=== PATIENT | male | born 1960 | race Caucasian/White ===

== ENCOUNTER 2018-06-03 16:20 | Emergency (ER) | payer BC ==
[2018-06-03 16:34] VITALS: BP 167/93
[2018-06-03] MEDS ORDERED: Sodium Chloride 0.9% 10 ML Syringe FLUSH PRN (16:36)
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
== END 2018-06-03 17:52 | disposition home or self-care (01) ==
LOC: JD.ED 16:20
DX: E11.649 Type 2 diabetes mellitus with hypoglycemia without coma (principal); I10 Essential (primary) hypertension; F17.210 Nicotine dependence, cigarettes, uncomplicated; Z88.6 Allergy status to analgesic agent; Z79.4 Long term (current) use of insulin; Z79.899 Other long term (current) drug therapy
CPT/HCPCS: 36415; 80053; 82962; 85025; 99284

== ENCOUNTER 2018-11-30 18:45 | Inpatient (IN) | payer BC ==
[2018-11-30] MEDS ORDERED: Bisacodyl 5 MG Tab PO PRN (19:25)
[2018-11-30] MEDS ORDERED: Docusate Sodium 100 MG Cap PO PRN (19:25)
[2018-11-30] MEDS ORDERED: Ondansetron 4 MG/2 ML SDV IV PRN (19:25)
[2018-11-30] MEDS ORDERED: Promethazine 25 MG Tab PO PRN (19:25)
[2018-11-30] MEDS ORDERED: Acetaminophen 325 MG Tab PO PRN (19:25)
[2018-11-30] MEDS ORDERED: Promethazine 6.25 MG in Sodium Chloride 0.9% 50 ML IV PRN (19:25)
[2018-11-30] MEDS ORDERED: Temazepam 15 MG Cap PO PRN (19:25)
[2018-11-30] MEDS ORDERED: Albuterol/Ipratropium 3.0-0.5 MG/3 ML Neb Soln NEB PRN (19:25)
[2018-11-30] MEDS ORDERED: Polyethylene Glycol 3350 Powder 17 GM Packet PO PRN (19:25)
[2018-11-30] MEDS ORDERED: 50% Dextrose in Water 50 ML Syringe IVPUSH PRN (19:37)
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
[2018-11-30] MEDS ORDERED: Piperacillin/Tazobactam 4.5 GM in Sodium Chloride 0.9% 100 ML IV SCH ×2 (19:45→20:45)
[2018-11-30 20:00] LABS: HEMOGLOBIN A1C 9.3 % (4.50-6.20)
[2018-11-30] MEDS: HYDROmorphone 0.5 MG/0.5 ML Syringe IVPUSH PRN (20:15)
[2018-11-30 20:24] LABS: VITAMIN D,25-HYDROXY 19.2 ng/ml (30.0-100.0)
[2018-11-30] MEDS ORDERED: Piperacillin/Tazobactam 4.5 GM in Sodium Chloride 0.9% 100 ML IV ONE ×2 (21:15→22:00)
[2018-11-30] MEDS: Lactated Ringers 1,000 ML IV SCH (21:34)
[2018-11-30] MEDS: Insulin Lispro 100 Units/ML 3 ML Vial SUBCUT PRN (21:34)
[2018-11-30] MEDS: Pantoprazole 40 MG Vial IV SCH (21:34)
--- NOTE | 2018-11-30 21:51 | PCM.CONSN ---
- General Info Date of Service: 11/30/18 - Patient Data Vitals - Most Recent: Last Vital Signs Temp 97.8 F 11/30/18 19:20 Pulse 116 H 11/30/18 19:20 Resp 24 H 11/30/18 19:20 BP 163/92 H 11/30/18 19:20 Pulse Ox 99 11/30/18 19:20 Weight - Most Recent: 83.915 kg Lab Results Last 24 Hours: Laboratory Results - last 24 hr 11/30/18 11/30/18 11/30/18 Range/Units 19:06 19:15 20:25 POC Glucose (70-105) mg/dL Hemoglobin A1c 9.30 H (4.50-6.20) % Lactic Acid 1.0 (0.4-2.0) mmol/L C-Reactive Protein 9.0 H* (<1.0) mg/dL Vitamin D 25-Hydroxy 19.2 L (30.0-100.0) ng/ml 11/30/18 Range/Units 21:07 POC Glucose 261 H (70-105) mg/dL Hemoglobin A1c (4.50-6.20) % Lactic Acid (0.4-2.0) mmol/L C-Reactive Protein (<1.0) mg/dL Vitamin D 25-Hydroxy (30.0-100.0) ng/ml Med Orders - Current: Current Medications Acetaminophen (Tylenol) 650 mg PO Q4H PRN PRN Reason: Pain (Mild 1-3)/fever Hydrocodone Bitart/Acetaminophen ([place] 325-5 Mg) 1 tab PO Q4H PRN PRN Reason: Pain (moderate 4-6) Albuterol/Ipratropium (Duoneb 3.0-0.5 Mg/3 Ml) 3 ml NEB Q4H PRN PRN Reason: Shortness Of Breath/wheezing Aspirin (Halfprin) 81 mg PO DAILY IVA Bisacodyl (Dulcolax) 5 mg PO DAILY PRN PRN Reason: Constipation Cholecalciferol (Vitamin D3) 5,000 unit PO DAILY IVA Clonazepam (Klonopin) 1 mg PO BEDTIME PRN PRN Reason: Insomnia Dextrose/Water (Dextrose 50% In Water) 50 ml IVPUSH ASDIRECTED PRN PRN Reason: Hypoglycemia Docusate Sodium (Colace) 100 mg PO BID PRN PRN Reason: Constipation Enoxaparin Sodium (Lovenox) 30 mg SUBCUT DAILY [facility] Hydromorphone HCl (Dilaudid) 0.25 mg IVPUSH Q2H PRN PRN Reason: Pain (severe 7-10) Last Admin: 11/30/18 20:15 Dose: 0.25 mg Promethazine HCl 6.25 mg/ (Sodium Chloride) 50.25 mls @ 100 mls/hr IV Q6H PRN PRN Reason: Nausea/Vomiting Lactated Ringer's (Ringers, Lactated) 1,000 mls @ 125 mls/hr IV ASDIRECTED [facility] Last Admin: 11/30/18 21:34 Dose: 125 mls/hr Piperacillin Sod/Tazobactam (Sod 4.5 gm/ Sodium Chloride) 100 mls @ 25 mls/hr IV Q8H IVA Piperacillin Sod/Tazobactam (Sod 4.5 gm/ Sodium Chloride) 100 mls @ 200 mls/hr IV ONETIME ONE Stop: 11/30/18 22:29 Vancomycin HCl 1 gm/Vancomycin HCl 250 mg/ Sodium Chloride 500 mls @ 333.333 mls/hr IV Q12H [facility] Insulin Human Lispro (Humalog) 0 unit SUBCUT QIDACANDBED PRN; Protocol PRN Reason: Hyperglycemia Last Admin: 11/30/18 21:34 Dose: 6 units Miscellaneous Information (Remove Patch) 1 ea TRDERM DAILY [facility] Nicotine (Habitrol) 21 mg TRDERM DAILY [facility] Ondansetron HCl (Zofran) 4 mg IV Q6H PRN PRN Reason: Nausea/Vomiting Pantoprazole Sodium (Protonix Iv) 40 mg IV Q12HR [facility] Last Admin: 11/30/18 21:34 Dose: 40 mg Polyethylene Glycol (Miralax) 17 gm PO DAILY PRN PRN Reason: Constipation Promethazine HCl (Phenergan) 50 mg PO Q6H PRN PRN Reason: Nausea/Vomiting Senna/Docusate Sodium (Senna Plus) 1 tab PO BID PRN PRN Reason: Constipation Simvastatin (Zocor) 10 mg PO DAILY [facility] Temazepam (Restoril) 15 mg PO BEDTIME PRN PRN Reason: Sleep Vancomycin HCl (Pharmacy To Dose - Vancomycin) 1 dose .XX ASDIRECTED [facility] Discontinued Medications Enoxaparin Sodium (Lovenox) 30 mg SUBCUT DAILY IVA Piperacillin Sod/Tazobactam (Sod 4.5 gm/ Sodium Chloride) 100 mls @ 200 mls/hr IV Q8H IVA Last Admin: 11/30/18 21:03 Dose: 200 mls/hr Piperacillin Sod/Tazobactam (Sod 4.5 gm/ Sodium Chloride) 100 mls @ 200 mls/hr IV ONETIME ONE Stop: 11/30/18 21:44 Consult PN Assessment/Plan Procedures: Procedures COMPLETE CBC W/AUTO DIFF WBC (06/03/18) COMPREHEN METABOLIC PANEL (06/03/18) CT HEAD/BRAIN W/O DYE (04/24/16) CT NECK SPINE W/O DYE (04/24/16) EMERGENCY DEPT VISIT (06/03/18) GLUCOSE BLOOD TEST (06/03/18) ROUTINE VENIPUNCTURE (06/03/18) THROMBOPLASTIN TIME PARTIAL (04/26/14) URINE BACTERIA CULTURE (04/26/14) Problem List Initiated/Reviewed/Updated: Yes My Orders Last 24 Hours: My Active Orders 11/30/18 21:49 Verify Patient Consent Obtain [RC] ASDIRECTED 12/01/18 Breakfast Nothing per Oral After Midnight Diet [DIET] Plan: consult dictated SKIP
[2018-11-30] MEDS ORDERED: Vancomycin 1 GM, Vancomycin 250 MG in Sodium Chloride 0.9% 500 ML IV SCH (23:00)
[2018-12-01] MEDS: ClonazePAM 1 MG Tab PO PRN ×2 (00:54→20:50)
[2018-12-01] MEDS: Piperacillin/Tazobactam 4.5 GM in Sodium Chloride 0.9% 100 ML IV SCH ×3 (05:09→20:44)
[2018-12-01] MEDS: Acetaminophen/HYDROcodone 325-5 MG Tab PO PRN ×3 (05:16→18:06)
[2018-12-01] MEDS ORDERED: Piperacillin/Tazobactam 4.5 GM in Sodium Chloride 0.9% 100 ML IV SCH (07:00)
[2018-12-01] MEDS: Lactated Ringers 1,000 ML IV SCH ×2 (07:51→20:44)
--- NOTE | 2018-12-01 08:27 | CONS ---
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 The swelling is mostly in the finger. He came in and was admitted to the hospital with cellulitis of the index finger with abscess. The patient has had progressive ulcerations of his index finger, which was treated with ointment and protection, and the nail slowly gave way, and was able to just have the tip of the finger, and this progressed into the present problem of an abscess. He has type 2 diabetes which has been treated with insulin. His hemoglobin A1c's have been ranging in the 9. He is also on oral hypoglycemic agents. ALLERGIES: To ibuprofen. SOCIAL HISTORY: He does smoke. No use of street drugs or marijuana. Uses caffeine regularly. REVIEW OF SYSTEMS: No chest pain, shortness of breath, cough, hoarseness, wheezing, fainting, weakness, numbness, or convulsions. CURRENT MEDICATIONS: Reviewed. PHYSICAL EXAMINATION: GENERAL: A cooperative male. EYES: Unremarkable. NECK: Supple. I do not hear any carotid bruits. LUNGS: Distant breath sounds, consistent with COPD. HEART: Heart tones are distant. Regular rate. ABDOMEN: Soft. EXTREMITIES: Show the left index finger with loss of nail and eschar over the tip of the nail with pus coming through. The finger is tender and motion is limited. No pain with motion. There is also some thickening of the tips of the middle finger. Arch is intact by Doppler. The ulnar and radial pulses are present by Doppler and biphasic. Left hand shows dry scale over the finger tips on the left. The feet are unremarkable. ASSESSMENT: Diabetes type 2, with infected finger. PLAN: Debridement of the finger tip in the operating room under IV sedation. Further studies are being planned to look for osteomyelitis. MMODAL /[id number]
[2018-12-01] MEDS ORDERED: Lidocaine 1% 30 ML SDV ONE (08:46)
[2018-12-01] MEDS ORDERED: Enoxaparin 30 MG/0.3 ML Syringe SUBCUT SCH (09:00)
[2018-12-01] MEDS ORDERED: Nicotine 21 MG/24 Hr Patch TRDERM SCH (09:00)
[2018-12-01] MEDS ORDERED: Enoxaparin 40 MG/0.4 ML Syringe SUBCUT SCH (09:00)
--- NOTE | 2018-12-01 09:27 | PCM.PREANE ---
Preanesthetic Assessment - Anesthesia/Transfusion/Family Hx Anesthesia History: Prior Anesthesia Without Reaction Family History of Anesthesia Reaction: No Transfusion History: No Prior Transfusion(s) - Review of Systems General: Fatigue, Malaise Pulmonary: Cough (smokers) Cardiovascular: No Symptoms Gastrointestinal: No Symptoms Neurological: Numbness ("fingers and legs") Other: Reports: Easy Bleeding, Diabetes (check this am 70) - Physical Assessment NPO Status Date: 12/01/18 NPO Status Time: 00:00 Vital Signs: Last Vital Signs Temp 36.8 C 12/01/18 08:17 Pulse 92 12/01/18 08:17 Resp 16 12/01/18 08:17 BP 108/69 12/01/18 08:17 Pulse Ox 94 L 12/01/18 08:17 Height: 1.75 m Weight: 70.08 kg ASA Class: 2 Mental Status: Alert & Oriented x3 Airway Class: Mallampati = 1 Dentition: Reports: Dentures Thyro-Mental Finger Breadths: 3 Mouth Opening Finger Breadths: 3 ROM/Head Extension: Full Lungs: Clear to Auscultation, Normal Respiratory Effort Cardiovascular: Regular Rate, Regular Rhythm - Lab Values: Laboratory Last Values WBC 19.24 K/mm3 (4.23-9.07) H 12/01/18 03:37 RBC 3.81 M/mm3 (4.63-6.08) L 12/01/18 03:37 Hgb 12.4 gm/dl (13.7-17.5) L D 12/01/18 03:37 Hct 36.5 % (40.1-51.0) L 12/01/18 03:37 MCV 95.8 fl (79.0-92.2) H 12/01/18 03:37 MCH 32.5 pg (25.7-32.2) H 12/01/18 03:37 MCHC 34.0 g/dl (32.2-35.5) 12/01/18 03:37 RDW Std Deviation 41.9 fL (35.1-43.9) 12/01/18 03:37 Plt Count 304 K/mm3 (163-337) 12/01/18 03:37 MPV 9.5 fl (9.4-12.3) 12/01/18 03:37 Neut % (Auto) 84.9 % (34.0-67.9) H 12/01/18 03:37 Lymph % (Auto) 6.2 % (21.8-53.1) L 12/01/18 03:37 [place] % (Auto) 7.8 % (5.3-12.2) 12/01/18 03:37 Eos % (Auto) 0.7 (0.8-7.0) L 12/01/18 03:37 Baso % (Auto) 0.2 % (0.1-1.2) 12/01/18 03:37 Neut # (Auto) 16.33 K/mm3 (1.78-5.38) H 12/01/18 03:37 Lymph # (Auto) 1.19 K/mm3 (1.32-3.57) L 12/01/18 03:37 [place] # (Auto) 1.51 K/mm3 (0.30-0.82) H 12/01/18 03:37 Eos # (Auto) 0.14 K/mm3 (0.04-0.54) 12/01/18 03:37 Baso # (Auto) 0.03 K/mm3 (0.01-0.08) 12/01/18 03:37 Manual Slide Review Abnormal smear 12/01/18 03:37 Sodium 132 mEq/L (136-145) L 12/01/18 03:37 Potassium 3.7 mEq/L (3.5-5.1) 12/01/18 03:37 Chloride 99 mEq/L (98-107) 12/01/18 03:37 Carbon Dioxide 25 mEq/L (21-32) 12/01/18 03:37 Anion Gap 11.7 (5-15) 12/01/18 03:37 BUN 22 mg/dL (7-18) H 12/01/18 03:37 Creatinine 1.5 mg/dL (0.7-1.3) H 12/01/18 03:37 Est Cr Clr Drug Dosing 52.37 mL/min 12/01/18 03:37 Estimated GFR (MDRD) 48 mL/min (>60) 12/01/18 03:37 BUN/Creatinine Ratio 14.7 (14-18) 12/01/18 03:37 Glucose 69 mg/dL (74-106) L 12/01/18 03:37 POC Glucose 130 mg/dL (70-105) H 12/01/18 07:24 Hemoglobin A1c 9.30 % (4.50-6.20) H 11/30/18 19:15 Lactic Acid 0.8 mmol/L (0.4-2.0) 12/01/18 03:37 Calcium 9.0 mg/dL (8.5-10.1) 12/01/18 03:37 Magnesium 2.3 mg/dl (1.8-2.4) 12/01/18 03:37 Total Bilirubin 0.7 mg/dL (0.2-1.0) 11/30/18 22:12 AST 54 U/L (15-37) H 11/30/18 22:12 ALT 42 U/L (16-63) 11/30/18 22:12 Alkaline Phosphatase 160 U/L (46-116) H 11/30/18 22:12 C-Reactive Protein 11.8 mg/dL (<1.0) H* 12/01/18 03:37 Total Protein 7.3 g/dl (6.4-8.2) 11/30/18 22:12 Albumin 2.9 g/dl (3.4-5.0) L 11/30/18 22:12 Globulin 4.4 gm/dL 11/30/18 22:12 Albumin/Globulin Ratio 0.7 (1-2) L 11/30/18 22:12 Triglycerides 99 mg/dL (<150) 12/01/18 03:37 Cholesterol 129 mg/dL (<200) 12/01/18 03:37 LDL Cholesterol Direct 57 mg/dL (<100) 12/01/18 03:37 HDL Cholesterol 54.0 mg/dL (40-59) 12/01/18 03:37 Vitamin D 25-Hydroxy 19.2 ng/ml (30.0-100.0) L 11/30/18 19:06 Ur Random Creatinine 46.1 mg/dL (30.0-125.0) 11/30/18 23:25 U Random Total Protein 44.7 mg/dL (0.0-11.8) H 11/30/18 23:25 Protein/Creatinin Ratio 969.6 mg/g (0-149) H 11/30/18 23:25 - Allergies Allergies/Adverse Reactions: Allergies Allergy/AdvReac Type Severity Reaction Status Date / Time ibuprofen Allergy Nausea Verified 06/03/18 16:34 - Anesthesia Plan Pre-Op Medication Ordered: None - Acknowledgements Anesthesia Type Planned: MAC Pt an Appropriate Candidate for the Planned Anesthesia: Yes Alternatives and Risks of Anesthesia Discussed w Pt/Guardian: Yes Pt/Guardian Understands and Agrees with Anesthesia Plan: Yes PreAnesthesia Questionnaire Cardiovascular History: Reports: Hypertension Musculoskeletal History: Reports: Fracture, Other (See Below) Other Musculoskeletal History: rib fracture Endocrine/Metabolic History: Reports: Diabetes, Type II - Infectious Disease History Infectious Disease History: Reports: None - Past Surgical History Neurological Surgical History: Reports: Lumbar Spine - SUBSTANCE USE Smoking Status *Q: Current Every Day Smoker Tobacco Use Within Last Twelve Months: Cigarettes Second Hand Smoke Exposure: No Days Per Week of Alcohol Use: 5 Number of Drinks Per Day: 1 Total Drinks Per Week: 5 Recreational Drug Use History: No - HOME MEDS Home Medications: Home Meds atorvaSTATin [Lipitor] 1 tab PO DAILY 04/24/16 [History] Aspirin [Halfprin] 81 mg PO DAILY 11/30/18 [History] Gabapentin [Neurontin] 600 mg PO ACLUNCH 11/30/18 [History] Gabapentin [Neurontin] 900 mg PO BID 11/30/18 [History] Insulin Glargine,Hum.Rec.Anlog [Lantus Solostar] 40 unit SQ ASDIRECTED 11/30/18 [History] Naproxen Sodium [Aleve] 440 mg PO QAM 11/30/18 [History] clonazePAM [Klonopin] 1 mg PO BEDTIME PRN 11/30/18 [History] metFORMIN [Glucophage XR] 500 mg PO DAILY 11/30/18 [History] - CURRENT (IN HOUSE) MEDS Current Meds: Current Medications Acetaminophen (Tylenol) 650 mg PO Q4H PRN PRN Reason: Pain (Mild 1-3)/fever Hydrocodone Bitart/Acetaminophen ([place] 325-5 Mg) 1 tab PO Q4H PRN PRN Reason: Pain (moderate 4-6) Last Admin: 12/01/18 05:16 Dose: 1 tab Albuterol/Ipratropium (Duoneb 3.0-0.5 Mg/3 Ml) 3 ml NEB Q4H PRN PRN Reason: Shortness Of Breath/wheezing Aspirin (Halfprin) 81 mg PO DAILY [facility] Bisacodyl (Dulcolax) 5 mg PO DAILY PRN PRN Reason: Constipation Cholecalciferol (Vitamin D3) 5,000 unit PO DAILY [facility] Clonazepam (Klonopin) 1 mg PO BEDTIME PRN PRN Reason: Insomnia Last Admin: 12/01/18 00:54 Dose: 1 mg Dextrose/Water (Dextrose 50% In Water) 50 ml IVPUSH ASDIRECTED PRN PRN Reason: Hypoglycemia Last Admin: 12/01/18 06:55 Dose: 25 ml Docusate Sodium (Colace) 100 mg PO BID PRN PRN Reason: Constipation Enoxaparin Sodium (Lovenox) 40 mg SUBCUT DAILY [facility] Hydromorphone HCl (Dilaudid) 0.25 mg IVPUSH Q2H PRN PRN Reason: Pain (severe 7-10) Last Admin: 11/30/18 20:15 Dose: 0.25 mg Promethazine HCl 6.25 mg/ (Sodium Chloride) 50.25 mls @ 100 mls/hr IV Q6H PRN PRN Reason: Nausea/Vomiting Lactated Ringer's (Ringers, Lactated) 1,000 mls @ 125 mls/hr IV ASDIRECTED [facility] Last Admin: 12/01/18 07:51 Dose: 125 mls/hr Piperacillin Sod/Tazobactam (Sod 4.5 gm/ Sodium Chloride) 100 mls @ 25 mls/hr IV Q8H [facility] Last Admin: 12/01/18 05:09 Dose: 25 mls/hr Vancomycin HCl 1 gm/Vancomycin HCl 250 mg/ Sodium Chloride 250 mls @ 166.667 mls/hr IV Q18H [facility] Insulin Human Lispro (Humalog) 0 unit SUBCUT QIDACANDBED PRN; Protocol PRN Reason: Hyperglycemia Last Admin: 11/30/18 21:34 Dose: 6 units Ondansetron HCl (Zofran) 4 mg IV Q6H PRN PRN Reason: Nausea/Vomiting Pantoprazole Sodium (Protonix) 40 mg PO BID [facility] Polyethylene Glycol (Miralax) 17 gm PO DAILY PRN PRN Reason: Constipation Promethazine HCl (Phenergan) 50 mg PO Q6H PRN PRN Reason: Nausea/Vomiting Senna/Docusate Sodium (Senna Plus) 1 tab PO BID PRN PRN Reason: Constipation Simvastatin (Zocor) 10 mg PO DAILY IVA Temazepam (Restoril) 15 mg PO BEDTIME PRN PRN Reason: Sleep Vancomycin HCl (Pharmacy To Dose - Vancomycin) 1 dose .XX ASDIRECTED PRN PRN Reason: RX TO DOSE VANCO Discontinued Medications Enoxaparin Sodium (Lovenox) 30 mg SUBCUT DAILY [facility] Piperacillin Sod/Tazobactam (Sod 4.5 gm/ Sodium Chloride) 100 mls @ 200 mls/hr IV Q8H [facility] Last Admin: 11/30/18 21:03 Dose: 200 mls/hr Piperacillin Sod/Tazobactam (Sod 4.5 gm/ Sodium Chloride) 100 mls @ 200 mls/hr IV ONETIME ONE Stop: 11/30/18 21:44 Vancomycin HCl 1 gm/Vancomycin HCl 250 mg/ Sodium Chloride 500 mls @ 333.333 mls/hr IV Q12H [facility] Last Admin: 11/30/18 23:11 Dose: 333.333 mls/hr Lidocaine HCl (Xylocaine-Mpf 1%) Confirm Administered Dose 30 ml .ROUTE .STK- MED ONE Stop: 12/01/18 08:47 Miscellaneous Information (Remove Patch) 1 ea TRDERM DAILY [facility] Nicotine (Habitrol) 21 mg TRDERM DAILY [facility] Pantoprazole Sodium (Protonix Iv) 40 mg IV Q12HR [facility] Last Admin: 11/30/18 21:34 Dose: 40 mg
[2018-12-01] MEDS ORDERED: Lidocaine 1% 4 ML ONE (09:34)
[2018-12-01] MEDS ORDERED: Midazolam 1 MG/ML 2 ML SDV ONE (09:34)
[2018-12-01] MEDS ORDERED: Propofol 200 MG/20 ML SDV ONE (09:34)
[2018-12-01] MEDS ORDERED: fentaNYL 100 MCG/2 ML SDV ONE (09:34)
--- NOTE | 2018-12-01 09:38 | CT ---
CT left hand Technique: Multiple axial sections through the left hand were obtained. Reconstructed coronal and sagittal images were obtained. Intravenous contrast was utilized. There is significant motion artifact present which limits evaluation for subtle bone lesions. Findings: Diffuse soft tissue swelling is noted presumably due to diffuse cellulitis. Asymmetric soft tissue swelling is seen within the 2nd digit. No focal fluid collections are seen to indicate an abscess. Chondrocalcinosis is seen within the wrist. Joint space narrowing is noted within the 2nd and 3rd MCP joints. Second digit shows soft tissue air. There is deformity within the distal phalanx of the 2nd finger. Findings are suspicious for destructive change from osteomyelitis. Impression: 1. Diffuse cellulitis which is asymmetrically worse within the 2nd finger. 2. Mild amount of soft tissue air within the base of the 2nd digit compatible with infection. 3. Mild destruction of the distal phalanx of the 2nd finger which is suspicious for osteomyelitis. 4. Degenerative change as noted above as well as chondrocalcinosis. Note: Motion artifact limiting details for subtle bone lesions. Diagnostic code #3 I agree with preliminary report from [facility], finalized on 12/01/18, 12:49 AM Central Time
--- NOTE | 2018-12-01 10:06 | PCM.OPNOTE ---
- General Post-Op/Procedure Note Date of Surgery/Procedure: 12/01/18 Operative Procedure(s): abscess of the left index finger tip Pre Op Diagnosis: abscess of left index finger tip Post-Op Diagnosis: Same Anesthesia Technique: MAC Primary Surgeon: Jesse Martinez EBL in mLs: 5 Complications: None Condition: Good Free Text/Narrative:: Intake & Output 11/30/18 12/01/18 12/01/18 23:59 07:59 15:59 Intake Total 1625 Output Total 600 Balance 1025
--- NOTE | 2018-12-01 10:27 | PCM48HPAN ---
Post Anesthesia Note - EVALUATION WITHIN 48HRS OF ANESTHETIC Vital Signs in Normal Range: Yes Patient Participated in Evaluation: Yes Respiratory Function Stable: Yes Airway Patent: Yes Cardiovascular Function Stable: Yes Hydration Status Stable: Yes Pain Control Satisfactory: Yes Nausea and Vomiting Control Satisfactory: Yes Mental Status Recovered: Yes Vital Signs: Last Vital Signs Temp 36.8 C 12/01/18 08:17 Pulse 92 12/01/18 08:17 Resp 16 12/01/18 08:17 BP 108/69 12/01/18 08:17 Pulse Ox 94 L 12/01/18 08:17 - COMMENTS/OBSERVATIONS Free Text/Narrative:: no anesthesia complications noted
[2018-12-01] MEDS: Aspirin 81 MG Tab.EC PO SCH (13:49)
[2018-12-01] MEDS: Simvastatin 10 MG Tab PO SCH (13:50)
[2018-12-01] MEDS: Pantoprazole 40 MG Tab.CR PO SCH ×2 (13:56→20:50)
[2018-12-01] MEDS: Cholecalciferol (Vitamin D3) 5,000 UNIT Tab PO SCH (13:56)
--- NOTE | 2018-12-01 14:15 | PCM.PN ---
<Richi Salgado - Last Filed: 12/01/18 14:08> - General Info Date of Service: 12/01/18 Admission Dx/Problem (Free Text): Admission Diagnosis/Problem Admission Diagnosis/Problem Cellulitis and abscess of finger Subjective Update: Patient is doing well today. He was afebrile over night and is scheduled for debridement with Dr. Martinez today. 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 Functional Status: Reports: Pain Controlled, Tolerating Diet, Ambulating, Urinating. Denies: New Symptoms - Review of Systems General: Reports: No Symptoms HEENT: Reports: No Symptoms Pulmonary: Reports: No Symptoms Cardiovascular: Reports: No Symptoms Gastrointestinal: Reports: No Symptoms Genitourinary: Reports: No Symptoms Musculoskeletal: Reports: No Symptoms Skin: Reports: No Symptoms Neurological: Reports: No Symptoms Psychiatric: Reports: No Symptoms - Patient Data Vitals - Most Recent: Last Vital Signs Temp 98.2 F 12/01/18 08:17 Pulse 92 12/01/18 08:17 Resp 16 12/01/18 08:17 BP 108/69 12/01/18 08:17 Pulse Ox 94 L 12/01/18 08:17 Weight - Most Recent: 70.08 kg I&O - Last 24 Hours: Intake & Output 11/30/18 12/01/18 12/01/18 22:59 06:59 14:59 Intake Total 1625 Output Total 600 Balance 1025 Lab Results Last 24 Hours: Laboratory Results - last 24 hr 11/30/18 11/30/18 11/30/18 Range/Units 19:06 19:15 20:25 WBC (4.23-9.07) K/mm3 RBC (4.63-6.08) M/mm3 Hgb (13.7-17.5) gm/dl Hct (40.1-51.0) % MCV (79.0-92.2) fl MCH (25.7-32.2) pg MCHC (32.2-35.5) g/dl RDW Std Deviation (35.1-43.9) fL Plt Count (163-337) K/mm3 MPV (9.4-12.3) fl Neut % (Auto) (34.0-67.9) % Lymph % (Auto) (21.8-53.1) % [place] % (Auto) (5.3-12.2) % Eos % (Auto) (0.8-7.0) Baso % (Auto) (0.1-1.2) % Neut # (Auto) (1.78-5.38) K/mm3 Lymph # (Auto) (1.32-3.57) K/mm3 [place] # (Auto) (0.30-0.82) K/mm3 Eos # (Auto) (0.04-0.54) K/mm3 Baso # (Auto) (0.01-0.08) K/mm3 Manual Slide Review Sodium (136-145) mEq/L Potassium (3.5-5.1) mEq/L Chloride (98-107) mEq/L Carbon Dioxide (21-32) mEq/L Anion Gap (5-15) BUN (7-18) mg/dL Creatinine (0.7-1.3) mg/dL Est Cr Clr Drug Dosing mL/min Estimated GFR (MDRD) (>60) mL/min BUN/Creatinine Ratio (14-18) Glucose (74-106) mg/dL POC Glucose (70-105) mg/dL Hemoglobin A1c 9.30 H (4.50-6.20) % Lactic Acid 1.0 (0.4-2.0) mmol/L Calcium (8.5-10.1) mg/dL Magnesium (1.8-2.4) mg/dl Total Bilirubin (0.2-1.0) mg/dL AST (15-37) U/L ALT (16-63) U/L Alkaline Phosphatase (46-116) U/L C-Reactive Protein 9.0 H* (<1.0) mg/dL Total Protein (6.4-8.2) g/dl Albumin (3.4-5.0) g/dl Globulin gm/dL Albumin/Globulin Ratio (1-2) Triglycerides (<150) mg/dL Cholesterol (<200) mg/dL LDL Cholesterol Direct (<100) mg/dL HDL Cholesterol (40-59) mg/dL Vitamin D 25-Hydroxy 19.2 L (30.0-100.0) ng/ml Ur Random Creatinine (30.0-125.0) mg/dL U Random Total Protein (0.0-11.8) mg/dL Protein/Creatinin Ratio (0-149) mg/g 11/30/18 11/30/18 11/30/18 Range/Units 21:07 22:12 23:25 WBC (4.23-9.07) K/mm3 RBC (4.63-6.08) M/mm3 Hgb (13.7-17.5) gm/dl Hct (40.1-51.0) % MCV (79.0-92.2) fl MCH (25.7-32.2) pg MCHC (32.2-35.5) g/dl RDW Std Deviation (35.1-43.9) fL Plt Count (163-337) K/mm3 MPV (9.4-12.3) fl Neut % (Auto) (34.0-67.9) % Lymph % (Auto) (21.8-53.1) % [place] % (Auto) (5.3-12.2) % Eos % (Auto) (0.8-7.0) Baso % (Auto) (0.1-1.2) % Neut # (Auto) (1.78-5.38) K/mm3 Lymph # (Auto) (1.32-3.57) K/mm3 [place] # (Auto) (0.30-0.82) K/mm3 Eos # (Auto) (0.04-0.54) K/mm3 Baso # (Auto) (0.01-0.08) K/mm3 Manual Slide Review Sodium 128 L D (136-145) mEq/L Potassium 4.1 (3.5-5.1) mEq/L Chloride 95 L (98-107) mEq/L Carbon Dioxide 24 (21-32) mEq/L Anion Gap 13.1 (5-15) BUN 24 H (7-18) mg/dL Creatinine 1.6 H (0.7-1.3) mg/dL Est Cr Clr Drug Dosing 49.10 mL/min Estimated GFR (MDRD) 44 (>60) mL/min BUN/Creatinine Ratio 15.0 (14-18) Glucose 243 H (74-106) mg/dL POC Glucose 261 H (70-105) mg/dL Hemoglobin A1c (4.50-6.20) % Lactic Acid (0.4-2.0) mmol/L Calcium 8.7 (8.5-10.1) mg/dL Magnesium (1.8-2.4) mg/dl Total Bilirubin 0.7 (0.2-1.0) mg/dL AST 54 H (15-37) U/L ALT 42 (16-63) U/L Alkaline Phosphatase 160 H (46-116) U/L C-Reactive Protein (<1.0) mg/dL Total Protein 7.3 (6.4-8.2) g/dl Albumin 2.9 L (3.4-5.0) g/dl Globulin 4.4 gm/dL Albumin/Globulin Ratio 0.7 L (1-2) Triglycerides (<150) mg/dL Cholesterol (<200) mg/dL LDL Cholesterol Direct (<100) mg/dL HDL Cholesterol (40-59) mg/dL Vitamin D 25-Hydroxy (30.0-100.0) ng/ml Ur Random Creatinine 46.1 (30.0-125.0) mg/dL U Random Total Protein 44.7 H (0.0-11.8) mg/dL Protein/Creatinin Ratio 969.6 H (0-149) mg/g 11/30/18 12/01/18 12/01/18 Range/Units 23:34 03:37 03:37 WBC 19.24 H (4.23-9.07) K/mm3 RBC 3.81 L (4.63-6.08) M/mm3 Hgb 12.4 L D (13.7-17.5) gm/dl Hct 36.5 L (40.1-51.0) % MCV 95.8 H (79.0-92.2) fl MCH 32.5 H (25.7-32.2) pg MCHC 34.0 (32.2-35.5) g/dl RDW Std Deviation 41.9 (35.1-43.9) fL Plt Count 304 (163-337) K/mm3 MPV 9.5 (9.4-12.3) fl Neut % (Auto) 84.9 H (34.0-67.9) % Lymph % (Auto) 6.2 L (21.8-53.1) % [place] % (Auto) 7.8 (5.3-12.2) % Eos % (Auto) 0.7 L (0.8-7.0) Baso % (Auto) 0.2 (0.1-1.2) % Neut # (Auto) 16.33 H (1.78-5.38) K/mm3 Lymph # (Auto) 1.19 L (1.32-3.57) K/mm3 [place] # (Auto) 1.51 H (0.30-0.82) K/mm3 Eos # (Auto) 0.14 (0.04-0.54) K/mm3 Baso # (Auto) 0.03 (0.01-0.08) K/mm3 Manual Slide Review Abnormal smear Sodium 132 L (136-145) mEq/L Potassium 3.7 (3.5-5.1) mEq/L Chloride 99 (98-107) mEq/L Carbon Dioxide 25 (21-32) mEq/L Anion Gap 11.7 (5-15) BUN 22 H (7-18) mg/dL Creatinine 1.5 H (0.7-1.3) mg/dL Est Cr Clr Drug Dosing 52.37 mL/min Estimated GFR (MDRD) 48 (>60) mL/min BUN/Creatinine Ratio 14.7 (14-18) Glucose 69 L (74-106) mg/dL POC Glucose (70-105) mg/dL Hemoglobin A1c (4.50-6.20) % Lactic Acid 1.3 (0.4-2.0) mmol/L Calcium 9.0 (8.5-10.1) mg/dL Magnesium 2.3 (1.8-2.4) mg/dl Total Bilirubin (0.2-1.0) mg/dL AST (15-37) U/L ALT (16-63) U/L Alkaline Phosphatase (46-116) U/L C-Reactive Protein 11.8 H* (<1.0) mg/dL Total Protein (6.4-8.2) g/dl Albumin (3.4-5.0) g/dl Globulin gm/dL Albumin/Globulin Ratio (1-2) Triglycerides 99 (<150) mg/dL Cholesterol 129 (<200) mg/dL LDL Cholesterol Direct 57 (<100) mg/dL HDL Cholesterol 54.0 (40-59) mg/dL Vitamin D 25-Hydroxy (30.0-100.0) ng/ml Ur Random Creatinine (30.0-125.0) mg/dL U Random Total Protein (0.0-11.8) mg/dL Protein/Creatinin Ratio (0-149) mg/g 12/01/18 12/01/18 12/01/18 Range/Units 03:37 06:42 07:24 WBC (4.23-9.07) K/mm3 RBC (4.63-6.08) M/mm3 Hgb (13.7-17.5) gm/dl Hct (40.1-51.0) % MCV (79.0-92.2) fl MCH (25.7-32.2) pg MCHC (32.2-35.5) g/dl RDW Std Deviation (35.1-43.9) fL Plt Count (163-337) K/mm3 MPV (9.4-12.3) fl Neut % (Auto) (34.0-67.9) % Lymph % (Auto) (21.8-53.1) % [place] % (Auto) (5.3-12.2) % Eos % (Auto) (0.8-7.0) Baso % (Auto) (0.1-1.2) % Neut # (Auto) (1.78-5.38) K/mm3 Lymph # (Auto) (1.32-3.57) K/mm3 [place] # (Auto) (0.30-0.82) K/mm3 Eos # (Auto) (0.04-0.54) K/mm3 Baso # (Auto) (0.01-0.08) K/mm3 Manual Slide Review Sodium (136-145) mEq/L Potassium (3.5-5.1) mEq/L Chloride (98-107) mEq/L Carbon Dioxide (21-32) mEq/L Anion Gap (5-15) BUN (7-18) mg/dL Creatinine (0.7-1.3) mg/dL Est Cr Clr Drug Dosing mL/min Estimated GFR (MDRD) (>60) mL/min BUN/Creatinine Ratio (14-18) Glucose (74-106) mg/dL POC Glucose 79 130 H (70-105) mg/dL Hemoglobin A1c (4.50-6.20) % Lactic Acid 0.8 (0.4-2.0) mmol/L Calcium (8.5-10.1) mg/dL Magnesium (1.8-2.4) mg/dl Total Bilirubin (0.2-1.0) mg/dL AST (15-37) U/L ALT (16-63) U/L Alkaline Phosphatase (46-116) U/L C-Reactive Protein (<1.0) mg/dL Total Protein (6.4-8.2) g/dl Albumin (3.4-5.0) g/dl Globulin gm/dL Albumin/Globulin Ratio (1-2) Triglycerides (<150) mg/dL Cholesterol (<200) mg/dL LDL Cholesterol Direct (<100) mg/dL HDL Cholesterol (40-59) mg/dL Vitamin D 25-Hydroxy (30.0-100.0) ng/ml Ur Random Creatinine (30.0-125.0) mg/dL U Random Total Protein (0.0-11.8) mg/dL Protein/Creatinin Ratio (0-149) mg/g 12/01/18 Range/Units 11:30 WBC (4.23-9.07) K/mm3 RBC (4.63-6.08) M/mm3 Hgb (13.7-17.5) gm/dl Hct (40.1-51.0) % MCV (79.0-92.2) fl MCH (25.7-32.2) pg MCHC (32.2-35.5) g/dl RDW Std Deviation (35.1-43.9) fL Plt Count (163-337) K/mm3 MPV (9.4-12.3) fl Neut % (Auto) (34.0-67.9) % Lymph % (Auto) (21.8-53.1) % [place] % (Auto) (5.3-12.2) % Eos % (Auto) (0.8-7.0) Baso % (Auto) (0.1-1.2) % Neut # (Auto) (1.78-5.38) K/mm3 Lymph # (Auto) (1.32-3.57) K/mm3 [place] # (Auto) (0.30-0.82) K/mm3 Eos # (Auto) (0.04-0.54) K/mm3 Baso # (Auto) (0.01-0.08) K/mm3 Manual Slide Review Sodium (136-145) mEq/L Potassium (3.5-5.1) mEq/L Chloride (98-107) mEq/L Carbon Dioxide (21-32) mEq/L Anion Gap (5-15) BUN (7-18) mg/dL Creatinine (0.7-1.3) mg/dL Est Cr Clr Drug Dosing mL/min Estimated GFR (MDRD) (>60) mL/min BUN/Creatinine Ratio (14-18) Glucose (74-106) mg/dL POC Glucose 71 (70-105) mg/dL Hemoglobin A1c (4.50-6.20) % Lactic Acid (0.4-2.0) mmol/L Calcium (8.5-10.1) mg/dL Magnesium (1.8-2.4) mg/dl Total Bilirubin (0.2-1.0) mg/dL AST (15-37) U/L ALT (16-63) U/L Alkaline Phosphatase (46-116) U/L C-Reactive Protein (<1.0) mg/dL Total Protein (6.4-8.2) g/dl Albumin (3.4-5.0) g/dl Globulin gm/dL Albumin/Globulin Ratio (1-2) Triglycerides (<150) mg/dL Cholesterol (<200) mg/dL LDL Cholesterol Direct (<100) mg/dL HDL Cholesterol (40-59) mg/dL Vitamin D 25-Hydroxy (30.0-100.0) ng/ml Ur Random Creatinine (30.0-125.0) mg/dL U Random Total Protein (0.0-11.8) mg/dL Protein/Creatinin Ratio (0-149) mg/g Med Orders - Current: Current Medications Acetaminophen (Tylenol) 650 mg PO Q4H PRN PRN Reason: Pain (Mild 1-3)/fever Hydrocodone Bitart/Acetaminophen ([place] 325-5 Mg) 1 tab PO Q4H PRN PRN Reason: Pain (moderate 4-6) Last Admin: 12/01/18 13:50 Dose: 1 tab Albuterol/Ipratropium (Duoneb 3.0-0.5 Mg/3 Ml) 3 ml NEB Q4H PRN PRN Reason: Shortness Of Breath/wheezing Aspirin (Halfprin) 81 mg PO DAILY COUNTS INCLUDE 234 BEDS AT THE [facility] Last Admin: 12/01/18 13:49 Dose: 81 mg Bisacodyl (Dulcolax) 5 mg PO DAILY PRN PRN Reason: Constipation Cholecalciferol (Vitamin D3) 5,000 unit PO DAILY COUNTS INCLUDE 234 BEDS AT THE [facility] Last Admin: 12/01/18 13:56 Dose: Not Given Clonazepam (Klonopin) 1 mg PO BEDTIME PRN PRN Reason: Insomnia Last Admin: 12/01/18 00:54 Dose: 1 mg Dextrose/Water (Dextrose 50% In Water) 50 ml IVPUSH ASDIRECTED PRN PRN Reason: Hypoglycemia Last Admin: 12/01/18 06:55 Dose: 25 ml Docusate Sodium (Colace) 100 mg PO BID PRN PRN Reason: Constipation Last Admin: 12/01/18 13:50 Dose: 100 mg Enoxaparin Sodium (Lovenox) 40 mg SUBCUT Q24H COUNTS INCLUDE 234 BEDS AT THE [facility] Hydromorphone HCl (Dilaudid) 0.25 mg IVPUSH Q2H PRN PRN Reason: Pain (severe 7-10) Last Admin: 11/30/18 20:15 Dose: 0.25 mg Promethazine HCl 6.25 mg/ (Sodium Chloride) 50.25 mls @ 100 mls/hr IV Q6H PRN PRN Reason: Nausea/Vomiting Lactated Ringer's (Ringers, Lactated) 1,000 mls @ 125 mls/hr IV ASDIRECTED COUNTS INCLUDE 234 BEDS AT THE [facility] Last Admin: 12/01/18 07:51 Dose: 125 mls/hr Piperacillin Sod/Tazobactam (Sod 4.5 gm/ Sodium Chloride) 100 mls @ 25 mls/hr IV Q8H COUNTS INCLUDE 234 BEDS AT THE [facility] Last Admin: 12/01/18 13:34 Dose: 25 mls/hr Vancomycin HCl 1 gm/Vancomycin HCl 250 mg/ Sodium Chloride 250 mls @ 166.667 mls/hr IV Q18H COUNTS INCLUDE 234 BEDS AT THE [facility] Insulin Human Lispro (Humalog) 0 unit SUBCUT QIDACANDBED PRN; Protocol PRN Reason: Hyperglycemia Last Admin: 11/30/18 21:34 Dose: 6 units Ondansetron HCl (Zofran) 4 mg IV Q6H PRN PRN Reason: Nausea/Vomiting Pantoprazole Sodium (Protonix) 40 mg PO BID COUNTS INCLUDE 234 BEDS AT THE [facility] Last Admin: 12/01/18 13:56 Dose: Not Given Polyethylene Glycol (Miralax) 17 gm PO DAILY PRN PRN Reason: Constipation Promethazine HCl (Phenergan) 50 mg PO Q6H PRN PRN Reason: Nausea/Vomiting Senna/Docusate Sodium (Senna Plus) 1 tab PO BID PRN PRN Reason: Constipation Simvastatin (Zocor) 10 mg PO DAILY COUNTS INCLUDE 234 BEDS AT THE [facility] Last Admin: 12/01/18 13:50 Dose: 10 mg Temazepam (Restoril) 15 mg PO BEDTIME PRN PRN Reason: Sleep Vancomycin HCl (Pharmacy To Dose - Vancomycin) 1 dose .XX ASDIRECTED PRN PRN Reason: RX TO DOSE VANCO Discontinued Medications Enoxaparin Sodium (Lovenox) 30 mg SUBCUT DAILY COUNTS INCLUDE 234 BEDS AT THE [facility] Enoxaparin Sodium (Lovenox) 40 mg SUBCUT DAILY COUNTS INCLUDE 234 BEDS AT THE [facility] Fentanyl (Sublimaze) Confirm Administered Dose 100 mcg .ROUTE .STK-MED ONE Stop: 12/01/18 09:35 Piperacillin Sod/Tazobactam (Sod 4.5 gm/ Sodium Chloride) 100 mls @ 200 mls/hr IV Q8H COUNTS INCLUDE 234 BEDS AT THE [facility] Last Admin: 11/30/18 21:03 Dose: 200 mls/hr Piperacillin Sod/Tazobactam (Sod 4.5 gm/ Sodium Chloride) 100 mls @ 200 mls/hr IV ONETIME ONE Stop: 11/30/18 21:44 Vancomycin HCl 1 gm/Vancomycin HCl 250 mg/ Sodium Chloride 500 mls @ 333.333 mls/hr IV Q12H COUNTS INCLUDE 234 BEDS AT THE [facility] Last Admin: 11/30/18 23:11 Dose: 333.333 mls/hr Lidocaine HCl (Xylocaine-Mpf 1%) Confirm Administered Dose 4 mls @ as directed .ROUTE .STK-MED ONE Stop: 12/01/18 09:35 Lidocaine HCl (Xylocaine-Mpf 1%) Confirm Administered Dose 30 ml .ROUTE .STK- MED ONE Stop: 12/01/18 08:47 Midazolam HCl (Versed 1 Mg/Ml) Confirm Administered Dose 2 mg .ROUTE .STK-MED ONE Stop: 12/01/18 09:35 Miscellaneous Information (Remove Patch) 1 ea TRDERM DAILY COUNTS INCLUDE 234 BEDS AT THE [facility] Nicotine (Habitrol) 21 mg TRDERM DAILY COUNTS INCLUDE 234 BEDS AT THE [facility] Pantoprazole Sodium (Protonix Iv) 40 mg IV Q12HR IVA Last Admin: 11/30/18 21:34 Dose: 40 mg Propofol (Diprivan 20 Ml) Confirm Administered Dose 200 mg .ROUTE .STK-MED ONE Stop: 12/01/18 09:35 - Exam General: Alert, Oriented HEENT: Pupils Equal, EOMI, Mucous Membr. Moist/[place] Lungs: Clear to Auscultation, Normal Respiratory Effort Cardiovascular: Regular Rate, Regular Rhythm GI/Abdominal Exam: Normal Bowel Sounds, Soft, Non-Tender (Male) Exam: Deferred Extremities: Normal Inspection, Non-Tender, No Pedal Edema, Normal Capillary Refill Peripheral Pulses: 2+: Posterior Tibial (L), Posterior Tibial (R), Dorsalis Pedis (L), Dorsalis Pedis (R) Skin: Warm, Dry, Intact Wound/Incisions: Healing Well Neurological: No New Focal Deficit Psy/Mental Status: Alert, Normal Affect, Normal Mood - Problem List Review Problem List Initiated/Reviewed/Updated: Yes - Plan Plan:: Assessment: Acute: S/P Sepsis - 2/2 SSTI r/o Osteomyelitis - CRP of 9.0 -> 11.8 - Lactic Acid 1.3 -> 0.8 SSTI/Abscess - Left hand 1st Digit - Acute on Chronic - Started to swell up yesterday - 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 Martinez consulted and planning debridement today - IV Vancomycin and Zosyn for pharmacy to dose Hyperglycemia with DM2 - Improved - BS in the 200s -> 130 -> 71 - A1C is 9.30 - Takes Metformin and Levemir 40 units SC daily - Lantus 25 units subQ BID - Accu0-check QID with ISS - Diabetic Education Pseudohyponatremia - NA of 128 -> 132 - Likely 2/2 Hyperglycemia - Not on Thiazide Diuretics or SSRI/SNRIs - IV Hydration Nicotine Use Disorder - Counseled on smoking cessation - Nicotine Patch Daily Vitamin D Deficiency - Vit D level of 19.2 - Oral Supplement 1 tab po daily Chronic: HTN, DM2, and Hx/o Rib Fracture Plan: Routine AM Labs ADA diet Diabetes Education Dr. Martinez consult GI/DVT Prophylaxis PT/OT to assess and treat SW/CM for d/c planning Code status: full Additional orders as above <Ranada,Engelbert T - Last Filed: 12/01/18 20:03> - Patient Data Vitals - Most Recent: Last Vital Signs Temp 36.9 C 12/01/18 13:33 Pulse 86 12/01/18 16:33 Resp 16 12/01/18 08:17 BP 126/72 12/01/18 16:33 Pulse Ox 94 L 12/01/18 16:33 I&O - Last 24 Hours: Intake & Output 12/01/18 12/01/18 12/01/18 06:59 14:59 22:59 Intake Total 1625 2440 Output Total 600 Balance 1025 2440 Lab Results Last 24 Hours: Laboratory Results - last 24 hr 11/30/18 11/30/18 11/30/18 Range/Units 19:06 19:15 20:25 WBC (4.23-9.07) K/mm3 RBC (4.63-6.08) M/mm3 Hgb (13.7-17.5) gm/dl Hct (40.1-51.0) % MCV (79.0-92.2) fl MCH (25.7-32.2) pg MCHC (32.2-35.5) g/dl RDW Std Deviation (35.1-43.9) fL Plt Count (163-337) K/mm3 MPV (9.4-12.3) fl Neut % (Auto) (34.0-67.9) % Lymph % (Auto) (21.8-53.1) % [place] % (Auto) (5.3-12.2) % Eos % (Auto) (0.8-7.0) Baso % (Auto) (0.1-1.2) % Neut # (Auto) (1.78-5.38) K/mm3 Lymph # (Auto) (1.32-3.57) K/mm3 [place] # (Auto) (0.30-0.82) K/mm3 Eos # (Auto) (0.04-0.54) K/mm3 Baso # (Auto) (0.01-0.08) K/mm3 Manual Slide Review Sodium (136-145) mEq/L Potassium (3.5-5.1) mEq/L Chloride (98-107) mEq/L Carbon Dioxide (21-32) mEq/L Anion Gap (5-15) BUN (7-18) mg/dL Creatinine (0.7-1.3) mg/dL Est Cr Clr Drug Dosing mL/min Estimated GFR (MDRD) (>60) mL/min BUN/Creatinine Ratio (14-18) Glucose (74-106) mg/dL POC Glucose (70-105) mg/dL Hemoglobin A1c 9.30 H (4.50-6.20) % Lactic Acid 1.0 (0.4-2.0) mmol/L Calcium (8.5-10.1) mg/dL Magnesium (1.8-2.4) mg/dl Total Bilirubin (0.2-1.0) mg/dL AST (15-37) U/L ALT (16-63) U/L Alkaline Phosphatase (46-116) U/L C-Reactive Protein 9.0 H* (<1.0) mg/dL Total Protein (6.4-8.2) g/dl Albumin (3.4-5.0) g/dl Globulin gm/dL Albumin/Globulin Ratio (1-2) Triglycerides (<150) mg/dL Cholesterol (<200) mg/dL LDL Cholesterol Direct (<100) mg/dL HDL Cholesterol (40-59) mg/dL Vitamin D 25-Hydroxy 19.2 L (30.0-100.0) ng/ml Ur Random Creatinine (30.0-125.0) mg/dL U Random Total Protein (0.0-11.8) mg/dL Protein/Creatinin Ratio (0-149) mg/g 11/30/18 11/30/18 11/30/18 Range/Units 21:07 22:12 23:25 WBC (4.23-9.07) K/mm3 RBC (4.63-6.08) M/mm3 Hgb (13.7-17.5) gm/dl Hct (40.1-51.0) % MCV (79.0-92.2) fl MCH (25.7-32.2) pg MCHC (32.2-35.5) g/dl RDW Std Deviation (35.1-43.9) fL Plt Count (163-337) K/mm3 MPV (9.4-12.3) fl Neut % (Auto) (34.0-67.9) % Lymph % (Auto) (21.8-53.1) % [place] % (Auto) (5.3-12.2) % Eos % (Auto) (0.8-7.0) Baso % (Auto) (0.1-1.2) % Neut # (Auto) (1.78-5.38) K/mm3 Lymph # (Auto) (1.32-3.57) K/mm3 [place] # (Auto) (0.30-0.82) K/mm3 Eos # (Auto) (0.04-0.54) K/mm3 Baso # (Auto) (0.01-0.08) K/mm3 Manual Slide Review Sodium 128 L D (136-145) mEq/L Potassium 4.1 (3.5-5.1) mEq/L Chloride 95 L (98-107) mEq/L Carbon Dioxide 24 (21-32) mEq/L Anion Gap 13.1 (5-15) BUN 24 H (7-18) mg/dL Creatinine 1.6 H (0.7-1.3) mg/dL Est Cr Clr Drug Dosing 49.10 mL/min Estimated GFR (MDRD) 44 (>60) mL/min BUN/Creatinine Ratio 15.0 (14-18) Glucose 243 H (74-106) mg/dL POC Glucose 261 H (70-105) mg/dL Hemoglobin A1c (4.50-6.20) % Lactic Acid (0.4-2.0) mmol/L Calcium 8.7 (8.5-10.1) mg/dL Magnesium (1.8-2.4) mg/dl Total Bilirubin 0.7 (0.2-1.0) mg/dL AST 54 H (15-37) U/L ALT 42 (16-63) U/L Alkaline Phosphatase 160 H (46-116) U/L C-Reactive Protein (<1.0) mg/dL Total Protein 7.3 (6.4-8.2) g/dl Albumin 2.9 L (3.4-5.0) g/dl Globulin 4.4 gm/dL Albumin/Globulin Ratio 0.7 L (1-2) Triglycerides (<150) mg/dL Cholesterol (<200) mg/dL LDL Cholesterol Direct (<100) mg/dL HDL Cholesterol (40-59) mg/dL Vitamin D 25-Hydroxy (30.0-100.0) ng/ml Ur Random Creatinine 46.1 (30.0-125.0) mg/dL U Random Total Protein 44.7 H (0.0-11.8) mg/dL Protein/Creatinin Ratio 969.6 H (0-149) mg/g 11/30/18 12/01/18 12/01/18 Range/Units 23:34 03:37 03:37 WBC 19.24 H (4.23-9.07) K/mm3 RBC 3.81 L (4.63-6.08) M/mm3 Hgb 12.4 L D (13.7-17.5) gm/dl Hct 36.5 L (40.1-51.0) % MCV 95.8 H (79.0-92.2) fl MCH 32.5 H (25.7-32.2) pg MCHC 34.0 (32.2-35.5) g/dl RDW Std Deviation 41.9 (35.1-43.9) fL Plt Count 304 (163-337) K/mm3 MPV 9.5 (9.4-12.3) fl Neut % (Auto) 84.9 H (34.0-67.9) % Lymph % (Auto) 6.2 L (21.8-53.1) % [place] % (Auto) 7.8 (5.3-12.2) % Eos % (Auto) 0.7 L (0.8-7.0) Baso % (Auto) 0.2 (0.1-1.2) % Neut # (Auto) 16.33 H (1.78-5.38) K/mm3 Lymph # (Auto) 1.19 L (1.32-3.57) K/mm3 [place] # (Auto) 1.51 H (0.30-0.82) K/mm3 Eos # (Auto) 0.14 (0.04-0.54) K/mm3 Baso # (Auto) 0.03 (0.01-0.08) K/mm3 Manual Slide Review Abnormal smear Sodium 132 L (136-145) mEq/L Potassium 3.7 (3.5-5.1) mEq/L Chloride 99 (98-107) mEq/L Carbon Dioxide 25 (21-32) mEq/L Anion Gap 11.7 (5-15) BUN 22 H (7-18) mg/dL Creatinine 1.5 H (0.7-1.3) mg/dL Est Cr Clr Drug Dosing 52.37 mL/min Estimated GFR (MDRD) 48 (>60) mL/min BUN/Creatinine Ratio 14.7 (14-18) Glucose 69 L (74-106) mg/dL POC Glucose (70-105) mg/dL Hemoglobin A1c (4.50-6.20) % Lactic Acid 1.3 (0.4-2.0) mmol/L Calcium 9.0 (8.5-10.1) mg/dL Magnesium 2.3 (1.8-2.4) mg/dl Total Bilirubin (0.2-1.0) mg/dL AST (15-37) U/L ALT (16-63) U/L Alkaline Phosphatase (46-116) U/L C-Reactive Protein 11.8 H* (<1.0) mg/dL Total Protein (6.4-8.2) g/dl Albumin (3.4-5.0) g/dl Globulin gm/dL Albumin/Globulin Ratio (1-2) Triglycerides 99 (<150) mg/dL Cholesterol 129 (<200) mg/dL LDL Cholesterol Direct 57 (<100) mg/dL HDL Cholesterol 54.0 (40-59) mg/dL Vitamin D 25-Hydroxy (30.0-100.0) ng/ml Ur Random Creatinine (30.0-125.0) mg/dL U Random Total Protein (0.0-11.8) mg/dL Protein/Creatinin Ratio (0-149) mg/g 12/01/18 12/01/18 12/01/18 Range/Units 03:37 06:42 07:24 WBC (4.23-9.07) K/mm3 RBC (4.63-6.08) M/mm3 Hgb (13.7-17.5) gm/dl Hct (40.1-51.0) % MCV (79.0-92.2) fl MCH (25.7-32.2) pg MCHC (32.2-35.5) g/dl RDW Std Deviation (35.1-43.9) fL Plt Count (163-337) K/mm3 MPV (9.4-12.3) fl Neut % (Auto) (34.0-67.9) % Lymph % (Auto) (21.8-53.1) % [place] % (Auto) (5.3-12.2) % Eos % (Auto) (0.8-7.0) Baso % (Auto) (0.1-1.2) % Neut # (Auto) (1.78-5.38) K/mm3 Lymph # (Auto) (1.32-3.57) K/mm3 [place] # (Auto) (0.30-0.82) K/mm3 Eos # (Auto) (0.04-0.54) K/mm3 Baso # (Auto) (0.01-0.08) K/mm3 Manual Slide Review Sodium (136-145) mEq/L Potassium (3.5-5.1) mEq/L Chloride (98-107) mEq/L Carbon Dioxide (21-32) mEq/L Anion Gap (5-15) BUN (7-18) mg/dL Creatinine (0.7-1.3) mg/dL Est Cr Clr Drug Dosing mL/min Estimated GFR (MDRD) (>60) mL/min BUN/Creatinine Ratio (14-18) Glucose (74-106) mg/dL POC Glucose 79 130 H (70-105) mg/dL Hemoglobin A1c (4.50-6.20) % Lactic Acid 0.8 (0.4-2.0) mmol/L Calcium (8.5-10.1) mg/dL Magnesium (1.8-2.4) mg/dl Total Bilirubin (0.2-1.0) mg/dL AST (15-37) U/L ALT (16-63) U/L Alkaline Phosphatase (46-116) U/L C-Reactive Protein (<1.0) mg/dL Total Protein (6.4-8.2) g/dl Albumin (3.4-5.0) g/dl Globulin gm/dL Albumin/Globulin Ratio (1-2) Triglycerides (<150) mg/dL Cholesterol (<200) mg/dL LDL Cholesterol Direct (<100) mg/dL HDL Cholesterol (40-59) mg/dL Vitamin D 25-Hydroxy (30.0-100.0) ng/ml Ur Random Creatinine (30.0-125.0) mg/dL U Random Total Protein (0.0-11.8) mg/dL Protein/Creatinin Ratio (0-149) mg/g 12/01/18 12/01/18 Range/Units 11:30 16:57 WBC (4.23-9.07) K/mm3 RBC (4.63-6.08) M/mm3 Hgb (13.7-17.5) gm/dl Hct (40.1-51.0) % MCV (79.0-92.2) fl MCH (25.7-32.2) pg MCHC (32.2-35.5) g/dl RDW Std Deviation (35.1-43.9) fL Plt Count (163-337) K/mm3 MPV (9.4-12.3) fl Neut % (Auto) (34.0-67.9) % Lymph % (Auto) (21.8-53.1) % [place] % (Auto) (5.3-12.2) % Eos % (Auto) (0.8-7.0) Baso % (Auto) (0.1-1.2) % Neut # (Auto) (1.78-5.38) K/mm3 Lymph # (Auto) (1.32-3.57) K/mm3 [place] # (Auto) (0.30-0.82) K/mm3 Eos # (Auto) (0.04-0.54) K/mm3 Baso # (Auto) (0.01-0.08) K/mm3 Manual Slide Review Sodium (136-145) mEq/L Potassium (3.5-5.1) mEq/L Chloride (98-107) mEq/L Carbon Dioxide (21-32) mEq/L Anion Gap (5-15) BUN (7-18) mg/dL Creatinine (0.7-1.3) mg/dL Est Cr Clr Drug Dosing mL/min Estimated GFR (MDRD) (>60) mL/min BUN/Creatinine Ratio (14-18) Glucose (74-106) mg/dL POC Glucose 71 119 H (70-105) mg/dL Hemoglobin A1c (4.50-6.20) % Lactic Acid (0.4-2.0) mmol/L Calcium (8.5-10.1) mg/dL Magnesium (1.8-2.4) mg/dl Total Bilirubin (0.2-1.0) mg/dL AST (15-37) U/L ALT (16-63) U/L Alkaline Phosphatase (46-116) U/L C-Reactive Protein (<1.0) mg/dL Total Protein (6.4-8.2) g/dl Albumin (3.4-5.0) g/dl Globulin gm/dL Albumin/Globulin Ratio (1-2) Triglycerides (<150) mg/dL Cholesterol (<200) mg/dL LDL Cholesterol Direct (<100) mg/dL HDL Cholesterol (40-59) mg/dL Vitamin D 25-Hydroxy (30.0-100.0) ng/ml Ur Random Creatinine (30.0-125.0) mg/dL U Random Total Protein (0.0-11.8) mg/dL Protein/Creatinin Ratio (0-149) mg/g Med Orders - Current: Current Medications Acetaminophen (Tylenol) 650 mg PO Q4H PRN PRN Reason: Pain (Mild 1-3)/fever Hydrocodone Bitart/Acetaminophen ([place] 325-5 Mg) 1 tab PO Q4H PRN PRN Reason: Pain (moderate 4-6) Last Admin: 12/01/18 18:06 Dose: 1 tab Albuterol/Ipratropium (Duoneb 3.0-0.5 Mg/3 Ml) 3 ml NEB Q4H PRN PRN Reason: Shortness Of Breath/wheezing Aspirin (Halfprin) 81 mg PO DAILY COUNTS INCLUDE 234 BEDS AT THE [facility] Last Admin: 12/01/18 13:49 Dose: 81 mg Bisacodyl (Dulcolax) 5 mg PO DAILY PRN PRN Reason: Constipation Cholecalciferol (Vitamin D3) 5,000 unit PO DAILY COUNTS INCLUDE 234 BEDS AT THE [facility] Last Admin: 12/01/18 13:56 Dose: Not Given Clonazepam (Klonopin) 1 mg PO BEDTIME PRN PRN Reason: Insomnia Last Admin: 12/01/18 00:54 Dose: 1 mg Dextrose/Water (Dextrose 50% In Water) 50 ml IVPUSH ASDIRECTED PRN PRN Reason: Hypoglycemia Last Admin: 12/01/18 06:55 Dose: 25 ml Docusate Sodium (Colace) 100 mg PO BID PRN PRN Reason: Constipation Last Admin: 12/01/18 13:50 Dose: 100 mg Enoxaparin Sodium (Lovenox) 40 mg SUBCUT Q24H COUNTS INCLUDE 234 BEDS AT THE [facility] Hydromorphone HCl (Dilaudid) 0.25 mg IVPUSH Q2H PRN PRN Reason: Pain (severe 7-10) Last Admin: 11/30/18 20:15 Dose: 0.25 mg Promethazine HCl 6.25 mg/ (Sodium Chloride) 50.25 mls @ 100 mls/hr IV Q6H PRN PRN Reason: Nausea/Vomiting Lactated Ringer's (Ringers, Lactated) 1,000 mls @ 125 mls/hr IV ASDIRECTED COUNTS INCLUDE 234 BEDS AT THE [facility] Last Admin: 12/01/18 07:51 Dose: 125 mls/hr Piperacillin Sod/Tazobactam (Sod 4.5 gm/ Sodium Chloride) 100 mls @ 25 mls/hr IV Q8H COUNTS INCLUDE 234 BEDS AT THE [facility] Last Admin: 12/01/18 13:34 Dose: 25 mls/hr Vancomycin HCl 1 gm/Vancomycin HCl 250 mg/ Sodium Chloride 250 mls @ 166.667 mls/hr IV Q18H COUNTS INCLUDE 234 BEDS AT THE [facility] Last Admin: 12/01/18 18:01 Dose: 166.667 mls/hr Insulin Human Lispro (Humalog) 0 unit SUBCUT QIDACANDBED PRN; Protocol PRN Reason: Hyperglycemia Last Admin: 11/30/18 21:34 Dose: 6 units Ondansetron HCl (Zofran) 4 mg IV Q6H PRN PRN Reason: Nausea/Vomiting Pantoprazole Sodium (Protonix) 40 mg PO BID COUNTS INCLUDE 234 BEDS AT THE [facility] Last Admin: 12/01/18 13:56 Dose: Not Given Polyethylene Glycol (Miralax) 17 gm PO DAILY PRN PRN Reason: Constipation Promethazine HCl (Phenergan) 50 mg PO Q6H PRN PRN Reason: Nausea/Vomiting Senna/Docusate Sodium (Senna Plus) 1 tab PO BID PRN PRN Reason: Constipation Simvastatin (Zocor) 10 mg PO DAILY COUNTS INCLUDE 234 BEDS AT THE [facility] Last Admin: 12/01/18 13:50 Dose: 10 mg Temazepam (Restoril) 15 mg PO BEDTIME PRN PRN Reason: Sleep Vancomycin HCl (Pharmacy To Dose - Vancomycin) 1 dose .XX ASDIRECTED PRN PRN Reason: RX TO DOSE VANCO Discontinued Medications Enoxaparin Sodium (Lovenox) 30 mg SUBCUT DAILY COUNTS INCLUDE 234 BEDS AT THE [facility] Enoxaparin Sodium (Lovenox) 40 mg SUBCUT DAILY COUNTS INCLUDE 234 BEDS AT THE [facility] Fentanyl (Sublimaze) Confirm Administered Dose 100 mcg .ROUTE .STK-MED ONE Stop: 12/01/18 09:35 Piperacillin Sod/Tazobactam (Sod 4.5 gm/ Sodium Chloride) 100 mls @ 200 mls/hr IV Q8H COUNTS INCLUDE 234 BEDS AT THE [facility] Last Admin: 11/30/18 21:03 Dose: 200 mls/hr Piperacillin Sod/Tazobactam (Sod 4.5 gm/ Sodium Chloride) 100 mls @ 200 mls/hr IV ONETIME ONE Stop: 11/30/18 21:44 Vancomycin HCl 1 gm/Vancomycin HCl 250 mg/ Sodium Chloride 500 mls @ 333.333 mls/hr IV Q12H COUNTS INCLUDE 234 BEDS AT THE [facility] Last Admin: 11/30/18 23:11 Dose: 333.333 mls/hr Lidocaine HCl (Xylocaine-Mpf 1%) Confirm Administered Dose 4 mls @ as directed .ROUTE .STK-MED ONE Stop: 12/01/18 09:35 Lidocaine HCl (Xylocaine-Mpf 1%) Confirm Administered Dose 30 ml .ROUTE .STK- MED ONE Stop: 12/01/18 08:47 Midazolam HCl (Versed 1 Mg/Ml) Confirm Administered Dose 2 mg .ROUTE .STK-MED ONE Stop: 12/01/18 09:35 Miscellaneous Information (Remove Patch) 1 ea TRDERM DAILY COUNTS INCLUDE 234 BEDS AT THE [facility] Nicotine (Habitrol) 21 mg TRDERM DAILY COUNTS INCLUDE 234 BEDS AT THE [facility] Pantoprazole Sodium (Protonix Iv) 40 mg IV Q12HR COUNTS INCLUDE 234 BEDS AT THE [facility] Last Admin: 11/30/18 21:34 Dose: 40 mg Propofol (Diprivan 20 Ml) Confirm Administered Dose 200 mg .ROUTE .STK-MED ONE Stop: 12/01/18 09:35 - My Orders Last 24 Hours: My Active Orders 11/30/18 19:23 Patient Status [ADT] Routine Height and Weight [RC] 04 Oxygen Therapy [RC] PRN Up ad Alla [RC] ASDIRECTED VTE/DVT Education [RC] DAILY Vital Signs [RC] Q4HR Resuscitation Status Routine 11/30/18 19:24 Intake and Output [RC] 04,16 11/30/18 19:25 Patient Status [ADT] Routine Consult to Case Management/Director Of Spa And Guest Experience [CONS] Routine Consult to Diabetic Nurse Specialist [CONS] Routine Consult to Physician [CONS] Routine Consult to Spiritual Care [CONS] Routine Acetaminophen [Tylenol] 650 mg PO Q4H PRN Acetaminophen/HYDROcodone [[place] 325-5 MG] 1 tab PO Q4H PRN Albuterol/Ipratropium [DuoNeb 3.0-0.5 MG/3 ML] 3 ml NEB Q4H PRN Bisacodyl [Dulcolax] 5 mg PO DAILY PRN Docusate Sodium [Colace] 100 mg PO BID PRN Docusate Sodium/Sennosides [Senna Plus] 1 tab PO BID PRN HYDROmorphone [Dilaudid] 0.25 mg IVPUSH Q2H PRN Ondansetron [Zofran] 4 mg IV Q6H PRN Polyethylene Glycol 3350 [MiraLAX] 17 gm PO DAILY PRN Promethazine [Phenergan] 50 mg PO Q6H PRN Promethazine [Phenergan] 6.25 mg Sodium Chloride 0.9% [Normal Saline] 50 ml IV Q6H Temazepam [Restoril] 15 mg PO BEDTIME PRN Blood Culture x2 Reflex Set [OM.PC] Stat 11/30/18 19:28 RT Aerosol Therapy [RC] ASDIRECTED 11/30/18 19:30 Notify Provider Consults [RC] ASDIRECTED Lactated Ringers [Ringers, Lactated] 1,000 ml IV ASDIRECTED Pharmacy to Dose - Vancomycin 1 dose .XX ASDIRECTED PRN 11/30/18 19:35 ClonazePAM [KlonoPIN] 1 mg PO BEDTIME PRN 11/30/18 19:37 Blood Glucose Check, Bedside [RC] QIDACANDBED Dextrose 50% in Water 50 ml IVPUSH ASDIRECTED PRN Insulin Lispro [HumaLOG] See Protocol SUBCUT QIDACANDBED PRN 11/30/18 20:15 CULTURE BLOOD [BC] Stat 11/30/18 20:25 CULTURE BLOOD [BC] Stat 12/01/18 05:00 Piperacillin/Tazobactam [Piperacil-Tazobact] 4.5 gm Sodium Chloride 0.9% [ Normal Saline] 100 ml IV Q8H 12/01/18 09:00 Aspirin [Halfprin] 81 mg PO DAILY Cholecalciferol (Vitamin D3) [Vitamin D3] 5,000 unit PO DAILY Pantoprazole [ProTONIX] 40 mg PO BID Simvastatin [Zocor] 10 mg PO DAILY 12/01/18 17:00 Vancomycin 1 gm Vancomycin 250 mg Sodium Chloride 0.9% [Normal Saline] 250 ml IV Q18H 12/01/18 21:00 Enoxaparin [Lovenox] 40 mg SUBCUT Q24H 12/01/18 Breakfast NPO After Midnight [Nothing per Oral After Midnight Diet] [DIET] 12/02/18 05:11 BASIC METABOLIC PANEL,BMP [CHEM] AM C-REACTIVE PROTEIN [CHEM] AM CBC WITH AUTO DIFF [HEME] AM MAGNESIUM [CHEM] AM 12/02/18 09:00 Lisinopril [Prinivil] 10 mg PO DAILY 12/02/18 10:00 VANCOMYCIN TROUGH [CHEM] Timed 12/03/18 05:11 BASIC METABOLIC PANEL,BMP [CHEM] AM C-REACTIVE PROTEIN [CHEM] AM CBC WITH AUTO DIFF [HEME] AM MAGNESIUM [CHEM] AM 12/04/18 05:11 BASIC METABOLIC PANEL,BMP [CHEM] AM C-REACTIVE PROTEIN [CHEM] AM CBC WITH AUTO DIFF [HEME] AM MAGNESIUM [CHEM] AM 12/05/18 05:11 BASIC METABOLIC PANEL,BMP [CHEM] AM C-REACTIVE PROTEIN [CHEM] AM CBC WITH AUTO DIFF [HEME] AM MAGNESIUM [CHEM] AM - Plan Plan:: Patient was seen and examined in concert with the medical student. The assessment and plans were discussed and agreed upon with me. Patient labs shows proteinuria due to longstanding diabetes. He is on ASA/Statin. We will add low dose ACEI to start in AM for renal protection.
--- NOTE | 2018-12-01 15:25 | OR ---
DATE OF OPERATION: 12/01/2018 SURGEON: Jesse Martinez MD PREOPERATIVE DIAGNOSIS: Infection of the tip of the left index finger. POSTOPERATIVE DIAGNOSIS: Infection of the tip of the left index finger. OPERATION PERFORMED: Debridement done under IV sedation. ANESTHESIA: IV sedation. DESCRIPTION OF PROCEDURE: The patient was taken to the room, placed in a supine position, given IV sedation after monitoring the patient. Left index finger was prepped with Betadine, draped off in a sterile fashion and using a knife, the callus tip of the finger was then removed along with portions of the distorted finger nail and matrix down to the bone, and rongeur was used to debride some of the bone and soft tissue. This was sent to pathology. The area had some minimal bleeding, about 5 mL blood loss. The wound was then packed open with Xeroform gauze and then a gauze dressing and elevated. The patient tolerated the procedure and sent to the recovery room in a stable condition. ESTIMATED BLOOD LOSS: MMODAL /[id number]
[2018-12-01] MEDS: Vancomycin 1 GM, Vancomycin 250 MG in Sodium Chloride 0.9% 250 ML IV SCH (18:01)
[2018-12-01] MEDS: Insulin Glarg,Human.Rec.Analog 100 UNIT/ML ML SUBCUT SCH (20:47)
[2018-12-01] MEDS: Enoxaparin 40 MG/0.4 ML Syringe SUBCUT SCH (20:49)
[2018-12-01] MEDS: Pantoprazole 40 MG Vial IV SCH (20:51)
[2018-12-01] MEDS: Insulin Lispro 100 Units/ML 3 ML Vial SUBCUT PRN (20:54)
[2018-12-02] MEDS: Acetaminophen/HYDROcodone 325-5 MG Tab PO PRN ×4 (02:26→19:14)
[2018-12-02] MEDS: Piperacillin/Tazobactam 4.5 GM in Sodium Chloride 0.9% 100 ML IV SCH ×3 (05:02→20:18)
[2018-12-02] MEDS: Lactated Ringers 1,000 ML IV SCH ×4 (05:04→21:28)
[2018-12-02] MEDS: Insulin Lispro 100 Units/ML 3 ML Vial SUBCUT SCH ×4 (07:00→21:00)
--- NOTE | 2018-12-02 07:21 | OR ---
DATE OF OPERATION: 12/01/2018 SURGEON: Jesse Martinez MD ADDENDUM: PREOPERATIVE DIAGNOSIS: Abscess of the left index finger tip, and cultures and sensitivities were taken of the abscess during the surgery. POSTOPERATIVE DIAGNOSIS: Abscess of the left index finger tip, and Cultures and sensitivities were taken of the abscess during the surgery. MMODAL /[id number]
[2018-12-02] MEDS ORDERED: REMOVE NICOTINE 21 MG TRDERM SCH (09:00)
--- NOTE | 2018-12-02 09:03 | PCM.PN ---
<Richi Salgado - Last Filed: 12/02/18 11:35> - General Info Date of Service: 12/02/18 Admission Dx/Problem (Free Text): Admission Diagnosis/Problem Admission Diagnosis/Problem Cellulitis and abscess of finger Subjective Update: Patient is overall doing okay today. He is frustrated by his course of illness and how it is affecting his job. The patient is anxious to leave, and would like to talk with Dr. Martinez regarding the outcome of his surgery. Otherwise, the patient has been urinating well. He has had decrease in appetite as well as some constipation. He also complains of feeling groggy today, but slept better last night. Functional Status: Reports: Pain Controlled, Ambulating, Urinating - Review of Systems General: Reports: No Symptoms HEENT: Reports: No Symptoms Pulmonary: Reports: No Symptoms Cardiovascular: Reports: No Symptoms Gastrointestinal: Reports: Constipation, Decreased Appetite Genitourinary: Reports: No Symptoms Musculoskeletal: Reports: No Symptoms Skin: Reports: No Symptoms Neurological: Reports: No Symptoms Psychiatric: Reports: No Symptoms - Patient Data Vitals - Most Recent: Last Vital Signs Temp 99.1 F 12/02/18 07:09 Pulse 91 12/02/18 07:09 Resp 16 12/02/18 07:09 BP 145/78 H 12/02/18 07:09 Pulse Ox 92 L 12/02/18 07:09 Weight - Most Recent: 70.488 kg I&O - Last 24 Hours: Intake & Output 12/01/18 12/02/18 12/02/18 22:59 06:59 14:59 Intake Total 2440 1766 Balance 2440 1766 Lab Results Last 24 Hours: Laboratory Results - last 24 hr 12/01/18 12/01/18 12/01/18 Range/Units 11:30 16:57 20:28 WBC (4.23-9.07) K/mm3 RBC (4.63-6.08) M/mm3 Hgb (13.7-17.5) gm/dl Hct (40.1-51.0) % MCV (79.0-92.2) fl MCH (25.7-32.2) pg MCHC (32.2-35.5) g/dl RDW Std Deviation (35.1-43.9) fL Plt Count (163-337) K/mm3 MPV (9.4-12.3) fl Neut % (Auto) (34.0-67.9) % Lymph % (Auto) (21.8-53.1) % [place] % (Auto) (5.3-12.2) % Eos % (Auto) (0.8-7.0) Baso % (Auto) (0.1-1.2) % Neut # (Auto) (1.78-5.38) K/mm3 Lymph # (Auto) (1.32-3.57) K/mm3 [place] # (Auto) (0.30-0.82) K/mm3 Eos # (Auto) (0.04-0.54) K/mm3 Baso # (Auto) (0.01-0.08) K/mm3 Manual Slide Review Sodium (136-145) mEq/L Potassium (3.5-5.1) mEq/L Chloride (98-107) mEq/L Carbon Dioxide (21-32) mEq/L Anion Gap (5-15) BUN (7-18) mg/dL Creatinine (0.7-1.3) mg/dL Est Cr Clr Drug Dosing mL/min Estimated GFR (MDRD) (>60) mL/min BUN/Creatinine Ratio (14-18) Glucose (74-106) mg/dL POC Glucose 71 119 H 167 H (70-105) mg/dL Calcium (8.5-10.1) mg/dL Magnesium (1.8-2.4) mg/dl C-Reactive Protein (<1.0) mg/dL 12/02/18 12/02/18 12/02/18 Range/Units 04:21 04:27 06:26 WBC 14.82 H (4.23-9.07) K/mm3 RBC 3.44 L (4.63-6.08) M/mm3 Hgb 11.2 L (13.7-17.5) gm/dl Hct 33.2 L (40.1-51.0) % MCV 96.5 H (79.0-92.2) fl MCH 32.6 H (25.7-32.2) pg MCHC 33.7 (32.2-35.5) g/dl RDW Std Deviation 41.6 (35.1-43.9) fL Plt Count 278 (163-337) K/mm3 MPV 10.0 (9.4-12.3) fl Neut % (Auto) 83.0 H (34.0-67.9) % Lymph % (Auto) 5.9 L (21.8-53.1) % [place] % (Auto) 9.4 (5.3-12.2) % Eos % (Auto) 1.6 (0.8-7.0) Baso % (Auto) 0.1 (0.1-1.2) % Neut # (Auto) 12.30 H (1.78-5.38) K/mm3 Lymph # (Auto) 0.88 L (1.32-3.57) K/mm3 [place] # (Auto) 1.39 H (0.30-0.82) K/mm3 Eos # (Auto) 0.23 (0.04-0.54) K/mm3 Baso # (Auto) 0.02 (0.01-0.08) K/mm3 Manual Slide Review Abnormal smear Sodium 134 L (136-145) mEq/L Potassium 4.2 (3.5-5.1) mEq/L Chloride 101 (98-107) mEq/L Carbon Dioxide 23 (21-32) mEq/L Anion Gap 14.2 (5-15) BUN 21 H (7-18) mg/dL Creatinine 1.5 H (0.7-1.3) mg/dL Est Cr Clr Drug Dosing 51.91 mL/min Estimated GFR (MDRD) 48 (>60) mL/min BUN/Creatinine Ratio 14.0 (14-18) Glucose 122 H (74-106) mg/dL POC Glucose 107 H (70-105) mg/dL Calcium 8.3 L (8.5-10.1) mg/dL Magnesium 2.0 (1.8-2.4) mg/dl C-Reactive Protein 8.5 H* (<1.0) mg/dL Erasmo Results Last 24 Hours: Microbiology 12/01/18 09:55 Wound Culture - Preliminary Finger, Left - Left Index Gram Positive Cocci 11/30/18 20:25 Aerobic Blood Culture - Preliminary Blood - Venous - Lab Draw NO GROWTH AFTER 1 DAY Anaerobic Blood Culture - Preliminary NO GROWTH AFTER 1 DAY 11/30/18 20:15 Aerobic Blood Culture - Preliminary Blood - Venous NO GROWTH AFTER 1 DAY Anaerobic Blood Culture - Preliminary NO GROWTH AFTER 1 DAY Med Orders - Current: Current Medications Acetaminophen (Tylenol) 650 mg PO Q4H PRN PRN Reason: Pain (Mild 1-3)/fever Hydrocodone Bitart/Acetaminophen ([place] 325-5 Mg) 1 tab PO Q4H PRN PRN Reason: Pain (moderate 4-6) Last Admin: 12/02/18 02:26 Dose: 1 tab Albuterol/Ipratropium (Duoneb 3.0-0.5 Mg/3 Ml) 3 ml NEB Q4H PRN PRN Reason: Shortness Of Breath/wheezing Aspirin (Halfprin) 81 mg PO DAILY [facility] Last Admin: 12/01/18 13:49 Dose: 81 mg Bisacodyl (Dulcolax) 5 mg PO DAILY PRN PRN Reason: Constipation Cholecalciferol (Vitamin D3) 5,000 unit PO DAILY [facility] Last Admin: 12/01/18 13:56 Dose: Not Given Clonazepam (Klonopin) 1 mg PO BEDTIME PRN PRN Reason: Insomnia Last Admin: 12/01/18 20:50 Dose: 1 mg Dextrose/Water (Dextrose 50% In Water) 50 ml IVPUSH ASDIRECTED PRN PRN Reason: Hypoglycemia Last Admin: 12/01/18 06:55 Dose: 25 ml Docusate Sodium (Colace) 100 mg PO BID PRN PRN Reason: Constipation Last Admin: 12/01/18 13:50 Dose: 100 mg Enoxaparin Sodium (Lovenox) 40 mg SUBCUT Q24H [facility] Last Admin: 12/01/18 20:49 Dose: 40 mg Hydromorphone HCl (Dilaudid) 0.25 mg IVPUSH Q2H PRN PRN Reason: Pain (severe 7-10) Last Admin: 11/30/18 20:15 Dose: 0.25 mg Promethazine HCl 6.25 mg/ (Sodium Chloride) 50.25 mls @ 100 mls/hr IV Q6H PRN PRN Reason: Nausea/Vomiting Lactated Ringer's (Ringers, Lactated) 1,000 mls @ 125 mls/hr IV ASDIRECTED [facility] Last Admin: 12/02/18 05:08 Dose: 125 mls/hr Piperacillin Sod/Tazobactam (Sod 4.5 gm/ Sodium Chloride) 100 mls @ 25 mls/hr IV Q8H [facility] Last Admin: 12/02/18 05:02 Dose: 25 mls/hr Vancomycin HCl 1 gm/Vancomycin HCl 250 mg/ Sodium Chloride 250 mls @ 166.667 mls/hr IV Q18H [facility] Last Admin: 12/01/18 18:01 Dose: 166.667 mls/hr Insulin Glargine (Lantus) 15 unit SUBCUT BID [facility] Last Admin: 12/01/18 20:47 Dose: 15 units Insulin Human Lispro (Humalog) 0 unit SUBCUT QIDACANDBED [facility]; Protocol Last Admin: 12/02/18 07:00 Dose: Not Given Lisinopril (Prinivil) 10 mg PO DAILY [facility] Ondansetron HCl (Zofran) 4 mg IV Q6H PRN PRN Reason: Nausea/Vomiting Pantoprazole Sodium (Protonix) 40 mg PO BID [facility] Last Admin: 12/01/18 20:50 Dose: 40 mg Polyethylene Glycol (Miralax) 17 gm PO DAILY PRN PRN Reason: Constipation Promethazine HCl (Phenergan) 50 mg PO Q6H PRN PRN Reason: Nausea/Vomiting Senna/Docusate Sodium (Senna Plus) 1 tab PO BID PRN PRN Reason: Constipation Simvastatin (Zocor) 10 mg PO DAILY [facility] Last Admin: 12/01/18 13:50 Dose: 10 mg Temazepam (Restoril) 15 mg PO BEDTIME PRN PRN Reason: Sleep Vancomycin HCl (Pharmacy To Dose - Vancomycin) 1 dose .XX ASDIRECTED PRN PRN Reason: RX TO DOSE VANCO Discontinued Medications Enoxaparin Sodium (Lovenox) 30 mg SUBCUT DAILY [facility] Enoxaparin Sodium (Lovenox) 40 mg SUBCUT DAILY [facility] Last Admin: 12/01/18 20:51 Dose: Not Given Fentanyl (Sublimaze) Confirm Administered Dose 100 mcg .ROUTE .STK-MED ONE Stop: 12/01/18 09:35 Piperacillin Sod/Tazobactam (Sod 4.5 gm/ Sodium Chloride) 100 mls @ 200 mls/hr IV Q8H [facility] Last Admin: 11/30/18 21:03 Dose: 200 mls/hr Piperacillin Sod/Tazobactam (Sod 4.5 gm/ Sodium Chloride) 100 mls @ 200 mls/hr IV ONETIME ONE Stop: 11/30/18 21:44 Vancomycin HCl 1 gm/Vancomycin HCl 250 mg/ Sodium Chloride 500 mls @ 333.333 mls/hr IV Q12H [facility] Last Admin: 11/30/18 23:11 Dose: 333.333 mls/hr Lidocaine HCl (Xylocaine-Mpf 1%) Confirm Administered Dose 4 mls @ as directed .ROUTE .STK-MED ONE Stop: 12/01/18 09:35 Insulin Human Lispro (Humalog) 0 unit SUBCUT QIDACANDBED PRN; Protocol PRN Reason: Hyperglycemia Last Admin: 12/01/18 20:54 Dose: 1 units Lidocaine HCl (Xylocaine-Mpf 1%) Confirm Administered Dose 30 ml .ROUTE .STK- MED ONE Stop: 12/01/18 08:47 Midazolam HCl (Versed 1 Mg/Ml) Confirm Administered Dose 2 mg .ROUTE .STK-MED ONE Stop: 12/01/18 09:35 Miscellaneous Information (Remove Patch) 1 ea TRDERM DAILY [facility] Nicotine (Habitrol) 21 mg TRDERM DAILY [facility] Pantoprazole Sodium (Protonix Iv) 40 mg IV Q12HR [facility] Last Admin: 12/01/18 20:51 Dose: Not Given Propofol (Diprivan 20 Ml) Confirm Administered Dose 200 mg .ROUTE .STK-MED ONE Stop: 12/01/18 09:35 - Exam General: Alert, Oriented HEENT: Pupils Equal, EOMI, Mucous Membr. Moist/[place] Lungs: Clear to Auscultation, Normal Respiratory Effort Cardiovascular: Regular Rate, Regular Rhythm GI/Abdominal Exam: Normal Bowel Sounds, Soft, Non-Tender Extremities: Normal Inspection, Non-Tender, No Pedal Edema Skin: Warm, Dry, Intact Wound/Incisions: Other (Blood soaked dressing, intact) Neurological: No New Focal Deficit Psy/Mental Status: Alert, Normal Affect, Normal Mood - Problem List Review Problem List Initiated/Reviewed/Updated: Yes - Plan Plan:: Assessment: Acute: S/P Sepsis - 2/2 SSTI r/o Osteomyelitis - CRP of 9.0 -> 11.8 -> 8.5 - Lactic Acid 1.3 -> 0.8 SSTI/Abscess - Left hand 1st Digit - Acute on Chronic - Started to swell up the day prior to admission - 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 Martinez consulted and preformed debridement yesterday - IV Vancomycin and Zosyn for pharmacy to dose Hyperglycemia with DM2 - Improved - BS in the 200s -> 130 -> 71 - A1C is 9.30 - Takes Metformin and Levemir 40 units SC daily - Lantus 25 units subQ BID - ASA/Statin - Accu0-check QID with ISS - Diabetic Education - Proteinuria due to longstanding diabetes. - Started ACEI Pseudohyponatremia - NA of 128 -> 132 -> 134 - Likely 2/2 Hyperglycemia - Not on Thiazide Diuretics or SSRI/SNRIs - IV Hydration Nicotine Use Disorder - Counseled on smoking cessation - Nicotine Patch Daily Vitamin D Deficiency - Vit D level of 19.2 - Oral Supplement 1 tab po daily Chronic: HTN, DM2, and Hx/o Rib Fracture Plan: Routine AM Labs ADA diet Diabetes Education Dr. Martinez consult GI/DVT Prophylaxis PT/OT to assess and treat SW/CM for d/c planning Code status: full Additional orders as above <Dorys Mondragon T - Last Filed: 12/02/18 20:45> - Patient Data Vitals - Most Recent: Last Vital Signs Temp 37.1 C 12/02/18 19:54 Pulse 92 12/02/18 19:54 Resp 16 12/02/18 19:54 BP 112/59 L 12/02/18 19:54 Pulse Ox 92 L 12/02/18 19:54 I&O - Last 24 Hours: Intake & Output 12/02/18 12/02/18 12/02/18 06:59 14:59 22:59 Intake Total 6607 246 1002 Output Total 1100 Balance 1766 180 -90 Lab Results Last 24 Hours: Laboratory Results - last 24 hr 12/01/18 12/02/18 12/02/18 Range/Units 20:28 04:21 04:27 WBC 14.82 H (4.23-9.07) K/mm3 RBC 3.44 L (4.63-6.08) M/mm3 Hgb 11.2 L (13.7-17.5) gm/dl Hct 33.2 L (40.1-51.0) % MCV 96.5 H (79.0-92.2) fl MCH 32.6 H (25.7-32.2) pg MCHC 33.7 (32.2-35.5) g/dl RDW Std Deviation 41.6 (35.1-43.9) fL Plt Count 278 (163-337) K/mm3 MPV 10.0 (9.4-12.3) fl Neut % (Auto) 83.0 H (34.0-67.9) % Lymph % (Auto) 5.9 L (21.8-53.1) % [place] % (Auto) 9.4 (5.3-12.2) % Eos % (Auto) 1.6 (0.8-7.0) Baso % (Auto) 0.1 (0.1-1.2) % Neut # (Auto) 12.30 H (1.78-5.38) K/mm3 Lymph # (Auto) 0.88 L (1.32-3.57) K/mm3 [place] # (Auto) 1.39 H (0.30-0.82) K/mm3 Eos # (Auto) 0.23 (0.04-0.54) K/mm3 Baso # (Auto) 0.02 (0.01-0.08) K/mm3 Manual Slide Review Abnormal smear Sodium 134 L (136-145) mEq/L Potassium 4.2 (3.5-5.1) mEq/L Chloride 101 (98-107) mEq/L Carbon Dioxide 23 (21-32) mEq/L Anion Gap 14.2 (5-15) BUN 21 H (7-18) mg/dL Creatinine 1.5 H (0.7-1.3) mg/dL Est Cr Clr Drug Dosing 51.91 mL/min Estimated GFR (MDRD) 48 (>60) mL/min BUN/Creatinine Ratio 14.0 (14-18) Glucose 122 H (74-106) mg/dL POC Glucose 167 H (70-105) mg/dL Calcium 8.3 L (8.5-10.1) mg/dL Magnesium 2.0 (1.8-2.4) mg/dl C-Reactive Protein 8.5 H* (<1.0) mg/dL Vancomycin Trough (10.0-20.0) 12/02/18 12/02/18 12/02/18 Range/Units 06:26 09:58 11:16 WBC (4.23-9.07) K/mm3 RBC (4.63-6.08) M/mm3 Hgb (13.7-17.5) gm/dl Hct (40.1-51.0) % MCV (79.0-92.2) fl MCH (25.7-32.2) pg MCHC (32.2-35.5) g/dl RDW Std Deviation (35.1-43.9) fL Plt Count (163-337) K/mm3 MPV (9.4-12.3) fl Neut % (Auto) (34.0-67.9) % Lymph % (Auto) (21.8-53.1) % [place] % (Auto) (5.3-12.2) % Eos % (Auto) (0.8-7.0) Baso % (Auto) (0.1-1.2) % Neut # (Auto) (1.78-5.38) K/mm3 Lymph # (Auto) (1.32-3.57) K/mm3 [place] # (Auto) (0.30-0.82) K/mm3 Eos # (Auto) (0.04-0.54) K/mm3 Baso # (Auto) (0.01-0.08) K/mm3 Manual Slide Review Sodium (136-145) mEq/L Potassium (3.5-5.1) mEq/L Chloride (98-107) mEq/L Carbon Dioxide (21-32) mEq/L Anion Gap (5-15) BUN (7-18) mg/dL Creatinine (0.7-1.3) mg/dL Est Cr Clr Drug Dosing mL/min Estimated GFR (MDRD) (>60) mL/min BUN/Creatinine Ratio (14-18) Glucose (74-106) mg/dL POC Glucose 107 H 126 H (70-105) mg/dL Calcium (8.5-10.1) mg/dL Magnesium (1.8-2.4) mg/dl C-Reactive Protein (<1.0) mg/dL Vancomycin Trough 11.7 (10.0-20.0) 12/02/18 12/02/18 Range/Units 16:58 20:17 WBC (4.23-9.07) K/mm3 RBC (4.63-6.08) M/mm3 Hgb (13.7-17.5) gm/dl Hct (40.1-51.0) % MCV (79.0-92.2) fl MCH (25.7-32.2) pg MCHC (32.2-35.5) g/dl RDW Std Deviation (35.1-43.9) fL Plt Count (163-337) K/mm3 MPV (9.4-12.3) fl Neut % (Auto) (34.0-67.9) % Lymph % (Auto) (21.8-53.1) % [place] % (Auto) (5.3-12.2) % Eos % (Auto) (0.8-7.0) Baso % (Auto) (0.1-1.2) % Neut # (Auto) (1.78-5.38) K/mm3 Lymph # (Auto) (1.32-3.57) K/mm3 [place] # (Auto) (0.30-0.82) K/mm3 Eos # (Auto) (0.04-0.54) K/mm3 Baso # (Auto) (0.01-0.08) K/mm3 Manual Slide Review Sodium (136-145) mEq/L Potassium (3.5-5.1) mEq/L Chloride (98-107) mEq/L Carbon Dioxide (21-32) mEq/L Anion Gap (5-15) BUN (7-18) mg/dL Creatinine (0.7-1.3) mg/dL Est Cr Clr Drug Dosing mL/min Estimated GFR (MDRD) (>60) mL/min BUN/Creatinine Ratio (14-18) Glucose (74-106) mg/dL POC Glucose 143 H 98 (70-105) mg/dL Calcium (8.5-10.1) mg/dL Magnesium (1.8-2.4) mg/dl C-Reactive Protein (<1.0) mg/dL Vancomycin Trough (10.0-20.0) Erasmo Results Last 24 Hours: Microbiology 11/30/18 20:25 Aerobic Blood Culture - Preliminary Blood - Venous - Lab Draw NO GROWTH AFTER 2 DAYS Anaerobic Blood Culture - Preliminary NO GROWTH AFTER 2 DAYS 11/30/18 20:15 Aerobic Blood Culture - Preliminary Blood - Venous NO GROWTH AFTER 2 DAYS Anaerobic Blood Culture - Preliminary NO GROWTH AFTER 2 DAYS 12/01/18 09:55 Wound Culture - Preliminary Finger, Left - Left Index Gram Positive Cocci Med Orders - Current: Current Medications Acetaminophen (Tylenol) 650 mg PO Q4H PRN PRN Reason: Pain (Mild 1-3)/fever Hydrocodone Bitart/Acetaminophen ([place] 325-5 Mg) 1 tab PO Q4H PRN PRN Reason: Pain (moderate 4-6) Last Admin: 12/02/18 19:14 Dose: 1 tab Albuterol/Ipratropium (Duoneb 3.0-0.5 Mg/3 Ml) 3 ml NEB Q4H PRN PRN Reason: Shortness Of Breath/wheezing Aspirin (Halfprin) 81 mg PO DAILY [facility] Last Admin: 12/02/18 09:49 Dose: 81 mg Bisacodyl (Dulcolax) 5 mg PO DAILY PRN PRN Reason: Constipation Last Admin: 12/02/18 20:09 Dose: 5 mg Cholecalciferol (Vitamin D3) 5,000 unit PO DAILY [facility] Last Admin: 12/02/18 09:50 Dose: 5,000 unit Clonazepam (Klonopin) 1 mg PO BEDTIME PRN PRN Reason: Insomnia Last Admin: 12/02/18 20:14 Dose: 1 mg Dextrose/Water (Dextrose 50% In Water) 50 ml IVPUSH ASDIRECTED PRN PRN Reason: Hypoglycemia Last Admin: 12/01/18 06:55 Dose: 25 ml Docusate Sodium (Colace) 100 mg PO BID PRN PRN Reason: Constipation Last Admin: 12/01/18 13:50 Dose: 100 mg Enoxaparin Sodium (Lovenox) 40 mg SUBCUT Q24H [facility] Last Admin: 12/02/18 20:09 Dose: 40 mg Hydromorphone HCl (Dilaudid) 0.25 mg IVPUSH Q2H PRN PRN Reason: Pain (severe 7-10) Last Admin: 12/02/18 14:59 Dose: 0.25 mg Promethazine HCl 6.25 mg/ (Sodium Chloride) 50.25 mls @ 100 mls/hr IV Q6H PRN PRN Reason: Nausea/Vomiting Lactated Ringer's (Ringers, Lactated) 1,000 mls @ 125 mls/hr IV ASDIRECTED [facility] Last Admin: 12/02/18 13:02 Dose: 125 mls/hr Piperacillin Sod/Tazobactam (Sod 4.5 gm/ Sodium Chloride) 100 mls @ 25 mls/hr IV Q8H [facility] Last Admin: 12/02/18 20:18 Dose: 25 mls/hr Vancomycin HCl 1 gm/Vancomycin HCl 250 mg/ Sodium Chloride 250 mls @ 166.667 mls/hr IV Q18H [facility] Last Admin: 12/02/18 11:56 Dose: 166.667 mls/hr Insulin Glargine (Lantus) 15 unit SUBCUT BID [facility] Last Admin: 12/02/18 09:51 Dose: 15 units Insulin Human Lispro (Humalog) 0 unit SUBCUT QIDACANDBED [facility]; Protocol Last Admin: 12/02/18 18:04 Dose: Not Given Lisinopril (Prinivil) 10 mg PO DAILY [facility] Last Admin: 12/02/18 09:49 Dose: 10 mg Ondansetron HCl (Zofran) 4 mg IV Q6H PRN PRN Reason: Nausea/Vomiting Pantoprazole Sodium (Protonix) 40 mg PO BID [facility] Last Admin: 12/02/18 20:08 Dose: 40 mg Polyethylene Glycol (Miralax) 17 gm PO DAILY PRN PRN Reason: Constipation Promethazine HCl (Phenergan) 50 mg PO Q6H PRN PRN Reason: Nausea/Vomiting Senna/Docusate Sodium (Senna Plus) 1 tab PO BID PRN PRN Reason: Constipation Simvastatin (Zocor) 10 mg PO DAILY [facility] Last Admin: 12/02/18 09:49 Dose: 10 mg Temazepam (Restoril) 15 mg PO BEDTIME PRN PRN Reason: Sleep Vancomycin HCl (Pharmacy To Dose - Vancomycin) 1 dose .XX ASDIRECTED PRN PRN Reason: RX TO DOSE VANCO Discontinued Medications Enoxaparin Sodium (Lovenox) 30 mg SUBCUT DAILY [facility] Enoxaparin Sodium (Lovenox) 40 mg SUBCUT DAILY [facility] Last Admin: 12/01/18 20:51 Dose: Not Given Fentanyl (Sublimaze) Confirm Administered Dose 100 mcg .ROUTE .STK-MED ONE Stop: 12/01/18 09:35 Piperacillin Sod/Tazobactam (Sod 4.5 gm/ Sodium Chloride) 100 mls @ 200 mls/hr IV Q8H [facility] Last Admin: 11/30/18 21:03 Dose: 200 mls/hr Piperacillin Sod/Tazobactam (Sod 4.5 gm/ Sodium Chloride) 100 mls @ 200 mls/hr IV ONETIME ONE Stop: 11/30/18 21:44 Vancomycin HCl 1 gm/Vancomycin HCl 250 mg/ Sodium Chloride 500 mls @ 333.333 mls/hr IV Q12H [facility] Last Admin: 11/30/18 23:11 Dose: 333.333 mls/hr Lidocaine HCl (Xylocaine-Mpf 1%) Confirm Administered Dose 4 mls @ as directed .ROUTE .STK-MED ONE Stop: 12/01/18 09:35 Insulin Human Lispro (Humalog) 0 unit SUBCUT QIDACANDBED PRN; Protocol PRN Reason: Hyperglycemia Last Admin: 12/01/18 20:54 Dose: 1 units Lidocaine HCl (Xylocaine-Mpf 1%) Confirm Administered Dose 30 ml .ROUTE .STK- MED ONE Stop: 12/01/18 08:47 Midazolam HCl (Versed 1 Mg/Ml) Confirm Administered Dose 2 mg .ROUTE .STK-MED ONE Stop: 12/01/18 09:35 Miscellaneous Information (Remove Patch) 1 ea TRDERM DAILY [facility] Nicotine (Habitrol) 21 mg TRDERM DAILY [facility] Pantoprazole Sodium (Protonix Iv) 40 mg IV Q12HR [facility] Last Admin: 12/01/18 20:51 Dose: Not Given Propofol (Diprivan 20 Ml) Confirm Administered Dose 200 mg .ROUTE .STK-MED ONE Stop: 12/01/18 09:35 Vancomycin HCl (Vancomycin) Confirm Administered Dose 500 mg .ROUTE .STK-MED ONE Stop: 12/02/18 11:47 Last Admin: 12/02/18 14:05 Dose: Not Given - My Orders Last 24 Hours: My Active Orders 12/01/18 21:00 Enoxaparin [Lovenox] 40 mg SUBCUT Q24H Insulin Glarg,Human.Rec.Analog [LantUS] 15 unit SUBCUT BID 12/02/18 07:00 Insulin Lispro [HumaLOG] See Protocol SUBCUT QIDACANDBED 12/02/18 09:00 Lisinopril [Prinivil] 10 mg PO DAILY 12/02/18 Breakfast Consistent Carbohydrate Diet [DIET] 12/03/18 05:11 BASIC METABOLIC PANEL,BMP [CHEM] AM C-REACTIVE PROTEIN [CHEM] AM CBC WITH AUTO DIFF [HEME] AM MAGNESIUM [CHEM] AM 12/03/18 22:00 VANCOMYCIN TROUGH [CHEM] Timed 12/04/18 05:11 BASIC METABOLIC PANEL,BMP [CHEM] AM C-REACTIVE PROTEIN [CHEM] AM CBC WITH AUTO DIFF [HEME] AM MAGNESIUM [CHEM] AM 12/05/18 05:11 BASIC METABOLIC PANEL,BMP [CHEM] AM C-REACTIVE PROTEIN [CHEM] AM CBC WITH AUTO DIFF [HEME] AM MAGNESIUM [CHEM] AM - Plan Plan:: The patient was seen and examined at bedside in concert with the medical student. The assessment and plans were discussed and agreed upon with me. He is I&D post operative day 1. He seems to be doing just fine. We will continue with wound care and intravenous antibiotics.
[2018-12-02] MEDS: Simvastatin 10 MG Tab PO SCH (09:49)
[2018-12-02] MEDS: Aspirin 81 MG Tab.EC PO SCH (09:49)
[2018-12-02] MEDS: Lisinopril 10 MG Tab PO SCH (09:49)
[2018-12-02] MEDS: Cholecalciferol (Vitamin D3) 5,000 UNIT Tab PO SCH (09:50)
[2018-12-02] MEDS: Pantoprazole 40 MG Tab.CR PO SCH ×2 (09:50→20:08)
[2018-12-02] MEDS: Insulin Glarg,Human.Rec.Analog 100 UNIT/ML ML SUBCUT SCH ×2 (09:51→22:32)
[2018-12-02] MEDS ORDERED: Vancomycin 500 MG SDV ONE (11:46)
[2018-12-02] MEDS: Vancomycin 1 GM, Vancomycin 250 MG in Sodium Chloride 0.9% 250 ML IV SCH (11:56)
[2018-12-02] MEDS: HYDROmorphone 0.5 MG/0.5 ML Syringe IVPUSH PRN ×2 (14:59→22:23)
[2018-12-02] MEDS: Enoxaparin 40 MG/0.4 ML Syringe SUBCUT SCH (20:09)
[2018-12-02] MEDS: ClonazePAM 1 MG Tab PO PRN (20:14)
[2018-12-02] MEDS ORDERED: Magnesium Hydroxide 400 MG/5 ML Susp 30 ML Cup PO PRN (22:28)
[2018-12-03] MEDS: Acetaminophen/HYDROcodone 325-5 MG Tab PO PRN ×3 (03:49→17:27)
[2018-12-03] MEDS: Piperacillin/Tazobactam 4.5 GM in Sodium Chloride 0.9% 100 ML IV SCH ×3 (04:59→20:24)
[2018-12-03] MEDS: Vancomycin 1 GM, Vancomycin 250 MG in Sodium Chloride 0.9% 250 ML IV SCH ×2 (05:00→23:55)
[2018-12-03] MEDS ORDERED: Bisacodyl 10 MG Supp RECTAL ONE (06:00)
[2018-12-03] MEDS ORDERED: Magnesium Sulfate/Water 2 GM in Premix Bag 1 BAG IV ONE (07:04)
--- NOTE | 2018-12-03 07:05 | PCM.PN ---
- General Info Date of Service: 12/03/18 Admission Dx/Problem (Free Text): Admission Diagnosis/Problem Admission Diagnosis/Problem Cellulitis and abscess of finger Subjective Update: He had trouble overnight and slept on and off. He took off his gown and uncovered his wrapped per night nurse. However he tells me he just could not get comfortable due to multiple beeping noises and staff constantly in and out of his room. He is afebrile w/o leukocytosis. His Mg is mildly low this AM. Functional Status: Reports: Pain Controlled, Tolerating Diet, Ambulating, Urinating. Denies: New Symptoms - Review of Systems General: Denies: Fever, Weakness, Fatigue, Malaise, Chills HEENT: Reports: No Symptoms Pulmonary: Denies: Shortness of Breath Cardiovascular: Denies: Chest Pain, Dyspnea on Exertion, Lightheadedness Gastrointestinal: Denies: Abdominal Pain, Nausea, Vomiting Genitourinary: Reports: No Symptoms Musculoskeletal: Reports: Back Pain Skin: Reports: No Symptoms Neurological: Denies: Confusion, Difficulty Walking, Weakness, Gait Disturbance Psychiatric: Denies: Confusion, Depression, Mood Lability, Anxiety, Agitation, Cravings, Hallucinations, Suicidal Ideation, Homicidal Ideation - Patient Data Vitals - Most Recent: Last Vital Signs Temp 37.7 C 12/03/18 05:00 Pulse 104 H 12/03/18 05:00 Resp 16 12/03/18 05:00 BP 146/85 H 12/03/18 05:00 Pulse Ox 93 L 12/03/18 05:00 Weight - Most Recent: 70.398 kg I&O - Last 24 Hours: Intake & Output 12/02/18 12/03/18 12/03/18 22:59 06:59 14:59 Intake Total 1070 1869 Output Total 1100 1450 Balance -30 419 Lab Results Last 24 Hours: Laboratory Results - last 24 hr 12/02/18 12/02/18 12/02/18 Range/Units 04:27 09:58 11:16 WBC (4.23-9.07) K/mm3 RBC (4.63-6.08) M/mm3 Hgb (13.7-17.5) gm/dl Hct (40.1-51.0) % MCV (79.0-92.2) fl MCH (25.7-32.2) pg MCHC (32.2-35.5) g/dl RDW Std Deviation (35.1-43.9) fL Plt Count (163-337) K/mm3 MPV (9.4-12.3) fl Neut % (Auto) (34.0-67.9) % Lymph % (Auto) (21.8-53.1) % [place] % (Auto) (5.3-12.2) % Eos % (Auto) (0.8-7.0) Baso % (Auto) (0.1-1.2) % Neut # (Auto) (1.78-5.38) K/mm3 Lymph # (Auto) (1.32-3.57) K/mm3 [place] # (Auto) (0.30-0.82) K/mm3 Eos # (Auto) (0.04-0.54) K/mm3 Baso # (Auto) (0.01-0.08) K/mm3 Manual Slide Review Abnormal smear Sodium (136-145) mEq/L Potassium (3.5-5.1) mEq/L Chloride (98-107) mEq/L Carbon Dioxide (21-32) mEq/L Anion Gap (5-15) BUN (7-18) mg/dL Creatinine (0.7-1.3) mg/dL Est Cr Clr Drug Dosing mL/min Estimated GFR (MDRD) (>60) mL/min BUN/Creatinine Ratio (14-18) Glucose (74-106) mg/dL POC Glucose 126 H (70-105) mg/dL Calcium (8.5-10.1) mg/dL Magnesium (1.8-2.4) mg/dl C-Reactive Protein (<1.0) mg/dL Vancomycin Trough 11.7 (10.0-20.0) 12/02/18 12/02/18 12/03/18 Range/Units 16:58 20:17 00:13 WBC (4.23-9.07) K/mm3 RBC (4.63-6.08) M/mm3 Hgb (13.7-17.5) gm/dl Hct (40.1-51.0) % MCV (79.0-92.2) fl MCH (25.7-32.2) pg MCHC (32.2-35.5) g/dl RDW Std Deviation (35.1-43.9) fL Plt Count (163-337) K/mm3 MPV (9.4-12.3) fl Neut % (Auto) (34.0-67.9) % Lymph % (Auto) (21.8-53.1) % [place] % (Auto) (5.3-12.2) % Eos % (Auto) (0.8-7.0) Baso % (Auto) (0.1-1.2) % Neut # (Auto) (1.78-5.38) K/mm3 Lymph # (Auto) (1.32-3.57) K/mm3 [place] # (Auto) (0.30-0.82) K/mm3 Eos # (Auto) (0.04-0.54) K/mm3 Baso # (Auto) (0.01-0.08) K/mm3 Manual Slide Review Sodium (136-145) mEq/L Potassium (3.5-5.1) mEq/L Chloride (98-107) mEq/L Carbon Dioxide (21-32) mEq/L Anion Gap (5-15) BUN (7-18) mg/dL Creatinine (0.7-1.3) mg/dL Est Cr Clr Drug Dosing mL/min Estimated GFR (MDRD) (>60) mL/min BUN/Creatinine Ratio (14-18) Glucose (74-106) mg/dL POC Glucose 143 H 98 89 (70-105) mg/dL Calcium (8.5-10.1) mg/dL Magnesium (1.8-2.4) mg/dl C-Reactive Protein (<1.0) mg/dL Vancomycin Trough (10.0-20.0) 12/03/18 12/03/18 12/03/18 Range/Units 05:06 05:06 06:34 WBC 14.93 H (4.23-9.07) K/mm3 RBC 3.26 L (4.63-6.08) M/mm3 Hgb 10.6 L (13.7-17.5) gm/dl Hct 30.9 L (40.1-51.0) % MCV 94.8 H (79.0-92.2) fl MCH 32.5 H (25.7-32.2) pg MCHC 34.3 (32.2-35.5) g/dl RDW Std Deviation 39.3 (35.1-43.9) fL Plt Count 319 (163-337) K/mm3 MPV 9.9 (9.4-12.3) fl Neut % (Auto) 81.9 H (34.0-67.9) % Lymph % (Auto) 5.2 L (21.8-53.1) % [place] % (Auto) 11.7 (5.3-12.2) % Eos % (Auto) 0.9 (0.8-7.0) Baso % (Auto) 0.3 (0.1-1.2) % Neut # (Auto) 12.23 H (1.78-5.38) K/mm3 Lymph # (Auto) 0.77 L (1.32-3.57) K/mm3 [place] # (Auto) 1.75 H (0.30-0.82) K/mm3 Eos # (Auto) 0.14 (0.04-0.54) K/mm3 Baso # (Auto) 0.04 (0.01-0.08) K/mm3 Manual Slide Review Abnormal smear Sodium 134 L (136-145) mEq/L Potassium 3.8 (3.5-5.1) mEq/L Chloride 100 (98-107) mEq/L Carbon Dioxide 24 (21-32) mEq/L Anion Gap 13.8 (5-15) BUN 14 (7-18) mg/dL Creatinine 1.3 (0.7-1.3) mg/dL Est Cr Clr Drug Dosing 60.17 mL/min Estimated GFR (MDRD) 56 (>60) mL/min BUN/Creatinine Ratio 10.8 L (14-18) Glucose 94 (74-106) mg/dL POC Glucose 75 (70-105) mg/dL Calcium 8.2 L (8.5-10.1) mg/dL Magnesium 1.6 L (1.8-2.4) mg/dl C-Reactive Protein 5.0 H* (<1.0) mg/dL Vancomycin Trough (10.0-20.0) Erasmo Results Last 24 Hours: Microbiology 11/30/18 20:25 Aerobic Blood Culture - Preliminary Blood - Venous - Lab Draw NO GROWTH AFTER 2 DAYS Anaerobic Blood Culture - Preliminary NO GROWTH AFTER 2 DAYS 11/30/18 20:15 Aerobic Blood Culture - Preliminary Blood - Venous NO GROWTH AFTER 2 DAYS Anaerobic Blood Culture - Preliminary NO GROWTH AFTER 2 DAYS 12/01/18 09:55 Wound Culture - Preliminary Finger, Left - Left Index Gram Positive Cocci Med Orders - Current: Current Medications Acetaminophen (Tylenol) 650 mg PO Q4H PRN PRN Reason: Pain (Mild 1-3)/fever Hydrocodone Bitart/Acetaminophen ([place] 325-5 Mg) 1 tab PO Q4H PRN PRN Reason: Pain (moderate 4-6) Last Admin: 12/03/18 03:49 Dose: 1 tab Albuterol/Ipratropium (Duoneb 3.0-0.5 Mg/3 Ml) 3 ml NEB Q4H PRN PRN Reason: Shortness Of Breath/wheezing Aspirin (Halfprin) 81 mg PO DAILY IVA Last Admin: 12/02/18 09:49 Dose: 81 mg Bisacodyl (Dulcolax) 5 mg PO DAILY PRN PRN Reason: Constipation Last Admin: 12/02/18 20:09 Dose: 5 mg Cholecalciferol (Vitamin D3) 5,000 unit PO DAILY IVA Last Admin: 12/02/18 09:50 Dose: 5,000 unit Clonazepam (Klonopin) 1 mg PO BEDTIME PRN PRN Reason: Insomnia Last Admin: 12/02/18 20:14 Dose: 1 mg Dextrose/Water (Dextrose 50% In Water) 50 ml IVPUSH ASDIRECTED PRN PRN Reason: Hypoglycemia Last Admin: 12/01/18 06:55 Dose: 25 ml Docusate Sodium (Colace) 100 mg PO BID PRN PRN Reason: Constipation Last Admin: 12/01/18 13:50 Dose: 100 mg Enoxaparin Sodium (Lovenox) 40 mg SUBCUT Q24H IVA Last Admin: 12/02/18 20:09 Dose: 40 mg Hydromorphone HCl (Dilaudid) 0.25 mg IVPUSH Q2H PRN PRN Reason: Pain (severe 7-10) Last Admin: 12/02/18 22:23 Dose: 0.25 mg Promethazine HCl 6.25 mg/ (Sodium Chloride) 50.25 mls @ 100 mls/hr IV Q6H PRN PRN Reason: Nausea/Vomiting Lactated Ringer's (Ringers, Lactated) 1,000 mls @ 125 mls/hr IV ASDIRECTED [facility] Last Admin: 12/02/18 21:28 Dose: 125 mls/hr Piperacillin Sod/Tazobactam (Sod 4.5 gm/ Sodium Chloride) 100 mls @ 25 mls/hr IV Q8H [facility] Last Admin: 12/03/18 04:59 Dose: 25 mls/hr Vancomycin HCl 1 gm/Vancomycin HCl 250 mg/ Sodium Chloride 250 mls @ 166.667 mls/hr IV Q18H [facility] Last Admin: 12/03/18 05:00 Dose: 166.667 mls/hr Magnesium Sulfate 2 gm/ Premix 50 mls @ 25 mls/hr IV ONETIME ONE Stop: 12/03/18 09:03 Insulin Glargine (Lantus) 15 unit SUBCUT BID [facility] Last Admin: 12/02/18 22:32 Dose: Not Given Insulin Human Lispro (Humalog) 0 unit SUBCUT QIDACANDBED [facility]; Protocol Last Admin: 12/02/18 21:00 Dose: Not Given Lisinopril (Prinivil) 10 mg PO DAILY [facility] Last Admin: 12/02/18 09:49 Dose: 10 mg Magnesium Hydroxide (Milk Of Magnesia) 30 ml PO BEDTIME PRN PRN Reason: Constipation Ondansetron HCl (Zofran) 4 mg IV Q6H PRN PRN Reason: Nausea/Vomiting Pantoprazole Sodium (Protonix) 40 mg PO BID [facility] Last Admin: 12/02/18 20:08 Dose: 40 mg Polyethylene Glycol (Miralax) 17 gm PO DAILY PRN PRN Reason: Constipation Promethazine HCl (Phenergan) 50 mg PO Q6H PRN PRN Reason: Nausea/Vomiting Senna/Docusate Sodium (Senna Plus) 1 tab PO BID PRN PRN Reason: Constipation Simvastatin (Zocor) 10 mg PO DAILY [facility] Last Admin: 12/02/18 09:49 Dose: 10 mg Temazepam (Restoril) 15 mg PO BEDTIME PRN PRN Reason: Sleep Vancomycin HCl (Pharmacy To Dose - Vancomycin) 1 dose .XX ASDIRECTED PRN PRN Reason: RX TO DOSE VANCO Discontinued Medications Bisacodyl (Dulcolax) 10 mg RECTAL ONETIME ONE Stop: 12/03/18 06:01 Enoxaparin Sodium (Lovenox) 30 mg SUBCUT DAILY [facility] Enoxaparin Sodium (Lovenox) 40 mg SUBCUT DAILY [facility] Last Admin: 12/01/18 20:51 Dose: Not Given Fentanyl (Sublimaze) Confirm Administered Dose 100 mcg .ROUTE .STK-MED ONE Stop: 12/01/18 09:35 Piperacillin Sod/Tazobactam (Sod 4.5 gm/ Sodium Chloride) 100 mls @ 200 mls/hr IV Q8H [facility] Last Admin: 11/30/18 21:03 Dose: 200 mls/hr Piperacillin Sod/Tazobactam (Sod 4.5 gm/ Sodium Chloride) 100 mls @ 200 mls/hr IV ONETIME ONE Stop: 11/30/18 21:44 Vancomycin HCl 1 gm/Vancomycin HCl 250 mg/ Sodium Chloride 500 mls @ 333.333 mls/hr IV Q12H [facility] Last Admin: 11/30/18 23:11 Dose: 333.333 mls/hr Lidocaine HCl (Xylocaine-Mpf 1%) Confirm Administered Dose 4 mls @ as directed .ROUTE .STK-MED ONE Stop: 12/01/18 09:35 Insulin Human Lispro (Humalog) 0 unit SUBCUT QIDACANDBED PRN; Protocol PRN Reason: Hyperglycemia Last Admin: 12/01/18 20:54 Dose: 1 units Lidocaine HCl (Xylocaine-Mpf 1%) Confirm Administered Dose 30 ml .ROUTE .STK- MED ONE Stop: 12/01/18 08:47 Midazolam HCl (Versed 1 Mg/Ml) Confirm Administered Dose 2 mg .ROUTE .STK-MED ONE Stop: 12/01/18 09:35 Miscellaneous Information (Remove Patch) 1 ea TRDERM DAILY [facility] Nicotine (Habitrol) 21 mg TRDERM DAILY [facility] Pantoprazole Sodium (Protonix Iv) 40 mg IV Q12HR [facility] Last Admin: 12/01/18 20:51 Dose: Not Given Propofol (Diprivan 20 Ml) Confirm Administered Dose 200 mg .ROUTE .STK-MED ONE Stop: 12/01/18 09:35 Vancomycin HCl (Vancomycin) Confirm Administered Dose 500 mg .ROUTE .STK-MED ONE Stop: 12/02/18 11:47 Last Admin: 12/02/18 14:05 Dose: Not Given - Exam General: Alert, Oriented, Cooperative, No Acute Distress HEENT: Pupils Equal, Pupils Reactive, EOMI, Mucous Membr. Moist/[place] Neck: Supple Lungs: Clear to Auscultation, Normal Respiratory Effort Cardiovascular: Regular Rate, Regular Rhythm GI/Abdominal Exam: Normal Bowel Sounds, Soft, Non-Tender, No Organomegaly, No Distention, No Abnormal Bruit, No Mass (Male) Exam: Deferred Back Exam: Normal Inspection, Decreased Range of Motion Extremities: Normal Inspection, Normal Range of Motion, Non-Tender, No Pedal Edema, Normal Capillary Refill, Other (left first digit: dressed and wrapped) Peripheral Pulses: 2+: Dorsalis Pedis (L), Dorsalis Pedis (R) Skin: Warm, Dry, Intact Wound/Incisions: Dressing Dry and Intact, No Drainage Neurological: No New Focal Deficit Psy/Mental Status: Alert, Normal Affect, Normal Mood - Problem List Review Problem List Initiated/Reviewed/Updated: Yes - My Orders Last 24 Hours: My Active Orders 12/02/18 07:00 Insulin Lispro [HumaLOG] See Protocol SUBCUT QIDACANDBED 12/02/18 09:00 Lisinopril [Prinivil] 10 mg PO DAILY 12/02/18 22:28 Magnesium Hydroxide [Milk of Magnesia] 30 ml PO BEDTIME PRN 12/02/18 Breakfast Consistent Carbohydrate Diet [DIET] 12/03/18 07:04 Magnesium Sulfate/Water [Magnesium Sulfate in Water Premix] 2 gm Premix Bag 1 bag IV ONETIME 12/03/18 22:00 VANCOMYCIN TROUGH [CHEM] Timed 12/04/18 05:11 BASIC METABOLIC PANEL,BMP [CHEM] AM C-REACTIVE PROTEIN [CHEM] AM CBC WITH AUTO DIFF [HEME] AM MAGNESIUM [CHEM] AM 12/05/18 05:11 BASIC METABOLIC PANEL,BMP [CHEM] AM C-REACTIVE PROTEIN [CHEM] AM CBC WITH AUTO DIFF [HEME] AM MAGNESIUM [CHEM] AM - Plan Plan:: Assessment: Acute: SSTI/Abscess - Left hand 1st Digit - Acute on Chronic - Started to swell up the day prior to admission - 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 Martinez consulted and preformed debridement POD#1 - IV Vancomycin and Zosyn for pharmacy to dose Hyperglycemia with DM2, Improved - BS in the 200s; controlled - A1C is 9.30 - Takes Metformin and Levemir 40 units SC daily - Lantus 25 units subQ BID - ASA/Statin/ACEI - Accu-check QID with ISS - Diabetic Education - Proteinuria due to longstanding diabetes - Encourage to eat Pseudohyponatremia, Improving - NA of 128 -> 132 -> 134 - Likely 2/2 Hyperglycemia - Not on Thiazide Diuretics or SSRI/SNRIs - IV Hydration Nicotine Use Disorder - Counseled on smoking cessation - Nicotine Patch Daily Vitamin D Deficiency - Vit D level of 19.2 - Continue Oral Supplement 1 tab po daily Hypomagnesemia - Mg of 1.6 - 2/2 inadequate intake - Replete and monitor Resolved: S/P Sepsis - 2/2 SSTI r/o Osteomyelitis - CRP of 9.0 -> 11.8 -> 8.5 - Lactic Acid 1.3 -> 0.8 Chronic: HTN, DM2, and Hx/o Rib Fracture Plan: He is clinically stable ADA diet Routine AM Labs Diabetes Education Dr. Martinez following GI/DVT Prophylaxis PT/OT to assess and treat SW/CM for d/c planning Code status: full Additional orders as above
[2018-12-03] MEDS: Insulin Lispro 100 Units/ML 3 ML Vial SUBCUT SCH ×4 (07:47→23:28)
[2018-12-03] MEDS: Lactated Ringers 1,000 ML IV SCH (08:07)
[2018-12-03] MEDS ORDERED: Temazepam 15 MG Cap PO ONE (08:09)
[2018-12-03] MEDS ORDERED: Temazepam 30 MG Cap PO ONE (08:09)
[2018-12-03] MEDS ORDERED: diphenhydrAMINE 50 MG/ML SDV IVPUSH ONE (08:10)
[2018-12-03] MEDS: Insulin Glarg,Human.Rec.Analog 100 UNIT/ML ML SUBCUT SCH ×2 (09:15→20:24)
[2018-12-03] MEDS: Simvastatin 10 MG Tab PO SCH (09:28)
[2018-12-03] MEDS: Pantoprazole 40 MG Tab.CR PO SCH ×2 (09:28→20:25)
[2018-12-03] MEDS: Lisinopril 10 MG Tab PO SCH (09:28)
[2018-12-03] MEDS: Cholecalciferol (Vitamin D3) 5,000 UNIT Tab PO SCH (09:28)
[2018-12-03] MEDS: Aspirin 81 MG Tab.EC PO SCH (09:33)
[2018-12-03] MEDS ORDERED: diphenhydrAMINE 50 MG/ML SDV IVPUSH PRN (19:15)
[2018-12-03] MEDS ORDERED: Temazepam 15 MG Cap PO PRN (19:16)
[2018-12-03] MEDS: Enoxaparin 40 MG/0.4 ML Syringe SUBCUT SCH (20:24)
[2018-12-04] MEDS: Acetaminophen/HYDROcodone 325-5 MG Tab PO PRN ×3 (01:19→13:18)
[2018-12-04] MEDS: Piperacillin/Tazobactam 4.5 GM in Sodium Chloride 0.9% 100 ML IV SCH ×2 (05:39→13:17)
[2018-12-04] MEDS: Insulin Lispro 100 Units/ML 3 ML Vial SUBCUT SCH ×2 (06:45→11:39)
--- NOTE | 2018-12-04 07:09 | PCM.PN ---
- General Info Date of Service: 12/04/18 Admission Dx/Problem (Free Text): Admission Diagnosis/Problem Admission Diagnosis/Problem Cellulitis and abscess of finger Subjective Update: No trouble overnight. He rested well and feels good this morning. Functional Status: Reports: Pain Controlled, Tolerating Diet, Ambulating, Urinating. Denies: New Symptoms - Review of Systems General: Denies: Fever, Weakness, Fatigue, Malaise, Chills HEENT: Reports: No Symptoms Pulmonary: Denies: Shortness of Breath Cardiovascular: Denies: Chest Pain, Dyspnea on Exertion, Lightheadedness Gastrointestinal: Reports: Decreased Appetite. Denies: Abdominal Pain, Nausea, Vomiting Genitourinary: Reports: No Symptoms Musculoskeletal: Reports: No Symptoms Skin: Denies: Pallor, Diaphoresis, Rash Neurological: Denies: Confusion, Difficulty Walking, Weakness, Gait Disturbance Psychiatric: Denies: Depression, Anxiety, Agitation, Hallucinations - Patient Data Vitals - Most Recent: Last Vital Signs Temp 37.4 C 12/03/18 20:22 Pulse 84 12/03/18 20:22 Resp 14 12/03/18 20:22 BP 110/53 L 12/03/18 20:22 Pulse Ox 93 L 12/03/18 20:22 Weight - Most Recent: 70.398 kg I&O - Last 24 Hours: Intake & Output 12/03/18 12/04/18 12/04/18 22:59 06:59 14:59 Intake Total 3260 Output Total 500 Balance 2760 Lab Results Last 24 Hours: Laboratory Results - last 24 hr 12/03/18 12/03/18 12/03/18 Range/Units 10:55 16:53 20:19 Sodium (136-145) mEq/L Potassium (3.5-5.1) mEq/L Chloride (98-107) mEq/L Carbon Dioxide (21-32) mEq/L Anion Gap (5-15) BUN (7-18) mg/dL Creatinine (0.7-1.3) mg/dL Est Cr Clr Drug Dosing mL/min Estimated GFR (MDRD) (>60) mL/min BUN/Creatinine Ratio (14-18) Glucose (74-106) mg/dL POC Glucose 92 163 H 158 H (70-105) mg/dL Calcium (8.5-10.1) mg/dL Magnesium (1.8-2.4) mg/dl C-Reactive Protein (<1.0) mg/dL Vancomycin Trough (10.0-20.0) 12/03/18 12/04/18 12/04/18 Range/Units 22:05 05:33 06:35 Sodium 136 (136-145) mEq/L Potassium 4.0 (3.5-5.1) mEq/L Chloride 101 (98-107) mEq/L Carbon Dioxide 22 (21-32) mEq/L Anion Gap 17.0 H (5-15) BUN 12 (7-18) mg/dL Creatinine 1.3 (0.7-1.3) mg/dL Est Cr Clr Drug Dosing 60.17 mL/min Estimated GFR (MDRD) 56 (>60) mL/min BUN/Creatinine Ratio 9.2 L (14-18) Glucose 152 H (74-106) mg/dL POC Glucose 146 H (70-105) mg/dL Calcium 8.6 (8.5-10.1) mg/dL Magnesium 2.0 (1.8-2.4) mg/dl C-Reactive Protein 5.2 H* (<1.0) mg/dL Vancomycin Trough 11.6 (10.0-20.0) Erasmo Results Last 24 Hours: Microbiology 11/30/18 20:25 Aerobic Blood Culture - Preliminary Blood - Venous - Lab Draw NO GROWTH AFTER 3 DAYS Anaerobic Blood Culture - Preliminary NO GROWTH AFTER 3 DAYS 11/30/18 20:15 Aerobic Blood Culture - Preliminary Blood - Venous NO GROWTH AFTER 3 DAYS Anaerobic Blood Culture - Preliminary NO GROWTH AFTER 3 DAYS 12/01/18 09:55 Wound Culture - Preliminary Finger, Left - Left Index Beta Streptococcus Group C Staphylococcus Aureus Med Orders - Current: Current Medications Acetaminophen (Tylenol) 650 mg PO Q4H PRN PRN Reason: Pain (Mild 1-3)/fever Hydrocodone Bitart/Acetaminophen ([place] 325-5 Mg) 1 tab PO Q4H PRN PRN Reason: Pain (moderate 4-6) Last Admin: 12/04/18 01:19 Dose: 1 tab Albuterol/Ipratropium (Duoneb 3.0-0.5 Mg/3 Ml) 3 ml NEB Q4H PRN PRN Reason: Shortness Of Breath/wheezing Aspirin (Halfprin) 81 mg PO DAILY IVA Last Admin: 12/03/18 09:33 Dose: 81 mg Bisacodyl (Dulcolax) 5 mg PO DAILY PRN PRN Reason: Constipation Last Admin: 12/02/18 20:09 Dose: 5 mg Cholecalciferol (Vitamin D3) 5,000 unit PO DAILY [facility] Last Admin: 12/03/18 09:28 Dose: 5,000 unit Clonazepam (Klonopin) 1 mg PO BEDTIME PRN PRN Reason: Insomnia Last Admin: 12/02/18 20:14 Dose: 1 mg Dextrose/Water (Dextrose 50% In Water) 50 ml IVPUSH ASDIRECTED PRN PRN Reason: Hypoglycemia Last Admin: 12/01/18 06:55 Dose: 25 ml Diphenhydramine HCl (Benadryl) 25 mg IVPUSH BEDTIME PRN PRN Reason: Insomnia Last Admin: 12/03/18 20:25 Dose: 25 mg Docusate Sodium (Colace) 100 mg PO BID PRN PRN Reason: Constipation Last Admin: 12/01/18 13:50 Dose: 100 mg Enoxaparin Sodium (Lovenox) 40 mg SUBCUT Q24H [facility] Last Admin: 12/03/18 20:24 Dose: 40 mg Hydromorphone HCl (Dilaudid) 0.25 mg IVPUSH Q2H PRN PRN Reason: Pain (severe 7-10) Last Admin: 12/02/18 22:23 Dose: 0.25 mg Promethazine HCl 6.25 mg/ (Sodium Chloride) 50.25 mls @ 100 mls/hr IV Q6H PRN PRN Reason: Nausea/Vomiting Piperacillin Sod/Tazobactam (Sod 4.5 gm/ Sodium Chloride) 100 mls @ 25 mls/hr IV Q8H [facility] Last Admin: 12/04/18 05:39 Dose: 25 mls/hr Vancomycin HCl 1 gm/Vancomycin HCl 250 mg/ Sodium Chloride 250 mls @ 166.667 mls/hr IV Q18H [facility] Last Admin: 12/03/18 23:55 Dose: 166.667 mls/hr Insulin Glargine (Lantus) 15 unit SUBCUT BID [facility] Last Admin: 12/03/18 20:24 Dose: Not Given Insulin Human Lispro (Humalog) 0 unit SUBCUT QIDACANDBED [facility]; Protocol Last Admin: 12/04/18 06:45 Dose: Not Given Lisinopril (Prinivil) 10 mg PO DAILY [facility] Last Admin: 12/03/18 09:28 Dose: 10 mg Magnesium Hydroxide (Milk Of Magnesia) 30 ml PO BEDTIME PRN PRN Reason: Constipation Ondansetron HCl (Zofran) 4 mg IV Q6H PRN PRN Reason: Nausea/Vomiting Pantoprazole Sodium (Protonix) 40 mg PO BID [facility] Last Admin: 12/03/18 20:25 Dose: 40 mg Polyethylene Glycol (Miralax) 17 gm PO DAILY PRN PRN Reason: Constipation Promethazine HCl (Phenergan) 50 mg PO Q6H PRN PRN Reason: Nausea/Vomiting Senna/Docusate Sodium (Senna Plus) 1 tab PO BID PRN PRN Reason: Constipation Simvastatin (Zocor) 10 mg PO DAILY [facility] Last Admin: 12/03/18 09:28 Dose: 10 mg Temazepam (Restoril) 30 mg PO BEDTIME PRN PRN Reason: Sleep Last Admin: 12/03/18 20:26 Dose: 30 mg Vancomycin HCl (Pharmacy To Dose - Vancomycin) 1 dose .XX ASDIRECTED PRN PRN Reason: RX TO DOSE VANCO Discontinued Medications Bisacodyl (Dulcolax) 10 mg RECTAL ONETIME ONE Stop: 12/03/18 06:01 Last Admin: 12/03/18 07:54 Dose: Not Given Diphenhydramine HCl (Benadryl) 25 mg IVPUSH ONETIME ONE Stop: 12/03/18 08:11 Last Admin: 12/03/18 09:34 Dose: 25 mg Enoxaparin Sodium (Lovenox) 30 mg SUBCUT DAILY [facility] Enoxaparin Sodium (Lovenox) 40 mg SUBCUT DAILY [facility] Last Admin: 12/01/18 20:51 Dose: Not Given Fentanyl (Sublimaze) Confirm Administered Dose 100 mcg .ROUTE .STK-MED ONE Stop: 12/01/18 09:35 Lactated Ringer's (Ringers, Lactated) 1,000 mls @ 125 mls/hr IV ASDIRECTED [facility] Last Admin: 12/03/18 08:07 Dose: 125 mls/hr Piperacillin Sod/Tazobactam (Sod 4.5 gm/ Sodium Chloride) 100 mls @ 200 mls/hr IV Q8H [facility] Last Admin: 11/30/18 21:03 Dose: 200 mls/hr Piperacillin Sod/Tazobactam (Sod 4.5 gm/ Sodium Chloride) 100 mls @ 200 mls/hr IV ONETIME ONE Stop: 11/30/18 21:44 Vancomycin HCl 1 gm/Vancomycin HCl 250 mg/ Sodium Chloride 500 mls @ 333.333 mls/hr IV Q12H [facility] Last Admin: 11/30/18 23:11 Dose: 333.333 mls/hr Lidocaine HCl (Xylocaine-Mpf 1%) Confirm Administered Dose 4 mls @ as directed .ROUTE .STK-MED ONE Stop: 12/01/18 09:35 Magnesium Sulfate 2 gm/ Premix 50 mls @ 25 mls/hr IV ONETIME ONE Stop: 12/03/18 09:03 Last Admin: 12/03/18 09:38 Dose: 25 mls/hr Insulin Human Lispro (Humalog) 0 unit SUBCUT QIDACANDBED PRN; Protocol PRN Reason: Hyperglycemia Last Admin: 12/01/18 20:54 Dose: 1 units Lidocaine HCl (Xylocaine-Mpf 1%) Confirm Administered Dose 30 ml .ROUTE .STK- MED ONE Stop: 12/01/18 08:47 Midazolam HCl (Versed 1 Mg/Ml) Confirm Administered Dose 2 mg .ROUTE .STK-MED ONE Stop: 12/01/18 09:35 Miscellaneous Information (Remove Patch) 1 ea TRDERM DAILY [facility] Nicotine (Habitrol) 21 mg TRDERM DAILY [facility] Pantoprazole Sodium (Protonix Iv) 40 mg IV Q12HR [facility] Last Admin: 12/01/18 20:51 Dose: Not Given Propofol (Diprivan 20 Ml) Confirm Administered Dose 200 mg .ROUTE .STK-MED ONE Stop: 12/01/18 09:35 Temazepam (Restoril) 15 mg PO BEDTIME PRN PRN Reason: Sleep Temazepam (Restoril) 15 mg PO ONETIME ONE Stop: 12/03/18 08:10 Last Admin: 12/03/18 09:15 Dose: Not Given Temazepam (Restoril) 30 mg PO ONETIME ONE Stop: 12/03/18 08:10 Last Admin: 12/03/18 09:28 Dose: 30 mg Vancomycin HCl (Vancomycin) Confirm Administered Dose 500 mg .ROUTE .STK-MED ONE Stop: 12/02/18 11:47 Last Admin: 12/02/18 14:05 Dose: Not Given - Exam General: Alert, Oriented, Cooperative, No Acute Distress HEENT: Pupils Equal, Pupils Reactive, EOMI, Mucous Membr. Moist/[place] Neck: Supple Lungs: Clear to Auscultation, Normal Respiratory Effort Cardiovascular: Regular Rate, Regular Rhythm, No Murmurs GI/Abdominal Exam: Normal Bowel Sounds, Soft, Non-Tender, No Organomegaly, No Distention, No Abnormal Bruit (Male) Exam: Deferred Back Exam: Normal Inspection, Decreased Range of Motion Extremities: Normal Inspection, Normal Range of Motion, Non-Tender, No Pedal Edema, Normal Capillary Refill Skin: Warm, Dry, Intact Neurological: No New Focal Deficit Psy/Mental Status: Alert, Normal Affect, Normal Mood - Problem List Review Problem List Initiated/Reviewed/Updated: Yes - My Orders Last 24 Hours: My Active Orders 12/03/18 19:15 diphenhydrAMINE [Benadryl] 25 mg IVPUSH BEDTIME PRN 12/03/18 19:16 Temazepam [Restoril] 30 mg PO BEDTIME PRN 12/04/18 05:33 CBC WITH AUTO DIFF [HEME] AM 12/05/18 05:11 BASIC METABOLIC PANEL,BMP [CHEM] AM C-REACTIVE PROTEIN [CHEM] AM CBC WITH AUTO DIFF [HEME] AM MAGNESIUM [CHEM] AM - Plan Plan:: Assessment: Acute: SSTI/Abscess - Left hand 1st Digit - Acute on Chronic - Started to swell up the day prior to admission - 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 Martinez consulted and preformed debridement POD#2 - Continue IV Vancomycin and Zosyn for pharmacy to dose Hyperglycemia with DM2, Stable - BS in the 200s; controlled - A1C is 9.30 - Takes Metformin and Levemir 40 units SC daily - Lantus 25 units subQ BID - ASA/Statin/ACEI - Accu-check QID with ISS - Diabetic Education - Proteinuria due to longstanding diabetes - Encourage to eat Nicotine Use Disorder - Counseled on smoking cessation - Nicotine Patch Daily Vitamin D Deficiency - Vit D level of 19.2 - Continue Oral Supplement 1 tab po daily Resolved: S/P Sepsis - 2/2 SSTI r/o Osteomyelitis - CRP of 9.0 -> 11.8 -> 8.5 - Lactic Acid 1.3 -> 0.8 S/p Pseudohyponatremia - NA of 128 -> 132 -> 134-->136 - Likely 2/2 Hyperglycemia - Not on Thiazide Diuretics or SSRI/SNRIs - IV Hydration S/p Hypomagnesemia - Mg of 1.6-->2.0 - 2/2 inadequate intake - Replete and monitor Chronic: HTN, DM2, and Hx/o Rib Fracture Plan: He remains clinically stable ADA diet Routine AM Labs Diabetes Education Awaiting further input from Dr. Martinez GI/DVT Prophylaxis PT/OT to assess and treat SW/CM for d/c planning Code status: full Additional orders as above
[2018-12-04 09:02] VITALS: BP 134/65
[2018-12-04] MEDS: Simvastatin 10 MG Tab PO SCH (09:26)
[2018-12-04] MEDS: Aspirin 81 MG Tab.EC PO SCH (09:26)
[2018-12-04] MEDS: Lisinopril 10 MG Tab PO SCH (09:27)
[2018-12-04] MEDS: Pantoprazole 40 MG Tab.CR PO SCH (09:27)
[2018-12-04] MEDS: Cholecalciferol (Vitamin D3) 5,000 UNIT Tab PO SCH (09:27)
[2018-12-04] MEDS: Insulin Glarg,Human.Rec.Analog 100 UNIT/ML ML SUBCUT SCH (09:28)
--- NOTE | 2018-12-04 14:28 | PCM.SURGPN ---
- General Info Date of Service: 12/04/18 - Review of Systems General: Reports: No Symptoms Skin: Reports: Other (indext finger infection is less and swelling down however noted today a blister over the thenar crease which was opend and had push the thenar emenams is red and edematous and tender ) - Patient Data Vitals - Most Recent: Last Vital Signs Temp 98.8 F 12/04/18 08:00 Pulse 91 12/04/18 08:00 Resp 18 12/04/18 08:00 BP 134/65 12/04/18 09:27 Pulse Ox 94 L 12/04/18 08:00 Weight - Most Recent: 70.398 kg I&O - Last 24 Hours: Intake & Output 12/03/18 12/04/18 12/04/18 23:59 07:59 15:59 Intake Total 1120 810 600 Output Total 500 Balance 620 810 600 Lab Results Last 24 Hrs: Laboratory Results - last 24 hr 12/03/18 12/03/18 12/03/18 Range/Units 16:53 20:19 22:05 WBC (4.23-9.07) K/mm3 RBC (4.63-6.08) M/mm3 Hgb (13.7-17.5) gm/dl Hct (40.1-51.0) % MCV (79.0-92.2) fl MCH (25.7-32.2) pg MCHC (32.2-35.5) g/dl RDW Std Deviation (35.1-43.9) fL Plt Count (163-337) K/mm3 MPV (9.4-12.3) fl Neut % (Auto) (34.0-67.9) % Lymph % (Auto) (21.8-53.1) % Imperial % (Auto) (5.3-12.2) % Eos % (Auto) (0.8-7.0) Baso % (Auto) (0.1-1.2) % Neut # (Auto) (1.78-5.38) K/mm3 Lymph # (Auto) (1.32-3.57) K/mm3 Imperial # (Auto) (0.30-0.82) K/mm3 Eos # (Auto) (0.04-0.54) K/mm3 Baso # (Auto) (0.01-0.08) K/mm3 Manual Slide Review Sodium (136-145) mEq/L Potassium (3.5-5.1) mEq/L Chloride (98-107) mEq/L Carbon Dioxide (21-32) mEq/L Anion Gap (5-15) BUN (7-18) mg/dL Creatinine (0.7-1.3) mg/dL Est Cr Clr Drug Dosing mL/min Estimated GFR (MDRD) (>60) mL/min BUN/Creatinine Ratio (14-18) Glucose (74-106) mg/dL POC Glucose 163 H 158 H (70-105) mg/dL Calcium (8.5-10.1) mg/dL Magnesium (1.8-2.4) mg/dl C-Reactive Protein (<1.0) mg/dL Vancomycin Trough 11.6 (10.0-20.0) 12/04/18 12/04/18 12/04/18 Range/Units 05:33 05:33 06:35 WBC 15.23 H (4.23-9.07) K/mm3 RBC 3.58 L (4.63-6.08) M/mm3 Hgb 11.2 L (13.7-17.5) gm/dl Hct 34.3 L (40.1-51.0) % MCV 95.8 H (79.0-92.2) fl MCH 31.3 (25.7-32.2) pg MCHC 32.7 (32.2-35.5) g/dl RDW Std Deviation 41.3 (35.1-43.9) fL Plt Count 402 H D (163-337) K/mm3 MPV 9.9 (9.4-12.3) fl Neut % (Auto) 76.1 H (34.0-67.9) % Lymph % (Auto) 7.6 L (21.8-53.1) % Imperial % (Auto) 13.6 H (5.3-12.2) % Eos % (Auto) 2.2 (0.8-7.0) Baso % (Auto) 0.2 (0.1-1.2) % Neut # (Auto) 11.59 H (1.78-5.38) K/mm3 Lymph # (Auto) 1.15 L (1.32-3.57) K/mm3 [place] # (Auto) 2.07 H (0.30-0.82) K/mm3 Eos # (Auto) 0.34 (0.04-0.54) K/mm3 Baso # (Auto) 0.03 (0.01-0.08) K/mm3 Manual Slide Review Abnormal smear Sodium 136 (136-145) mEq/L Potassium 4.0 (3.5-5.1) mEq/L Chloride 101 (98-107) mEq/L Carbon Dioxide 22 (21-32) mEq/L Anion Gap 17.0 H (5-15) BUN 12 (7-18) mg/dL Creatinine 1.3 (0.7-1.3) mg/dL Est Cr Clr Drug Dosing 60.17 mL/min Estimated GFR (MDRD) 56 (>60) mL/min BUN/Creatinine Ratio 9.2 L (14-18) Glucose 152 H (74-106) mg/dL POC Glucose 146 H (70-105) mg/dL Calcium 8.6 (8.5-10.1) mg/dL Magnesium 2.0 (1.8-2.4) mg/dl C-Reactive Protein 5.2 H* (<1.0) mg/dL Vancomycin Trough (10.0-20.0) 12/04/18 Range/Units 11:17 WBC (4.23-9.07) K/mm3 RBC (4.63-6.08) M/mm3 Hgb (13.7-17.5) gm/dl Hct (40.1-51.0) % MCV (79.0-92.2) fl MCH (25.7-32.2) pg MCHC (32.2-35.5) g/dl RDW Std Deviation (35.1-43.9) fL Plt Count (163-337) K/mm3 MPV (9.4-12.3) fl Neut % (Auto) (34.0-67.9) % Lymph % (Auto) (21.8-53.1) % [place] % (Auto) (5.3-12.2) % Eos % (Auto) (0.8-7.0) Baso % (Auto) (0.1-1.2) % Neut # (Auto) (1.78-5.38) K/mm3 Lymph # (Auto) (1.32-3.57) K/mm3 [place] # (Auto) (0.30-0.82) K/mm3 Eos # (Auto) (0.04-0.54) K/mm3 Baso # (Auto) (0.01-0.08) K/mm3 Manual Slide Review Sodium (136-145) mEq/L Potassium (3.5-5.1) mEq/L Chloride (98-107) mEq/L Carbon Dioxide (21-32) mEq/L Anion Gap (5-15) BUN (7-18) mg/dL Creatinine (0.7-1.3) mg/dL Est Cr Clr Drug Dosing mL/min Estimated GFR (MDRD) (>60) mL/min BUN/Creatinine Ratio (14-18) Glucose (74-106) mg/dL POC Glucose 215 H (70-105) mg/dL Calcium (8.5-10.1) mg/dL Magnesium (1.8-2.4) mg/dl C-Reactive Protein (<1.0) mg/dL Vancomycin Trough (10.0-20.0) Erasmo Results Last 24 Hrs: Microbiology 12/01/18 09:55 Wound Culture - Final Finger, Left - Left Index Beta Streptococcus Group C Staphylococcus Aureus 11/30/18 20:25 Aerobic Blood Culture - Preliminary Blood - Venous - Lab Draw NO GROWTH AFTER 3 DAYS Anaerobic Blood Culture - Preliminary NO GROWTH AFTER 3 DAYS 11/30/18 20:15 Aerobic Blood Culture - Preliminary Blood - Venous NO GROWTH AFTER 3 DAYS Anaerobic Blood Culture - Preliminary NO GROWTH AFTER 3 DAYS Med Orders - Current: Current Medications Acetaminophen (Tylenol) 650 mg PO Q4H PRN PRN Reason: Pain (Mild 1-3)/fever Hydrocodone Bitart/Acetaminophen ([place] 325-5 Mg) 1 tab PO Q4H PRN PRN Reason: Pain (moderate 4-6) Last Admin: 12/04/18 13:18 Dose: 1 tab Albuterol/Ipratropium (Duoneb 3.0-0.5 Mg/3 Ml) 3 ml NEB Q4H PRN PRN Reason: Shortness Of Breath/wheezing Aspirin (Halfprin) 81 mg PO DAILY IVA Last Admin: 09/22/19 09:26 Dose: 81 mg Bisacodyl (Dulcolax) 5 mg PO DAILY PRN PRN Reason: Constipation Last Admin: 12/02/18 20:09 Dose: 5 mg Cholecalciferol (Vitamin D3) 5,000 unit PO DAILY [facility] Last Admin: 12/04/18 09:27 Dose: 5,000 unit Clonazepam (Klonopin) 1 mg PO BEDTIME PRN PRN Reason: Insomnia Last Admin: 12/02/18 20:14 Dose: 1 mg Dextrose/Water (Dextrose 50% In Water) 50 ml IVPUSH ASDIRECTED PRN PRN Reason: Hypoglycemia Last Admin: 12/01/18 06:55 Dose: 25 ml Diphenhydramine HCl (Benadryl) 25 mg IVPUSH BEDTIME PRN PRN Reason: Insomnia Last Admin: 12/03/18 20:25 Dose: 25 mg Docusate Sodium (Colace) 100 mg PO BID PRN PRN Reason: Constipation Last Admin: 12/01/18 13:50 Dose: 100 mg Enoxaparin Sodium (Lovenox) 40 mg SUBCUT Q24H [facility] Last Admin: 12/03/18 20:24 Dose: 40 mg Hydromorphone HCl (Dilaudid) 0.25 mg IVPUSH Q2H PRN PRN Reason: Pain (severe 7-10) Last Admin: 12/02/18 22:23 Dose: 0.25 mg Promethazine HCl 6.25 mg/ (Sodium Chloride) 50.25 mls @ 100 mls/hr IV Q6H PRN PRN Reason: Nausea/Vomiting Piperacillin Sod/Tazobactam (Sod 4.5 gm/ Sodium Chloride) 100 mls @ 25 mls/hr IV Q8H [facility] Last Admin: 12/04/18 13:17 Dose: 25 mls/hr Vancomycin HCl 1 gm/Vancomycin HCl 250 mg/ Sodium Chloride 250 mls @ 166.667 mls/hr IV Q18H [facility] Last Admin: 12/03/18 23:55 Dose: 166.667 mls/hr Insulin Glargine (Lantus) 15 unit SUBCUT BID [facility] Last Admin: 12/04/18 09:28 Dose: 15 units Insulin Human Lispro (Humalog) 0 unit SUBCUT QIDACANDBED [facility]; Protocol Last Admin: 12/04/18 11:39 Dose: 2 unit Lisinopril (Prinivil) 10 mg PO DAILY [facility] Last Admin: 12/04/18 09:27 Dose: 10 mg Magnesium Hydroxide (Milk Of Magnesia) 30 ml PO BEDTIME PRN PRN Reason: Constipation Ondansetron HCl (Zofran) 4 mg IV Q6H PRN PRN Reason: Nausea/Vomiting Pantoprazole Sodium (Protonix) 40 mg PO BID [facility] Last Admin: 12/04/18 09:27 Dose: 40 mg Polyethylene Glycol (Miralax) 17 gm PO DAILY PRN PRN Reason: Constipation Promethazine HCl (Phenergan) 50 mg PO Q6H PRN PRN Reason: Nausea/Vomiting Senna/Docusate Sodium (Senna Plus) 1 tab PO BID PRN PRN Reason: Constipation Simvastatin (Zocor) 10 mg PO DAILY [facility] Last Admin: 12/04/18 09:26 Dose: 10 mg Temazepam (Restoril) 30 mg PO BEDTIME PRN PRN Reason: Sleep Last Admin: 12/03/18 20:26 Dose: 30 mg Vancomycin HCl (Pharmacy To Dose - Vancomycin) 1 dose .XX ASDIRECTED PRN PRN Reason: RX TO DOSE VANCO Discontinued Medications Bisacodyl (Dulcolax) 10 mg RECTAL ONETIME ONE Stop: 12/03/18 06:01 Last Admin: 12/03/18 07:54 Dose: Not Given Diphenhydramine HCl (Benadryl) 25 mg IVPUSH ONETIME ONE Stop: 12/03/18 08:11 Last Admin: 12/03/18 09:34 Dose: 25 mg Enoxaparin Sodium (Lovenox) 30 mg SUBCUT DAILY [facility] Enoxaparin Sodium (Lovenox) 40 mg SUBCUT DAILY [facility] Last Admin: 12/01/18 20:51 Dose: Not Given Fentanyl (Sublimaze) Confirm Administered Dose 100 mcg .ROUTE .STK-MED ONE Stop: 12/01/18 09:35 Lactated Ringer's (Ringers, Lactated) 1,000 mls @ 125 mls/hr IV ASDIRECTED [facility] Last Admin: 12/03/18 08:07 Dose: 125 mls/hr Piperacillin Sod/Tazobactam (Sod 4.5 gm/ Sodium Chloride) 100 mls @ 200 mls/hr IV Q8H [facility] Last Admin: 11/30/18 21:03 Dose: 200 mls/hr Piperacillin Sod/Tazobactam (Sod 4.5 gm/ Sodium Chloride) 100 mls @ 200 mls/hr IV ONETIME ONE Stop: 11/30/18 21:44 Vancomycin HCl 1 gm/Vancomycin HCl 250 mg/ Sodium Chloride 500 mls @ 333.333 mls/hr IV Q12H [facility] Last Admin: 11/30/18 23:11 Dose: 333.333 mls/hr Lidocaine HCl (Xylocaine-Mpf 1%) Confirm Administered Dose 4 mls @ as directed .ROUTE .STK-MED ONE Stop: 12/01/18 09:35 Magnesium Sulfate 2 gm/ Premix 50 mls @ 25 mls/hr IV ONETIME ONE Stop: 12/03/18 09:03 Last Admin: 12/03/18 09:38 Dose: 25 mls/hr Insulin Human Lispro (Humalog) 0 unit SUBCUT QIDACANDBED PRN; Protocol PRN Reason: Hyperglycemia Last Admin: 12/01/18 20:54 Dose: 1 units Lidocaine HCl (Xylocaine-Mpf 1%) Confirm Administered Dose 30 ml .ROUTE .STK- MED ONE Stop: 12/01/18 08:47 Midazolam HCl (Versed 1 Mg/Ml) Confirm Administered Dose 2 mg .ROUTE .STK-MED ONE Stop: 12/01/18 09:35 Miscellaneous Information (Remove Patch) 1 ea TRDERM DAILY [facility] Nicotine (Habitrol) 21 mg TRDERM DAILY [facility] Pantoprazole Sodium (Protonix Iv) 40 mg IV Q12HR [facility] Last Admin: 12/01/18 20:51 Dose: Not Given Propofol (Diprivan 20 Ml) Confirm Administered Dose 200 mg .ROUTE .STK-MED ONE Stop: 12/01/18 09:35 Temazepam (Restoril) 15 mg PO BEDTIME PRN PRN Reason: Sleep Temazepam (Restoril) 15 mg PO ONETIME ONE Stop: 12/03/18 08:10 Last Admin: 12/03/18 09:15 Dose: Not Given Temazepam (Restoril) 30 mg PO ONETIME ONE Stop: 12/03/18 08:10 Last Admin: 12/03/18 09:28 Dose: 30 mg Vancomycin HCl (Vancomycin) Confirm Administered Dose 500 mg .ROUTE .STK-MED ONE Stop: 12/02/18 11:47 Last Admin: 12/02/18 14:05 Dose: Not Given - Exam Skin: Other (swelling around the thenar eminance on the left with erythema ) - Problem List Review Problem List Initiated/Reviewed/Updated: Yes - My Orders Last 24 Hours: Active Orders 24 hr Category Date Time Status BASIC METABOLIC PANEL,BMP [CHEM] AM Lab 12/05/18 05:11 Ordered C-REACTIVE PROTEIN [CHEM] AM Lab 12/05/18 05:11 Ordered CBC WITH AUTO DIFF [HEME] AM Lab 12/05/18 05:11 Ordered MAGNESIUM [CHEM] AM Lab 12/05/18 05:11 Ordered Temazepam [Restoril] Med 12/03/18 19:16 Active 30 mg PO BEDTIME PRN diphenhydrAMINE [Benadryl] Med 12/03/18 19:15 Active 25 mg IVPUSH BEDTIME PRN Medication Orders Acetaminophen (Tylenol) 650 mg PO Q4H PRN PRN Reason: Pain (Mild 1-3)/fever Hydrocodone Bitart/Acetaminophen ([place] 325-5 Mg) 1 tab PO Q4H PRN PRN Reason: Pain (moderate 4-6) Last Admin: 12/04/18 13:18 Dose: 1 tab Admin: 12/04/18 09:27 Dose: 1 tab Admin: 12/04/18 01:19 Dose: 1 tab Admin: 12/03/18 17:27 Dose: 1 tab Admin: 12/03/18 13:42 Dose: 1 tab Admin: 12/03/18 03:49 Dose: 1 tab Admin: 12/02/18 19:14 Dose: 1 tab Admin: 12/02/18 14:02 Dose: 1 tab Admin: 12/02/18 09:50 Dose: 1 tab Admin: 12/02/18 02:26 Dose: 1 tab Admin: 12/01/18 18:06 Dose: 1 tab Admin: 12/01/18 13:50 Dose: 1 tab Admin: 12/01/18 05:16 Dose: 1 tab Albuterol/Ipratropium (Duoneb 3.0-0.5 Mg/3 Ml) 3 ml NEB Q4H PRN PRN Reason: Shortness Of Breath/wheezing Aspirin (Halfprin) 81 mg PO DAILY IVA Last Admin: 12/04/18 09:26 Dose: 81 mg Admin: 12/03/18 09:33 Dose: 81 mg Admin: 12/02/18 09:49 Dose: 81 mg Admin: 12/01/18 13:49 Dose: 81 mg Bisacodyl (Dulcolax) 5 mg PO DAILY PRN PRN Reason: Constipation Last Admin: 12/02/18 20:09 Dose: 5 mg Cholecalciferol (Vitamin D3) 5,000 unit PO DAILY IVA Last Admin: 12/04/18 09:27 Dose: 5,000 unit Admin: 12/03/18 09:28 Dose: 5,000 unit Admin: 12/02/18 09:50 Dose: 5,000 unit Admin: 12/01/18 13:56 Dose: Clonazepam (Klonopin) 1 mg PO BEDTIME PRN PRN Reason: Insomnia Last Admin: 12/02/18 20:14 Dose: 1 mg Admin: 12/01/18 20:50 Dose: 1 mg Admin: 12/01/18 00:54 Dose: 1 mg Dextrose/Water (Dextrose 50% In Water) 50 ml IVPUSH ASDIRECTED PRN PRN Reason: Hypoglycemia Last Admin: 12/01/18 06:55 Dose: 25 ml Diphenhydramine HCl (Benadryl) 25 mg IVPUSH BEDTIME PRN PRN Reason: Insomnia Last Admin: 12/03/18 20:25 Dose: 25 mg Docusate Sodium (Colace) 100 mg PO BID PRN PRN Reason: Constipation Last Admin: 12/01/18 13:50 Dose: 100 mg Enoxaparin Sodium (Lovenox) 40 mg SUBCUT Q24H IVA Last Admin: 12/03/18 20:24 Dose: 40 mg Admin: 12/02/18 20:09 Dose: 40 mg Admin: 12/01/18 20:49 Dose: 40 mg Hydromorphone HCl (Dilaudid) 0.25 mg IVPUSH Q2H PRN PRN Reason: Pain (severe 7-10) Last Admin: 12/02/18 22:23 Dose: 0.25 mg Admin: 12/02/18 14:59 Dose: 0.25 mg Admin: 11/30/18 20:15 Dose: 0.25 mg Promethazine HCl 6.25 mg/ (Sodium Chloride) 50.25 mls @ 100 mls/hr IV Q6H PRN PRN Reason: Nausea/Vomiting Piperacillin Sod/Tazobactam (Sod 4.5 gm/ Sodium Chloride) 100 mls @ 25 mls/hr IV Q8H [facility] Last Admin: 12/04/18 13:17 Dose: 25 mls/hr Infusion: 12/04/18 09:39 Dose: 25 mls/hr Admin: 12/04/18 05:39 Dose: 25 mls/hr Infusion: 12/04/18 00:24 Dose: 25 mls/hr Admin: 12/03/18 20:24 Dose: 25 mls/hr Infusion: 12/03/18 17:42 Dose: 25 mls/hr Admin: 12/03/18 13:42 Dose: 25 mls/hr Infusion: 12/03/18 08:59 Dose: 25 mls/hr Admin: 12/03/18 04:59 Dose: 25 mls/hr Infusion: 12/03/18 00:18 Dose: 25 mls/hr Admin: 12/02/18 20:18 Dose: 25 mls/hr Infusion: 12/02/18 18:32 Dose: 25 mls/hr Admin: 12/02/18 14:32 Dose: 25 mls/hr Infusion: 12/02/18 09:02 Dose: 25 mls/hr Admin: 12/02/18 05:02 Dose: 25 mls/hr Infusion: 12/02/18 00:44 Dose: 25 mls/hr Admin: 12/01/18 20:44 Dose: 25 mls/hr Infusion: 12/01/18 17:34 Dose: 25 mls/hr Admin: 12/01/18 13:34 Dose: 25 mls/hr Infusion: 12/01/18 09:09 Dose: 25 mls/hr Admin: 12/01/18 05:09 Dose: 25 mls/hr Vancomycin HCl 1 gm/Vancomycin HCl 250 mg/ Sodium Chloride 250 mls @ 166.667 mls/hr IV Q18H [facility] Last Admin: 12/03/18 23:55 Dose: 166.667 mls/hr Infusion: 12/03/18 06:30 Dose: 166.667 mls/hr Admin: 12/03/18 05:00 Dose: 166.667 mls/hr Infusion: 12/02/18 13:26 Dose: 166.667 mls/hr Admin: 12/02/18 11:56 Dose: 166.667 mls/hr Infusion: 12/01/18 19:31 Dose: 166.667 mls/hr Admin: 12/01/18 18:01 Dose: 166.667 mls/hr Insulin Glargine (Lantus) 15 unit SUBCUT BID [facility] Last Admin: 12/04/18 09:28 Dose: 15 units Admin: 12/03/18 20:24 Dose: Not Given Admin: 12/03/18 09:15 Dose: Admin: 12/02/18 22:32 Dose: Admin: 12/02/18 09:51 Dose: 15 units Admin: 12/01/18 20:47 Dose: 15 units Insulin Human Lispro (Humalog) 0 unit SUBCUT QIDACANDBED [facility]; Protocol Last Admin: 12/04/18 11:39 Dose: 2 unit Admin: 12/04/18 06:45 Dose: Not Given Admin: 12/03/18 23:28 Dose: Not Given Admin: 12/03/18 17:27 Dose: 1 unit Admin: 12/03/18 11:34 Dose: Admin: 12/03/18 07:47 Dose: Admin: 12/02/18 21:00 Dose: Admin: 12/02/18 18:04 Dose: Admin: 12/02/18 12:02 Dose: Not Given Admin: 12/02/18 07:00 Dose: Not Given Lisinopril (Prinivil) 10 mg PO DAILY [facility] Last Admin: 12/04/18 09:27 Dose: 10 mg Admin: 12/03/18 09:28 Dose: 10 mg Admin: 12/02/18 09:49 Dose: 10 mg Magnesium Hydroxide (Milk Of Magnesia) 30 ml PO BEDTIME PRN PRN Reason: Constipation Ondansetron HCl (Zofran) 4 mg IV Q6H PRN PRN Reason: Nausea/Vomiting Pantoprazole Sodium (Protonix) 40 mg PO BID [facility] Last Admin: 12/04/18 09:27 Dose: 40 mg Admin: 12/03/18 20:25 Dose: 40 mg Admin: 12/03/18 09:28 Dose: 40 mg Admin: 12/02/18 20:08 Dose: 40 mg Admin: 12/02/18 09:50 Dose: 40 mg Admin: 12/01/18 20:50 Dose: 40 mg Admin: 12/01/18 13:56 Dose: Polyethylene Glycol (Miralax) 17 gm PO DAILY PRN PRN Reason: Constipation Promethazine HCl (Phenergan) 50 mg PO Q6H PRN PRN Reason: Nausea/Vomiting Senna/Docusate Sodium (Senna Plus) 1 tab PO BID PRN PRN Reason: Constipation Simvastatin (Zocor) 10 mg PO DAILY IVA Last Admin: 12/04/18 09:26 Dose: 10 mg Admin: 12/03/18 09:28 Dose: 10 mg Admin: 12/02/18 09:49 Dose: 10 mg Admin: 12/01/18 13:50 Dose: 10 mg Temazepam (Restoril) 30 mg PO BEDTIME PRN PRN Reason: Sleep Last Admin: 12/03/18 20:26 Dose: 30 mg Vancomycin HCl (Pharmacy To Dose - Vancomycin) 1 dose .XX ASDIRECTED PRN PRN Reason: RX TO DOSE VANCO - Plan Plan (Free Text/Narrative):: infection of th left index finger has improved but new site of infection over left thenar eminence cultures reviewd and antibiotic are effected against the bacteria cultured. plan discuss with hadn surgeon.
[2018-12-04] MEDS ORDERED: Nicotine 21 MG/24 Hr Patch TRDERM SCH (14:45)
[2018-12-04] MEDS: HYDROmorphone 0.5 MG/0.5 ML Syringe IVPUSH PRN (14:45)
--- NOTE | 2018-12-04 14:51 | PCM.SURGPN ---
- General Info Date of Service: 12/04/18 - Patient Data Vitals - Most Recent: Last Vital Signs Temp 98.8 F 12/04/18 08:00 Pulse 91 12/04/18 08:00 Resp 18 12/04/18 08:00 BP 134/65 12/04/18 09:27 Pulse Ox 94 L 12/04/18 08:00 Weight - Most Recent: 70.398 kg I&O - Last 24 Hours: Intake & Output 12/03/18 12/04/18 12/04/18 23:59 07:59 15:59 Intake Total 1120 810 600 Output Total 500 Balance 620 810 600 Lab Results Last 24 Hrs: Laboratory Results - last 24 hr 12/03/18 12/03/18 12/03/18 Range/Units 16:53 20:19 22:05 WBC (4.23-9.07) K/mm3 RBC (4.63-6.08) M/mm3 Hgb (13.7-17.5) gm/dl Hct (40.1-51.0) % MCV (79.0-92.2) fl MCH (25.7-32.2) pg MCHC (32.2-35.5) g/dl RDW Std Deviation (35.1-43.9) fL Plt Count (163-337) K/mm3 MPV (9.4-12.3) fl Neut % (Auto) (34.0-67.9) % Lymph % (Auto) (21.8-53.1) % [place] % (Auto) (5.3-12.2) % Eos % (Auto) (0.8-7.0) Baso % (Auto) (0.1-1.2) % Neut # (Auto) (1.78-5.38) K/mm3 Lymph # (Auto) (1.32-3.57) K/mm3 [place] # (Auto) (0.30-0.82) K/mm3 Eos # (Auto) (0.04-0.54) K/mm3 Baso # (Auto) (0.01-0.08) K/mm3 Manual Slide Review Sodium (136-145) mEq/L Potassium (3.5-5.1) mEq/L Chloride (98-107) mEq/L Carbon Dioxide (21-32) mEq/L Anion Gap (5-15) BUN (7-18) mg/dL Creatinine (0.7-1.3) mg/dL Est Cr Clr Drug Dosing mL/min Estimated GFR (MDRD) (>60) mL/min BUN/Creatinine Ratio (14-18) Glucose (74-106) mg/dL POC Glucose 163 H 158 H (70-105) mg/dL Calcium (8.5-10.1) mg/dL Magnesium (1.8-2.4) mg/dl C-Reactive Protein (<1.0) mg/dL Vancomycin Trough 11.6 (10.0-20.0) 12/04/18 12/04/18 12/04/18 Range/Units 05:33 05:33 06:35 WBC 15.23 H (4.23-9.07) K/mm3 RBC 3.58 L (4.63-6.08) M/mm3 Hgb 11.2 L (13.7-17.5) gm/dl Hct 34.3 L (40.1-51.0) % MCV 95.8 H (79.0-92.2) fl MCH 31.3 (25.7-32.2) pg MCHC 32.7 (32.2-35.5) g/dl RDW Std Deviation 41.3 (35.1-43.9) fL Plt Count 402 H D (163-337) K/mm3 MPV 9.9 (9.4-12.3) fl Neut % (Auto) 76.1 H (34.0-67.9) % Lymph % (Auto) 7.6 L (21.8-53.1) % [place] % (Auto) 13.6 H (5.3-12.2) % Eos % (Auto) 2.2 (0.8-7.0) Baso % (Auto) 0.2 (0.1-1.2) % Neut # (Auto) 11.59 H (1.78-5.38) K/mm3 Lymph # (Auto) 1.15 L (1.32-3.57) K/mm3 [place] # (Auto) 2.07 H (0.30-0.82) K/mm3 Eos # (Auto) 0.34 (0.04-0.54) K/mm3 Baso # (Auto) 0.03 (0.01-0.08) K/mm3 Manual Slide Review Abnormal smear Sodium 136 (136-145) mEq/L Potassium 4.0 (3.5-5.1) mEq/L Chloride 101 (98-107) mEq/L Carbon Dioxide 22 (21-32) mEq/L Anion Gap 17.0 H (5-15) BUN 12 (7-18) mg/dL Creatinine 1.3 (0.7-1.3) mg/dL Est Cr Clr Drug Dosing 60.17 mL/min Estimated GFR (MDRD) 56 (>60) mL/min BUN/Creatinine Ratio 9.2 L (14-18) Glucose 152 H (74-106) mg/dL POC Glucose 146 H (70-105) mg/dL Calcium 8.6 (8.5-10.1) mg/dL Magnesium 2.0 (1.8-2.4) mg/dl C-Reactive Protein 5.2 H* (<1.0) mg/dL Vancomycin Trough (10.0-20.0) 12/04/18 Range/Units 11:17 WBC (4.23-9.07) K/mm3 RBC (4.63-6.08) M/mm3 Hgb (13.7-17.5) gm/dl Hct (40.1-51.0) % MCV (79.0-92.2) fl MCH (25.7-32.2) pg MCHC (32.2-35.5) g/dl RDW Std Deviation (35.1-43.9) fL Plt Count (163-337) K/mm3 MPV (9.4-12.3) fl Neut % (Auto) (34.0-67.9) % Lymph % (Auto) (21.8-53.1) % [place] % (Auto) (5.3-12.2) % Eos % (Auto) (0.8-7.0) Baso % (Auto) (0.1-1.2) % Neut # (Auto) (1.78-5.38) K/mm3 Lymph # (Auto) (1.32-3.57) K/mm3 [place] # (Auto) (0.30-0.82) K/mm3 Eos # (Auto) (0.04-0.54) K/mm3 Baso # (Auto) (0.01-0.08) K/mm3 Manual Slide Review Sodium (136-145) mEq/L Potassium (3.5-5.1) mEq/L Chloride (98-107) mEq/L Carbon Dioxide (21-32) mEq/L Anion Gap (5-15) BUN (7-18) mg/dL Creatinine (0.7-1.3) mg/dL Est Cr Clr Drug Dosing mL/min Estimated GFR (MDRD) (>60) mL/min BUN/Creatinine Ratio (14-18) Glucose (74-106) mg/dL POC Glucose 215 H (70-105) mg/dL Calcium (8.5-10.1) mg/dL Magnesium (1.8-2.4) mg/dl C-Reactive Protein (<1.0) mg/dL Vancomycin Trough (10.0-20.0) Erasmo Results Last 24 Hrs: Microbiology 12/01/18 09:55 Wound Culture - Final Finger, Left - Left Index Beta Streptococcus Group C Staphylococcus Aureus 11/30/18 20:25 Aerobic Blood Culture - Preliminary Blood - Venous - Lab Draw NO GROWTH AFTER 3 DAYS Anaerobic Blood Culture - Preliminary NO GROWTH AFTER 3 DAYS 11/30/18 20:15 Aerobic Blood Culture - Preliminary Blood - Venous NO GROWTH AFTER 3 DAYS Anaerobic Blood Culture - Preliminary NO GROWTH AFTER 3 DAYS Med Orders - Current: Current Medications Acetaminophen (Tylenol) 650 mg PO Q4H PRN PRN Reason: Pain (Mild 1-3)/fever Hydrocodone Bitart/Acetaminophen ([place] 325-5 Mg) 1 tab PO Q4H PRN PRN Reason: Pain (moderate 4-6) Last Admin: 12/04/18 13:18 Dose: 1 tab Albuterol/Ipratropium (Duoneb 3.0-0.5 Mg/3 Ml) 3 ml NEB Q4H PRN PRN Reason: Shortness Of Breath/wheezing Aspirin (Halfprin) 81 mg PO DAILY [facility] Last Admin: 12/04/18 09:26 Dose: 81 mg Bisacodyl (Dulcolax) 5 mg PO DAILY PRN PRN Reason: Constipation Last Admin: 12/02/18 20:09 Dose: 5 mg Cholecalciferol (Vitamin D3) 5,000 unit PO DAILY [facility] Last Admin: 12/04/18 09:27 Dose: 5,000 unit Clonazepam (Klonopin) 1 mg PO BEDTIME PRN PRN Reason: Insomnia Last Admin: 12/02/18 20:14 Dose: 1 mg Dextrose/Water (Dextrose 50% In Water) 50 ml IVPUSH ASDIRECTED PRN PRN Reason: Hypoglycemia Last Admin: 12/01/18 06:55 Dose: 25 ml Diphenhydramine HCl (Benadryl) 25 mg IVPUSH BEDTIME PRN PRN Reason: Insomnia Last Admin: 12/03/18 20:25 Dose: 25 mg Docusate Sodium (Colace) 100 mg PO BID PRN PRN Reason: Constipation Last Admin: 12/01/18 13:50 Dose: 100 mg Enoxaparin Sodium (Lovenox) 40 mg SUBCUT Q24H [facility] Last Admin: 12/03/18 20:24 Dose: 40 mg Hydromorphone HCl (Dilaudid) 0.25 mg IVPUSH Q2H PRN PRN Reason: Pain (severe 7-10) Last Admin: 12/04/18 14:45 Dose: 0.25 mg Promethazine HCl 6.25 mg/ (Sodium Chloride) 50.25 mls @ 100 mls/hr IV Q6H PRN PRN Reason: Nausea/Vomiting Piperacillin Sod/Tazobactam (Sod 4.5 gm/ Sodium Chloride) 100 mls @ 25 mls/hr IV Q8H [facility] Last Admin: 12/04/18 13:17 Dose: 25 mls/hr Vancomycin HCl 1 gm/Vancomycin HCl 250 mg/ Sodium Chloride 250 mls @ 166.667 mls/hr IV Q18H [facility] Last Admin: 12/03/18 23:55 Dose: 166.667 mls/hr Insulin Glargine (Lantus) 15 unit SUBCUT BID [facility] Last Admin: 12/04/18 09:28 Dose: 15 units Insulin Human Lispro (Humalog) 0 unit SUBCUT QIDACANDBED [facility]; Protocol Last Admin: 12/04/18 11:39 Dose: 2 unit Lisinopril (Prinivil) 10 mg PO DAILY [facility] Last Admin: 12/04/18 09:27 Dose: 10 mg Magnesium Hydroxide (Milk Of Magnesia) 30 ml PO BEDTIME PRN PRN Reason: Constipation Miscellaneous Information (Remove Patch) 1 ea TRDERM DAILY [facility] Nicotine (Habitrol) 21 mg TRDERM DAILY [facility] Last Admin: 12/04/18 14:47 Dose: Not Given Ondansetron HCl (Zofran) 4 mg IV Q6H PRN PRN Reason: Nausea/Vomiting Pantoprazole Sodium (Protonix) 40 mg PO BID [facility] Last Admin: 12/04/18 09:27 Dose: 40 mg Polyethylene Glycol (Miralax) 17 gm PO DAILY PRN PRN Reason: Constipation Promethazine HCl (Phenergan) 50 mg PO Q6H PRN PRN Reason: Nausea/Vomiting Senna/Docusate Sodium (Senna Plus) 1 tab PO BID PRN PRN Reason: Constipation Simvastatin (Zocor) 10 mg PO DAILY [facility] Last Admin: 12/04/18 09:26 Dose: 10 mg Temazepam (Restoril) 30 mg PO BEDTIME PRN PRN Reason: Sleep Last Admin: 12/03/18 20:26 Dose: 30 mg Vancomycin HCl (Pharmacy To Dose - Vancomycin) 1 dose .XX ASDIRECTED PRN PRN Reason: RX TO DOSE VANCO Discontinued Medications Bisacodyl (Dulcolax) 10 mg RECTAL ONETIME ONE Stop: 12/03/18 06:01 Last Admin: 12/03/18 07:54 Dose: Not Given Diphenhydramine HCl (Benadryl) 25 mg IVPUSH ONETIME ONE Stop: 12/03/18 08:11 Last Admin: 12/03/18 09:34 Dose: 25 mg Enoxaparin Sodium (Lovenox) 30 mg SUBCUT DAILY [facility] Enoxaparin Sodium (Lovenox) 40 mg SUBCUT DAILY [facility] Last Admin: 12/01/18 20:51 Dose: Not Given Fentanyl (Sublimaze) Confirm Administered Dose 100 mcg .ROUTE .STK-MED ONE Stop: 12/01/18 09:35 Lactated Ringer's (Ringers, Lactated) 1,000 mls @ 125 mls/hr IV ASDIRECTED [facility] Last Admin: 12/03/18 08:07 Dose: 125 mls/hr Piperacillin Sod/Tazobactam (Sod 4.5 gm/ Sodium Chloride) 100 mls @ 200 mls/hr IV Q8H [facility] Last Admin: 11/30/18 21:03 Dose: 200 mls/hr Piperacillin Sod/Tazobactam (Sod 4.5 gm/ Sodium Chloride) 100 mls @ 200 mls/hr IV ONETIME ONE Stop: 11/30/18 21:44 Vancomycin HCl 1 gm/Vancomycin HCl 250 mg/ Sodium Chloride 500 mls @ 333.333 mls/hr IV Q12H [facility] Last Admin: 11/30/18 23:11 Dose: 333.333 mls/hr Lidocaine HCl (Xylocaine-Mpf 1%) Confirm Administered Dose 4 mls @ as directed .ROUTE .STK-MED ONE Stop: 12/01/18 09:35 Magnesium Sulfate 2 gm/ Premix 50 mls @ 25 mls/hr IV ONETIME ONE Stop: 12/03/18 09:03 Last Admin: 12/03/18 09:38 Dose: 25 mls/hr Insulin Human Lispro (Humalog) 0 unit SUBCUT QIDACANDBED PRN; Protocol PRN Reason: Hyperglycemia Last Admin: 12/01/18 20:54 Dose: 1 units Lidocaine HCl (Xylocaine-Mpf 1%) Confirm Administered Dose 30 ml .ROUTE .STK- MED ONE Stop: 12/01/18 08:47 Midazolam HCl (Versed 1 Mg/Ml) Confirm Administered Dose 2 mg .ROUTE .STK-MED ONE Stop: 12/01/18 09:35 Miscellaneous Information (Remove Patch) 1 ea TRDERM DAILY [facility] Nicotine (Habitrol) 21 mg TRDERM DAILY IVA Pantoprazole Sodium (Protonix Iv) 40 mg IV Q12HR [facility] Last Admin: 12/01/18 20:51 Dose: Not Given Propofol (Diprivan 20 Ml) Confirm Administered Dose 200 mg .ROUTE .STK-MED ONE Stop: 12/01/18 09:35 Temazepam (Restoril) 15 mg PO BEDTIME PRN PRN Reason: Sleep Temazepam (Restoril) 15 mg PO ONETIME ONE Stop: 12/03/18 08:10 Last Admin: 12/03/18 09:15 Dose: Not Given Temazepam (Restoril) 30 mg PO ONETIME ONE Stop: 12/03/18 08:10 Last Admin: 12/03/18 09:28 Dose: 30 mg Vancomycin HCl (Vancomycin) Confirm Administered Dose 500 mg .ROUTE .STK-MED ONE Stop: 12/02/18 11:47 Last Admin: 12/02/18 14:05 Dose: Not Given - Problem List Review Problem List Initiated/Reviewed/Updated: Yes - My Orders Last 24 Hours: Active Orders 24 hr Category Date Time Status BASIC METABOLIC PANEL,BMP [CHEM] AM Lab 12/05/18 05:11 Ordered C-REACTIVE PROTEIN [CHEM] AM Lab 12/05/18 05:11 Ordered CBC WITH AUTO DIFF [HEME] AM Lab 12/05/18 05:11 Ordered MAGNESIUM [CHEM] AM Lab 12/05/18 05:11 Ordered Nicotine [Habitrol] Med 12/04/18 14:45 Active 21 mg TRDERM DAILY Remove Patch Med 12/05/18 09:00 Active 1 ea TRDERM DAILY Temazepam [Restoril] Med 12/03/18 19:16 Active 30 mg PO BEDTIME PRN diphenhydrAMINE [Benadryl] Med 12/03/18 19:15 Active 25 mg IVPUSH BEDTIME PRN Medication Orders Acetaminophen (Tylenol) 650 mg PO Q4H PRN PRN Reason: Pain (Mild 1-3)/fever Hydrocodone Bitart/Acetaminophen ([place] 325-5 Mg) 1 tab PO Q4H PRN PRN Reason: Pain (moderate 4-6) Last Admin: 12/04/18 13:18 Dose: 1 tab Admin: 12/04/18 09:27 Dose: 1 tab Admin: 12/04/18 01:19 Dose: 1 tab Admin: 12/03/18 17:27 Dose: 1 tab Admin: 12/03/18 13:42 Dose: 1 tab Admin: 12/03/18 03:49 Dose: 1 tab Admin: 12/02/18 19:14 Dose: 1 tab Admin: 12/02/18 14:02 Dose: 1 tab Admin: 12/02/18 09:50 Dose: 1 tab Admin: 12/02/18 02:26 Dose: 1 tab Admin: 12/01/18 18:06 Dose: 1 tab Admin: 12/01/18 13:50 Dose: 1 tab Admin: 12/01/18 05:16 Dose: 1 tab Albuterol/Ipratropium (Duoneb 3.0-0.5 Mg/3 Ml) 3 ml NEB Q4H PRN PRN Reason: Shortness Of Breath/wheezing Aspirin (Halfprin) 81 mg PO DAILY IVA Last Admin: 12/04/18 09:26 Dose: 81 mg Admin: 12/03/18 09:33 Dose: 81 mg Admin: 12/02/18 09:49 Dose: 81 mg Admin: 12/01/18 13:49 Dose: 81 mg Bisacodyl (Dulcolax) 5 mg PO DAILY PRN PRN Reason: Constipation Last Admin: 12/02/18 20:09 Dose: 5 mg Cholecalciferol (Vitamin D3) 5,000 unit PO DAILY IVA Last Admin: 12/04/18 09:27 Dose: 5,000 unit Admin: 12/03/18 09:28 Dose: 5,000 unit Admin: 12/02/18 09:50 Dose: 5,000 unit Admin: 12/01/18 13:56 Dose: Clonazepam (Klonopin) 1 mg PO BEDTIME PRN PRN Reason: Insomnia Last Admin: 12/02/18 20:14 Dose: 1 mg Admin: 12/01/18 20:50 Dose: 1 mg Admin: 12/01/18 00:54 Dose: 1 mg Dextrose/Water (Dextrose 50% In Water) 50 ml IVPUSH ASDIRECTED PRN PRN Reason: Hypoglycemia Last Admin: 12/01/18 06:55 Dose: 25 ml Diphenhydramine HCl (Benadryl) 25 mg IVPUSH BEDTIME PRN PRN Reason: Insomnia Last Admin: 12/03/18 20:25 Dose: 25 mg Docusate Sodium (Colace) 100 mg PO BID PRN PRN Reason: Constipation Last Admin: 12/01/18 13:50 Dose: 100 mg Enoxaparin Sodium (Lovenox) 40 mg SUBCUT Q24H IVA Last Admin: 12/03/18 20:24 Dose: 40 mg Admin: 12/02/18 20:09 Dose: 40 mg Admin: 12/01/18 20:49 Dose: 40 mg Hydromorphone HCl (Dilaudid) 0.25 mg IVPUSH Q2H PRN PRN Reason: Pain (severe 7-10) Last Admin: 12/04/18 14:45 Dose: 0.25 mg Admin: 12/02/18 22:23 Dose: 0.25 mg Admin: 12/02/18 14:59 Dose: 0.25 mg Admin: 11/30/18 20:15 Dose: 0.25 mg Promethazine HCl 6.25 mg/ (Sodium Chloride) 50.25 mls @ 100 mls/hr IV Q6H PRN PRN Reason: Nausea/Vomiting Piperacillin Sod/Tazobactam (Sod 4.5 gm/ Sodium Chloride) 100 mls @ 25 mls/hr IV Q8H [facility] Last Admin: 12/04/18 13:17 Dose: 25 mls/hr Infusion: 12/04/18 09:39 Dose: 25 mls/hr Admin: 12/04/18 05:39 Dose: 25 mls/hr Infusion: 12/04/18 00:24 Dose: 25 mls/hr Admin: 12/03/18 20:24 Dose: 25 mls/hr Infusion: 12/03/18 17:42 Dose: 25 mls/hr Admin: 12/03/18 13:42 Dose: 25 mls/hr Infusion: 12/03/18 08:59 Dose: 25 mls/hr Admin: 12/03/18 04:59 Dose: 25 mls/hr Infusion: 12/03/18 00:18 Dose: 25 mls/hr Admin: 12/02/18 20:18 Dose: 25 mls/hr Infusion: 12/02/18 18:32 Dose: 25 mls/hr Admin: 12/02/18 14:32 Dose: 25 mls/hr Infusion: 12/02/18 09:02 Dose: 25 mls/hr Admin: 12/02/18 05:02 Dose: 25 mls/hr Infusion: 12/02/18 00:44 Dose: 25 mls/hr Admin: 12/01/18 20:44 Dose: 25 mls/hr Infusion: 12/01/18 17:34 Dose: 25 mls/hr Admin: 12/01/18 13:34 Dose: 25 mls/hr Infusion: 12/01/18 09:09 Dose: 25 mls/hr Admin: 12/01/18 05:09 Dose: 25 mls/hr Vancomycin HCl 1 gm/Vancomycin HCl 250 mg/ Sodium Chloride 250 mls @ 166.667 mls/hr IV Q18H [facility] Last Admin: 12/03/18 23:55 Dose: 166.667 mls/hr Infusion: 12/03/18 06:30 Dose: 166.667 mls/hr Admin: 12/03/18 05:00 Dose: 166.667 mls/hr Infusion: 12/02/18 13:26 Dose: 166.667 mls/hr Admin: 12/02/18 11:56 Dose: 166.667 mls/hr Infusion: 12/01/18 19:31 Dose: 166.667 mls/hr Admin: 12/01/18 18:01 Dose: 166.667 mls/hr Insulin Glargine (Lantus) 15 unit SUBCUT BID [facility] Last Admin: 12/04/18 09:28 Dose: 15 units Admin: 12/03/18 20:24 Dose: Not Given Admin: 12/03/18 09:15 Dose: Admin: 12/02/18 22:32 Dose: Admin: 12/02/18 09:51 Dose: 15 units Admin: 12/01/18 20:47 Dose: 15 units Insulin Human Lispro (Humalog) 0 unit SUBCUT QIDACANDBED [facility]; Protocol Last Admin: 12/04/18 11:39 Dose: 2 unit Admin: 12/04/18 06:45 Dose: Not Given Admin: 12/03/18 23:28 Dose: Not Given Admin: 12/03/18 17:27 Dose: 1 unit Admin: 12/03/18 11:34 Dose: Admin: 12/03/18 07:47 Dose: Admin: 12/02/18 21:00 Dose: Admin: 12/02/18 18:04 Dose: Admin: 12/02/18 12:02 Dose: Not Given Admin: 12/02/18 07:00 Dose: Not Given Lisinopril (Prinivil) 10 mg PO DAILY [facility] Last Admin: 12/04/18 09:27 Dose: 10 mg Admin: 12/03/18 09:28 Dose: 10 mg Admin: 12/02/18 09:49 Dose: 10 mg Magnesium Hydroxide (Milk Of Magnesia) 30 ml PO BEDTIME PRN PRN Reason: Constipation Miscellaneous Information (Remove Patch) 1 ea TRDERM DAILY [facility] Nicotine (Habitrol) 21 mg TRDERM DAILY [facility] Last Admin: 12/04/18 14:47 Dose: Ondansetron HCl (Zofran) 4 mg IV Q6H PRN PRN Reason: Nausea/Vomiting Pantoprazole Sodium (Protonix) 40 mg PO BID [facility] Last Admin: 12/04/18 09:27 Dose: 40 mg Admin: 12/03/18 20:25 Dose: 40 mg Admin: 12/03/18 09:28 Dose: 40 mg Admin: 12/02/18 20:08 Dose: 40 mg Admin: 12/02/18 09:50 Dose: 40 mg Admin: 12/01/18 20:50 Dose: 40 mg Admin: 12/01/18 13:56 Dose: Polyethylene Glycol (Miralax) 17 gm PO DAILY PRN PRN Reason: Constipation Promethazine HCl (Phenergan) 50 mg PO Q6H PRN PRN Reason: Nausea/Vomiting Senna/Docusate Sodium (Senna Plus) 1 tab PO BID PRN PRN Reason: Constipation Simvastatin (Zocor) 10 mg PO DAILY [facility] Last Admin: 12/04/18 09:26 Dose: 10 mg Admin: 12/03/18 09:28 Dose: 10 mg Admin: 12/02/18 09:49 Dose: 10 mg Admin: 12/01/18 13:50 Dose: 10 mg Temazepam (Restoril) 30 mg PO BEDTIME PRN PRN Reason: Sleep Last Admin: 12/03/18 20:26 Dose: 30 mg Vancomycin HCl (Pharmacy To Dose - Vancomycin) 1 dose .XX ASDIRECTED PRN PRN Reason: RX TO DOSE VANCO - Plan Plan (Free Text/Narrative):: discussed the infection of the hand with Dr. Barker and Dr. Sosa and have accepted the pt in transfere with dx of hand infection. SKIP
--- NOTE | 2018-12-04 14:57 | PCM.DCSUM1 ---
Discharge Summary - Hospital Course Free Text/Narrative:: This is a 58 yo white male with past medical hx/o HTN, DM2, and Hx/o Rib Fracture who comes in for evaluation of edema and erythema on left first digit associated with flu like symptoms. 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 He felt feverish and chilled. His appetite was reduced and was nauseated. He states his finger infection started back in May-June of this year. He saw his PCP but then he was referred to Dr. Ortiz for biopsy. Per patient, the result was benign. He was then referred to Dr. Martinez for further evaluation a couple of months ago. At that time, his finger was scanned for ischemia via doppler and prescribed with conservative management. He seems to have done well up until today. He went back to see Dr. Eduardo, PCP, but was told to come to ED for inpatient antibiotic treatment. Patient a carries a long standing hx/o Diabetes Type 2. He is on Metformin and Levemir 40 units subQ daily. He checks his glucose at least twice a day. He normally runs in the 200s however last A1C was unknown. Diagnosis: Stroke: No Modified [place] Scale: No Symptoms at All Modified [place] Scale Score: 0 - Discharge Data Discharge Date: 12/04/18 Discharge Disposition: Home, Self-Care 01 Condition: Good - Referral to Home Health Primary Care Physician: Marv Eduardo MD - Patient Summary/Data Operative Procedure(s) Performed: abscess of the left index finger tip Consults: Consultations 11/30/18 19:25 Consult to Case Management/Collections Director [CONS] Routine Consult to Diabetic Nurse Specialist [CONS] Routine Consult to Physician [CONS] Routine Consult to Spiritual Care [CONS] Routine Hospital Course: Patient was primarily admitted for left index finger abscess with osteomyelitis which we felt was related to his poorly controlled diabetes. He underwent debridement under the services of Dr. Martinez and he tolerated the procedure well. Unfortunately, after he was evaluated by the surgeon today, Dr. Martinez decided to ship him for upper level of care. [facility] was sent [facility] and was admitted under the services of Drs. Barker and Sheila for further management. - Patient Instructions Diet: Usual Diet as Tolerated Activity: As Tolerated Driving: Do Not Drive Showering/Bathing: May Shower Wound/Incision Care: Keep Operative Site/Wound Site Clean and Dry Notify Provider of: Fever, Increased Pain, Swelling and Redness, Drainage Other/Special Instructions: Transfer to [facility] for upper level of care. He will be under the services of Drs. Barker and Sheila - Discharge Plan *PRESCRIPTION DRUG MONITORING PROGRAM REVIEWED*: Not Applicable *COPY OF PRESCRIPTION DRUG MONITORING REPORT IN PATIENT ALEJANDRO: Not Applicable Home Medications: Home Meds atorvaSTATin [Lipitor] 1 tab PO DAILY 04/24/16 [History] Aspirin [Halfprin] 81 mg PO DAILY 11/30/18 [History] Gabapentin [Neurontin] 600 mg PO ACLUNCH 11/30/18 [History] Gabapentin [Neurontin] 900 mg PO BID 11/30/18 [History] Insulin Glargine,Hum.Rec.Anlog [Lantus Solostar] 40 unit SQ ASDIRECTED 11/30/18 [History] Naproxen Sodium [Aleve] 440 mg PO QAM 11/30/18 [History] clonazePAM [Klonopin] 1 mg PO BEDTIME PRN 11/30/18 [History] metFORMIN [Glucophage XR] 500 mg PO DAILY 11/30/18 [History] Oxygen Therapy Mode: Room Air Patient Handouts: Cellulitis, Adult, Wound Infection, Steps to Quit Smoking Referrals: Jesse Martinez MD [Physician] - Marv Eduardo MD [Primary Care Provider] - - Discharge Summary/Plan Comment DC Time >30 min.: No Discharge Summary/Plan Comment: Transferred to [facility] for upper level of care. The transfer was coordinated by Dr. Martinez. - General Info Date of Service: 12/04/18 Admission Dx/Problem (Free Text: Admission Diagnosis/Problem Admission Diagnosis/Problem Cellulitis and abscess of finger Subjective Update: No trouble overnight. He rested well and feels good this morning. Functional Status: Reports: Pain Controlled, Tolerating Diet, Ambulating, Urinating. Denies: New Symptoms - Patient Data Vitals - Most Recent: Last Vital Signs Temp 37.1 C 12/04/18 08:00 Pulse 91 12/04/18 08:00 Resp 18 12/04/18 08:00 BP 134/65 12/04/18 09:27 Pulse Ox 94 L 12/04/18 08:00 Weight - Most Recent: 70.398 kg I&O - Last 24 hours: Intake & Output 12/03/18 12/04/18 12/04/18 22:59 06:59 14:59 Intake Total 3260 810 600 Output Total 500 Balance 2760 810 600 Lab Results - Last 24 hrs: Laboratory Results - last 24 hr 12/03/18 12/03/18 12/03/18 Range/Units 16:53 20:19 22:05 WBC (4.23-9.07) K/mm3 RBC (4.63-6.08) M/mm3 Hgb (13.7-17.5) gm/dl Hct (40.1-51.0) % MCV (79.0-92.2) fl MCH (25.7-32.2) pg MCHC (32.2-35.5) g/dl RDW Std Deviation (35.1-43.9) fL Plt Count (163-337) K/mm3 MPV (9.4-12.3) fl Neut % (Auto) (34.0-67.9) % Lymph % (Auto) (21.8-53.1) % [place] % (Auto) (5.3-12.2) % Eos % (Auto) (0.8-7.0) Baso % (Auto) (0.1-1.2) % Neut # (Auto) (1.78-5.38) K/mm3 Lymph # (Auto) (1.32-3.57) K/mm3 [place] # (Auto) (0.30-0.82) K/mm3 Eos # (Auto) (0.04-0.54) K/mm3 Baso # (Auto) (0.01-0.08) K/mm3 Manual Slide Review Sodium (136-145) mEq/L Potassium (3.5-5.1) mEq/L Chloride (98-107) mEq/L Carbon Dioxide (21-32) mEq/L Anion Gap (5-15) BUN (7-18) mg/dL Creatinine (0.7-1.3) mg/dL Est Cr Clr Drug Dosing mL/min Estimated GFR (MDRD) (>60) mL/min BUN/Creatinine Ratio (14-18) Glucose (74-106) mg/dL POC Glucose 163 H 158 H (70-105) mg/dL Calcium (8.5-10.1) mg/dL Magnesium (1.8-2.4) mg/dl C-Reactive Protein (<1.0) mg/dL Vancomycin Trough 11.6 (10.0-20.0) 12/04/18 12/04/18 12/04/18 Range/Units 05:33 05:33 06:35 WBC 15.23 H (4.23-9.07) K/mm3 RBC 3.58 L (4.63-6.08) M/mm3 Hgb 11.2 L (13.7-17.5) gm/dl Hct 34.3 L (40.1-51.0) % MCV 95.8 H (79.0-92.2) fl MCH 31.3 (25.7-32.2) pg MCHC 32.7 (32.2-35.5) g/dl RDW Std Deviation 41.3 (35.1-43.9) fL Plt Count 402 H D (163-337) K/mm3 MPV 9.9 (9.4-12.3) fl Neut % (Auto) 76.1 H (34.0-67.9) % Lymph % (Auto) 7.6 L (21.8-53.1) % [place] % (Auto) 13.6 H (5.3-12.2) % Eos % (Auto) 2.2 (0.8-7.0) Baso % (Auto) 0.2 (0.1-1.2) % Neut # (Auto) 11.59 H (1.78-5.38) K/mm3 Lymph # (Auto) 1.15 L (1.32-3.57) K/mm3 [place] # (Auto) 2.07 H (0.30-0.82) K/mm3 Eos # (Auto) 0.34 (0.04-0.54) K/mm3 Baso # (Auto) 0.03 (0.01-0.08) K/mm3 Manual Slide Review Abnormal smear Sodium 136 (136-145) mEq/L Potassium 4.0 (3.5-5.1) mEq/L Chloride 101 (98-107) mEq/L Carbon Dioxide 22 (21-32) mEq/L Anion Gap 17.0 H (5-15) BUN 12 (7-18) mg/dL Creatinine 1.3 (0.7-1.3) mg/dL Est Cr Clr Drug Dosing 60.17 mL/min Estimated GFR (MDRD) 56 (>60) mL/min BUN/Creatinine Ratio 9.2 L (14-18) Glucose 152 H (74-106) mg/dL POC Glucose 146 H (70-105) mg/dL Calcium 8.6 (8.5-10.1) mg/dL Magnesium 2.0 (1.8-2.4) mg/dl C-Reactive Protein 5.2 H* (<1.0) mg/dL Vancomycin Trough (10.0-20.0) 12/04/18 Range/Units 11:17 WBC (4.23-9.07) K/mm3 RBC (4.63-6.08) M/mm3 Hgb (13.7-17.5) gm/dl Hct (40.1-51.0) % MCV (79.0-92.2) fl MCH (25.7-32.2) pg MCHC (32.2-35.5) g/dl RDW Std Deviation (35.1-43.9) fL Plt Count (163-337) K/mm3 MPV (9.4-12.3) fl Neut % (Auto) (34.0-67.9) % Lymph % (Auto) (21.8-53.1) % [place] % (Auto) (5.3-12.2) % Eos % (Auto) (0.8-7.0) Baso % (Auto) (0.1-1.2) % Neut # (Auto) (1.78-5.38) K/mm3 Lymph # (Auto) (1.32-3.57) K/mm3 [place] # (Auto) (0.30-0.82) K/mm3 Eos # (Auto) (0.04-0.54) K/mm3 Baso # (Auto) (0.01-0.08) K/mm3 Manual Slide Review Sodium (136-145) mEq/L Potassium (3.5-5.1) mEq/L Chloride (98-107) mEq/L Carbon Dioxide (21-32) mEq/L Anion Gap (5-15) BUN (7-18) mg/dL Creatinine (0.7-1.3) mg/dL Est Cr Clr Drug Dosing mL/min Estimated GFR (MDRD) (>60) mL/min BUN/Creatinine Ratio (14-18) Glucose (74-106) mg/dL POC Glucose 215 H (70-105) mg/dL Calcium (8.5-10.1) mg/dL Magnesium (1.8-2.4) mg/dl C-Reactive Protein (<1.0) mg/dL Vancomycin Trough (10.0-20.0) KARTHIK Results - Last 24 hrs: Microbiology 12/01/18 09:55 Wound Culture - Final Finger, Left - Left Index Beta Streptococcus Group C Staphylococcus Aureus 11/30/18 20:25 Aerobic Blood Culture - Preliminary Blood - Venous - Lab Draw NO GROWTH AFTER 3 DAYS Anaerobic Blood Culture - Preliminary NO GROWTH AFTER 3 DAYS 11/30/18 20:15 Aerobic Blood Culture - Preliminary Blood - Venous NO GROWTH AFTER 3 DAYS Anaerobic Blood Culture - Preliminary NO GROWTH AFTER 3 DAYS Med Orders - Current: Current Medications Acetaminophen (Tylenol) 650 mg PO Q4H PRN PRN Reason: Pain (Mild 1-3)/fever Hydrocodone Bitart/Acetaminophen ([place] 325-5 Mg) 1 tab PO Q4H PRN PRN Reason: Pain (moderate 4-6) Last Admin: 12/04/18 13:18 Dose: 1 tab Albuterol/Ipratropium (Duoneb 3.0-0.5 Mg/3 Ml) 3 ml NEB Q4H PRN PRN Reason: Shortness Of Breath/wheezing Aspirin (Halfprin) 81 mg PO DAILY IVA Last Admin: 12/04/18 09:26 Dose: 81 mg Bisacodyl (Dulcolax) 5 mg PO DAILY PRN PRN Reason: Constipation Last Admin: 12/02/18 20:09 Dose: 5 mg Cholecalciferol (Vitamin D3) 5,000 unit PO DAILY IVA Last Admin: 12/04/18 09:27 Dose: 5,000 unit Clonazepam (Klonopin) 1 mg PO BEDTIME PRN PRN Reason: Insomnia Last Admin: 12/02/18 20:14 Dose: 1 mg Dextrose/Water (Dextrose 50% In Water) 50 ml IVPUSH ASDIRECTED PRN PRN Reason: Hypoglycemia Last Admin: 12/01/18 06:55 Dose: 25 ml Diphenhydramine HCl (Benadryl) 25 mg IVPUSH BEDTIME PRN PRN Reason: Insomnia Last Admin: 12/03/18 20:25 Dose: 25 mg Docusate Sodium (Colace) 100 mg PO BID PRN PRN Reason: Constipation Last Admin: 12/01/18 13:50 Dose: 100 mg Enoxaparin Sodium (Lovenox) 40 mg SUBCUT Q24H [facility] Last Admin: 12/03/18 20:24 Dose: 40 mg Hydromorphone HCl (Dilaudid) 0.25 mg IVPUSH Q2H PRN PRN Reason: Pain (severe 7-10) Last Admin: 12/04/18 14:45 Dose: 0.25 mg Promethazine HCl 6.25 mg/ (Sodium Chloride) 50.25 mls @ 100 mls/hr IV Q6H PRN PRN Reason: Nausea/Vomiting Piperacillin Sod/Tazobactam (Sod 4.5 gm/ Sodium Chloride) 100 mls @ 25 mls/hr IV Q8H [facility] Last Admin: 12/04/18 13:17 Dose: 25 mls/hr Vancomycin HCl 1 gm/Vancomycin HCl 250 mg/ Sodium Chloride 250 mls @ 166.667 mls/hr IV Q18H [facility] Last Admin: 12/03/18 23:55 Dose: 166.667 mls/hr Insulin Glargine (Lantus) 15 unit SUBCUT BID [facility] Last Admin: 12/04/18 09:28 Dose: 15 units Insulin Human Lispro (Humalog) 0 unit SUBCUT QIDACANDBED [facility]; Protocol Last Admin: 12/04/18 11:39 Dose: 2 unit Lisinopril (Prinivil) 10 mg PO DAILY [facility] Last Admin: 12/04/18 09:27 Dose: 10 mg Magnesium Hydroxide (Milk Of Magnesia) 30 ml PO BEDTIME PRN PRN Reason: Constipation Miscellaneous Information (Remove Patch) 1 ea TRDERM DAILY [facility] Nicotine (Habitrol) 21 mg TRDERM DAILY [facility] Last Admin: 12/04/18 14:47 Dose: Not Given Ondansetron HCl (Zofran) 4 mg IV Q6H PRN PRN Reason: Nausea/Vomiting Pantoprazole Sodium (Protonix) 40 mg PO BID [facility] Last Admin: 12/04/18 09:27 Dose: 40 mg Polyethylene Glycol (Miralax) 17 gm PO DAILY PRN PRN Reason: Constipation Promethazine HCl (Phenergan) 50 mg PO Q6H PRN PRN Reason: Nausea/Vomiting Senna/Docusate Sodium (Senna Plus) 1 tab PO BID PRN PRN Reason: Constipation Simvastatin (Zocor) 10 mg PO DAILY [facility] Last Admin: 12/04/18 09:26 Dose: 10 mg Temazepam (Restoril) 30 mg PO BEDTIME PRN PRN Reason: Sleep Last Admin: 12/03/18 20:26 Dose: 30 mg Vancomycin HCl (Pharmacy To Dose - Vancomycin) 1 dose .XX ASDIRECTED PRN PRN Reason: RX TO DOSE VANCO Discontinued Medications Bisacodyl (Dulcolax) 10 mg RECTAL ONETIME ONE Stop: 12/03/18 06:01 Last Admin: 12/03/18 07:54 Dose: Not Given Diphenhydramine HCl (Benadryl) 25 mg IVPUSH ONETIME ONE Stop: 12/03/18 08:11 Last Admin: 12/03/18 09:34 Dose: 25 mg Enoxaparin Sodium (Lovenox) 30 mg SUBCUT DAILY [facility] Enoxaparin Sodium (Lovenox) 40 mg SUBCUT DAILY [facility] Last Admin: 12/01/18 20:51 Dose: Not Given Fentanyl (Sublimaze) Confirm Administered Dose 100 mcg .ROUTE .STK-MED ONE Stop: 12/01/18 09:35 Lactated Ringer's (Ringers, Lactated) 1,000 mls @ 125 mls/hr IV ASDIRECTED [facility] Last Admin: 12/03/18 08:07 Dose: 125 mls/hr Piperacillin Sod/Tazobactam (Sod 4.5 gm/ Sodium Chloride) 100 mls @ 200 mls/hr IV Q8H [facility] Last Admin: 11/30/18 21:03 Dose: 200 mls/hr Piperacillin Sod/Tazobactam (Sod 4.5 gm/ Sodium Chloride) 100 mls @ 200 mls/hr IV ONETIME ONE Stop: 11/30/18 21:44 Vancomycin HCl 1 gm/Vancomycin HCl 250 mg/ Sodium Chloride 500 mls @ 333.333 mls/hr IV Q12H [facility] Last Admin: 11/30/18 23:11 Dose: 333.333 mls/hr Lidocaine HCl (Xylocaine-Mpf 1%) Confirm Administered Dose 4 mls @ as directed .ROUTE .STK-MED ONE Stop: 12/01/18 09:35 Magnesium Sulfate 2 gm/ Premix 50 mls @ 25 mls/hr IV ONETIME ONE Stop: 12/03/18 09:03 Last Admin: 12/03/18 09:38 Dose: 25 mls/hr Insulin Human Lispro (Humalog) 0 unit SUBCUT QIDACANDBED PRN; Protocol PRN Reason: Hyperglycemia Last Admin: 12/01/18 20:54 Dose: 1 units Lidocaine HCl (Xylocaine-Mpf 1%) Confirm Administered Dose 30 ml .ROUTE .STK- MED ONE Stop: 12/01/18 08:47 Midazolam HCl (Versed 1 Mg/Ml) Confirm Administered Dose 2 mg .ROUTE .STK-MED ONE Stop: 12/01/18 09:35 Miscellaneous Information (Remove Patch) 1 ea TRDERM DAILY IVA Nicotine (Habitrol) 21 mg TRDERM DAILY IVA Pantoprazole Sodium (Protonix Iv) 40 mg IV Q12HR IVA Last Admin: 12/01/18 20:51 Dose: Not Given Propofol (Diprivan 20 Ml) Confirm Administered Dose 200 mg .ROUTE .STK-MED ONE Stop: 12/01/18 09:35 Temazepam (Restoril) 15 mg PO BEDTIME PRN PRN Reason: Sleep Temazepam (Restoril) 15 mg PO ONETIME ONE Stop: 12/03/18 08:10 Last Admin: 12/03/18 09:15 Dose: Not Given Temazepam (Restoril) 30 mg PO ONETIME ONE Stop: 12/03/18 08:10 Last Admin: 12/03/18 09:28 Dose: 30 mg Vancomycin HCl (Vancomycin) Confirm Administered Dose 500 mg .ROUTE .STK-MED ONE Stop: 12/02/18 11:47 Last Admin: 12/02/18 14:05 Dose: Not Given
[2018-12-04 15:02] VITALS: PULSE 92
== END 2018-12-04 16:09 | disposition home or self-care (01) | DRG 710 ==
LOC: JD.ED 18:45 → JD.MS 19:21
PROVIDERS: ADMIT Internal Medicine; ATTEND Internal Medicine
PROC: 0PBV0ZZ Excision of Left Finger Phalanx, Open Approach (ICD-10-PCS; principal; 2018-12-01)
DX: A41.9 Sepsis, unspecified organism (principal); I10 Essential (primary) hypertension; E11.65 Type 2 diabetes mellitus with hyperglycemia; L02.512 Cutaneous abscess of left hand; E87.1 Hypo-osmolality and hyponatremia; E55.9 Vitamin D deficiency, unspecified; E83.42 Hypomagnesemia; F17.210 Nicotine dependence, cigarettes, uncomplicated; E11.69 Type 2 diabetes mellitus with other specified complication; M86.9 Osteomyelitis, unspecified; Z79.82 Long term (current) use of aspirin; Z79.899 Other long term (current) drug therapy; Z79.4 Long term (current) use of insulin
CPT/HCPCS: 00400; 36415; 73201-26-LT; 73201-LT; 80048; 80053; 80061; 80202; 82306; 82570; 82962; 83036; 83605; 83735; 84156; 85025; 86140; 87040; 87070; 87077; 87181; 87184; 87186; 93005; A9270-GY; C9113; J1170; J1200; J1650; J1815-GY; J2001; J2250; J2543; J2704; J3010; J3370; J3475; J7030; J7040; J7050; J7060; J7120

== ENCOUNTER 2019-06-29 09:33 | Inpatient (IN) | payer BC, MEDICAID ==
[2019-06-29] MEDS ORDERED: Sodium Chloride 0.9% 10 ML Syringe FLUSH PRN (09:44)
[2019-06-29] MEDS ORDERED: Sodium Chloride 0.9% 1,000 ML IV SCH (09:45)
[2019-06-29] MEDS ORDERED: Sodium Chloride 0.9% 1,000 ML IV ONE (10:59)
--- NOTE | 2019-06-29 11:00 | CR ---
Chest: Portable view of the chest was obtained. Comparison: No prior chest imaging is available. Heart size and mediastinum are normal. Acute fracture seen within the right 7th and 8th ribs. No other definite acute bony abnormality is seen. No pneumothorax is seen. Impression: 1. Acute fractures within the right 7th and 8th ribs. No pneumothorax is seen at this time. 2. Nothing acute is otherwise seen on portable chest x-ray. Diagnostic code #3 This report was dictated in MDT
--- NOTE | 2019-06-29 11:30 | EDM.PDOC ---
ED HPI GENERAL MEDICAL PROBLEM - General Chief Complaint: Diabetic Complaint Stated Complaint: [facility] Time Seen by Provider: 06/29/19 09:39 Source of Information: Reports: Patient, EMS History Limitations: Reports: No Limitations - History of Present Illness INITIAL COMMENTS - FREE TEXT/NARRATIVE: The patient presents by [facility] for hyperglycemia and alcohol intoxication. He has type II diabetes and he is on lantus. He lost his job in the past week and he stopped taking his lantus. He has thought about dying. He also has been drinking fireball lately. He has generalized weakness and he has fallen a few times. He has right sided chest pain. He has abrasions to both arms. He has no fever, chills, cough, congestion, shortness of breath, or abdominal pain. He does have nausea and vomiting. Onset: Gradual Duration: Week(s): (1) Location: Reports: Chest Quality: Reports: Sharp Severity: Moderate Improves with: Reports: Immobilization Worsens with: Reports: Movement Context: Reports: Trauma (fall) Associated Symptoms: Reports: Chest Pain, Nausea/Vomiting. Denies: Cough, Fever /Chills, Headaches, Shortness of Breath Right Chest Pain Score (Numeric/FACES): 10 - Related Data Allergies Allergy/AdvReac Type Severity Reaction Status Date / Time ibuprofen AdvReac Nausea Verified 06/29/19 09:41 Home Meds: Home Meds Aspirin [Halfprin] 81 mg PO DAILY 11/30/18 [History] Gabapentin [Neurontin] 600 mg PO ACLUNCH 11/30/18 [History] Gabapentin [Neurontin] 900 mg PO BID 11/30/18 [History] Insulin Glargine,Hum.Rec.Anlog [Lantus Solostar] 40 unit SQ ASDIRECTED 11/30/18 [History] Naproxen Sodium [Aleve] 440 mg PO QAM 11/30/18 [History] Past Medical History HEENT History: Reports: Impaired Vision Cardiovascular History: Reports: Hypertension Respiratory History: Reports: None Gastrointestinal History: Reports: None Genitourinary History: Reports: None Musculoskeletal History: Reports: Fracture, Other (See Below) Other Musculoskeletal History: rib fracture Psychiatric History: Reports: Addiction, Depression, Suicidal Ideation Endocrine/Metabolic History: Reports: Diabetes, Type II Hematologic History: Reports: None Immunologic History: Reports: None Oncologic (Cancer) History: Reports: None Dermatologic History: Reports: None - Infectious Disease History Infectious Disease History: Reports: None - Past Surgical History Neurological Surgical History: Reports: Lumbar Spine Musculoskeletal Surgical History: Reports: Arthroscopic Knee, Carpal Tunnel Social & Family History - Family History Family Medical History: Noncontributory - Tobacco Use Smoking Status *Q: Current Every Day Smoker Years of Tobacco use: 40 Packs/Tins Daily: 1.5 - Caffeine Use Caffeine Use: Reports: Coffee - Recreational Drug Use Recreational Drug Use: No - Living Situation & Occupation Occupation: Employed ED ROS GENERAL - Review of Systems Review Of Systems: See Below Constitutional: Reports: Weakness, Fatigue. Denies: Fever, Chills HEENT: Reports: No Symptoms Respiratory: Reports: No Symptoms Cardiovascular: Reports: Chest Pain Endocrine: Reports: Fatigue GI/Abdominal: Reports: Nausea, Vomiting. Denies: Abdominal Pain ED EXAM GENERAL NO PERIP PULSE - Physical Exam Exam: See Below Exam Limited By: No Limitations General Appearance: Alert, No Apparent Distress Ears: Normal External Exam Nose: Normal Inspection Head: Atraumatic, Normocephalic Neck: Normal Inspection Respiratory/Chest: No Respiratory Distress, Lungs Clear, Normal Breath Sounds, Other (Pain upon palpation to the right lateral chest) Cardiovascular: Regular Rate, Rhythm, No Edema, No Murmur GI/Abdominal: Soft, Non-Tender, No Organomegaly, No Mass Extremities: Normal Inspection EKG INTERPRETATION EKG Date: 06/29/19 Time: 09:55 Rhythm: Other (sinus tachycardia) Rate (Beats/Min): 126 [place]: Normal P-Wave: Present QRS: Normal ST-T: Normal QT: Normal Course - Vital Signs Last Recorded V/S: Last Vital Signs Temp 98.4 F 06/29/19 09:36 Pulse 131 H 06/29/19 09:36 Resp 18 06/29/19 09:36 BP 173/87 H 06/29/19 09:36 Pulse Ox 100 06/29/19 09:36 - Orders/Labs/Meds Orders: Active Orders 24 hr Category Date Time Status Cardiac Monitoring [RC] . DIRECTED Care 06/29/19 09:44 Active EKG Documentation Completion [RC] STAT Care 06/29/19 09:44 Active Peripheral IV Care [RC] . DIRECTED Care 06/29/19 09:45 Active Lactated Ringers [Ringers, Lactated] 1,000 ml Med 06/29/19 11:53 Ordered IV .BOLUS Regular Insulin,Human 100 Units in Normal Saline @ 0.1 Med 06/29/19 12:00 Ordered Units/KG/HR Insulin Regular, Human [HumuLIN R] 100 unit Sodium Chloride 0.9% [Normal Saline] 99 ml IV TITRATE Sodium Chloride 0.9% [Normal Saline] 1,000 ml Med 06/29/19 09:45 Active IV .BOLUS Sodium Chloride 0.9% [Normal Saline] 1,000 ml Med 06/29/19 10:59 Active IV ONETIME Sodium Chloride 0.9% [Saline Flush] Med 06/29/19 09:44 Active 10 ml FLUSH ASDIRECTED PRN Peripheral IV Insertion Adult [OM.PC] Stat Oth 06/29/19 09:44 Ordered Medication Orders Sodium Chloride (Normal Saline) 1,000 mls @ 1,000 mls/hr IV .BOLUS IVA Last Admin: 06/29/19 09:55 Dose: 1,000 mls/hr Sodium Chloride (Normal Saline) 1,000 mls @ 1,000 mls/hr IV ONETIME ONE Stop: 06/29/19 11:58 Last Admin: 06/29/19 11:09 Dose: 1,000 mls/hr Sodium Chloride (Saline Flush) 10 ml FLUSH ASDIRECTED PRN PRN Reason: Keep Vein Open Last Admin: 06/29/19 09:40 Dose: 10 ml Labs: Laboratory Tests 06/29/19 06/29/19 06/29/19 Range/Units 09:35 09:35 10:05 WBC 13.31 H (4.23-9.07) K/mm3 RBC 3.76 L (4.63-6.08) M/mm3 Hgb 12.0 L (13.7-17.5) gm/dl Hct 34.0 L (40.1-51.0) % MCV 90.4 D (79.0-92.2) fl MCH 31.9 (25.7-32.2) pg MCHC 35.3 (32.2-35.5) g/dl RDW Std Deviation 38.3 (35.1-43.9) fL Plt Count 329 (163-337) K/mm3 MPV 10.4 (9.4-12.3) fl Neut % (Auto) 86.7 H (34.0-67.9) % Lymph % (Auto) 2.9 L (21.8-53.1) % [place] % (Auto) 9.2 (5.3-12.2) % Eos % (Auto) 0 L (0.8-7.0) Baso % (Auto) 0.2 (0.1-1.2) % Neut # (Auto) 11.53 H (1.78-5.38) K/mm3 Lymph # (Auto) 0.39 L (1.32-3.57) K/mm3 [place] # (Auto) 1.23 H (0.30-0.82) K/mm3 Eos # (Auto) 0.00 L (0.04-0.54) K/mm3 Baso # (Auto) 0.03 (0.01-0.08) K/mm3 Manual Slide Review Normal smear Puncture Site ABG pH (7.35-7.45) ABG pCO2 (35.0-45.0) mmHg ABG pO2 (80.0-100.0) mmHg ABG HCO3 (22.0-26.0) meq/L ABG O2 Saturation (96.0-97.0) % ABG Base Excess (-2-2.0) Nathen Test A-a Gradient mmHg O2 Delivery Device FiO2 (21.00-100.00) % Sodium 120 L D (136-145) mEq/L Potassium 4.6 (3.5-5.1) mEq/L Chloride 81 L D (98-107) mEq/L Carbon Dioxide 23 (21-32) mEq/L Anion Gap 20.6 H (5-15) BUN 22 H (7-18) mg/dL Creatinine 2.1 H (0.7-1.3) mg/dL Est Cr Clr Drug Dosing 32.40 mL/min Estimated GFR (MDRD) 32 (>60) mL/min BUN/Creatinine Ratio 10.5 L (14-18) Glucose 775 H* (74-106) mg/dL Serum Osmolality 305 H (280-300) mosm/kg Lactic Acid 4.7 H* (0.4-2.0) mmol/L Calcium 8.7 (8.5-10.1) mg/dL Magnesium 2.4 (1.8-2.4) mg/dl Total Bilirubin 1.1 H (0.2-1.0) mg/dL AST 136 H (15-37) U/L ALT 197 H (16-63) U/L Alkaline Phosphatase 190 H (46-116) U/L Total Protein 7.0 (6.4-8.2) g/dl Albumin 2.8 L (3.4-5.0) g/dl Globulin 4.2 gm/dL Albumin/Globulin Ratio 0.7 L (1-2) Ethyl Alcohol (0.00) gm% Ketones (0.0-0.3) mM 06/29/19 06/29/19 06/29/19 Range/Units 10:05 10:05 10:05 WBC (4.23-9.07) K/mm3 RBC (4.63-6.08) M/mm3 Hgb (13.7-17.5) gm/dl Hct (40.1-51.0) % MCV (79.0-92.2) fl MCH (25.7-32.2) pg MCHC (32.2-35.5) g/dl RDW Std Deviation (35.1-43.9) fL Plt Count (163-337) K/mm3 MPV (9.4-12.3) fl Neut % (Auto) (34.0-67.9) % Lymph % (Auto) (21.8-53.1) % [place] % (Auto) (5.3-12.2) % Eos % (Auto) (0.8-7.0) Baso % (Auto) (0.1-1.2) % Neut # (Auto) (1.78-5.38) K/mm3 Lymph # (Auto) (1.32-3.57) K/mm3 [place] # (Auto) (0.30-0.82) K/mm3 Eos # (Auto) (0.04-0.54) K/mm3 Baso # (Auto) (0.01-0.08) K/mm3 Manual Slide Review Puncture Site Rt radial ABG pH 7.47 H (7.35-7.45) ABG pCO2 33.5 L (35.0-45.0) mmHg ABG pO2 73.0 L (80.0-100.0) mmHg ABG HCO3 24.0 (22.0-26.0) meq/L ABG O2 Saturation 94.7 L (96.0-97.0) % ABG Base Excess 1.1 (-2-2.0) Nathen Test Positive A-a Gradient 35 mmHg O2 Delivery Device Room air FiO2 21.00 (21.00-100.00) % Sodium (136-145) mEq/L Potassium (3.5-5.1) mEq/L Chloride (98-107) mEq/L Carbon Dioxide (21-32) mEq/L Anion Gap (5-15) BUN (7-18) mg/dL Creatinine (0.7-1.3) mg/dL Est Cr Clr Drug Dosing mL/min Estimated GFR (MDRD) (>60) mL/min BUN/Creatinine Ratio (14-18) Glucose (74-106) mg/dL Serum Osmolality (280-300) mosm/kg Lactic Acid (0.4-2.0) mmol/L Calcium (8.5-10.1) mg/dL Magnesium (1.8-2.4) mg/dl Total Bilirubin (0.2-1.0) mg/dL AST (15-37) U/L ALT (16-63) U/L Alkaline Phosphatase (46-116) U/L Total Protein (6.4-8.2) g/dl Albumin (3.4-5.0) g/dl Globulin gm/dL Albumin/Globulin Ratio (1-2) Ethyl Alcohol 0.00 (0.00) gm% Ketones 4.12 (0.0-0.3) mM Meds: Medications Generic Name Dose Route Start Last Admin Trade Name Freq PRN Reason Stop Dose Admin Sodium Chloride 1,000 mls @ 1,000 mls/hr 06/29/19 09:45 06/29/19 09:55 Normal Saline IV 1,000 mls/hr .BOLUS IVA Administration Sodium Chloride 1,000 mls @ 1,000 mls/hr 06/29/19 10:59 06/29/19 11:09 Normal Saline IV 06/29/19 11:58 1,000 mls/hr ONETIME ONE Administration Sodium Chloride 10 ml 06/29/19 09:44 06/29/19 09:40 Saline Flush FLUSH 10 ml ASDIRECTED PRN Administration Keep Vein Open - Re-Assessments/Exams Free Text/Narrative Re-Assessment/Exam: 06/29/19 11:32 I ordered an IV NS 1L bolus, EKG, CXR, and labs. His EKG shows a sinus tachycardia. His CXR shows acute fractures within the right 7th and 8th ribs. No pneumothorax is seen at this time. Nothing acute is otherwise seen on portable chest x-ray. His WBC is elevated at 13.31. His Hgb is 12. His pH was elevated at 7.47. His Na is low at 120. His K is normal at 4.6. His anion gap is elevated at 20.6. His creatinine is elevated at 2.1. His GFR is low at 32. His glucose is 775. His lactic acid is elevated at 4.7. His total bili is elevated at 1.1. His AST is elevated at 136. His ALT is elevated at 197 His Alk Phos is elevated at 190. 06/29/19 11:52 His ketones are elevated at 4.12. His serum osmolality is elevated at 305. His ETOH is 0. I will start and insulin drip and give him another liter of fluid. I feel he needs to be admitted. I will call Dr Watson. 06/29/19 12:00 Dr Watson came to see the patient. She recommended NS with potassium at 500mls/hr. I changed the order. Departure - Departure Time of Disposition: 12:05 Disposition: Admitted As Inpatient 64 Condition: Serious Clinical Impression: Type 2 diabetes mellitus with hyperosmolar nonketotic hyperglycemia, Hyponatremia Fall Qualifiers: Encounter type: initial encounter Qualified Code(s): W19.XXXA - Unspecified fall, initial encounter Ribs, multiple fractures Qualifiers: Encounter type: initial encounter Fracture type: closed Laterality: right Qualified Code(s): S22.41XA - Multiple fractures of ribs, right side, initial encounter for closed fracture - Discharge Information Referrals: PCP,None [Primary Care Provider] - Forms: ED Department Discharge Sepsis Event Note - Evaluation Sepsis Screening Result: No Definite Risk - Focused Exam Vital Signs: Vital Signs Temp Pulse Resp BP Pulse Ox 06/29/19 09:36 98.4 F 131 H 18 173/87 H 100 Date Exam was Performed: 06/29/19 Time Exam was Performed: 11:54 - My Orders Last 24 Hours: My Active Orders 06/29/19 09:44 Cardiac Monitoring [RC] . DIRECTED EKG Documentation Completion [RC] STAT Sodium Chloride 0.9% [Saline Flush] 10 ml FLUSH ASDIRECTED PRN Peripheral IV Insertion Adult [OM.PC] Stat 06/29/19 09:45 Peripheral IV Care [RC] . DIRECTED Sodium Chloride 0.9% [Normal Saline] 1,000 ml IV .BOLUS 06/29/19 10:59 Sodium Chloride 0.9% [Normal Saline] 1,000 ml IV ONETIME 06/29/19 11:53 Lactated Ringers [Ringers, Lactated] 1,000 ml IV .BOLUS 06/29/19 12:00 Regular Insulin,Human 100 Units in Normal Saline @ 0.1 Units/KG/HR Insulin Regular, Human [HumuLIN R] 100 unit Sodium Chloride 0.9% [Normal Saline] 99 ml IV TITRATE - Assessment/Plan Last 24 Hours: My Active Orders 06/29/19 09:44 Cardiac Monitoring [RC] . DIRECTED EKG Documentation Completion [RC] STAT Sodium Chloride 0.9% [Saline Flush] 10 ml FLUSH ASDIRECTED PRN Peripheral IV Insertion Adult [OM.PC] Stat 06/29/19 09:45 Peripheral IV Care [RC] . DIRECTED Sodium Chloride 0.9% [Normal Saline] 1,000 ml IV .BOLUS 06/29/19 10:59 Sodium Chloride 0.9% [Normal Saline] 1,000 ml IV ONETIME 06/29/19 11:53 Lactated Ringers [Ringers, Lactated] 1,000 ml IV .BOLUS 06/29/19 12:00 Regular Insulin,Human 100 Units in Normal Saline @ 0.1 Units/KG/HR Insulin Regular, Human [HumuLIN R] 100 unit Sodium Chloride 0.9% [Normal Saline] 99 ml IV TITRATE
[2019-06-29] MEDS ORDERED: Lactated Ringers 1,000 ML IV ONE (11:53)
[2019-06-29] MEDS ORDERED: NS + KCl 20mEq/L 1,000 ML IV SCH (12:00)
--- NOTE | 2019-06-29 13:00 | PCM.HP.2 ---
H&P History of Present Illness - General Date of Service: 06/29/19 Admit Problem/Dx: Admission Diagnosis/Problem Admission Diagnosis/Problem Hyperosmolar non-ketotic state in type 2 diabetes mellitus - History of Present Illness Initial Comments - Free Text/Narative: The patient presents by [facility] for hyperglycemia and alcohol intoxication. As per patient he lost his job in late April, after that he started feeling more and more depressed and stopped using his insulin about 1-2 weeks ago. He also states that he has been having worsening weakness that caused him to fall from his own height, without any head trauma. Of note patient is also a heavy every day drinker of about 1L of Fireball every day. COVID risk Denies having left his house since he lost his job Denies any sick contacts Denies any respiratory symptoms or fever Right Chest Pain Score (Numeric/FACES): 10 - Related Data Allergies/Adverse Reactions: Allergies Allergy/AdvReac Type Severity Reaction Status Date / Time No Known Allergies Allergy Verified 06/29/19 12:16 Home Medications: Home Meds Aspirin [Halfprin] 81 mg PO DAILY 11/30/18 [History] Gabapentin [Neurontin] 600 mg PO ACLUNCH 11/30/18 [History] Gabapentin [Neurontin] 900 mg PO BID 11/30/18 [History] Insulin Glargine,Hum.Rec.Anlog [Lantus Solostar] 40 unit SQ ASDIRECTED 11/30/18 [History] Naproxen Sodium [Aleve] 440 mg PO QAM 11/30/18 [History] Past Medical History HEENT History: Reports: Impaired Vision Cardiovascular History: Reports: Hypertension Respiratory History: Reports: None Gastrointestinal History: Reports: None Genitourinary History: Reports: None Musculoskeletal History: Reports: Fracture, Other (See Below) Other Musculoskeletal History: rib fracture Psychiatric History: Reports: Addiction, Depression, Suicidal Ideation Endocrine/Metabolic History: Reports: Diabetes, Type II Hematologic History: Reports: None Immunologic History: Reports: None Oncologic (Cancer) History: Reports: None Dermatologic History: Reports: None - Infectious Disease History Infectious Disease History: Reports: None - Past Surgical History Neurological Surgical History: Reports: Lumbar Spine Musculoskeletal Surgical History: Reports: Arthroscopic Knee, Carpal Tunnel Social & Family History - Family History Family Medical History: Noncontributory - Tobacco Use Smoking Status *Q: Current Every Day Smoker Years of Tobacco use: 40 Packs/Tins Daily: 1.5 - Caffeine Use Caffeine Use: Reports: Coffee - Recreational Drug Use Recreational Drug Use: No - Living Situation & Occupation Occupation: Employed H&P Review of Systems - Review of Systems: Review Of Systems: See Below () General: Reports: Malaise, Weakness, Fatigue, Decreased Appetite. Denies: Fever , Chills, Night Sweats, Diaphoresis, Weight Loss, Weight Gain HEENT: Denies: Rhinitis, Post Nasal Drip, Sinus Congestion, Sore Throat, Vertigo , Visual Changes Pulmonary: Reports: Pleuritic Chest Pain. Denies: Shortness of Breath, Wheezing , Cough, Sputum, Hemoptysis Cardiovascular: Denies: Chest Pain, Palpitations, Dyspnea on Exertion, Orthopnea , PND, Edema, Lightheadedness, Syncope, Claudication Gastrointestinal: Reports: Decreased Appetite, Nausea. Denies: Abdominal Pain, Anorexia, Black Stool, Bloody Stool, Constipation, Diarrhea, Difficulty Swallowing, Distension, Flatus, Hematemesis, Hematochezia, Melena, Mucous in Stool, Stool Incontinence, Vomiting Genitourinary: Denies: Dysuria, Frequency, Burning, Pain, Urgency, Incontinence Musculoskeletal: Reports: Joint Pain. Denies: Joint Swelling, Muscle Pain, Muscle Stiffness Skin: Reports: Pallor. Denies: Cyanosis, Jaundice, Mottled Psychiatric: Reports: Depression. Denies: Confusion, Mood Lability, Anxiety, Agitation Neurological: Denies: Dizziness, Headache, Numbness, Paresthesia Exam - Exam Exam: See Below - Vital Signs Vital Signs: Last Vital Signs Temp 98.4 F 06/29/19 09:36 Pulse 131 H 06/29/19 09:36 Resp 18 06/29/19 09:36 BP 173/87 H 06/29/19 09:36 Pulse Ox 100 06/29/19 09:36 Weight: 61.235 kg - Exam General: Alert, Oriented, Cooperative. No: Mild Distress, Moderate Distress, Severe Distress HEENT: Conjunctiva Clear, EACs Clear. No: Mucosa Moist & [place] (oral mucosa is dry) Neck: Supple, Trachea Midline, +2 Carotid Pulse wo Bruit, Full Range of Motion. No: Lymphadenopathy Lungs: Clear to Auscultation, Decreased Breath Sounds. No: Normal Respiratory Effort, Crackles, Rales, Rhonchi, Rub, Stridor, Wheezing Cardiovascular: Regular Rate, Regular Rhythm. No: Systolic Murmur, Diastolic Murmur, Rubs, Gallop/S3, Gallop/S4 GI/Abdominal Exam: Normal Bowel Sounds. No: Distended, Guarding, Rigid, Rebound , Tender Extremities: Normal Inspection, Normal Range of Motion, Non-Tender, No Pedal Edema, Slow Capillary Refill Skin: Dry - Patient Data Result Diagrams: 06/29/19 09:35 06/29/19 10:05 Sepsis Event Note - Evaluation Sepsis Screening Result: No Definite Risk Current Stage of Sepsis: Ruled Out Reason for Ruling Out Sepsis: No ongoing infectious process is identified - Focused Exam Vital Signs: Vital Signs Temp Pulse Resp BP Pulse Ox 06/29/19 09:36 98.4 F 131 H 18 173/87 H 100 Date Exam was Performed: 06/29/19 Time Exam was Performed: 13:45 - Problem List (1) Type 2 diabetes mellitus with hyperosmolar nonketotic hyperglycemia SNOMED Code(s): 30214125, 60700030 ICD Code: E11.00 - TYPE 2 DIAB W HYPROSM W/O NONKET HYPRGLY-HYPROS COMA ( [facility]) Status: Acute Current Visit: Yes (2) Hyponatremia with increased serum osmolality SNOMED Code(s): 11510338 ICD Code: E87.0 - HYPEROSMOLALITY AND HYPERNATREMIA; E87.1 - HYPO-OSMOLALITY AND HYPONATREMIA Status: Acute Current Visit: Yes (3) Acute renal injury SNOMED Code(s): 18371509, 33171549 ICD Code: N17.9 - ACUTE KIDNEY FAILURE, UNSPECIFIED Status: Acute Current Visit: Yes (4) [id number] kidney injury SNOMED Code(s): 854684635 ICD Code: N17.9 - ACUTE KIDNEY FAILURE, UNSPECIFIED; N18.9 - CHRONIC KIDNEY DISEASE, UNSPECIFIED Status: Acute Current Visit: Yes (5) Lactic acidemia SNOMED Code(s): 726829367 ICD Code: E87.2 - ACIDOSIS Status: Acute Current Visit: Yes (6) Elevated blood ketone body level SNOMED Code(s): 554830971 ICD Code: R79.89 - OTHER SPECIFIED ABNORMAL FINDINGS OF BLOOD CHEMISTRY Status: Acute Current Visit: Yes (7) Right rib fracture SNOMED Code(s): 78555116 ICD Code: S22.31XA - FRACTURE OF ONE RIB, RIGHT SIDE, INIT FOR CLOS FX Status: Acute Current Visit: Yes (8) Abnormal LFTs (liver function tests) SNOMED Code(s): 648039516 ICD Code: R94.5 - ABNORMAL RESULTS OF LIVER FUNCTION STUDIES Status: Acute Current Visit: Yes (9) Alcohol abuse SNOMED Code(s): 02201891 ICD Code: F10.10 - ALCOHOL ABUSE, UNCOMPLICATED Status: Acute Current Visit: Yes (10) Current every day smoker SNOMED Code(s): 328263335, 425538950 ICD Code: F17.200 - NICOTINE DEPENDENCE, UNSPECIFIED, UNCOMPLICATED Status : Acute Current Visit: Yes (11) Hypertension SNOMED Code(s): 34522962 ICD Code: I10 - ESSENTIAL (PRIMARY) HYPERTENSION Status: Acute Current Visit: Yes (12) Tachycardia SNOMED Code(s): 8218976 ICD Code: R00.0 - TACHYCARDIA, UNSPECIFIED Status: Acute Current Visit: Yes (13) Depression SNOMED Code(s): 11360582 ICD Code: F32.9 - MAJOR DEPRESSIVE DISORDER, SINGLE EPISODE, UNSPECIFIED Status: Acute Current Visit: Yes (14) Suicidal ideation SNOMED Code(s): 9449575 ICD Code: R45.851 - SUICIDAL IDEATIONS Status: Acute Current Visit: Yes (15) Fall SNOMED Code(s): 1319235, 997348265 ICD Code: W19.XXXA - UNSPECIFIED FALL, INITIAL ENCOUNTER Status: Acute Current Visit: Yes Qualifiers: Encounter type: initial encounter Qualified Code(s): W19.XXXA - Unspecified fall, initial encounter (16) Ribs, multiple fractures SNOMED Code(s): 2904787 ICD Code: S22.49XA - MULTIPLE FRACTURES OF RIBS, UNSP SIDE, INIT FOR CLOS FX Status: Acute Current Visit: Yes Qualifiers: Encounter type: initial encounter Fracture type: closed Laterality: right Qualified Code(s): S22.41XA - Multiple fractures of ribs, right side, initial encounter for closed fracture Problem List Initiated/Reviewed/Updated: Yes Assessment/Plan Comment:: Type 2 diabetes mellitus with hyperosmolar nonketotic hyperglycemia Hyponatremia with increased serum osmolality Elevated blood ketone body level Lactic acidemia Rxign-su-ltnnzsx kidney injury No insulin use in the past week No acidosis Kidney damage likely secondary to hemoconcentration Lactic acid elevated secondary to hyperviscosity PLAN - Labs every 4 hours - Goal K between 4-5 - Normal saline at 500ml/hr until glucose <300 - Once glucose less than 300 will start D5 1/2 NS at 250ml/hr - Insulin drip at 0.1u/kg/hr, set rate - Once glucose < 300 decrease insulin infusion to 0.05u/kg/hr - Replace electrolytes as needed - Accu-checks every 1 hour - HbA1c - simulation educator once appropriate - NPO for now Hypertension, uncontrolled BP on admission 173/87 Unknown home medications PLAN - Reconcile home medications once available - Hydralazine PRN Alcohol abuse Abnormal LFTs (liver function tests) Drinks about 1L of fireball a day Last drink was yesterday at 7PM yesterday Ethanol level on admission 0 PLAN - CIWA protocol - Start thiamine and folic acid supplementation Current every day smoker Has been smoking a pack a day since age 8 PLAN - Nicotine patch Depression Suicidal ideation Has been more depressed since he lost his job Has been having thoughts of self harm by shooting himself or overdosing on medications--> states "I don't have the guts" PLAN - Psychiatry consult once stable Fall Right rib fractures No head trauma PLAN - Incentive spirometry PROPHYLAXIS DVT- Lovenox GI- not indicated CODE STATUS: FULL CODE Discussed code status with patient and he asked to be made a DNR/DNI however due to current mental health status explained I would leave him as a full code and would discuss with him once stable. DISPOSITION: Patient will be admitted to ICU for insulin drip and CIWA protocol - Mortality Measure Prognosis:: Poor
[2019-06-29 14:46] LABS: HEMOGLOBIN A1C 13.2 % (4.50-6.20)
[2019-06-29] MEDS ORDERED: D5 1/2 NS w/ 20 mEq/L KCl 1,000 ML IV SCH (15:15)
[2019-06-29] MEDS: Nicotine 21 MG/24 Hr Patch TRDERM SCH (16:23)
[2019-06-29] MEDS: Insulin Glarg,Human.Rec.Analog 100 Unit/ML SUBCUT SCH (18:48)
[2019-06-29] MEDS: NS + KCl 20mEq/L 1,000 ML IV SCH (20:35)
[2019-06-29] MEDS: Pantoprazole 40 MG Tab.CR PO SCH (20:38)
[2019-06-30] MEDS: NS + KCl 20mEq/L 1,000 ML IV SCH (04:39)
[2019-06-30] MEDS: Insulin Glarg,Human.Rec.Analog 100 Unit/ML SUBCUT SCH (10:42)
[2019-06-30] MEDS: Enoxaparin 40 MG/0.4 ML Syringe SUBCUT SCH (10:43)
[2019-06-30] MEDS: Acetaminophen 325 MG Tab PO PRN (10:59)
[2019-06-30] MEDS: Sodium Chloride 0.9% with KCl 1,000 ML IV SCH ×2 (11:29→17:14)
[2019-06-30] MEDS: Morphine 2 MG/ML Syringe IVPUSH PRN ×3 (13:08→21:53)
[2019-06-30] MEDS: Nicotine 21 MG/24 Hr Patch TRDERM SCH (15:46)
--- NOTE | 2019-06-30 15:48 | PCM.PN ---
- General Info Date of Service: 06/30/19 Subjective Update: Of insulin drip As per nursing doesn't want to do anything for himself and was even requesting to be fed Bowel movement 06/27 Slept okay - Patient Data Vitals - Most Recent: Last Vital Signs Temp 99.3 F 06/30/19 08:00 Pulse 92 06/30/19 10:00 Resp 18 06/30/19 08:00 BP 130/78 06/30/19 08:01 Pulse Ox 99 06/30/19 10:00 Weight - Most Recent: 61.689 kg - Exam General: Alert, Oriented, Cooperative, No Acute Distress HEENT: Pupils Equal, Pupils Reactive, Mucous Membr. Moist/[place] Neck: Supple, Trachea Midline, No JVD Lungs: Clear to Auscultation, Normal Respiratory Effort. No: Crackles, Rales, Rhonchi, Rub, Stridor, Wheezing Cardiovascular: Regular Rate, Regular Rhythm. No: Murmurs, Gallops, Rubs GI/Abdominal Exam: Normal Bowel Sounds, Soft, Non-Tender. No: Distended, Guarding Extremities: Normal Inspection, Normal Range of Motion, No Pedal Edema Psy/Mental Status: Alert, Depressed, Suicidal Ideation Sepsis Event Note - Evaluation Sepsis Screening Result: No Definite Risk - Focused Exam Vital Signs: Vital Signs Temp Pulse Resp BP BP Pulse Ox 06/30/19 10:00 92 99 06/30/19 09:00 106 H 99 06/30/19 08:01 83 130/78 100 06/30/19 08:00 99.3 F 81 18 130/78 100 06/30/19 07:00 74 100 06/30/19 06:00 73 100 06/30/19 05:00 85 100 06/30/19 04:01 91 99 06/30/19 04:00 97.6 F 92 12 161/86 H 161/86 H 100 06/30/19 03:59 96 100 Date Exam was Performed: 06/30/19 Time Exam was Performed: 15:42 - Problem List & Annotations (1) Type 2 diabetes mellitus with hyperosmolar nonketotic hyperglycemia SNOMED Code(s): 04423386, 45116746 Code(s): E11.00 - TYPE 2 DIAB W HYPROSM W/O NONKET HYPRGLY-HYPROS COMA ([facility] ) Status: Acute Current Visit: Yes (2) Hyponatremia with increased serum osmolality SNOMED Code(s): 80592799 Code(s): E87.0 - HYPEROSMOLALITY AND HYPERNATREMIA; E87.1 - HYPO-OSMOLALITY AND HYPONATREMIA Status: Acute Current Visit: Yes (3) Acute renal injury SNOMED Code(s): 22373250, 70327757 Code(s): N17.9 - ACUTE KIDNEY FAILURE, UNSPECIFIED Status: Acute Current Visit: Yes (4) Tnvyc-vt-mynrqnh kidney injury SNOMED Code(s): 937503536 Code(s): N17.9 - ACUTE KIDNEY FAILURE, UNSPECIFIED; N18.9 - CHRONIC KIDNEY DISEASE, UNSPECIFIED Status: Acute Current Visit: Yes (5) Lactic acidemia SNOMED Code(s): 473737803 Code(s): E87.2 - ACIDOSIS Status: Acute Current Visit: Yes (6) Elevated blood ketone body level SNOMED Code(s): 561729364 Code(s): R79.89 - OTHER SPECIFIED ABNORMAL FINDINGS OF BLOOD CHEMISTRY Status: Acute Current Visit: Yes (7) Right rib fracture SNOMED Code(s): 96887651 Code(s): S22.31XA - FRACTURE OF ONE RIB, RIGHT SIDE, INIT FOR CLOS FX Status: Acute Current Visit: Yes (8) Abnormal LFTs (liver function tests) SNOMED Code(s): 390446829 Code(s): R94.5 - ABNORMAL RESULTS OF LIVER FUNCTION STUDIES Status: Acute Current Visit: Yes (9) Alcohol abuse SNOMED Code(s): 28826017 Code(s): F10.10 - ALCOHOL ABUSE, UNCOMPLICATED Status: Acute Current Visit: Yes (10) Current every day smoker SNOMED Code(s): 356413490, 796593267 Code(s): F17.200 - NICOTINE DEPENDENCE, UNSPECIFIED, UNCOMPLICATED Status: Acute Current Visit: Yes (11) Hypertension SNOMED Code(s): 27664008 Code(s): I10 - ESSENTIAL (PRIMARY) HYPERTENSION Status: Acute Current Visit: Yes (12) Tachycardia SNOMED Code(s): 0441016 Code(s): R00.0 - TACHYCARDIA, UNSPECIFIED Status: Acute Current Visit: Yes (13) Depression SNOMED Code(s): 11408355 Code(s): F32.9 - MAJOR DEPRESSIVE DISORDER, SINGLE EPISODE, UNSPECIFIED Status: Acute Current Visit: Yes (14) Suicidal ideation SNOMED Code(s): 0612186 Code(s): R45.851 - SUICIDAL IDEATIONS Status: Acute Current Visit: Yes (15) Fall SNOMED Code(s): 8681198, 065109296 Code(s): W19.XXXA - UNSPECIFIED FALL, INITIAL ENCOUNTER Status: Acute Current Visit: Yes Qualifiers: Encounter type: initial encounter Qualified Code(s): W19.XXXA - Unspecified fall, initial encounter (16) Ribs, multiple fractures SNOMED Code(s): 4292742 Code(s): S22.49XA - MULTIPLE FRACTURES OF RIBS, UNSP SIDE, INIT FOR CLOS FX Status: Acute Current Visit: Yes Qualifiers: Encounter type: initial encounter Fracture type: closed Laterality: right Qualified Code(s): S22.41XA - Multiple fractures of ribs, right side, initial encounter for closed fracture - Problem List Review Problem List Initiated/Reviewed/Updated: Yes - Plan Plan:: Type 2 diabetes mellitus with hyperosmolar nonketotic hyperglycemia Uncontrolled diabetes, HbA1c 13.2 Hyponatremia with increased serum osmolality Elevated blood ketone body level, improving Lactic acidemia, resolved Vrzkm-fs-pxirsof kidney injury, improving No insulin use in the past week--> glucose 775 on admission --> started on HHS protocol BS below 200 in the PM --> transitioned to long acting home insulin dose of 40 u PLAN - Change IV fluids to NS with 40mEq x 2 bags - Accuchecks before meals and 2 hours after - Insulin lispro 3u before meals - Diabetic diet - associate accountant once appropriate Hypertension, uncontrolled BP on admission 173/87 BP trend 113-167/64-94 Unknown home medications PLAN - Reconcile home medications once available - Hydralazine PRN Alcohol abuse Abnormal LFTs (liver function tests), improving Drinks about 1L of fireball a day Last drink was yesterday at 7PM yesterday Ethanol level on admission 0 Highest CIWA 1 PLAN - Start thiamine and folic acid supplementation Current every day smoker Has been smoking a pack a day since age 8 PLAN - Nicotine patch Depression Suicidal ideation Has been more depressed since he lost his job Has been having thoughts of self harm by shooting himself or overdosing on medications--> states "I don't have the guts" PLAN - Psychiatry consult once stable Fall Right rib fractures No head trauma PLAN - Incentive spirometry - Pain control PROPHYLAXIS DVT- Lovenox GI- not indicated CODE STATUS: FULL CODE Discussed code status with patient and he asked to be made a DNR/DNI however due to current mental health status explained I would leave him as a full code and would discuss with him once stable. DISPOSITION: Patient Admitted to ICU for insulin drip, discontinued yesterday in the evening okay to transition over to MedSurg. Pending evaluation by psychiatry
[2019-06-30] MEDS: Insulin Lispro 100 Units/ML 3 ML Vial SUBCUT SCH (17:35)
[2019-06-30] MEDS ORDERED: Sodium Phosphate 60 MMOLE in Sodium Chloride 0.9% 250 ML IV ONE ×2 (18:11→20:00)
[2019-06-30] MEDS: Pantoprazole 40 MG Tab.CR PO SCH (20:23)
[2019-07-01] MEDS: Acetaminophen 325 MG Tab PO PRN ×3 (01:37→21:56)
[2019-07-01] MEDS: Insulin Lispro 100 Units/ML 3 ML Vial SUBCUT SCH ×3 (07:34→18:11)
[2019-07-01] MEDS: Insulin Glarg,Human.Rec.Analog 100 Unit/ML SUBCUT SCH (08:55)
[2019-07-01] MEDS: Enoxaparin 40 MG/0.4 ML Syringe SUBCUT SCH (08:56)
[2019-07-01] MEDS: FLUoxetine 20 MG Cap PO SCH (11:15)
[2019-07-01] MEDS: Topiramate 25 MG Tab PO SCH ×2 (11:15→20:45)
[2019-07-01] MEDS: Folic Acid 1 MG Tab PO SCH (11:15)
[2019-07-01] MEDS: Sodium Chloride 0.9% with KCl 1,000 ML IV SCH ×2 (12:32→20:44)
--- NOTE | 2019-07-01 13:36 | PCM.PN ---
- General Info Date of Service: 07/01/19 Subjective Update: Patient states he had a hard time sleeping Attitude is completely different, patient took a shower and is feeling a lot better - Patient Data Vitals - Most Recent: Last Vital Signs Temp 97.9 F 07/01/19 08:53 Pulse 106 H 07/01/19 08:53 Resp 18 07/01/19 08:53 BP 131/78 07/01/19 08:53 Pulse Ox 96 07/01/19 08:53 Weight - Most Recent: 64.093 kg - Exam General: Alert, Oriented, Cooperative, No Acute Distress HEENT: Pupils Equal, Pupils Reactive, Mucous Membr. Moist/[place] Neck: Supple, Trachea Midline, No JVD, No Thyromegaly, +2 Carotid Pulse wo Bruit. No: Lymphadenopathy Lungs: Clear to Auscultation, Normal Respiratory Effort. No: Crackles, Rales, Rhonchi, Rub, Stridor, Wheezing Cardiovascular: Regular Rate, Regular Rhythm. No: Murmurs, Gallops, Rubs GI/Abdominal Exam: Normal Bowel Sounds, Soft, Non-Tender. 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) Skin: Warm, Dry Neurological: No New Focal Deficit Psy/Mental Status: Alert, Normal Affect, Normal Mood Sepsis Event Note - Evaluation Sepsis Screening Result: No Definite Risk - Focused Exam Vital Signs: Vital Signs Temp Pulse Resp BP Pulse Ox 07/01/19 08:53 97.9 F 106 H 18 131/78 96 07/01/19 04:25 98.1 F 102 H 16 108/67 96 Date Exam was Performed: 07/01/19 Time Exam was Performed: 13:29 - Problem List & Annotations (1) Type 2 diabetes mellitus with hyperosmolar nonketotic hyperglycemia SNOMED Code(s): 08012216, 44520297 Code(s): E11.00 - TYPE 2 DIAB W HYPROSM W/O NONKET HYPRGLY-HYPROS COMA ([facility] ) Status: Acute Current Visit: Yes (2) Hyponatremia with increased serum osmolality SNOMED Code(s): 21147441 Code(s): E87.0 - HYPEROSMOLALITY AND HYPERNATREMIA; E87.1 - HYPO-OSMOLALITY AND HYPONATREMIA Status: Acute Current Visit: Yes (3) Acute renal injury SNOMED Code(s): 14087236, 00540359 Code(s): N17.9 - ACUTE KIDNEY FAILURE, UNSPECIFIED Status: Acute Current Visit: Yes (4) Pvriz-pr-dwmhmnd kidney injury SNOMED Code(s): 147093304 Code(s): N17.9 - ACUTE KIDNEY FAILURE, UNSPECIFIED; N18.9 - CHRONIC KIDNEY DISEASE, UNSPECIFIED Status: Acute Current Visit: Yes (5) Lactic acidemia SNOMED Code(s): 888555917 Code(s): E87.2 - ACIDOSIS Status: Acute Current Visit: Yes (6) Elevated blood ketone body level SNOMED Code(s): 612750148 Code(s): R79.89 - OTHER SPECIFIED ABNORMAL FINDINGS OF BLOOD CHEMISTRY Status: Acute Current Visit: Yes (7) Right rib fracture SNOMED Code(s): 51591868 Code(s): S22.31XA - FRACTURE OF ONE RIB, RIGHT SIDE, INIT FOR CLOS FX Status: Acute Current Visit: Yes (8) Abnormal LFTs (liver function tests) SNOMED Code(s): 341745866 Code(s): R94.5 - ABNORMAL RESULTS OF LIVER FUNCTION STUDIES Status: Acute Current Visit: Yes (9) Alcohol abuse SNOMED Code(s): 56121433 Code(s): F10.10 - ALCOHOL ABUSE, UNCOMPLICATED Status: Acute Current Visit: Yes (10) Current every day smoker SNOMED Code(s): 351404978, 519320334 Code(s): F17.200 - NICOTINE DEPENDENCE, UNSPECIFIED, UNCOMPLICATED Status: Acute Current Visit: Yes (11) Hypertension SNOMED Code(s): 44662896 Code(s): I10 - ESSENTIAL (PRIMARY) HYPERTENSION Status: Acute Current Visit: Yes (12) Tachycardia SNOMED Code(s): 6153228 Code(s): R00.0 - TACHYCARDIA, UNSPECIFIED Status: Acute Current Visit: Yes (13) Depression SNOMED Code(s): 92217790 Code(s): F32.9 - MAJOR DEPRESSIVE DISORDER, SINGLE EPISODE, UNSPECIFIED Status: Acute Current Visit: Yes (14) Suicidal ideation SNOMED Code(s): 8397479 Code(s): R45.851 - SUICIDAL IDEATIONS Status: Acute Current Visit: Yes (15) Fall SNOMED Code(s): 2774728, 330412066 Code(s): W19.XXXA - UNSPECIFIED FALL, INITIAL ENCOUNTER Status: Acute Current Visit: Yes Qualifiers: Encounter type: initial encounter Qualified Code(s): W19.XXXA - Unspecified fall, initial encounter (16) Ribs, multiple fractures SNOMED Code(s): 2411522 Code(s): S22.49XA - MULTIPLE FRACTURES OF RIBS, UNSP SIDE, INIT FOR CLOS FX Status: Acute Current Visit: Yes Qualifiers: Encounter type: initial encounter Fracture type: closed Laterality: right Qualified Code(s): S22.41XA - Multiple fractures of ribs, right side, initial encounter for closed fracture (17) Hypokalemia SNOMED Code(s): 62873228 Code(s): E87.6 - HYPOKALEMIA Status: Acute Current Visit: Yes (18) Hypomagnesemia SNOMED Code(s): 387057956 Code(s): E83.42 - HYPOMAGNESEMIA Status: Acute Current Visit: Yes - Problem List Review Problem List Initiated/Reviewed/Updated: Yes - Plan Plan:: DAY OF ADMISSION - No insulin use in the past week - No insulin use in the past week--> glucose 775 on admission --> started on HHS protocol - Drinks 1L of fireball a day, last drink day prior to admission - Negative ethanol level on admission - Smokes 1ppd since age 8 - BP on admission 173/87 - Has been more depressed since he lost his job. - Has been having thoughts of self harm by shooting himself or overdosing on medications--> states "I don't have the guts" - Rib fractures after fall--> started on incentive spirometry DAY 1 - BS below 200 in the PM --> transitioned to long acting home insulin dose of 40 u - Started on 3u pre-meals - BP trend 113-167/64-94 - CIWA negative - GFR back to normal - Downgraded from ICU status DAY 2 - Glucose trend 103-242 - Normal TSH - BP trend 130-161/78-86 - Psychiatry consult today patient started on Seroquel, Prozac and Topamax Uncontrolled diabetes, HbA1c 13.2 - Accu-checks before meals and 2 hours after - Insulin lispro 3u before meals - Diabetic diet - inclusion special educator once appropriate Hyponatremia Hypokalemia Hypomagnesemia - Continue NS with 40mEq at 125ml/hr - Magnesium sulfate 4g IV STAT Hypertension, uncontrolled - Lisinopril 10mg PO - Hydralazine PRN Current every day smoker - Nicotine patch Depression Suicidal ideation Alcohol abuse - Start Seroquel, Prozac and Topamax - Continue thiamine and folic acid - Spiritual care consult - Inpatient rehabilitation at discharge Fall Right rib fractures - Incentive spirometry - Pain control Type 2 diabetes mellitus with hyperosmolar nonketotic hyperglycemia, resolved Lactic acidemia, resolved Acute kidney injury, resolved [place]emia, resolved Increased serum osmolarity, resolved PROPHYLAXIS DVT- Lovenox GI- not indicated CODE STATUS: FULL CODE Discussed code status with patient and he asked to be made a DNR/DNI however due to current mental health status explained I would leave him as a full code and would discuss with him once stable. DISPOSITION: Patient Admitted to ICU for insulin drip discontinued and transitioned to medsurg. Psychiatry consult recommended inpatient rehab and started medications as above.
[2019-07-01] MEDS ORDERED: Magnesium Sulfate/Water 4 GM in Premix Bag 1 BAG IV ONE (14:20)
[2019-07-01] MEDS ORDERED: Lisinopril 5 MG Tab PO ONE (14:32)
[2019-07-01] MEDS: Nicotine 21 MG/24 Hr Patch TRDERM SCH (14:49)
[2019-07-01] MEDS: QUEtiapine 25 MG Tab PO SCH (20:45)
[2019-07-01] MEDS: Thiamine 100 MG Tab PO SCH (20:45)
[2019-07-01] MEDS ORDERED: Lisinopril 10 MG Tab PO SCH (21:00)
[2019-07-01] MEDS ORDERED: Lisinopril 5 MG Tab PO SCH (21:00)
[2019-07-01] MEDS ORDERED: Magnesium Hydroxide 400 MG/5 ML Susp 30 ML Cup PO PRN (21:13)
[2019-07-01] MEDS: Morphine 2 MG/ML Syringe IVPUSH PRN (23:16)
[2019-07-02] MEDS: Sodium Chloride 0.9% with KCl 1,000 ML IV SCH ×2 (04:29→12:28)
[2019-07-02] MEDS ORDERED: 50% Dextrose in Water 50 ML SDV IV ONE (06:30)
[2019-07-02] MEDS ORDERED: 50% Dextrose in Water 50 ML Syringe ONE (06:31)
[2019-07-02] MEDS ORDERED: Dextrose 50 % In Water 50 ML SYRINGE IV STA (06:42)
[2019-07-02] MEDS: Insulin Lispro 100 Units/ML 3 ML Vial SUBCUT SCH ×3 (07:51→17:33)
[2019-07-02] MEDS: FLUoxetine 20 MG Cap PO SCH (08:45)
[2019-07-02] MEDS: Folic Acid 1 MG Tab PO SCH (08:45)
[2019-07-02] MEDS: Topiramate 25 MG Tab PO SCH ×2 (08:46→21:00)
[2019-07-02] MEDS: Enoxaparin 40 MG/0.4 ML Syringe SUBCUT SCH (08:46)
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
[2019-07-02] MEDS: Morphine 2 MG/ML Syringe IVPUSH PRN ×3 (10:01→21:01)
--- NOTE | 2019-07-02 11:05 | PCM.PN ---
- General Info Date of Service: 07/02/19 Subjective Update: Slept OK Tolerating diet No complaints - Patient Data Vitals - Most Recent: Last Vital Signs Temp 97.5 F 07/02/19 08:44 Pulse 92 07/02/19 08:44 Resp 16 07/02/19 08:44 BP 134/70 07/02/19 08:44 Pulse Ox 100 07/02/19 08:44 Weight - Most Recent: 63.82 kg - Exam Physical Findings Comments:: General: Alert, Oriented, Cooperative, No Acute Distress HEENT: Pupils Equal, Pupils Reactive, Mucous Membr. Moist/[place] Neck: Supple, Trachea Midline, No JVD, No Thyromegaly, +2 Carotid Pulse wo Bruit. No: Lymphadenopathy Lungs: Clear to Auscultation, Normal Respiratory Effort. No: Crackles, Rales, Rhonchi, Rub, Stridor, Wheezing Cardiovascular: Regular Rate, Regular Rhythm. No: Murmurs, Gallops, Rubs GI/Abdominal Exam: Normal Bowel Sounds, Soft, Non-Tender. 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) Skin: Warm, Dry Neurological: No New Focal Deficit Psy/Mental Status: Alert, Normal Affect, Normal Mood Sepsis Event Note - Evaluation Sepsis Screening Result: No Definite Risk - Focused Exam Vital Signs: Vital Signs Temp Pulse Resp BP Pulse Ox 07/02/19 08:44 97.5 F 92 16 134/70 100 07/02/19 04:23 97.9 F 88 16 128/72 99 07/01/19 23:22 97.5 F 99 16 133/75 97 Date Exam was Performed: 07/02/19 Time Exam was Performed: 17:24 - Problem List & Annotations (1) Type 2 diabetes mellitus with hyperosmolar nonketotic hyperglycemia SNOMED Code(s): 37440720, 47190670 Code(s): E11.00 - TYPE 2 DIAB W HYPROSM W/O NONKET HYPRGLY-HYPROS COMA ([facility] ) Status: Acute Current Visit: Yes (2) Hyponatremia with increased serum osmolality SNOMED Code(s): 22072271 Code(s): E87.0 - HYPEROSMOLALITY AND HYPERNATREMIA; E87.1 - HYPO-OSMOLALITY AND HYPONATREMIA Status: Acute Current Visit: Yes (3) Acute renal injury SNOMED Code(s): 00326246, 58682233 Code(s): N17.9 - ACUTE KIDNEY FAILURE, UNSPECIFIED Status: Acute Current Visit: Yes (4) Vjbpw-jz-byxixll kidney injury SNOMED Code(s): 660450264 Code(s): N17.9 - ACUTE KIDNEY FAILURE, UNSPECIFIED; N18.9 - CHRONIC KIDNEY DISEASE, UNSPECIFIED Status: Acute Current Visit: Yes (5) Lactic acidemia SNOMED Code(s): 562196090 Code(s): E87.2 - ACIDOSIS Status: Acute Current Visit: Yes (6) Elevated blood ketone body level SNOMED Code(s): 609655827 Code(s): R79.89 - OTHER SPECIFIED ABNORMAL FINDINGS OF BLOOD CHEMISTRY Status: Acute Current Visit: Yes (7) Right rib fracture SNOMED Code(s): 43005505 Code(s): S22.31XA - FRACTURE OF ONE RIB, RIGHT SIDE, INIT FOR CLOS FX Status: Acute Current Visit: Yes (8) Abnormal LFTs (liver function tests) SNOMED Code(s): 224289349 Code(s): R94.5 - ABNORMAL RESULTS OF LIVER FUNCTION STUDIES Status: Acute Current Visit: Yes (9) Alcohol abuse SNOMED Code(s): 37273195 Code(s): F10.10 - ALCOHOL ABUSE, UNCOMPLICATED Status: Acute Current Visit: Yes (10) Current every day smoker SNOMED Code(s): 070562773, 215072238 Code(s): F17.200 - NICOTINE DEPENDENCE, UNSPECIFIED, UNCOMPLICATED Status: Acute Current Visit: Yes (11) Hypertension SNOMED Code(s): 13881801 Code(s): I10 - ESSENTIAL (PRIMARY) HYPERTENSION Status: Acute Current Visit: Yes (12) Tachycardia SNOMED Code(s): 9443427 Code(s): R00.0 - TACHYCARDIA, UNSPECIFIED Status: Acute Current Visit: Yes (13) Depression SNOMED Code(s): 84266318 Code(s): F32.9 - MAJOR DEPRESSIVE DISORDER, SINGLE EPISODE, UNSPECIFIED Status: Acute Current Visit: Yes (14) Suicidal ideation SNOMED Code(s): 9271258 Code(s): R45.851 - SUICIDAL IDEATIONS Status: Acute Current Visit: Yes (15) Fall SNOMED Code(s): 8687982, 199882773 Code(s): W19.XXXA - UNSPECIFIED FALL, INITIAL ENCOUNTER Status: Acute Current Visit: Yes Qualifiers: Encounter type: initial encounter Qualified Code(s): W19.XXXA - Unspecified fall, initial encounter (16) Ribs, multiple fractures SNOMED Code(s): 9331984 Code(s): S22.49XA - MULTIPLE FRACTURES OF RIBS, UNSP SIDE, INIT FOR CLOS FX Status: Acute Current Visit: Yes Qualifiers: Encounter type: initial encounter Fracture type: closed Laterality: right Qualified Code(s): S22.41XA - Multiple fractures of ribs, right side, initial encounter for closed fracture (17) Hypokalemia SNOMED Code(s): 25002396 Code(s): E87.6 - HYPOKALEMIA Status: Acute Current Visit: Yes (18) Hypomagnesemia SNOMED Code(s): 094927318 Code(s): E83.42 - HYPOMAGNESEMIA Status: Acute Current Visit: Yes - Problem List Review Problem List Initiated/Reviewed/Updated: Yes - Plan Plan:: DAY OF ADMISSION - No insulin use in the past week - No insulin use in the past week--> glucose 775 on admission --> started on [facility] protocol - Drinks 1L of fireball a day, last drink day prior to admission - Negative ethanol level on admission - Smokes 1ppd since age 8 - BP on admission 173/87 - Has been more depressed since he lost his job. - Has been having thoughts of self harm by shooting himself or overdosing on medications--> states "I don't have the guts" - Rib fractures after fall--> started on incentive spirometry DAY 1 - BS below 200 in the PM --> transitioned to long acting home insulin dose of 40 u - Started on 3u pre-meals - BP trend 113-167/64-94 - CIWA negative - GFR back to normal - Downgraded from ICU status DAY 2 - Glucose trend 103-242 - Normal TSH - BP trend 130-161/78-86 - Psychiatry consult today patient started on Seroquel, Prozac and Topamax DAY 3 - Tolerating diet - Feels a lot better - Slept OK - Phosphate 3.9 to 2.2 - Na 132 to 130 - Glucose trend 62-147 - Urine output 3,450 - BP trend 108-147/67-88 - HR trend 91-110 Uncontrolled diabetes, HbA1c 13.2 - Accu-checks before meals and 2 hours after - Insulin lispro 3u before meals - Reduce insulin dose from 40 to 25u at bedtimen - Diabetic diet - telehealth nurse educator once appropriate Hyponatremia Hypokalemia - Continue NS with 40mEq at 125ml/hr Hypertension, uncontrolled - Lisinopril 10mg PO - Hydralazine PRN Current every day smoker - Nicotine patch Depression Suicidal ideation Alcohol abuse - Start Seroquel, Prozac and Topamax - Continue thiamine and folic acid - Spiritual care consult - Inpatient rehabilitation at discharge Fall Right rib fractures - Incentive spirometry - Pain control Type 2 diabetes mellitus with hyperosmolar nonketotic hyperglycemia, resolved Lactic acidemia, resolved Acute kidney injury, resolved Ketonemia, resolved Increased serum osmolarity, resolved Hypomagnesemia, resolved PROPHYLAXIS DVT- Lovenox GI- not indicated CODE STATUS: FULL CODE Discussed code status with patient and he asked to be made a DNR/DNI however due to current mental health status explained I would leave him as a full code and would discuss with him once stable. DISPOSITION: Patient Admitted to ICU for insulin drip discontinued and transitioned to medsurg. Psychiatry consult recommended inpatient rehab and started medications as above. Inpatient rehab transfer in AM Length of stay greater than 96 hours due to need for glucose control prior to discharge transfer
[2019-07-02] MEDS: Nicotine 21 MG/24 Hr Patch TRDERM SCH (15:59)
[2019-07-02] MEDS ORDERED: Sodium Phosphate 30 MMOLE in Sodium Chloride 0.9% 250 ML IV ONE (18:30)
[2019-07-02] MEDS: Thiamine 100 MG Tab PO SCH (21:00)
[2019-07-02] MEDS: QUEtiapine 25 MG Tab PO SCH (21:00)
[2019-07-02] MEDS: Insulin Glarg,Human.Rec.Analog 100 Unit/ML SUBCUT SCH (21:03)
[2019-07-02] MEDS: Lisinopril 5 MG Tab PO SCH (21:04)
[2019-07-03] MEDS: Morphine 2 MG/ML Syringe IVPUSH PRN ×4 (02:39→21:00)
[2019-07-03] MEDS: Insulin Lispro 100 Units/ML 3 ML Vial SUBCUT SCH ×4 (09:08→17:42)
[2019-07-03] MEDS: FLUoxetine 20 MG Cap PO SCH (09:11)
[2019-07-03] MEDS: Folic Acid 1 MG Tab PO SCH (09:11)
[2019-07-03] MEDS: Enoxaparin 40 MG/0.4 ML Syringe SUBCUT SCH (09:12)
[2019-07-03] MEDS: Topiramate 25 MG Tab PO SCH ×2 (09:12→21:05)
[2019-07-03] MEDS: Sodium Chloride/Potassium Chloride Tab PO SCH ×3 (11:05→21:05)
--- NOTE | 2019-07-03 12:54 | PCM.PN ---
- General Info Date of Service: 07/03/19 Subjective Update: BM 06/30 Slept better Tolerating diet - Patient Data Vitals - Most Recent: Last Vital Signs Temp 98.2 F 07/03/19 09:03 Pulse 96 07/03/19 09:03 Resp 16 07/03/19 09:03 BP 109/66 07/03/19 09:03 Pulse Ox 96 07/03/19 09:03 Weight - Most Recent: 64.818 kg - Exam Physical Findings Comments:: General: Alert, Oriented, Cooperative, No Acute Distress HEENT: Pupils Equal, Pupils Reactive, Mucous Membr. Moist/[place] Neck: Supple, Trachea Midline, No JVD, No Thyromegaly, +2 Carotid Pulse wo Bruit. No: Lymphadenopathy Lungs: Clear to Auscultation, Normal Respiratory Effort. No: Crackles, Rales, Rhonchi, Rub, Stridor, Wheezing Cardiovascular: Regular Rate, Regular Rhythm. No: Murmurs, Gallops, Rubs GI/Abdominal Exam: Normal Bowel Sounds, Soft, Non-Tender. 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) Skin: Warm, Dry Neurological: No New Focal Deficit Psy/Mental Status: Alert, Normal Affect, Normal Mood Sepsis Event Note - Evaluation Sepsis Screening Result: No Definite Risk - Focused Exam Vital Signs: Vital Signs Temp Pulse Resp BP Pulse Ox 07/03/19 09:03 98.2 F 96 16 109/66 96 07/03/19 02:39 94 20 131/76 99 Date Exam was Performed: 07/03/19 Time Exam was Performed: 13:16 - Problem List & Annotations (1) Type 2 diabetes mellitus with hyperosmolar nonketotic hyperglycemia SNOMED Code(s): 60044700, 00634082 Code(s): E11.00 - TYPE 2 DIAB W HYPROSM W/O NONKET HYPRGLY-HYPROS COMA ([facility] ) Status: Acute Current Visit: Yes (2) Hyponatremia with increased serum osmolality SNOMED Code(s): 69384460 Code(s): E87.0 - HYPEROSMOLALITY AND HYPERNATREMIA; E87.1 - HYPO-OSMOLALITY AND HYPONATREMIA Status: Acute Current Visit: Yes (3) Acute renal injury SNOMED Code(s): 28965749, 00840578 Code(s): N17.9 - ACUTE KIDNEY FAILURE, UNSPECIFIED Status: Acute Current Visit: Yes (4) Zsmtu-ok-ggbnvgl kidney injury SNOMED Code(s): 335074462 Code(s): N17.9 - ACUTE KIDNEY FAILURE, UNSPECIFIED; N18.9 - CHRONIC KIDNEY DISEASE, UNSPECIFIED Status: Acute Current Visit: Yes (5) Lactic acidemia SNOMED Code(s): 847632311 Code(s): E87.2 - ACIDOSIS Status: Acute Current Visit: Yes (6) Elevated blood ketone body level SNOMED Code(s): 394435183 Code(s): R79.89 - OTHER SPECIFIED ABNORMAL FINDINGS OF BLOOD CHEMISTRY Status: Acute Current Visit: Yes (7) Right rib fracture SNOMED Code(s): 83530289 Code(s): S22.31XA - FRACTURE OF ONE RIB, RIGHT SIDE, INIT FOR CLOS FX Status: Acute Current Visit: Yes (8) Abnormal LFTs (liver function tests) SNOMED Code(s): 031649284 Code(s): R94.5 - ABNORMAL RESULTS OF LIVER FUNCTION STUDIES Status: Acute Current Visit: Yes (9) Alcohol abuse SNOMED Code(s): 87504347 Code(s): F10.10 - ALCOHOL ABUSE, UNCOMPLICATED Status: Acute Current Visit: Yes (10) Current every day smoker SNOMED Code(s): 355518198, 561311623 Code(s): F17.200 - NICOTINE DEPENDENCE, UNSPECIFIED, UNCOMPLICATED Status: Acute Current Visit: Yes (11) Hypertension SNOMED Code(s): 08599206 Code(s): I10 - ESSENTIAL (PRIMARY) HYPERTENSION Status: Acute Current Visit: Yes (12) Tachycardia SNOMED Code(s): 5237384 Code(s): R00.0 - TACHYCARDIA, UNSPECIFIED Status: Acute Current Visit: Yes (13) Depression SNOMED Code(s): 42628115 Code(s): F32.9 - MAJOR DEPRESSIVE DISORDER, SINGLE EPISODE, UNSPECIFIED Status: Acute Current Visit: Yes (14) Suicidal ideation SNOMED Code(s): 2362392 Code(s): R45.851 - SUICIDAL IDEATIONS Status: Acute Current Visit: Yes (15) Fall SNOMED Code(s): 9531050, 043859803 Code(s): W19.XXXA - UNSPECIFIED FALL, INITIAL ENCOUNTER Status: Acute Current Visit: Yes Qualifiers: Encounter type: initial encounter Qualified Code(s): W19.XXXA - Unspecified fall, initial encounter (16) Ribs, multiple fractures SNOMED Code(s): 7840045 Code(s): S22.49XA - MULTIPLE FRACTURES OF RIBS, UNSP SIDE, INIT FOR CLOS FX Status: Acute Current Visit: Yes Qualifiers: Encounter type: initial encounter Fracture type: closed Laterality: right Qualified Code(s): S22.41XA - Multiple fractures of ribs, right side, initial encounter for closed fracture (17) Hypokalemia SNOMED Code(s): 80506093 Code(s): E87.6 - HYPOKALEMIA Status: Acute Current Visit: Yes (18) Hypomagnesemia SNOMED Code(s): 328540430 Code(s): E83.42 - HYPOMAGNESEMIA Status: Acute Current Visit: Yes - Problem List Review Problem List Initiated/Reviewed/Updated: Yes - Plan Plan:: DAY OF ADMISSION - No insulin use in the past week - No insulin use in the past week--> glucose 775 on admission --> started on [facility] protocol - Drinks 1L of fireball a day, last drink day prior to admission - Negative ethanol level on admission - Smokes 1ppd since age 8 - BP on admission 173/87 - Has been more depressed since he lost his job. - Has been having thoughts of self harm by shooting himself or overdosing on medications--> states "I don't have the guts" - Rib fractures after fall--> started on incentive spirometry DAY 1 - BS below 200 in the PM --> transitioned to long acting home insulin dose of 40 u - Started on 3u pre-meals - BP trend 113-167/64-94 - CIWA negative - GFR back to normal - Downgraded from ICU status DAY 2 - Glucose trend 103-242 - Normal TSH - BP trend 130-161/78-86 - Psychiatry consult today patient started on Seroquel, Prozac and Topamax DAY 3 - Tolerating diet - Feels a lot better - Slept OK - Phosphate 3.9 to 2.2 - Na 132 to 130 - Glucose trend 62-147 - Urine output 3,450 - BP trend 108-147/67-88 - HR trend 91-110 DAY 4 - Sodium continued to drop despite IVF repletion, no longer volume depleted--> will start sodium tablets today - Glucose trend 56-244, change to PM insulin appears to have improved control, will increase premeal lunch and dinner - PT evaluated patient recommended physical therapy unit with [facility], patient having a hard time walking and requiring 2 assist - Room air - BP trend 108-140/59-78 - HR trend 88-93 - Afebrile Uncontrolled diabetes, HbA1c 13.2 - Accu-checks before meals and 2 hours after - Glargine insulin 25u in PM - Lispro 3u before breakfast and 5 before lunch and dinner - Diabetic diet - hospital educator once appropriate Hyponatremia Hypokalemia - Discontinue NS - Na PO4 60mMol Hypertension, uncontrolled - Lisinopril 5mg PO - Hydralazine PRN Current every day smoker - Nicotine patch Depression Suicidal ideation Alcohol abuse - Continue Seroquel, Prozac and Topamax - Continue thiamine and folic acid - Spiritual care consult - Inpatient rehabilitation at discharge Fall Right rib fractures - Incentive spirometry - Pain control Type 2 diabetes mellitus with hyperosmolar nonketotic hyperglycemia, resolved Lactic acidemia, resolved Acute kidney injury, resolved Ketonemia, resolved Increased serum osmolarity, resolved Hypomagnesemia, resolved PROPHYLAXIS DVT- Lovenox GI- not indicated CODE STATUS: FULL CODE Discussed code status with patient and he asked to be made a DNR/DNI however due to current mental health status explained I would leave him as a full code and would discuss with him once stable. DISPOSITION: Patient Admitted to ICU for insulin drip discontinued and transitioned to medsurg. Psychiatry consult recommended inpatient rehab and started medications as above. Length of stay greater than 96 hours due to need for glucose control prior to discharge transfer Will have patient work with PT a little more to improve independence prior to transfer to psychiatry inpatient unit followed by substance abuse and then physical therapy rehabilitation
[2019-07-03] MEDS: Nicotine 21 MG/24 Hr Patch TRDERM SCH (15:07)
[2019-07-03] MEDS: Thiamine 100 MG Tab PO SCH (21:05)
[2019-07-03] MEDS: QUEtiapine 25 MG Tab PO SCH (21:05)
[2019-07-03] MEDS: Insulin Glarg,Human.Rec.Analog 100 Unit/ML SUBCUT SCH (21:06)
[2019-07-03] MEDS: Lisinopril 5 MG Tab PO SCH (21:09)
[2019-07-04] MEDS: Morphine 2 MG/ML Syringe IVPUSH PRN ×3 (05:45→21:06)
[2019-07-04] MEDS ORDERED: Insulin Lispro 100 Units/ML 3 ML Vial SUBCUT SCH (06:00)
[2019-07-04] MEDS: Sodium Chloride/Potassium Chloride Tab PO SCH ×3 (08:06→21:09)
[2019-07-04] MEDS: Enoxaparin 40 MG/0.4 ML Syringe SUBCUT SCH (08:06)
[2019-07-04] MEDS: Topiramate 25 MG Tab PO SCH ×2 (08:07→21:09)
[2019-07-04] MEDS: Folic Acid 1 MG Tab PO SCH (08:07)
[2019-07-04] MEDS: FLUoxetine 20 MG Cap PO SCH (08:07)
[2019-07-04] MEDS: Insulin Lispro 100 Units/ML 3 ML Vial SUBCUT SCH ×4 (11:26→21:07)
[2019-07-04] MEDS ORDERED: Lactated Ringers 1,000 ML IV ONE (11:37)
[2019-07-04] MEDS ORDERED: Lactated Ringers 1,000 ML ONE (11:39)
--- NOTE | 2019-07-04 12:42 | PCM.PN ---
- General Info Date of Service: 07/04/19 Admission Dx/Problem (Free Text): Admission Diagnosis/Problem Admission Diagnosis/Problem Hyperosmolar non-ketotic state in type 2 diabetes mellitus Subjective Update: This morning patient had an episode of hypotension. Blood pressure was 75/50. This occurred shortly after getting 1 mg of morphine, working with physical therapy, and before lunch. Patient's blood sugars at that time more 271. He was started back on lisinopril 2 days ago. Patient states that he had to stop at previous blood pressure medication because of hypotension. He does not know what that blood pressure medication is. Patient was given 1 L LR and blood pressure responded. Blood pressure increased to 98/55. IV fluids were restarted, LR at 100 mL/h. - Review of Systems General: Reports: Weakness, Fatigue HEENT: Reports: No Symptoms Pulmonary: Reports: No Symptoms Cardiovascular: Reports: No Symptoms Gastrointestinal: Reports: No Symptoms Musculoskeletal: Reports: Leg Pain Neurological: Reports: Weakness - Patient Data Vitals - Most Recent: Last Vital Signs Temp 97.9 F 07/04/19 11:36 Pulse 99 07/04/19 11:36 Resp 16 07/04/19 08:02 BP 98/55 L 07/04/19 11:52 Pulse Ox 98 07/04/19 11:36 Weight - Most Recent: 140 lb 1.6 oz I&O - Last 24 Hours: Intake & Output 07/03/19 07/04/19 07/04/19 22:59 06:59 14:59 Intake Total 1370 Output Total 800 1100 Balance 570 -1100 Lab Results Last 24 Hours: Laboratory Results - last 24 hr 07/03/19 07/03/19 07/03/19 Range/Units 15:06 17:19 20:55 WBC (4.23-9.07) K/mm3 RBC (4.63-6.08) M/mm3 Hgb (13.7-17.5) gm/dl Hct (40.1-51.0) % MCV (79.0-92.2) fl MCH (25.7-32.2) pg MCHC (32.2-35.5) g/dl RDW Std Deviation (35.1-43.9) fL Plt Count (163-337) K/mm3 MPV (9.4-12.3) fl Neut % (Auto) (34.0-67.9) % Lymph % (Auto) (21.8-53.1) % [place] % (Auto) (5.3-12.2) % Eos % (Auto) (0.8-7.0) Baso % (Auto) (0.1-1.2) % Neut # (Auto) (1.78-5.38) K/mm3 Lymph # (Auto) (1.32-3.57) K/mm3 [place] # (Auto) (0.30-0.82) K/mm3 Eos # (Auto) (0.04-0.54) K/mm3 Baso # (Auto) (0.01-0.08) K/mm3 Sodium (136-145) mEq/L Potassium (3.5-5.1) mEq/L Chloride (98-107) mEq/L Carbon Dioxide (21-32) mEq/L Anion Gap (5-15) BUN (7-18) mg/dL Creatinine (0.7-1.3) mg/dL Est Cr Clr Drug Dosing mL/min Estimated GFR (MDRD) (>60) mL/min BUN/Creatinine Ratio (14-18) Glucose (74-106) mg/dL POC Glucose 174 H 158 H 214 H (70-105) mg/dL Calcium (8.5-10.1) mg/dL Magnesium (1.8-2.4) mg/dl Total Bilirubin (0.2-1.0) mg/dL AST (15-37) U/L ALT (16-63) U/L Alkaline Phosphatase (46-116) U/L Total Protein (6.4-8.2) g/dl Albumin (3.4-5.0) g/dl Globulin gm/dL Albumin/Globulin Ratio (1-2) 07/04/19 07/04/19 07/04/19 Range/Units 05:51 09:15 09:15 WBC 6.79 (4.23-9.07) K/mm3 RBC 3.32 L (4.63-6.08) M/mm3 Hgb 10.3 L (13.7-17.5) gm/dl Hct 31.4 L (40.1-51.0) % MCV 94.6 H (79.0-92.2) fl MCH 31.0 (25.7-32.2) pg MCHC 32.8 (32.2-35.5) g/dl RDW Std Deviation 43.6 (35.1-43.9) fL Plt Count 412 H D (163-337) K/mm3 MPV 8.9 L (9.4-12.3) fl Neut % (Auto) 73.3 H (34.0-67.9) % Lymph % (Auto) 12.8 L (21.8-53.1) % [place] % (Auto) 11.6 (5.3-12.2) % Eos % (Auto) 1.3 (0.8-7.0) Baso % (Auto) 0.4 (0.1-1.2) % Neut # (Auto) 4.97 (1.78-5.38) K/mm3 Lymph # (Auto) 0.87 L (1.32-3.57) K/mm3 [place] # (Auto) 0.79 (0.30-0.82) K/mm3 Eos # (Auto) 0.09 (0.04-0.54) K/mm3 Baso # (Auto) 0.03 (0.01-0.08) K/mm3 Sodium 130 L (136-145) mEq/L Potassium 4.0 (3.5-5.1) mEq/L Chloride 98 (98-107) mEq/L Carbon Dioxide 21 (21-32) mEq/L Anion Gap 15.0 (5-15) BUN 13 (7-18) mg/dL Creatinine 1.0 (0.7-1.3) mg/dL Est Cr Clr Drug Dosing 70.61 mL/min Estimated GFR (MDRD) > 60 (>60) mL/min BUN/Creatinine Ratio 13.0 L (14-18) Glucose 214 H (74-106) mg/dL POC Glucose 238 H (70-105) mg/dL Calcium 8.8 (8.5-10.1) mg/dL Magnesium 1.8 (1.8-2.4) mg/dl Total Bilirubin 0.4 (0.2-1.0) mg/dL AST 86 H (15-37) U/L ALT 138 H (16-63) U/L Alkaline Phosphatase 238 H (46-116) U/L Total Protein 6.6 (6.4-8.2) g/dl Albumin 2.7 L (3.4-5.0) g/dl Globulin 3.9 gm/dL Albumin/Globulin Ratio 0.7 L (1-2) 07/04/19 Range/Units 11:22 WBC (4.23-9.07) K/mm3 RBC (4.63-6.08) M/mm3 Hgb (13.7-17.5) gm/dl Hct (40.1-51.0) % MCV (79.0-92.2) fl MCH (25.7-32.2) pg MCHC (32.2-35.5) g/dl RDW Std Deviation (35.1-43.9) fL Plt Count (163-337) K/mm3 MPV (9.4-12.3) fl Neut % (Auto) (34.0-67.9) % Lymph % (Auto) (21.8-53.1) % [place] % (Auto) (5.3-12.2) % Eos % (Auto) (0.8-7.0) Baso % (Auto) (0.1-1.2) % Neut # (Auto) (1.78-5.38) K/mm3 Lymph # (Auto) (1.32-3.57) K/mm3 [place] # (Auto) (0.30-0.82) K/mm3 Eos # (Auto) (0.04-0.54) K/mm3 Baso # (Auto) (0.01-0.08) K/mm3 Sodium (136-145) mEq/L Potassium (3.5-5.1) mEq/L Chloride (98-107) mEq/L Carbon Dioxide (21-32) mEq/L Anion Gap (5-15) BUN (7-18) mg/dL Creatinine (0.7-1.3) mg/dL Est Cr Clr Drug Dosing mL/min Estimated GFR (MDRD) (>60) mL/min BUN/Creatinine Ratio (14-18) Glucose (74-106) mg/dL POC Glucose 271 H (70-105) mg/dL Calcium (8.5-10.1) mg/dL Magnesium (1.8-2.4) mg/dl Total Bilirubin (0.2-1.0) mg/dL AST (15-37) U/L ALT (16-63) U/L Alkaline Phosphatase (46-116) U/L Total Protein (6.4-8.2) g/dl Albumin (3.4-5.0) g/dl Globulin gm/dL Albumin/Globulin Ratio (1-2) Med Orders - Current: Current Medications Acetaminophen (Tylenol) 325 mg PO Q4H PRN PRN Reason: Pain (mild 1-3) Last Admin: 07/01/19 21:56 Dose: 325 mg Enoxaparin Sodium (Lovenox) 40 mg SUBCUT DAILY [facility] Last Admin: 07/04/19 08:06 Dose: 40 mg Fluoxetine HCl (Prozac) 20 mg PO DAILY [facility] Last Admin: 07/04/19 08:07 Dose: 20 mg Folic Acid (Folic Acid) 1 mg PO DAILY [facility] Last Admin: 07/04/19 08:07 Dose: 1 mg Insulin Glargine (Lantus) 25 unit SUBCUT BEDTIME [facility] Last Admin: 07/03/19 21:06 Dose: 25 units Insulin Human Lispro (Humalog) 5 unit SUBCUT 1100,1700 [facility] Last Admin: 07/04/19 11:26 Dose: 5 unit Insulin Human Lispro (Humalog) 0 unit SUBCUT QIDACANDBED [facility]; Protocol Magnesium Hydroxide (Milk Of Magnesia) 30 ml PO BID PRN PRN Reason: Constipation Last Admin: 07/01/19 21:56 Dose: 30 ml Miscellaneous Information (Remove Patch) 1 ea TRDERM Q24H [facility] Last Admin: 07/03/19 15:08 Dose: 1 ea Morphine Sulfate (Morphine) 1 mg IVPUSH Q4H PRN PRN Reason: Pain (severe 7-10) Last Admin: 07/04/19 11:29 Dose: 1 mg Nicotine (Habitrol) 21 mg TRDERM Q24H [facility] Last Admin: 07/03/19 15:07 Dose: 21 mg Oral Electrolytes (Thermotabs) 2 each PO TID [facility] Last Admin: 07/04/19 08:06 Dose: 2 each Quetiapine Fumarate (Seroquel) 25 mg PO BEDTIME [facility] Last Admin: 07/03/19 21:05 Dose: 25 mg Sodium Chloride (Saline Flush) 10 ml FLUSH ASDIRECTED PRN PRN Reason: Keep Vein Open Last Admin: 06/29/19 09:40 Dose: 10 ml Thiamine HCl (Vitamin B-1) 100 mg PO BEDTIME IVA Last Admin: 07/03/19 21:05 Dose: 100 mg Topiramate (Topamax) 25 mg PO BID IVA Last Admin: 07/04/19 08:07 Dose: 25 mg Discontinued Medications Dextrose/Water (Dextrose 50% In Water) 50 ml IV STAT ONE Stop: 07/02/19 06:31 Last Admin: 07/02/19 07:38 Dose: Not Given Dextrose/Water (Dextrose 50% In Water) Confirm Administered Dose 50 ml .ROUTE .STK-MED ONE Stop: 07/02/19 06:32 Last Admin: 07/02/19 07:32 Dose: 50 ml Dextrose/Water (Dextrose 50 % - Water Syringe) 50 ml IV NOW STA Stop: 07/02/19 06:43 Last Admin: 07/02/19 07:38 Dose: Not Given Sodium Chloride (Normal Saline) 1,000 mls @ 1,000 mls/hr IV .BOLUS IVA Last Admin: 06/29/19 09:55 Dose: 1,000 mls/hr Sodium Chloride (Normal Saline) 1,000 mls @ 1,000 mls/hr IV ONETIME ONE Stop: 06/29/19 11:58 Last Admin: 06/29/19 11:09 Dose: 1,000 mls/hr Insulin Human Regular 100 unit (/ Sodium Chloride) 100 mls @ 6.12 mls/hr IV TITRATE IVA; Protocol Last Admin: 06/29/19 12:27 Dose: 0.1 units/kg/hr, 6.12 mls/hr Lactated Ringer's (Ringers, Lactated) 1,000 mls @ 1,000 mls/hr IV .BOLUS ONE Stop: 06/29/19 12:52 Last Admin: 06/29/19 12:36 Dose: Not Given Potassium Chloride/Sodium Chloride (Normal Saline With 20 Meq Kcl) 1,000 mls @ 500 mls/hr IV ASDIRECTED IVA Last Admin: 06/29/19 12:15 Dose: 500 mls/hr Potassium Chloride/Dextrose/Sod Cl (D5 1/2 Ns W/ 20 Meq/L Kcl) 1,000 mls @ 200 mls/hr IV ASDIRECTED IVA Last Admin: 06/29/19 15:19 Dose: 200 mls/hr Potassium Chloride/Sodium Chloride (Normal Saline With 20 Meq Kcl) 1,000 mls @ 125 mls/hr IV ASDIRECTED [facility] Last Admin: 06/30/19 04:39 Dose: 125 mls/hr Potassium Chloride/Sodium Chloride (Normal Saline With 40 Meq Kcl) 1,000 mls @ 200 mls/hr IV ASDIRECTED [facility] Stop: 06/30/19 23:00 Last Admin: 06/30/19 17:14 Dose: 200 mls/hr Sodium Phosphate 60 mmole/ (Sodium Chloride) 270 mls @ 90 mls/hr IV ONETIME ONE Stop: 06/30/19 18:12 Last Admin: 06/30/19 19:05 Dose: Not Given Sodium Phosphate 60 mmole/ (Sodium Chloride) 270 mls @ 67 mls/hr IV ONETIME ONE Stop: 07/01/19 00:01 Last Admin: 06/30/19 20:25 Dose: 67 mls/hr Potassium Chloride/Sodium Chloride (Normal Saline With 40 Meq Kcl) 1,000 mls @ 125 mls/hr IV ASDIRECTED [facility] Last Admin: 07/02/19 12:28 Dose: 125 mls/hr Magnesium Sulfate 4 gm/ Premix 50 mls @ 12.5 mls/hr IV ONETIME ONE Stop: 07/01/19 18:19 Last Admin: 07/01/19 14:48 Dose: 12.5 mls/hr Sodium Phosphate 30 mmole/ (Sodium Chloride) 260 mls @ 86.667 mls/hr IV ONETIME ONE Stop: 07/02/19 18:31 Last Admin: 07/02/19 18:54 Dose: 86.667 mls/hr Lactated Ringer's (Ringers, Lactated) 1,000 mls @ 999 mls/hr IV .BOLUS ONE Stop: 07/04/19 12:37 Lactated Ringer's (Ringers, Lactated) Confirm Administered Dose 1,000 mls @ as directed .ROUTE .STK-MED ONE Stop: 07/04/19 11:40 Last Admin: 07/04/19 12:05 Dose: Not Given Insulin Glargine (Lantus) 40 unit SUBCUT DAILY [facility] Last Admin: 07/01/19 08:55 Dose: 40 unit Insulin Human Lispro (Humalog) 3 unit SUBCUT TIDMEALS [facility] Last Admin: 07/03/19 12:44 Dose: 3 units Insulin Human Lispro (Humalog) 3 unit SUBCUT ACBREAKFAST [facility] Stop: 07/04/19 06:01 Last Admin: 07/04/19 08:04 Dose: 3 units Lisinopril (Prinivil) 10 mg PO BEDTIME IVA Lisinopril (Prinivil) 5 mg PO ONETIME ONE Stop: 07/01/19 14:33 Last Admin: 07/01/19 14:46 Dose: 5 mg Lisinopril (Prinivil) 5 mg PO BEDTIME IVA Stop: 07/01/19 21:01 Last Admin: 07/01/19 20:46 Dose: 5 mg Lisinopril (Prinivil) 5 mg PO BEDTIME [facility] Last Admin: 07/03/19 21:09 Dose: 5 mg Morphine Sulfate (Morphine) 1 mg IVPUSH Q4H PRN PRN Reason: Pain (severe 7-10) Last Admin: 06/30/19 01:12 Dose: 1 mg Pantoprazole Sodium (Protonix) 40 mg PO BEDTIME [facility] Last Admin: 06/30/19 20:23 Dose: 40 mg - Exam General: Alert, Oriented, No Acute Distress HEENT: Pupils Equal, Mucous Membr. Moist/[place] Neck: Supple Lungs: Clear to Auscultation, Normal Respiratory Effort Cardiovascular: Regular Rate, Regular Rhythm GI/Abdominal Exam: Normal Bowel Sounds, Soft, Non-Tender, No Organomegaly, No Distention Extremities: Normal Inspection, No Pedal Edema, Normal Capillary Refill ( Following fluid bolus) Skin: Warm, Dry, Intact Psy/Mental Status: Alert Sepsis Event Note - Evaluation Sepsis Screening Result: No Definite Risk - Focused Exam Vital Signs: Vital Signs Temp Pulse Resp BP Pulse Ox 07/04/19 11:52 98/55 L 07/04/19 11:36 97.9 F 99 75/50 L 98 07/04/19 08:02 97.9 F 104 H 16 127/78 98 07/04/19 05:49 98.4 F 100 16 117/74 98 Date Exam was Performed: 07/04/19 Time Exam was Performed: 13:31 - Problem List & Annotations (1) Abnormal LFTs (liver function tests) SNOMED Code(s): 332567412 Code(s): R94.5 - ABNORMAL RESULTS OF LIVER FUNCTION STUDIES Status: Acute Current Visit: Yes (2) Alcohol abuse SNOMED Code(s): 31528038 Code(s): F10.10 - ALCOHOL ABUSE, UNCOMPLICATED Status: Acute Current Visit: Yes (3) Depression SNOMED Code(s): 05536966 Code(s): F32.9 - MAJOR DEPRESSIVE DISORDER, SINGLE EPISODE, UNSPECIFIED Status: Acute Current Visit: Yes (4) Hyponatremia SNOMED Code(s): 03583849 Code(s): E87.1 - HYPO-OSMOLALITY AND HYPONATREMIA Status: Acute Current Visit: Yes (5) Type 2 diabetes mellitus with hyperosmolar nonketotic hyperglycemia SNOMED Code(s): 91070707, 89501282 Code(s): E11.00 - TYPE 2 DIAB W HYPROSM W/O NONKET HYPRGLY-HYPROS COMA ([facility] ) Status: Acute Current Visit: Yes - Problem List Review Problem List Initiated/Reviewed/Updated: Yes - My Orders Last 24 Hours: My Active Orders 07/04/19 17:00 Insulin Lispro [HumaLOG] See Protocol SUBCUT QIDACANDBED - Plan Plan:: DAY OF ADMISSION - No insulin use in the past week - No insulin use in the past week--> glucose 775 on admission --> started on [facility] protocol - Drinks 1L of fireball a day, last drink day prior to admission - Negative ethanol level on admission - Smokes 1ppd since age 8 - BP on admission 173/87 - Has been more depressed since he lost his job. - Has been having thoughts of self harm by shooting himself or overdosing on medications--> states "I don't have the guts" - Rib fractures after fall--> started on incentive spirometry DAY 1 - BS below 200 in the PM --> transitioned to long acting home insulin dose of 40 u - Started on 3u pre-meals - BP trend 113-167/64-94 - CIWA negative - GFR back to normal - Downgraded from ICU status DAY 2 - Glucose trend 103-242 - Normal TSH - BP trend 130-161/78-86 - Psychiatry consult today patient started on Seroquel, Prozac and Topamax DAY 3 - Tolerating diet - Feels a lot better - Slept OK - Phosphate 3.9 to 2.2 - Na 132 to 130 - Glucose trend 62-147 - Urine output 3,450 - BP trend 108-147/67-88 - HR trend 91-110 DAY 4 - Sodium continued to drop despite IVF repletion, no longer volume depleted--> will start sodium tablets today - Glucose trend 56-244, change to PM insulin appears to have improved control, will increase premeal lunch and dinner - PT evaluated patient recommended physical therapy unit with FWW, patient having a hard time walking and requiring 2 assist - Room air - BP trend 108-140/59-78 - HR trend 88-93 - Afebrile Day 5 * Single episode of hypotension responsive to fluid bolus. Likely multifactorial including DEIDRA inhibitor and morphine. * Blood sugars trending Between 134 and 271 * Heart rate trending 90-100 * Blood pressure trend 75/50 to 131/76 * Afebrile Uncontrolled diabetes, HbA1c 13.2 - Accu-checks before meals and 2 hours after - Glargine insulin 25u in PM - Lispro 5u before breakfast and 7 before lunch and dinner -Add sliding scale insulin - Diabetic diet - dental lab technician once appropriate Hyponatremia Hypokalemia -Start LR at 100 mL an hour - Na PO4 60mMol Hypertension, uncontrolled -Stop lisinopril 5mg PO due to hypotension -Follow blood pressure closely over the next several hours - Hydralazine PRN Current every day smoker - Nicotine patch Depression Suicidal ideation Alcohol abuse - Continue Seroquel, Prozac and Topamax - Continue thiamine and folic acid - Spiritual care consult - Inpatient rehabilitation at discharge Fall Right rib fractures - Incentive spirometry - Pain control Type 2 diabetes mellitus with hyperosmolar nonketotic hyperglycemia, resolved Lactic acidemia, resolved Acute kidney injury, resolved [place]emia, resolved Increased serum osmolarity, resolved Hypomagnesemia, resolved PROPHYLAXIS DVT- Lovenox GI- not indicated CODE STATUS: FULL CODE Discussed code status with patient and he asked to be made a DNR/DNI however due to current mental health status explained I would leave him as a full code and would discuss with him once stable. DISPOSITION: Patient Admitted to ICU for insulin drip discontinued and transitioned to medsurg. Psychiatry consult recommended inpatient rehab and started medications as above. Length of stay greater than 96 hours due to need for glucose control prior to discharge transfer Will have patient work with PT a little more to improve independence prior to transfer to psychiatry inpatient unit followed by substance abuse and then physical therapy rehabilitation
[2019-07-04] MEDS: Lactated Ringers 1,000 ML IV SCH (14:11)
[2019-07-04] MEDS: Nicotine 21 MG/24 Hr Patch TRDERM SCH (16:26)
[2019-07-04] MEDS: Insulin Glarg,Human.Rec.Analog 100 Unit/ML SUBCUT SCH (21:06)
[2019-07-04] MEDS: Thiamine 100 MG Tab PO SCH (21:09)
[2019-07-04] MEDS: QUEtiapine 25 MG Tab PO SCH (21:09)
[2019-07-05] MEDS: Morphine 2 MG/ML Syringe IVPUSH PRN (03:19)
[2019-07-05] MEDS: Topiramate 25 MG Tab PO SCH ×2 (07:59→20:12)
[2019-07-05] MEDS: Sodium Chloride/Potassium Chloride Tab PO SCH ×3 (07:59→20:12)
[2019-07-05] MEDS: Folic Acid 1 MG Tab PO SCH (07:59)
[2019-07-05] MEDS: Insulin Lispro 100 Units/ML 3 ML Vial SUBCUT SCH ×7 (08:00→21:46)
[2019-07-05] MEDS: FLUoxetine 20 MG Cap PO SCH (08:00)
[2019-07-05] MEDS: Enoxaparin 40 MG/0.4 ML Syringe SUBCUT SCH (08:43)
[2019-07-05] MEDS: Acetaminophen/HYDROcodone 325-5 MG Tab PO PRN ×3 (08:46→21:17)
[2019-07-05] MEDS: Lactated Ringers 1,000 ML IV SCH (10:10)
--- NOTE | 2019-07-05 10:26 | PCM.PN ---
- General Info Date of Service: 07/05/19 Admission Dx/Problem (Free Text): Admission Diagnosis/Problem Admission Diagnosis/Problem Hyperosmolar non-ketotic state in type 2 diabetes mellitus Functional Status: Reports: Tolerating Diet, Ambulating, Urinating, Incentive Spirometry. Denies: New Symptoms - Review of Systems General: Reports: Weakness, Fatigue, Appetite. Denies: Fever, Malaise, Chills, Night Sweats HEENT: Reports: No Symptoms Pulmonary: Reports: No Symptoms. Denies: Shortness of Breath, Cough, Sputum, Wheezing Cardiovascular: Reports: Chest Pain (right sided 2/2 rib fractures). Denies: Palpitations, Dyspnea on Exertion Gastrointestinal: Reports: No Symptoms. Denies: Abdominal Pain, Constipation, Diarrhea, Nausea, Vomiting Genitourinary: Reports: No Symptoms. Denies: Pain Musculoskeletal: Reports: No Symptoms Skin: Reports: No Symptoms. Denies: Cyanosis Neurological: Reports: Difficulty Walking, Weakness, Gait Disturbance Psychiatric: Reports: Depression. Denies: Mood Lability, Suicidal Ideation ( reports "I don't have the guts."), Homicidal Ideation - Patient Data Vitals - Most Recent: Last Vital Signs Temp 98.2 F 07/05/19 08:49 Pulse 100 07/05/19 08:49 Resp 18 07/05/19 08:49 BP 99/49 L 07/05/19 08:49 Pulse Ox 99 07/05/19 08:49 Weight - Most Recent: 142 lb 9.6 oz I&O - Last 24 Hours: Intake & Output 07/04/19 07/05/19 07/05/19 22:59 06:59 14:59 Intake Total 6 672 300 Output Total 800 550 Balance 1226 122 300 Lab Results Last 24 Hours: Laboratory Results - last 24 hr 07/02/19 07/04/19 07/04/19 Range/Units 18:40 11:22 14:17 Sodium (136-145) mEq/L Potassium (3.5-5.1) mEq/L Chloride (98-107) mEq/L Carbon Dioxide (21-32) mEq/L Anion Gap (5-15) BUN (7-18) mg/dL Creatinine (0.7-1.3) mg/dL Est Cr Clr Drug Dosing mL/min Estimated GFR (MDRD) (>60) mL/min BUN/Creatinine Ratio (14-18) Glucose (74-106) mg/dL POC Glucose 271 H 205 H (70-105) mg/dL Calcium (8.5-10.1) mg/dL Magnesium (1.8-2.4) mg/dl COVID-19 PCR Not detected (NOT DETECT) 07/04/19 07/04/19 07/05/19 Range/Units 17:16 21:04 00:11 Sodium (136-145) mEq/L Potassium (3.5-5.1) mEq/L Chloride (98-107) mEq/L Carbon Dioxide (21-32) mEq/L Anion Gap (5-15) BUN (7-18) mg/dL Creatinine (0.7-1.3) mg/dL Est Cr Clr Drug Dosing mL/min Estimated GFR (MDRD) (>60) mL/min BUN/Creatinine Ratio (14-18) Glucose (74-106) mg/dL POC Glucose 285 H 247 H 202 H (70-105) mg/dL Calcium (8.5-10.1) mg/dL Magnesium (1.8-2.4) mg/dl COVID-19 PCR (NOT DETECT) 07/05/19 07/05/19 Range/Units 07:03 07:40 Sodium 130 L (136-145) mEq/L Potassium 3.9 (3.5-5.1) mEq/L Chloride 97 L (98-107) mEq/L Carbon Dioxide 22 (21-32) mEq/L Anion Gap 14.9 (5-15) BUN 14 (7-18) mg/dL Creatinine 1.0 (0.7-1.3) mg/dL Est Cr Clr Drug Dosing 71.87 mL/min Estimated GFR (MDRD) > 60 (>60) mL/min BUN/Creatinine Ratio 14.0 (14-18) Glucose 162 H (74-106) mg/dL POC Glucose 156 H (70-105) mg/dL Calcium 8.9 (8.5-10.1) mg/dL Magnesium 1.8 (1.8-2.4) mg/dl COVID-19 PCR (NOT DETECT) Med Orders - Current: Current Medications Acetaminophen (Tylenol) 325 mg PO Q4H PRN PRN Reason: Pain (mild 1-3) Last Admin: 07/01/19 21:56 Dose: 325 mg Hydrocodone Bitart/Acetaminophen ([place] 325-5 Mg) 1 tab PO Q4H PRN PRN Reason: Severe pain Last Admin: 07/05/19 08:46 Dose: 1 tab Enoxaparin Sodium (Lovenox) 40 mg SUBCUT DAILY [facility] Last Admin: 07/05/19 08:43 Dose: 40 mg Fluoxetine HCl (Prozac) 20 mg PO DAILY [facility] Last Admin: 07/05/19 08:00 Dose: 20 mg Folic Acid (Folic Acid) 1 mg PO DAILY [facility] Last Admin: 07/05/19 07:59 Dose: 1 mg Lactated Ringer's (Ringers, Lactated) 1,000 mls @ 100 mls/hr IV ASDIRECTED [facility] Last Admin: 07/05/19 10:10 Dose: 100 mls/hr Insulin Glargine (Lantus) 25 unit SUBCUT BEDTIME [facility] Last Admin: 07/04/19 21:06 Dose: 25 units Insulin Human Lispro (Humalog) 0 unit SUBCUT QIDACANDBED [facility]; Protocol Last Admin: 07/05/19 08:00 Dose: 1 units Insulin Human Lispro (Humalog) 5 unit SUBCUT QAM [facility] Last Admin: 07/05/19 08:02 Dose: 5 units Insulin Human Lispro (Humalog) 7 unit SUBCUT 1100,1700 [facility] Last Admin: 07/04/19 17:38 Dose: 7 units Magnesium Hydroxide (Milk Of Magnesia) 30 ml PO BID PRN PRN Reason: Constipation Last Admin: 07/01/19 21:56 Dose: 30 ml Miscellaneous Information (Remove Patch) 1 ea TRDERM Q24H [facility] Last Admin: 07/04/19 16:26 Dose: 1 ea Nicotine (Habitrol) 21 mg TRDERM Q24H [facility] Last Admin: 07/04/19 16:26 Dose: 21 mg Oral Electrolytes (Thermotabs) 2 each PO TID [facility] Last Admin: 07/05/19 07:59 Dose: 2 each Quetiapine Fumarate (Seroquel) 25 mg PO BEDTIME [facility] Last Admin: 07/04/19 21:09 Dose: 25 mg Sodium Chloride (Saline Flush) 10 ml FLUSH ASDIRECTED PRN PRN Reason: Keep Vein Open Last Admin: 06/29/19 09:40 Dose: 10 ml Thiamine HCl (Vitamin B-1) 100 mg PO BEDTIME IVA Last Admin: 07/04/19 21:09 Dose: 100 mg Topiramate (Topamax) 25 mg PO BID IVA Last Admin: 07/05/19 07:59 Dose: 25 mg Discontinued Medications Dextrose/Water (Dextrose 50% In Water) 50 ml IV STAT ONE Stop: 07/02/19 06:31 Last Admin: 07/02/19 07:38 Dose: Not Given Dextrose/Water (Dextrose 50% In Water) Confirm Administered Dose 50 ml .ROUTE .STK-MED ONE Stop: 07/02/19 06:32 Last Admin: 07/02/19 07:32 Dose: 50 ml Dextrose/Water (Dextrose 50 % - Water Syringe) 50 ml IV NOW STA Stop: 07/02/19 06:43 Last Admin: 07/02/19 07:38 Dose: Not Given Sodium Chloride (Normal Saline) 1,000 mls @ 1,000 mls/hr IV .BOLUS IVA Last Admin: 06/29/19 09:55 Dose: 1,000 mls/hr Sodium Chloride (Normal Saline) 1,000 mls @ 1,000 mls/hr IV ONETIME ONE Stop: 06/29/19 11:58 Last Admin: 06/29/19 11:09 Dose: 1,000 mls/hr Insulin Human Regular 100 unit (/ Sodium Chloride) 100 mls @ 6.12 mls/hr IV TITRATE IVA; Protocol Last Admin: 06/29/19 12:27 Dose: 0.1 units/kg/hr, 6.12 mls/hr Lactated Ringer's (Ringers, Lactated) 1,000 mls @ 1,000 mls/hr IV .BOLUS ONE Stop: 06/29/19 12:52 Last Admin: 06/29/19 12:36 Dose: Not Given Potassium Chloride/Sodium Chloride (Normal Saline With 20 Meq Kcl) 1,000 mls @ 500 mls/hr IV ASDIRECTED IVA Last Admin: 06/29/19 12:15 Dose: 500 mls/hr Potassium Chloride/Dextrose/Sod Cl (D5 1/2 Ns W/ 20 Meq/L Kcl) 1,000 mls @ 200 mls/hr IV ASDIRECTED IVA Last Admin: 06/29/19 15:19 Dose: 200 mls/hr Potassium Chloride/Sodium Chloride (Normal Saline With 20 Meq Kcl) 1,000 mls @ 125 mls/hr IV ASDIRECTED [facility] Last Admin: 06/30/19 04:39 Dose: 125 mls/hr Potassium Chloride/Sodium Chloride (Normal Saline With 40 Meq Kcl) 1,000 mls @ 200 mls/hr IV ASDIRECTED [facility] Stop: 06/30/19 23:00 Last Admin: 06/30/19 17:14 Dose: 200 mls/hr Sodium Phosphate 60 mmole/ (Sodium Chloride) 270 mls @ 90 mls/hr IV ONETIME ONE Stop: 06/30/19 18:12 Last Admin: 06/30/19 19:05 Dose: Not Given Sodium Phosphate 60 mmole/ (Sodium Chloride) 270 mls @ 67 mls/hr IV ONETIME ONE Stop: 07/01/19 00:01 Last Admin: 06/30/19 20:25 Dose: 67 mls/hr Potassium Chloride/Sodium Chloride (Normal Saline With 40 Meq Kcl) 1,000 mls @ 125 mls/hr IV ASDIRECTED [facility] Last Admin: 07/02/19 12:28 Dose: 125 mls/hr Magnesium Sulfate 4 gm/ Premix 50 mls @ 12.5 mls/hr IV ONETIME ONE Stop: 07/01/19 18:19 Last Admin: 07/01/19 14:48 Dose: 12.5 mls/hr Sodium Phosphate 30 mmole/ (Sodium Chloride) 260 mls @ 86.667 mls/hr IV ONETIME ONE Stop: 07/02/19 18:31 Last Admin: 07/02/19 18:54 Dose: 86.667 mls/hr Lactated Ringer's (Ringers, Lactated) 1,000 mls @ 999 mls/hr IV .BOLUS ONE Stop: 07/04/19 12:37 Last Admin: 07/04/19 11:35 Dose: 999 mls/hr Lactated Ringer's (Ringers, Lactated) Confirm Administered Dose 1,000 mls @ as directed .ROUTE .STK-MED ONE Stop: 07/04/19 11:40 Last Admin: 07/04/19 12:05 Dose: Not Given Insulin Glargine (Lantus) 40 unit SUBCUT DAILY [facility] Last Admin: 07/01/19 08:55 Dose: 40 unit Insulin Human Lispro (Humalog) 3 unit SUBCUT TIDMEALS [facility] Last Admin: 07/03/19 12:44 Dose: 3 units Insulin Human Lispro (Humalog) 5 unit SUBCUT 1100,1700 [facility] Last Admin: 07/04/19 11:26 Dose: 5 unit Insulin Human Lispro (Humalog) 3 unit SUBCUT ACBREAKFAST [facility] Stop: 07/04/19 06:01 Last Admin: 07/04/19 08:04 Dose: 3 units Lisinopril (Prinivil) 10 mg PO BEDTIME IVA Lisinopril (Prinivil) 5 mg PO ONETIME ONE Stop: 07/01/19 14:33 Last Admin: 07/01/19 14:46 Dose: 5 mg Lisinopril (Prinivil) 5 mg PO BEDTIME IVA Stop: 07/01/19 21:01 Last Admin: 07/01/19 20:46 Dose: 5 mg Lisinopril (Prinivil) 5 mg PO BEDTIME [facility] Last Admin: 07/03/19 21:09 Dose: 5 mg Morphine Sulfate (Morphine) 1 mg IVPUSH Q4H PRN PRN Reason: Pain (severe 7-10) Last Admin: 06/30/19 01:12 Dose: 1 mg Morphine Sulfate (Morphine) 1 mg IVPUSH Q4H PRN PRN Reason: Pain (severe 7-10) Last Admin: 07/05/19 03:19 Dose: 1 mg Pantoprazole Sodium (Protonix) 40 mg PO BEDTIME [facility] Last Admin: 06/30/19 20:23 Dose: 40 mg - Exam Quality Assessment: DVT Prophylaxis. No: Supplemental Oxygen General: Alert, Oriented, Cooperative, No Acute Distress HEENT: Pupils Equal, Pupils Reactive, Mucous Membr. Moist/[place] Neck: Supple, Trachea Midline Lungs: Clear to Auscultation, Normal Respiratory Effort Cardiovascular: Regular Rate, Regular Rhythm GI/Abdominal Exam: Normal Bowel Sounds, Soft, Non-Tender, No Organomegaly, No Distention (Male) Exam: Deferred Back Exam: Normal Inspection, Full Range of Motion Extremities: Normal Inspection, Normal Range of Motion, Non-Tender, No Pedal Edema, Normal Capillary Refill Skin: Warm, Dry, Intact Neurological: No New Focal Deficit Psy/Mental Status: Alert, Depressed Sepsis Event Note - Evaluation Sepsis Screening Result: No Definite Risk - Focused Exam Vital Signs: Vital Signs Temp Pulse Resp BP Pulse Ox 07/05/19 08:49 98.2 F 100 18 99/49 L 99 07/05/19 03:40 98.6 F 79 16 133/77 96 Date Exam was Performed: 07/05/19 Time Exam was Performed: 12:38 - Problem List & Annotations (1) Abnormal LFTs (liver function tests) SNOMED Code(s): 478920109 Code(s): R94.5 - ABNORMAL RESULTS OF LIVER FUNCTION STUDIES Status: Acute Current Visit: Yes (2) Acute renal injury SNOMED Code(s): 23160055, 39420439 Code(s): N17.9 - ACUTE KIDNEY FAILURE, UNSPECIFIED Status: Resolved Priority: High Current Visit: Yes (3) Bvqan-ef-isftifh kidney injury SNOMED Code(s): 381238976 Code(s): N17.9 - ACUTE KIDNEY FAILURE, UNSPECIFIED; N18.9 - CHRONIC KIDNEY DISEASE, UNSPECIFIED Status: Resolved Priority: High Current Visit: Yes (4) Alcohol abuse SNOMED Code(s): 57681226 Code(s): F10.10 - ALCOHOL ABUSE, UNCOMPLICATED Status: Chronic Priority: High Current Visit: Yes (5) Current every day smoker SNOMED Code(s): 435828741, 057053073 Code(s): F17.200 - NICOTINE DEPENDENCE, UNSPECIFIED, UNCOMPLICATED Status: Chronic Priority: High Current Visit: Yes (6) Depression SNOMED Code(s): 20260644 Code(s): F32.9 - MAJOR DEPRESSIVE DISORDER, SINGLE EPISODE, UNSPECIFIED Status: Chronic Priority: High Current Visit: Yes Qualifiers: Depression Type: major depressive disorder Major depression recurrence: unspecified whether recurrent Active/Remission status: currently active Major depression episode severity: severe Psychotic features: without psychotic features Qualified Code(s): F32.2 - Major depressive disorder, single episode, severe without psychotic features (7) Elevated blood ketone body level SNOMED Code(s): 485840983 Code(s): R79.89 - OTHER SPECIFIED ABNORMAL FINDINGS OF BLOOD CHEMISTRY Status: Resolved Priority: High Current Visit: Yes (8) Fall SNOMED Code(s): 0385838, 064296599 Code(s): W19.XXXA - UNSPECIFIED FALL, INITIAL ENCOUNTER Status: Acute Priority: High Current Visit: Yes Qualifiers: Encounter type: initial encounter Qualified Code(s): W19.XXXA - Unspecified fall, initial encounter (9) Hypertension SNOMED Code(s): 04877573 Code(s): I10 - ESSENTIAL (PRIMARY) HYPERTENSION Status: Chronic Priority : Medium Current Visit: Yes Qualifiers: Hypertension type: unspecified Qualified Code(s): I10 - Essential (primary ) hypertension (10) Hypokalemia SNOMED Code(s): 51808131 Code(s): E87.6 - HYPOKALEMIA Status: Resolved Priority: High Current Visit: Yes (11) Hypomagnesemia SNOMED Code(s): 992742886 Code(s): E83.42 - HYPOMAGNESEMIA Status: Resolved Priority: High Current Visit: Yes (12) Hyponatremia with increased serum osmolality SNOMED Code(s): 32585298 Code(s): E87.0 - HYPEROSMOLALITY AND HYPERNATREMIA; E87.1 - HYPO-OSMOLALITY AND HYPONATREMIA Status: Acute Priority: High Current Visit: Yes (13) Lactic acidemia SNOMED Code(s): 417426933 Code(s): E87.2 - ACIDOSIS Status: Resolved Priority: High Current Visit : Yes (14) Ribs, multiple fractures SNOMED Code(s): 3533035 Code(s): S22.49XA - MULTIPLE FRACTURES OF RIBS, UNSP SIDE, INIT FOR CLOS FX Status: Acute Priority: High Current Visit: Yes Qualifiers: Encounter type: initial encounter Fracture type: closed Laterality: right Qualified Code(s): S22.41XA - Multiple fractures of ribs, right side, initial encounter for closed fracture (15) Right rib fracture SNOMED Code(s): 32915419 Code(s): S22.31XA - FRACTURE OF ONE RIB, RIGHT SIDE, INIT FOR CLOS FX Status: Acute Priority: High Current Visit: Yes Qualifiers: Encounter type: initial encounter Rib fracture type: multiple ribs Fracture type: closed Qualified Code(s): S22.41XA - Multiple fractures of ribs , right side, initial encounter for closed fracture (16) Suicidal ideation SNOMED Code(s): 3799443 Code(s): R45.851 - SUICIDAL IDEATIONS Status: Acute Priority: High Current Visit: Yes (17) Tachycardia SNOMED Code(s): 9341116 Code(s): R00.0 - TACHYCARDIA, UNSPECIFIED Status: Resolved Priority: High Current Visit: Yes (18) Type 2 diabetes mellitus with hyperosmolar nonketotic hyperglycemia SNOMED Code(s): 04642766, 73371209 Code(s): E11.00 - TYPE 2 DIAB W HYPROSM W/O NONKET HYPRGLY-HYPROS COMA ([facility] ) Status: Resolved Priority: High Current Visit: Yes (19) Type II diabetes mellitus SNOMED Code(s): 98378578 Code(s): E11.9 - TYPE 2 DIABETES MELLITUS WITHOUT COMPLICATIONS Status: Chronic Priority: High Current Visit: Yes Qualifiers: Diabetes mellitus assisted insulin use: without assisted use Diabetes mellitus complication status: with other specified complication Qualified Code (s): E11.69 - Type 2 diabetes mellitus with other specified complication - Problem List Review Problem List Initiated/Reviewed/Updated: Yes - My Orders Last 24 Hours: My Active Orders 07/05/19 08:24 Acetaminophen/HYDROcodone [[place] 325-5 MG] 1 tab PO Q4H PRN - Plan Plan:: DAY OF ADMISSION - No insulin use in the past week - No insulin use in the past week--> glucose 775 on admission --> started on HHS protocol - Drinks 1L of fireball a day, last drink day prior to admission - Negative ethanol level on admission - Smokes 1ppd since age 8 - BP on admission 173/87 - Has been more depressed since he lost his job. - Has been having thoughts of self harm by shooting himself or overdosing on medications--> states "I don't have the guts" - Rib fractures after fall--> started on incentive spirometry DAY 1 - BS below 200 in the PM --> transitioned to long acting home insulin dose of 40 u - Started on 3u pre-meals - BP trend 113-167/64-94 - CIWA negative - GFR back to normal - Downgraded from ICU status DAY 2 - Glucose trend 103-242 - Normal TSH - BP trend 130-161/78-86 - Psychiatry consult today patient started on Seroquel, Prozac and Topamax DAY 3 - Tolerating diet - Feels a lot better - Slept OK - Phosphate 3.9 to 2.2 - Na 132 to 130 - Glucose trend 62-147 - Urine output 3,450 - BP trend 108-147/67-88 - HR trend 91-110 DAY 4 - Sodium continued to drop despite IVF repletion, no longer volume depleted--> will start sodium tablets today - Glucose trend 56-244, change to PM insulin appears to have improved control, will increase premeal lunch and dinner - PT evaluated patient recommended physical therapy unit with FWW, patient having a hard time walking and requiring 2 assist - Room air - BP trend 108-140/59-78 - HR trend 88-93 - Afebrile Day 5 - Single episode of hypotension responsive to fluid bolus. Likely multifactorial including DEIDRA inhibitor and morphine. - Blood sugars trending Between 134 and 271 - Heart rate trending 90-100 - Blood pressure trend 75/50 to 131/76 - Afebrile Day 6 - Continues to improve with therapies - now contact guard assist and ambulating 75 feet - Vital signs remain stable - Labs stable - Blood sugars stable - Will look at placement tomorrow pending continued improvement with PT and stability Uncontrolled diabetes, HbA1c 13.2 - Accu-checks before meals and 2 hours after - Glargine insulin 25u in PM - Lispro 5u before breakfast and 7 before lunch and dinner - Add sliding scale insulin - Diabetic diet - family life educator once appropriate Hyponatremia Hypokalemia -Start LR at 100 mL an hour - discontinue today - Na PO4 60mMol Hypertension, uncontrolled -Stop lisinopril 5mg PO due to hypotension -Follow blood pressure closely over the next several hours -Hydralazine PRN Current every day smoker - Nicotine patch Depression Suicidal ideation Alcohol abuse - Continue Seroquel, Prozac and Topamax - Continue thiamine and folic acid - Spiritual care consult - Inpatient rehabilitation at discharge Fall Right rib fractures - Incentive spirometry - Pain control - Switch morphine to norco Type 2 diabetes mellitus with hyperosmolar nonketotic hyperglycemia, resolved Lactic acidemia, resolved Acute kidney injury, resolved [place]emia, resolved Increased serum osmolarity, resolved Hypomagnesemia, resolved PROPHYLAXIS DVT- Lovenox GI- not indicated CODE STATUS: FULL CODE Discussed code status with patient and he asked to be made a DNR/DNI however due to current mental health status explained I would leave him as a full code and would discuss with him once stable. DISPOSITION: Patient Admitted to ICU for insulin drip discontinued and transitioned to medsurg. Psychiatry consult recommended inpatient rehab and started medications as above. Length of stay greater than 96 hours due to need for glucose control prior to discharge transfer Will have patient work with PT a little more to improve independence prior to transfer to psychiatry inpatient unit followed by substance abuse and then physical therapy rehabilitation Hopeful for discharge on 07/06/19 pending continued improvement.
[2019-07-05] MEDS: Nicotine 21 MG/24 Hr Patch TRDERM SCH (14:47)
[2019-07-05] MEDS: Thiamine 100 MG Tab PO SCH (20:12)
[2019-07-05] MEDS: Insulin Glarg,Human.Rec.Analog 100 Unit/ML SUBCUT SCH (20:12)
[2019-07-05] MEDS: QUEtiapine 25 MG Tab PO SCH (20:12)
[2019-07-06] MEDS: Acetaminophen/HYDROcodone 325-5 MG Tab PO PRN ×4 (03:47→21:59)
[2019-07-06] MEDS: Insulin Lispro 100 Units/ML 3 ML Vial SUBCUT SCH ×7 (06:44→22:01)
[2019-07-06] MEDS: Topiramate 25 MG Tab PO SCH ×2 (08:49→21:59)
[2019-07-06] MEDS: Folic Acid 1 MG Tab PO SCH (08:49)
[2019-07-06] MEDS: Sodium Chloride/Potassium Chloride Tab PO SCH ×3 (08:49→21:55)
[2019-07-06] MEDS: FLUoxetine 20 MG Cap PO SCH (08:49)
[2019-07-06] MEDS: Enoxaparin 40 MG/0.4 ML Syringe SUBCUT SCH (08:49)
--- NOTE | 2019-07-06 11:00 | PCM.PN ---
- General Info Date of Service: 07/06/19 Admission Dx/Problem (Free Text): Admission Diagnosis/Problem Admission Diagnosis/Problem Hyperosmolar non-ketotic state in type 2 diabetes mellitus Subjective Update: In to see Silvio. He reports he feels pretty good today. He continues to improve with PT. He has been up ambulating. Eating well. No nursing or patient concerns. He ambulated 200ft today with contact guard assist Functional Status: Reports: Pain Controlled, Tolerating Diet, Ambulating, Urinating. Denies: New Symptoms - Review of Systems General: Reports: Weakness (improving ). Denies: Fever, Fatigue, Malaise, Chills HEENT: Reports: No Symptoms. Denies: Headaches, Sore Throat Pulmonary: Reports: No Symptoms. Denies: Shortness of Breath, Cough, Sputum, Wheezing Cardiovascular: Reports: Chest Pain (Right sided 2/2 rib fx). Denies: Palpitations, Dyspnea on Exertion Gastrointestinal: Reports: No Symptoms. Denies: Abdominal Pain, Constipation, Diarrhea, Nausea, Vomiting Genitourinary: Reports: No Symptoms. Denies: Pain Musculoskeletal: Reports: No Symptoms Skin: Reports: No Symptoms Neurological: Reports: No Symptoms, Difficulty Walking, Weakness, Gait Disturbance. Denies: Confusion Psychiatric: Reports: No Symptoms - Patient Data Vitals - Most Recent: Last Vital Signs Temp 97.9 F 07/06/19 03:44 Pulse 105 H 07/06/19 03:44 Resp 16 07/06/19 03:44 BP 138/75 07/06/19 03:44 Pulse Ox 98 07/06/19 03:44 Weight - Most Recent: 139 lb 9.6 oz I&O - Last 24 Hours: Intake & Output 07/05/19 07/06/19 07/06/19 22:59 06:59 14:59 Intake Total 280 300 Output Total 300 Balance 280 0 Lab Results Last 24 Hours: Laboratory Results - last 24 hr 07/02/19 07/05/19 07/05/19 Range/Units 18:40 11:21 17:07 POC Glucose 219 H 139 H (70-105) mg/dL COVID-19 PCR Not detected (NOT DETECT) 07/05/19 Range/Units 20:11 POC Glucose 134 H (70-105) mg/dL COVID-19 PCR (NOT DETECT) Med Orders - Current: Current Medications Acetaminophen (Tylenol) 325 mg PO Q4H PRN PRN Reason: Pain (mild 1-3) Last Admin: 07/01/19 21:56 Dose: 325 mg Hydrocodone Bitart/Acetaminophen ([place] 325-5 Mg) 1 tab PO Q4H PRN PRN Reason: Severe pain Last Admin: 07/06/19 10:59 Dose: 1 tab Enoxaparin Sodium (Lovenox) 40 mg SUBCUT DAILY [facility] Last Admin: 07/06/19 08:49 Dose: 40 mg Fluoxetine HCl (Prozac) 20 mg PO DAILY [facility] Last Admin: 07/06/19 08:49 Dose: 20 mg Folic Acid (Folic Acid) 1 mg PO DAILY [facility] Last Admin: 07/06/19 08:49 Dose: 1 mg Insulin Glargine (Lantus) 25 unit SUBCUT BEDTIME [facility] Last Admin: 07/05/19 20:12 Dose: 25 units Insulin Human Lispro (Humalog) 0 unit SUBCUT QIDACANDBED [facility]; Protocol Last Admin: 07/06/19 06:44 Dose: Not Given Insulin Human Lispro (Humalog) 5 unit SUBCUT QAM [facility] Last Admin: 07/06/19 08:48 Dose: 5 units Insulin Human Lispro (Humalog) 7 unit SUBCUT 1100,1700 [facility] Last Admin: 07/05/19 17:22 Dose: 7 units Magnesium Hydroxide (Milk Of Magnesia) 30 ml PO BID PRN PRN Reason: Constipation Last Admin: 07/01/19 21:56 Dose: 30 ml Miscellaneous Information (Remove Patch) 1 ea TRDERM Q24H [facility] Last Admin: 07/05/19 14:49 Dose: 1 ea Nicotine (Habitrol) 21 mg TRDERM Q24H [facility] Last Admin: 07/05/19 14:47 Dose: 21 mg Oral Electrolytes (Thermotabs) 2 each PO TID [facility] Last Admin: 07/06/19 08:49 Dose: 2 each Quetiapine Fumarate (Seroquel) 25 mg PO BEDTIME [facility] Last Admin: 07/05/19 20:12 Dose: 25 mg Sodium Chloride (Saline Flush) 10 ml FLUSH ASDIRECTED PRN PRN Reason: Keep Vein Open Last Admin: 06/29/19 09:40 Dose: 10 ml Thiamine HCl (Vitamin B-1) 100 mg PO BEDTIME [facility] Last Admin: 07/05/19 20:12 Dose: 100 mg Topiramate (Topamax) 25 mg PO BID IVA Last Admin: 07/06/19 08:49 Dose: 25 mg Discontinued Medications Dextrose/Water (Dextrose 50% In Water) 50 ml IV STAT ONE Stop: 07/02/19 06:31 Last Admin: 07/02/19 07:38 Dose: Not Given Dextrose/Water (Dextrose 50% In Water) Confirm Administered Dose 50 ml .ROUTE .STK-MED ONE Stop: 07/02/19 06:32 Last Admin: 07/02/19 07:32 Dose: 50 ml Dextrose/Water (Dextrose 50 % - Water Syringe) 50 ml IV NOW STA Stop: 07/02/19 06:43 Last Admin: 07/02/19 07:38 Dose: Not Given Sodium Chloride (Normal Saline) 1,000 mls @ 1,000 mls/hr IV .BOLUS IVA Last Admin: 06/29/19 09:55 Dose: 1,000 mls/hr Sodium Chloride (Normal Saline) 1,000 mls @ 1,000 mls/hr IV ONETIME ONE Stop: 06/29/19 11:58 Last Admin: 06/29/19 11:09 Dose: 1,000 mls/hr Insulin Human Regular 100 unit (/ Sodium Chloride) 100 mls @ 6.12 mls/hr IV TITRATE IVA; Protocol Last Admin: 06/29/19 12:27 Dose: 0.1 units/kg/hr, 6.12 mls/hr Lactated Ringer's (Ringers, Lactated) 1,000 mls @ 1,000 mls/hr IV .BOLUS ONE Stop: 06/29/19 12:52 Last Admin: 06/29/19 12:36 Dose: Not Given Potassium Chloride/Sodium Chloride (Normal Saline With 20 Meq Kcl) 1,000 mls @ 500 mls/hr IV ASDIRECTED IVA Last Admin: 06/29/19 12:15 Dose: 500 mls/hr Potassium Chloride/Dextrose/Sod Cl (D5 1/2 Ns W/ 20 Meq/L Kcl) 1,000 mls @ 200 mls/hr IV ASDIRECTED IVA Last Admin: 06/29/19 15:19 Dose: 200 mls/hr Potassium Chloride/Sodium Chloride (Normal Saline With 20 Meq Kcl) 1,000 mls @ 125 mls/hr IV ASDIRECTED [facility] Last Admin: 06/30/19 04:39 Dose: 125 mls/hr Potassium Chloride/Sodium Chloride (Normal Saline With 40 Meq Kcl) 1,000 mls @ 200 mls/hr IV ASDIRECTED [facility] Stop: 06/30/19 23:00 Last Admin: 06/30/19 17:14 Dose: 200 mls/hr Sodium Phosphate 60 mmole/ (Sodium Chloride) 270 mls @ 90 mls/hr IV ONETIME ONE Stop: 06/30/19 18:12 Last Admin: 06/30/19 19:05 Dose: Not Given Sodium Phosphate 60 mmole/ (Sodium Chloride) 270 mls @ 67 mls/hr IV ONETIME ONE Stop: 07/01/19 00:01 Last Admin: 06/30/19 20:25 Dose: 67 mls/hr Potassium Chloride/Sodium Chloride (Normal Saline With 40 Meq Kcl) 1,000 mls [facility] Last Admin: 07/02/19 12:28 Dose: 125 mls/hr Magnesium Sulfate 4 gm/ Premix 50 mls @ 12.5 mls/hr IV ONETIME ONE Stop: 07/01/19 18:19 Last Admin: 07/01/19 14:48 Dose: 12.5 mls/hr Sodium Phosphate 30 mmole/ (Sodium Chloride) 260 mls @ 86.667 mls/hr IV ONETIME ONE Stop: 07/02/19 18:31 Last Admin: 07/02/19 18:54 Dose: 86.667 mls/hr Lactated Ringer's (Ringers, Lactated) 1,000 mls @ 999 mls/hr IV .BOLUS ONE Stop: 07/04/19 12:37 Last Admin: 07/04/19 11:35 Dose: 999 mls/hr Lactated Ringer's (Ringers, Lactated) Confirm Administered Dose 1,000 mls @ as directed .ROUTE .STK-MED ONE Stop: 07/04/19 11:40 Last Admin: 07/04/19 12:05 Dose: Not Given Lactated Ringer's (Ringers, Lactated) 1,000 mls @ 100 [facility]ls[facility] Last Admin: 07/05/19 10:10 Dose: 100 mls/hr Insulin Glargine (Lantus) 40 unit SUBCUT DAILY [facility] Last Admin: 07/01/19 08:55 Dose: 40 unit Insulin Human Lispro (Humalog) 3 unit SUBCUT TIDMEALS [facility] Last Admin: 07/03/19 12:44 Dose: 3 units Insulin Human Lispro (Humalog) 5 unit SUBCUT 1100,1700 [facility] Last Admin: 07/04/19 11:26 Dose: 5 unit Insulin Human Lispro (Humalog) 3 unit SUBCUT ACBREAKFAST [facility] Stop: 07/04/19 06:01 Last Admin: 07/04/19 08:04 Dose: 3 units Lisinopril (Prinivil) 10 mg PO BEDTIME [facility] Lisinopril (Prinivil) 5 mg PO ONETIME ONE Stop: 07/01/19 14:33 Last Admin: 07/01/19 14:46 Dose: 5 mg Lisinopril (Prinivil) 5 mg PO BEDTIME IVA Stop: 07/01/19 21:01 Last Admin: 07/01/19 20:46 Dose: 5 mg Lisinopril (Prinivil) 5 mg PO BEDTIME [facility] Last Admin: 07/03/19 21:09 Dose: 5 mg Morphine Sulfate (Morphine) 1 mg IVPUSH Q4H PRN PRN Reason: Pain (severe 7-10) Last Admin: 06/30/19 01:12 Dose: 1 mg Morphine Sulfate (Morphine) 1 mg IVPUSH Q4H PRN PRN Reason: Pain (severe 7-10) Last Admin: 07/05/19 03:19 Dose: 1 mg Pantoprazole Sodium (Protonix) 40 mg PO BEDTIME [facility] Last Admin: 06/30/19 20:23 Dose: 40 mg - Exam Quality Assessment: DVT Prophylaxis General: Alert, Oriented, Cooperative HEENT: Pupils Equal, Pupils Reactive, Mucous Membr. Moist/[place] Neck: Supple, Trachea Midline Lungs: Clear to Auscultation, Normal Respiratory Effort Cardiovascular: Regular Rate, Regular Rhythm GI/Abdominal Exam: Normal Bowel Sounds, Soft, Non-Tender, No Distention (Male) Exam: Deferred Back Exam: Normal Inspection, Full Range of Motion Extremities: Normal Inspection, Normal Range of Motion, Non-Tender, No Pedal Edema, Normal Capillary Refill Skin: Warm, Dry, Intact Neurological: No New Focal Deficit Psy/Mental Status: Alert, Depressed Sepsis Event Note - Evaluation Sepsis Screening Result: No Definite Risk - Focused Exam Vital Signs: Vital Signs Temp Pulse Resp BP Pulse Ox 07/06/19 03:44 97.9 F 105 H 16 138/75 98 Date Exam was Performed: 07/06/19 Time Exam was Performed: 13:29 - Problem List & Annotations (1) Abnormal LFTs (liver function tests) SNOMED Code(s): 409831924 Code(s): R94.5 - ABNORMAL RESULTS OF LIVER FUNCTION STUDIES Status: Acute Current Visit: Yes (2) Acute renal injury SNOMED Code(s): 77944368, 86188582 Code(s): N17.9 - ACUTE KIDNEY FAILURE, UNSPECIFIED Status: Resolved Priority: High Current Visit: Yes (3) Foshh-dz-vphqsvt kidney injury SNOMED Code(s): 520930581 Code(s): N17.9 - ACUTE KIDNEY FAILURE, UNSPECIFIED; N18.9 - CHRONIC KIDNEY DISEASE, UNSPECIFIED Status: Resolved Priority: High Current Visit: Yes (4) Alcohol abuse SNOMED Code(s): 18054566 Code(s): F10.10 - ALCOHOL ABUSE, UNCOMPLICATED Status: Chronic Priority: High Current Visit: Yes (5) Current every day smoker SNOMED Code(s): 015358563, 607343119 Code(s): F17.200 - NICOTINE DEPENDENCE, UNSPECIFIED, UNCOMPLICATED Status: Chronic Priority: High Current Visit: Yes (6) Depression SNOMED Code(s): 36690623 Code(s): F32.9 - MAJOR DEPRESSIVE DISORDER, SINGLE EPISODE, UNSPECIFIED Status: Chronic Priority: High Current Visit: Yes Qualifiers: Depression Type: major depressive disorder Major depression recurrence: unspecified whether recurrent Active/Remission status: currently active Major depression episode severity: severe Psychotic features: without psychotic features Qualified Code(s): F32.2 - Major depressive disorder, single episode, severe without psychotic features (7) Elevated blood ketone body level SNOMED Code(s): 870861744 Code(s): R79.89 - OTHER SPECIFIED ABNORMAL FINDINGS OF BLOOD CHEMISTRY Status: Resolved Priority: High Current Visit: Yes (8) Fall SNOMED Code(s): 8921855, 669629210 Code(s): W19.XXXA - UNSPECIFIED FALL, INITIAL ENCOUNTER Status: Acute Priority: High Current Visit: Yes Qualifiers: Encounter type: initial encounter Qualified Code(s): W19.XXXA - Unspecified fall, initial encounter (9) Hypertension SNOMED Code(s): 34599524 Code(s): I10 - ESSENTIAL (PRIMARY) HYPERTENSION Status: Chronic Priority : Medium Current Visit: Yes Qualifiers: Hypertension type: unspecified Qualified Code(s): I10 - Essential (primary ) hypertension (10) Hypokalemia SNOMED Code(s): 42005351 Code(s): E87.6 - HYPOKALEMIA Status: Resolved Priority: High Current Visit: Yes (11) Hypomagnesemia SNOMED Code(s): 892201775 Code(s): E83.42 - HYPOMAGNESEMIA Status: Resolved Priority: High Current Visit: Yes (12) Hyponatremia with increased serum osmolality SNOMED Code(s): 22766033 Code(s): E87.0 - HYPEROSMOLALITY AND HYPERNATREMIA; E87.1 - HYPO-OSMOLALITY AND HYPONATREMIA Status: Acute Priority: High Current Visit: Yes (13) Lactic acidemia SNOMED Code(s): 441698180 Code(s): E87.2 - ACIDOSIS Status: Resolved Priority: High Current Visit : Yes (14) Ribs, multiple fractures SNOMED Code(s): 5835478 Code(s): S22.49XA - MULTIPLE FRACTURES OF RIBS, UNSP SIDE, INIT FOR CLOS FX Status: Acute Priority: High Current Visit: Yes Qualifiers: Encounter type: initial encounter Fracture type: closed Laterality: right Qualified Code(s): S22.41XA - Multiple fractures of ribs, right side, initial encounter for closed fracture (15) Right rib fracture SNOMED Code(s): 96419275 Code(s): S22.31XA - FRACTURE OF ONE RIB, RIGHT SIDE, INIT FOR CLOS FX Status: Acute Priority: High Current Visit: Yes Qualifiers: Encounter type: initial encounter Rib fracture type: multiple ribs Fracture type: closed Qualified Code(s): S22.41XA - Multiple fractures of ribs , right side, initial encounter for closed fracture (16) Suicidal ideation SNOMED Code(s): 9657206 Code(s): R45.851 - SUICIDAL IDEATIONS Status: Acute Priority: High Current Visit: Yes (17) Tachycardia SNOMED Code(s): 7979326 Code(s): R00.0 - TACHYCARDIA, UNSPECIFIED Status: Resolved Priority: High Current Visit: Yes (18) Type 2 diabetes mellitus with hyperosmolar nonketotic hyperglycemia SNOMED Code(s): 42670871, 11578016 Code(s): E11.00 - TYPE 2 DIAB W HYPROSM W/O NONKET HYPRGLY-HYPROS COMA ([facility] ) Status: Resolved Priority: High Current Visit: Yes (19) Type II diabetes mellitus SNOMED Code(s): 45206276 Code(s): E11.9 - TYPE 2 DIABETES MELLITUS WITHOUT COMPLICATIONS Status: Chronic Priority: High Current Visit: Yes Qualifiers: Diabetes mellitus retirement insulin use: without retirement use Diabetes mellitus complication status: with other specified complication Qualified Code (s): E11.69 - Type 2 diabetes mellitus with other specified complication - Problem List Review Problem List Initiated/Reviewed/Updated: Yes - Plan Plan:: DAY OF ADMISSION - No insulin use in the past week - No insulin use in the past week--> glucose 775 on admission --> started on [facility] protocol - Drinks 1L of fireball a day, last drink day prior to admission - Negative ethanol level on admission - Smokes 1ppd since age 8 - BP on admission 173/87 - Has been more depressed since he lost his job. - Has been having thoughts of self harm by shooting himself or overdosing on medications--> states "I don't have the guts" - Rib fractures after fall--> started on incentive spirometry DAY 1 - BS below 200 in the PM --> transitioned to long acting home insulin dose of 40 u - Started on 3u pre-meals - BP trend 113-167/64-94 - CIWA negative - GFR back to normal - Downgraded from ICU status DAY 2 - Glucose trend 103-242 - Normal TSH - BP trend 130-161/78-86 - Psychiatry consult today patient started on Seroquel, Prozac and Topamax DAY 3 - Tolerating diet - Feels a lot better - Slept OK - Phosphate 3.9 to 2.2 - Na 132 to 130 - Glucose trend 62-147 - Urine output 3,450 - BP trend 108-147/67-88 - HR trend 91-110 DAY 4 - Sodium continued to drop despite IVF repletion, no longer volume depleted--> will start sodium tablets today - Glucose trend 56-244, change to PM insulin appears to have improved control, will increase premeal lunch and dinner - PT evaluated patient recommended physical therapy unit with FWW, patient having a hard time walking and requiring 2 assist - Room air - BP trend 108-140/59-78 - HR trend 88-93 - Afebrile Day 5 - Single episode of hypotension responsive to fluid bolus. Likely multifactorial including DEIDRA inhibitor and morphine. - Blood sugars trending Between 134 and 271 - Heart rate trending 90-100 - Blood pressure trend 75/50 to 131/76 - Afebrile Day 6 - Continues to improve with therapies - now contact guard assist and ambulating 75 feet - Vital signs remain stable - Labs stable - Blood sugars stable - Will look at placement tomorrow pending continued improvement with PT and stability Day 7 - Continuing to improve endurance with therapies - Vital signs and blood sugars remain stable. - Hopeful for discharge tomorrow to Psychiatric facility Uncontrolled diabetes, HbA1c 13.2 - Accu-checks before meals and 2 hours after - Glargine insulin 25u in PM - Lispro 5u before breakfast and 7 before lunch and dinner - Add sliding scale insulin - Diabetic diet - hairspring adjuster once appropriate Hyponatremia Hypokalemia -Stable Hypertension, uncontrolled -Stop lisinopril 5mg PO due to hypotension -Follow blood pressures -Hydralazine PRN Current every day smoker - Nicotine patch Depression Suicidal ideation Alcohol abuse - Continue Seroquel, Prozac and Topamax - Continue thiamine and folic acid - Spiritual care consult - Inpatient psychiatry at discharge Fall Right rib fractures - Incentive spirometry - Pain control - Switch morphine to norco Type 2 diabetes mellitus with hyperosmolar nonketotic hyperglycemia, resolved Lactic acidemia, resolved Acute kidney injury, resolved [place]emia, resolved Increased serum osmolarity, resolved Hypomagnesemia, resolved PROPHYLAXIS DVT- Lovenox GI- not indicated CODE STATUS: FULL CODE Discussed code status with patient and he asked to be made a DNR/DNI however due to current mental health status explained I would leave him as a full code and would discuss with him once stable. DISPOSITION: Patient Admitted to ICU for insulin drip discontinued and transitioned to medsurg. Psychiatry consult recommended inpatient rehab and started medications as above. Length of stay greater than 96 hours due to need for glucose control prior to discharge transfer Will have patient work with PT a little more to improve independence prior to transfer to psychiatry inpatient unit followed by substance abuse and then physical therapy rehabilitation Hopeful for discharge on 07/07/19 pending continued improvement and endurance with PT.
[2019-07-06] MEDS: Nicotine 21 MG/24 Hr Patch TRDERM SCH (15:33)
[2019-07-06] MEDS: Thiamine 100 MG Tab PO SCH (21:55)
[2019-07-06] MEDS: QUEtiapine 25 MG Tab PO SCH (21:59)
[2019-07-06] MEDS: Insulin Glarg,Human.Rec.Analog 100 Unit/ML SUBCUT SCH (22:00)
[2019-07-07 04:40] VITALS: PULSE 99
[2019-07-07] MEDS: Acetaminophen/HYDROcodone 325-5 MG Tab PO PRN ×2 (04:44→09:06)
[2019-07-07] MEDS: Insulin Lispro 100 Units/ML 3 ML Vial SUBCUT SCH ×4 (06:34→12:00)
[2019-07-07] MEDS ORDERED: Magnesium Sulfate/Water 2 GM in Premix Bag 1 BAG IV ONE (07:14)
--- NOTE | 2019-07-07 08:10 | PN ---
DATE OF SERVICE: 07/06/2019 ADDENDUM: The patient was seen, examined, and discussed by me with Tres Starks PA-C. Mr. Christensen is a 58-year-old white male with past medical history significant for depression, alcohol abuse, diabetes type 2, was admitted to the hospital on 06/29/2019 from emergency room where the patient presented after fall with alcohol intoxication, very high hyperglycemia, and was diagnosed with hyperosmolar nonketotic state, alcohol intoxication and alcohol withdrawal plus acute renal failure. The patient as admitted to ICU. He received IV insulin with fluid resuscitation. The patient was found with acute acute renal failure, that resolved. The patient is over his alcohol withdrawal, but he was found extremely deconditioned. So for the last couple of day, the patient is on physical therapy, and fortunately, he is making nice improvement. At this movement, the patient is not on standing doses of alcohol withdrawal medications. He is cooperative, works with physical therapy, and as I already mentioned, makes nice improvement. After talking to the patient's case management, decision is to discharge the patient to alcohol rehab program that the patient is agreeable about. If no acute issues, we expect to discharge the patient to this program tomorrow. Today, we had a long talk with the patient about need to follow all medical recommendations, stop drinking alcohol, and hopefully not smoke. The patient vocalized understanding about. Total time spent in the patient direct care, coordination of medical care, and the patient's counseling at bedside about alcohol cessation and smoking cessation was longer than 25 minutes. Full details of the patient's review of systems, interval test results, physical exam, medications, and further plan of management, please see note prepared by Tres Starks PA-C. [facility] /[id number]
[2019-07-07] MEDS: Sodium Chloride/Potassium Chloride Tab PO SCH (08:58)
[2019-07-07] MEDS: Enoxaparin 40 MG/0.4 ML Syringe SUBCUT SCH (08:58)
[2019-07-07] MEDS: Topiramate 25 MG Tab PO SCH (08:59)
[2019-07-07] MEDS: Folic Acid 1 MG Tab PO SCH (08:59)
[2019-07-07] MEDS: FLUoxetine 20 MG Cap PO SCH (08:59)
--- NOTE | 2019-07-07 11:01 | PCM.DCSUM1 ---
Discharge Summary - Hospital Course HPI Initial Comments: The patient presents by [facility] for hyperglycemia and alcohol intoxication. As per patient he lost his job in late April, after that he started feeling more and more depressed and stopped using his insulin about 1-2 weeks ago. He also states that he has been having worsening weakness that caused him to fall from his own height, without any head trauma. Of note patient is also a heavy every day drinker of about 1L of Fireball every day. COVID risk Denies having left his house since he lost his job Denies any sick contacts Denies any respiratory symptoms or fever Diagnosis: Stroke: No - Discharge Data Discharge Date: 07/07/19 (Admit date: 06/29/19) Discharge Disposition: DC/Tfer to Psych Hosp/[facility] [address] Condition: Stable - Referral to Home Health Primary Care Physician: PCP None - Discharge Diagnosis/Problem(s) (1) Abnormal LFTs (liver function tests) SNOMED Code(s): 129883968 ICD Code: R94.5 - ABNORMAL RESULTS OF LIVER FUNCTION STUDIES Status: Acute Current Visit: Yes (2) Acute renal injury SNOMED Code(s): 34760501, 57104136 ICD Code: N17.9 - ACUTE KIDNEY FAILURE, UNSPECIFIED Status: Resolved Priority: High Current Visit: Yes (3) Lvyck-yo-smwplej kidney injury SNOMED Code(s): 699211907 ICD Code: N17.9 - ACUTE KIDNEY FAILURE, UNSPECIFIED; N18.9 - CHRONIC KIDNEY DISEASE, UNSPECIFIED Status: Resolved Priority: High Current Visit: Yes (4) Alcohol abuse SNOMED Code(s): 56971104 ICD Code: F10.10 - ALCOHOL ABUSE, UNCOMPLICATED Status: Chronic Priority : High Current Visit: Yes (5) Current every day smoker SNOMED Code(s): 819293581, 387507624 ICD Code: F17.200 - NICOTINE DEPENDENCE, UNSPECIFIED, UNCOMPLICATED Status : Chronic Priority: High Current Visit: Yes (6) Depression SNOMED Code(s): 85429016 ICD Code: F32.9 - MAJOR DEPRESSIVE DISORDER, SINGLE EPISODE, UNSPECIFIED Status: Chronic Priority: High Current Visit: Yes Qualifiers: Depression Type: major depressive disorder Major depression recurrence: unspecified whether recurrent Active/Remission status: currently active Major depression episode severity: severe Psychotic features: without psychotic features Qualified Code(s): F32.2 - Major depressive disorder, single episode, severe without psychotic features (7) Elevated blood ketone body level SNOMED Code(s): 045592652 ICD Code: R79.89 - OTHER SPECIFIED ABNORMAL FINDINGS OF BLOOD CHEMISTRY Status: Resolved Priority: High Current Visit: Yes (8) Fall SNOMED Code(s): 7370466, 767421766 ICD Code: W19.XXXA - UNSPECIFIED FALL, INITIAL ENCOUNTER Status: Acute Priority: High Current Visit: Yes Qualifiers: Encounter type: initial encounter Qualified Code(s): W19.XXXA - Unspecified fall, initial encounter (9) Hypertension SNOMED Code(s): 99530843 ICD Code: I10 - ESSENTIAL (PRIMARY) HYPERTENSION Status: Chronic Priority : Medium Current Visit: Yes Qualifiers: Hypertension type: unspecified Qualified Code(s): I10 - Essential (primary ) hypertension (10) Hypokalemia SNOMED Code(s): 20801151 ICD Code: E87.6 - HYPOKALEMIA Status: Resolved Priority: High Current Visit: Yes (11) Hypomagnesemia SNOMED Code(s): 606116850 ICD Code: E83.42 - HYPOMAGNESEMIA Status: Resolved Priority: High Current Visit: Yes (12) Hyponatremia with increased serum osmolality SNOMED Code(s): 70675707 ICD Code: E87.0 - HYPEROSMOLALITY AND HYPERNATREMIA; E87.1 - HYPO-OSMOLALITY AND HYPONATREMIA Status: Acute Priority: High Current Visit: Yes (13) Lactic acidemia SNOMED Code(s): 609281088 ICD Code: E87.2 - ACIDOSIS Status: Resolved Priority: High Current Visit: Yes (14) Ribs, multiple fractures SNOMED Code(s): 4424055 ICD Code: S22.49XA - MULTIPLE FRACTURES OF RIBS, UNSP SIDE, INIT FOR CLOS FX Status: Acute Priority: High Current Visit: Yes Qualifiers: Encounter type: initial encounter Fracture type: closed Laterality: right Qualified Code(s): S22.41XA - Multiple fractures of ribs, right side, initial encounter for closed fracture (15) Right rib fracture SNOMED Code(s): 73307426 ICD Code: S22.31XA - FRACTURE OF ONE RIB, RIGHT SIDE, INIT FOR CLOS FX Status: Acute Priority: High Current Visit: Yes Qualifiers: Encounter type: initial encounter Rib fracture type: multiple ribs Fracture type: closed Qualified Code(s): S22.41XA - Multiple fractures of ribs , right side, initial encounter for closed fracture (16) Suicidal ideation SNOMED Code(s): 6775590 ICD Code: R45.851 - SUICIDAL IDEATIONS Status: Acute Priority: High Current Visit: Yes (17) Tachycardia SNOMED Code(s): 7983991 ICD Code: R00.0 - TACHYCARDIA, UNSPECIFIED Status: Resolved Priority: High Current Visit: Yes (18) Type 2 diabetes mellitus with hyperosmolar nonketotic hyperglycemia SNOMED Code(s): 08303627, 51795305 ICD Code: E11.00 - TYPE 2 DIAB W HYPROSM W/O NONKET HYPRGLY-HYPROS COMA ( [facility]) Status: Resolved Priority: High Current Visit: Yes (19) Type II diabetes mellitus SNOMED Code(s): 97932714 ICD Code: E11.9 - TYPE 2 DIABETES MELLITUS WITHOUT COMPLICATIONS Status: Chronic Priority: High Current Visit: Yes Qualifiers: Diabetes mellitus senior living insulin use: without senior living use Diabetes mellitus complication status: with other specified complication Qualified Code (s): E11.69 - Type 2 diabetes mellitus with other specified complication - Patient Summary/Data Consults: Consultations 06/29/19 13:39 Consult to Diabetic Nurse Specialist [CONS] Routine 06/30/19 10:27 Consult to Physician [CONS] Routine 07/01/19 10:50 Consult to Spiritual Care [CONS] Routine 07/01/19 12:24 Consult to Physical Therapy [PT Evaluation and Treatment] [CONS] Routine Labs Pending at D/C: None Hospital Course: Silvio Christensen was admitted for hyperglycemia, suicidal ideations, depression, and alcohol withdrawal symptoms. Carries a history of type II DM, depression, hypertension, and chronic nicotine use. He reported that he was no longer taking his insulin at home after losing his job about 1 week prior to admission. He was detoxed on the floor and started on folic acid and thiamine supplementation. He continues to be extremely depressed and when asked [place] if he is suicidal he will respond "I do not have the guts". He was receiving a nicotine patch while here. We did discuss smoking cessation along with alcohol cessation. He did see our tele-psychiatrist, , who recommended inpatient psychiatry and alcohol treatment. It is felt given the patient's severe depression he would likely benefit from psychiatry first and would likely benefit from inpatient alcohol treatment secondary to this. He was also started on 20 mg daily Prozac, 25 mg Seroquel at bedtime, and 25 mg twice daily Topamax. He reports that he lives alone, has no insurance, has no job, and has no family in the area. Case management has been working on getting him some assistance. From medical standpoint he continues to do well. Electrolytes look good, with the exception of magnesium which was low on the day of discharge and was supplemented. Throughout his stay he became very deconditioned and has been working with physical therapy. He has been making significant progress every day. [facility] call was contacted and report was given to Dr. Correa, psychiatry who ultimately accepted care of the patient. 24-hour hold has been placed on the patient and he will be transported to [place] via [facility]'s office. At this time patient is in agreement to recommended transfer and services. He was discharged today. - Patient Instructions Diet: Diabetic Diet Activity: As Tolerated - Discharge Plan *PRESCRIPTION DRUG MONITORING PROGRAM REVIEWED*: No *COPY OF PRESCRIPTION DRUG MONITORING REPORT IN PATIENT ALEJANDRO: No Prescriptions/Med Rec: FLUoxetine [PROzac] 20 mg PO DAILY #1 tab Home Medications: Home Meds FLUoxetine [PROzac] 20 mg PO DAILY #1 tab 07/07/19 [Rx] Folic Acid 1 mg PO DAILY tablet 07/07/19 [Rx] Insulin Glarg,Human.Rec.Analog [Lantus] 25 unit SUBCUT BEDTIME ml 07/07/19 [Rx] Insulin Lispro [HumaLOG] 5 unit SUBCUT QAM vial 07/07/19 [Rx] Insulin Lispro [HumaLOG] 7 unit SUBCUT 1100,1700 vial 07/07/19 [Rx] Nicotine [Habitrol] 21 mg TRDERM Q24H patch 07/07/19 [Rx] QUEtiapine [SEROquel] 25 mg PO BEDTIME tablet 07/07/19 [Rx] Sodium Chloride/KCl [Thermotabs] 2 each PO TID tablet 07/07/19 [Rx] Thiamine [Vitamin B-1] 100 mg PO BEDTIME tablet 07/07/19 [Rx] Topiramate [Topamax] 25 mg PO BID tablet 07/07/19 [Rx] Oxygen Therapy Mode: Room Air Patient Handouts: Type 2 Diabetes Mellitus, Diagnosis, Adult, Fall Prevention in the Home, Adult, Steps to Quit Smoking Forms: ED Department Discharge Referrals: PCP,None [Primary Care Provider] - - Discharge Summary/Plan Comment DC Time >30 min.: Yes (60 minutes ) - General Info Date of Service: 07/07/19 Admission Dx/Problem (Free Text: Admission Diagnosis/Problem Admission Diagnosis/Problem Hyperosmolar non-ketotic state in type 2 diabetes mellitus Functional Status: Reports: Pain Controlled, Tolerating Diet, Ambulating, Urinating. Denies: New Symptoms - Review of Systems General: Reports: No Symptoms, Weakness (improving ). Denies: Fever, Fatigue, Malaise, Chills HEENT: Reports: No Symptoms. Denies: Headaches, Sore Throat Pulmonary: Reports: No Symptoms. Denies: Shortness of Breath, Pleuritic Chest Pain, Cough, Sputum, Wheezing Cardiovascular: Reports: Chest Pain (right sided 2/2 rib fractures ). Denies: Palpitations, Dyspnea on Exertion, Edema Gastrointestinal: Reports: No Symptoms. Denies: Abdominal Pain, Constipation, Diarrhea, Nausea, Vomiting Genitourinary: Reports: No Symptoms. Denies: Pain Musculoskeletal: Reports: No Symptoms Skin: Reports: No Symptoms. Denies: Cyanosis Neurological: Reports: Difficulty Walking (improved to resolved ), Weakness ( improving ), Gait Disturbance (improved to resolved ). Denies: Confusion, Dizziness, Headache, Seizure, Syncope, Tremors, Trouble Speaking Psychiatric: Reports: No Symptoms - Patient Data Vitals - Most Recent: Last Vital Signs Temp 98.1 F 07/07/19 04:36 Pulse 99 07/07/19 04:36 Resp 12 07/07/19 04:36 BP 138/90 07/07/19 04:36 Pulse Ox 97 07/07/19 04:36 Weight - Most Recent: 138 lb 9.6 oz I&O - Last 24 hours: Intake & Output 07/06/19 07/07/19 07/07/19 22:59 06:59 14:59 Intake Total 520 200 180 Output Total 650 Balance -130 200 180 Lab Results - Last 24 hrs: Laboratory Results - last 24 hr 07/06/19 07/06/19 07/06/19 Range/Units 11:01 17:10 21:58 Sodium (136-145) mEq/L Potassium (3.5-5.1) mEq/L Chloride (98-107) mEq/L Carbon Dioxide (21-32) mEq/L Anion Gap (5-15) BUN (7-18) mg/dL Creatinine (0.7-1.3) mg/dL Est Cr Clr Drug Dosing mL/min Estimated GFR (MDRD) (>60) mL/min BUN/Creatinine Ratio (14-18) Glucose (74-106) mg/dL POC Glucose 143 H 204 H 212 H (70-105) mg/dL Calcium (8.5-10.1) mg/dL Phosphorus (2.6-4.7) mg/dL Magnesium (1.8-2.4) mg/dl 07/07/19 07/07/19 Range/Units 04:39 06:24 Sodium 132 L (136-145) mEq/L Potassium 3.9 (3.5-5.1) mEq/L Chloride 99 (98-107) mEq/L Carbon Dioxide 21 (21-32) mEq/L Anion Gap 15.9 H (5-15) BUN 17 (7-18) mg/dL Creatinine 0.8 (0.7-1.3) mg/dL Est Cr Clr Drug Dosing 87.95 mL/min Estimated GFR (MDRD) > 60 (>60) mL/min BUN/Creatinine Ratio 21.3 H (14-18) Glucose 118 H (74-106) mg/dL POC Glucose 110 H (70-105) mg/dL Calcium 8.6 (8.5-10.1) mg/dL Phosphorus 3.1 (2.6-4.7) mg/dL Magnesium 1.6 L (1.8-2.4) mg/dl Med Orders - Current: Current Medications Acetaminophen (Tylenol) 325 mg PO Q4H PRN PRN Reason: Pain (mild 1-3) Last Admin: 07/01/19 21:56 Dose: 325 mg Hydrocodone Bitart/Acetaminophen ([place]ack 325-5 Mg) 1 tab PO Q4H PRN PRN Reason: Severe pain Last Admin: 07/07/19 09:06 Dose: 1 tab Enoxaparin Sodium (Lovenox) 40 mg SUBCUT DAILY [facility] Last Admin: 07/07/19 08:58 Dose: 40 mg Fluoxetine HCl (Prozac) 20 mg PO DAILY [facility] Last Admin: 07/07/19 08:59 Dose: 20 mg Folic Acid (Folic Acid) 1 mg PO DAILY [facility] Last Admin: 07/07/19 08:59 Dose: 1 mg Insulin Glargine (Lantus) 25 unit SUBCUT BEDTIME [facility] Last Admin: 07/06/19 22:00 Dose: 25 units Insulin Human Lispro (Humalog) 0 unit SUBCUT QIDACANDBED [facility]; Protocol Last Admin: 07/07/19 06:34 Dose: Not Given Insulin Human Lispro (Humalog) 5 unit SUBCUT QAM [facility] Last Admin: 07/07/19 08:59 Dose: 5 units Insulin Human Lispro (Humalog) 7 unit SUBCUT 1100,1700 [facility] Last Admin: 07/06/19 17:09 Dose: 7 units Magnesium Hydroxide (Milk Of Magnesia) 30 ml PO BID PRN PRN Reason: Constipation Last Admin: 07/01/19 21:56 Dose: 30 ml Miscellaneous Information (Remove Patch) 1 ea TRDERM Q24H [facility] Last Admin: 07/06/19 15:33 Dose: 1 ea Nicotine (Habitrol) 21 mg TRDERM Q24H [facility] Last Admin: 07/06/19 15:33 Dose: 21 mg Oral Electrolytes (Thermotabs) 2 each PO TID [facility] Last Admin: 07/07/19 08:58 Dose: 2 each Quetiapine Fumarate (Seroquel) 25 mg PO BEDTIME [facility] Last Admin: 07/06/19 21:59 Dose: 25 mg Sodium Chloride (Saline Flush) 10 ml FLUSH ASDIRECTED PRN PRN Reason: Keep Vein Open Last Admin: 06/29/19 09:40 Dose: 10 ml Thiamine HCl (Vitamin B-1) 100 mg PO BEDTIME [facility] Last Admin: 07/06/19 21:55 Dose: 100 mg Topiramate (Topamax) 25 mg PO BID [facility] Last Admin: 07/07/19 08:59 Dose: 25 mg Discontinued Medications Dextrose/Water (Dextrose 50% In Water) 50 ml IV STAT ONE Stop: 07/02/19 06:31 Last Admin: 07/02/19 07:38 Dose: Not Given Dextrose/Water (Dextrose 50% In Water) Confirm Administered Dose 50 ml .ROUTE .STK-MED ONE Stop: 07/02/19 06:32 Last Admin: 07/02/19 07:32 Dose: 50 ml Dextrose/Water (Dextrose 50 % - Water Syringe) 50 ml IV NOW STA Stop: 07/02/19 06:43 Last Admin: 07/02/19 07:38 Dose: Not Given Sodium Chloride (Normal Saline) 1,000 mls @ 1,000 mls/hr IV .BOLUS IVA Last Admin: 06/29/19 09:55 Dose: 1,000 mls/hr Sodium Chloride (Normal Saline) 1,000 mls @ 1,000 mls/hr IV ONETIME ONE Stop: 06/29/19 11:58 Last Admin: 06/29/19 11:09 Dose: 1,000 mls/hr Insulin Human Regular 100 unit (/ Sodium Chloride) 100 mls @ 6.12 mls/hr IV TITRATE IVA; Protocol Last Admin: 06/29/19 12:27 Dose: 0.1 units/kg/hr, 6.12 mls/hr Lactated Ringer's (Ringers, Lactated) 1,000 mls @ 1,000 mls/hr IV .BOLUS ONE Stop: 06/29/19 12:52 Last Admin: 06/29/19 12:36 Dose: Not Given Potassium Chloride/Sodium Chloride (Normal Saline With 20 Meq Kcl) 1,000 mls @ 500 mls/hr IV ASDIRECTED IVA Last Admin: 06/29/19 12:15 Dose: 500 mls/hr Potassium Chloride/Dextrose/Sod Cl (D5 1/2 Ns W/ 20 Meq/L Kcl) 1,000 mls @ 200 mls/hr IV ASDIRECTED IVA Last Admin: 06/29/19 15:19 Dose: 200 mls/hr Potassium Chloride/Sodium Chloride (Normal Saline With 20 Meq Kcl) 1,000 mls @ 125 mls/hr IV ASDIRECTED IVA Last Admin: 06/30/19 04:39 Dose: 125 mls/hr Potassium Chloride/Sodium Chloride (Normal Saline With 40 Meq Kcl) 1,000 mls @ 200 mls/hr IV ASDIRECTED IVA Stop: 06/30/19 23:00 Last Admin: 06/30/19 17:14 Dose: 200 mls/hr Sodium Phosphate 60 mmole/ (Sodium Chloride) 270 mls @ 90 mls/hr IV ONETIME ONE Stop: 06/30/19 18:12 Last Admin: 06/30/19 19:05 Dose: Not Given Sodium Phosphate 60 mmole/ (Sodium Chloride) 270 mls @ 67 mls/hr IV ONETIME ONE Stop: 07/01/19 00:01 Last Admin: 06/30/19 20:25 Dose: 67 mls/hr Potassium Chloride/Sodium Chloride (Normal Saline With 40 Meq Kcl) 1,000 mls @ 125 mls/hr IV ASDIRECTED [facility] Last Admin: 07/02/19 12:28 Dose: 125 mls/hr Magnesium Sulfate 4 gm/ Premix 50 mls @ 12.5 mls/hr IV ONETIME ONE Stop: 07/01/19 18:19 Last Admin: 07/01/19 14:48 Dose: 12.5 mls/hr Sodium Phosphate 30 mmole/ (Sodium Chloride) 260 mls @ 86.667 mls/hr IV ONETIME ONE Stop: 07/02/19 18:31 Last Admin: 07/02/19 18:54 Dose: 86.667 mls/hr Lactated Ringer's (Ringers, Lactated) 1,000 mls @ 999 mls/hr IV .BOLUS ONE Stop: 07/04/19 12:37 Last Admin: 07/04/19 11:35 Dose: 999 mls/hr Lactated Ringer's (Ringers, Lactated) Confirm Administered Dose 1,000 mls @ as directed .ROUTE .STK-MED ONE Stop: 07/04/19 11:40 Last Admin: 07/04/19 12:05 Dose: Not Given Lactated Ringer's (Ringers, Lactated) 1,000 mls @ 100 mls/hr IV ASDIRECTED [facility] Last Admin: 07/05/19 10:10 Dose: 100 mls/hr Magnesium Sulfate 2 gm/ Premix 50 mls @ 25 mls/hr IV ONETIME ONE Stop: 07/07/19 09:13 Last Admin: 07/07/19 08:54 Dose: 25 mls/hr Insulin Glargine (Lantus) 40 unit SUBCUT DAILY [facility] Last Admin: 07/01/19 08:55 Dose: 40 unit Insulin Human Lispro (Humalog) 3 unit SUBCUT TIDMEALS [facility] Last Admin: 07/03/19 12:44 Dose: 3 units Insulin Human Lispro (Humalog) 5 unit SUBCUT 1100,1700 [facility] Last Admin: 07/04/19 11:26 Dose: 5 unit Insulin Human Lispro (Humalog) 3 unit SUBCUT ACBREAKFAST [facility] Stop: 07/04/19 06:01 Last Admin: 07/04/19 08:04 Dose: 3 units Lisinopril (Prinivil) 10 mg PO BEDTIME IVA Lisinopril (Prinivil) 5 mg PO ONETIME ONE Stop: 07/01/19 14:33 Last Admin: 07/01/19 14:46 Dose: 5 mg Lisinopril (Prinivil) 5 mg PO BEDTIME IVA Stop: 07/01/19 21:01 Last Admin: 07/01/19 20:46 Dose: 5 mg Lisinopril (Prinivil) 5 mg PO BEDTIME [facility] Last Admin: 07/03/19 21:09 Dose: 5 mg Morphine Sulfate (Morphine) 1 mg IVPUSH Q4H PRN PRN Reason: Pain (severe 7-10) Last Admin: 06/30/19 01:12 Dose: 1 mg Morphine Sulfate (Morphine) 1 mg IVPUSH Q4H PRN PRN Reason: Pain (severe 7-10) Last Admin: 07/05/19 03:19 Dose: 1 mg Pantoprazole Sodium (Protonix) 40 mg PO BEDTIME [facility] Last Admin: 06/30/19 20:23 Dose: 40 mg - Exam Quality Assessment: Reports: DVT Prophylaxis General: Reports: Alert, Oriented, Cooperative, No Acute Distress HEENT: Reports: Pupils Equal, Pupils Reactive, Mucous Membr. Moist/[place] Neck: Reports: Supple, Trachea Midline Lungs: Reports: Clear to Auscultation, Normal Respiratory Effort Cardiovascular: Reports: Regular Rate, Regular Rhythm GI/Abdominal Exam: Normal Bowel Sounds, Soft, Non-Tender, No Distention (Male) Exam: Deferred Rectal (Males) Exam: Deferred Back Exam: Reports: Normal Inspection, Full Range of Motion Extremities: Normal Inspection, Normal Range of Motion, Non-Tender, No Pedal Edema, Normal Capillary Refill Skin: Reports: Warm, Dry, Intact Neurological: Reports: No New Focal Deficit Psy/Mental Status: Reports: Alert, Depressed, Other (flat affect ). Denies: Agitated, Suicidal Ideation, Homicidal Ideation, Withdrawal Symptoms
[2019-07-07 15:59] VITALS: BP 104/62
--- NOTE | 2019-07-10 11:11 | DISCH ---
ADMISSION DATE: 06/29/2019 DISCHARGE DATE: 07/07/2019 ADDENDUM: FINAL DIAGNOSIS: 1. Hyperosmolar nonketotic state on admission (resolved). 2. Diabetes type 2. 3. Alcohol intoxication/severe alcohol withdrawal. 4. Severe deconditioning (improved). 5. Smoking dependency. 6. Depression. 7. Alcoholic hepatitis on admission (improved). 8. Acute renal failure on admission secondary to diabetic ketoacidosis (improved). The patient was seen, examined, and discussed by me with Tres Starks PA-C. Mr. Christensen is a 58-year-old white male who was admitted to the hospital on June 29, 2019, from emergency room where the patient presented with suicidal ideations and severe alcohol withdrawal symptoms. The patient was admitted to ICU. He received IV insulins and IV fluid resuscitation. He was treated for alcohol withdrawal with benzodiazepines and antipsychotic medications. After the patient was out of his severe alcohol withdrawal, the patient was found severely deconditioned. Physical therapy was required, and the patient had nice improvement on this physical therapy, was ambulate more than 350 feet on day of discharge. Given the patient's history, clinical presentation, and the patient's own wish at time of discharge, decision is to discharge the patient to a rehab facility for alcohol rehab that hopefully will work really well for the patient. Throughout hospital stay and the day of discharge, the patient was consulted about need to immediately stop alcohol abuse. He vocalized understanding and vocalized his decision to stop drinking alcohol at once. Hopefully, he will. Total time spent on alcohol cessation counseling was longer than 15 minutes. Throughout hospital stay and the day of discharge, the patient was consulted about smoking cessation. Again, vocalized understanding. Reported that he is not planning to restart smoking after discharge. Nicotine patch will be advised to facilitate smoking abstinence. For details of the patient's history, clinical presentation, course of hospital stay, physical exam on discharge, test results, discharge medications, and recommendations, please see discharge summary and discharge instructions prepared by Tres Starks PA-C. [facility] /[id number]
== END 2019-07-07 12:20 | DRG 896 ==
LOC: JD.ED 09:33 → JD.ICU 12:36 → JD.MS 06-30 17:44
PROVIDERS: ADMIT Internal Medicine; ATTEND Internal Medicine
DX: F10.239 Alcohol dependence with withdrawal, unspecified (principal); E11.00 Type 2 diabetes mellitus with hyperosmolarity without nonketotic hyperglycemic-hyperosmolar coma (NKHHC); S22.41XA Multiple fractures of ribs, right side, initial encounter for closed fracture; N17.9 Acute kidney failure, unspecified; E87.0 Hyperosmolality and hypernatremia; E87.2 Acidosis; F31.60 Bipolar disorder, current episode mixed, unspecified; F17.210 Nicotine dependence, cigarettes, uncomplicated; R74.8 Abnormal levels of other serum enzymes; W19.XXXA Unspecified fall, initial encounter; E87.6 Hypokalemia; E11.22 Type 2 diabetes mellitus with diabetic chronic kidney disease; I12.9 Hypertensive chronic kidney disease with stage 1 through stage 4 chronic kidney disease, or unspecified chronic kidney disease; E83.42 Hypomagnesemia; E11.69 Type 2 diabetes mellitus with other specified complication; H54.7 Unspecified visual loss; N18.9 Chronic kidney disease, unspecified; Z79.4 Long term (current) use of insulin; Z79.899 Other long term (current) drug therapy; Z79.82 Long term (current) use of aspirin; F43.10 Post-traumatic stress disorder, unspecified; Z88.6 Allergy status to analgesic agent; F10.229 Alcohol dependence with intoxication, unspecified
CPT/HCPCS: 36415; 36600; 71045; 71045-26; 80048; 80053; 80307; 82009; 82803; 82962; 83036; 83605; 83735; 83930; 84100; 84443; 85025; 93005; 93010; 96360; 96361; 97110-GP; 97112-GP; 97116-GP; 97162-GP; 97530-GP; 99284; 99285-25; A9270-GY; J1650; J1815-GY; J2270; J3475; J3480; J7030; J7050; J7120; U0002

== ENCOUNTER 2019-11-07 01:16 | Inpatient (IN) | payer MEDICAID ==
[2019-11-07] MEDS ORDERED: Sodium Chloride 0.9% 10 ML Syringe FLUSH PRN (01:42)
[2019-11-07] MEDS ORDERED: Sodium Chloride 0.9% 1,000 ML IV SCH (01:45)
--- NOTE | 2019-11-07 01:46 | EDM.PDOC ---
<Mohsen May - Last Filed: 11/07/19 09:41> ED HPI GENERAL MEDICAL PROBLEM - General Chief Complaint: General Stated Complaint: [facility] Time Seen by Provider: 11/07/19 01:33 - Related Data Allergies Allergy/AdvReac Type Severity Reaction Status Date / Time No Known Allergies Allergy Verified 11/07/19 12:37 Home Meds: Home Meds Folic Acid 1 mg PO DAILY tablet 07/07/19 [Rx] Thiamine [Vitamin B-1] 100 mg PO BEDTIME tablet 07/07/19 [Rx] FLUoxetine HCl [Prozac] 20 mg PO DAILY 11/07/19 [History] Insulin Glarg,Human.Rec.Analog [Lantus] 30 unit SUBCUT BEDTIME 11/07/19 [History] Insulin Lispro [HumaLOG] 10 - 15 unit SUBCUT QAM 11/07/19 [History] Mirtazapine 7.5 mg PO BEDTIME 11/07/19 [History] Naproxen Sodium [Aleve] 220 mg PO BID 11/07/19 [History] Nicotine [Nicotine Patch] 1 patch TRDERM DAILY 11/07/19 [History] Topiramate 25 mg PO BID 11/07/19 [History] amLODIPine [Norvasc] 5 mg PO DAILY 11/07/19 [History] atorvaSTATin [Lipitor] 10 mg PO DAILY 11/07/19 [History] sitaGLIPtin Phosphate [Januvia] 50 mg PO DAILY 11/07/19 [History] Course - Re-Assessments/Exams Free Text/Narrative Re-Assessment/Exam: 11/07/19 09:[address] Baer. Dr Baer had things arranged for the patient to go home. Social work came to see him and they had PT/OT set up for him and a walker was ordered. The patient could not get out of bed on his own. He tried to stand up and my nurse had to help him and he did not do well with the walker. I do not feel he can do well at home. He needs to be admitted. I called Dr Raya and he agreed to the admission. I talked to the patient and he is willing to quit alcohol. He knows he will withdraw from the alcohol. Departure - Departure Time of Disposition: 09:45 Disposition: Home, Self-Care 01 Clinical Impression: Generalized weakness, Hyponatremia, Dehydration, Elevated liver enzymes, Renal insufficiency Fall Qualifiers: Encounter type: initial encounter Qualified Code(s): W19.XXXA - Unspecified fall, initial encounter Alcohol intoxication Qualifiers: Complication of substance-induced condition: uncomplicated Qualified Code(s): F10.920 - Alcohol use, unspecified with intoxication, uncomplicated - Discharge Information <Ronald Baer - Last Filed: 11/07/19 19:16> ED HPI GENERAL MEDICAL PROBLEM - General Source of Information: Reports: Patient, EMS, RN Notes Reviewed - History of Present Illness INITIAL COMMENTS - FREE TEXT/NARRATIVE: 59 yr old male fell at his home, unable to get up on his own. He has hx of "chronic R leg weakness for many yrs". He states his R leg tends to "give out on him". He also does drink alcohol, had a drink or 2 earlier last evening. Has not been ill. He denies cough, fever, chills or difficulty breathing. He did not injure himself in any way that he is aware from the fall. Past Medical History HEENT History: Reports: Impaired Vision Cardiovascular History: Reports: Hypertension Respiratory History: Reports: None Gastrointestinal History: Reports: None Genitourinary History: Reports: None Musculoskeletal History: Reports: Fracture, Other (See Below) Other Musculoskeletal History: rib fracture Psychiatric History: Reports: Addiction, Depression, Suicidal Ideation Endocrine/Metabolic History: Reports: Diabetes, Type II Hematologic History: Reports: None Immunologic History: Reports: None Oncologic (Cancer) History: Reports: None Dermatologic History: Reports: None - Infectious Disease History Infectious Disease History: Reports: None - Past Surgical History Neurological Surgical History: Reports: Lumbar Spine Musculoskeletal Surgical History: Reports: Arthroscopic Knee, Carpal Tunnel Social & Family History - Family History Family Medical History: Noncontributory - Caffeine Use Caffeine Use: Reports: Coffee - Living Situation & Occupation Occupation: Employed ED ROS GENERAL - Review of Systems Review Of Systems: See Below Constitutional: Denies: Fever, Chills, Diaphoresis HEENT: Reports: No Symptoms Respiratory: Denies: Shortness of Breath, Wheezing, Cough Cardiovascular: Denies: Chest Pain GI/Abdominal: Denies: Abdominal Pain, Nausea, Vomiting Musculoskeletal: Denies: Leg Pain, Joint Pain Skin: Denies: Rash Neurological: Reports: Dizziness, Weakness (RLE, chronic). Denies: Headache, Numbness, Tingling, Trouble Speaking ED EXAM, GENERAL - Physical Exam Exam: See Below General Appearance: Alert, No Apparent Distress Eye Exam: Bilateral Eye: PERRL Throat/Mouth: Normal Inspection, Normal Oropharynx Head: Atraumatic Neck: Supple, Non-Tender Respiratory/Chest: No Respiratory Distress, Lungs Clear, Normal Breath Sounds Cardiovascular: Tachycardia GI/Abdominal: Soft, Non-Tender Back Exam: No: CVA Tenderness (L), CVA Tenderness (R) Extremities: Normal Inspection, Normal Range of Motion, Non-Tender Neurological: Alert, Oriented, Other (very mild weakness RLE to straight leg raising compared to the left leg, upper extrem strength equal bilat, no facial droop or speech difficulty) Skin Exam: Warm, Dry, Normal Color Course - Vital Signs Last Recorded V/S: Last Vital Signs Temp 97.8 F 11/07/19 16:00 Pulse 123 H 11/07/19 11:35 Resp 26 H 11/07/19 16:00 BP 154/86 H 11/07/19 16:00 Pulse Ox 95 11/07/19 16:00 - Orders/Labs/Meds Orders: Active Orders 24 hr Category Date Time Status Sodium Chloride 0.9% [Saline Flush] Med 11/07/19 01:42 Active 10 ml FLUSH ASDIRECTED PRN Peripheral IV Insertion Adult [OM.PC] Stat Oth 11/07/19 01:42 Ordered Medication Orders Amlodipine Besylate (Norvasc) 5 mg PO DAILY [facility] Dextrose/Water (Dextrose 50% In Water) 50 ml IVPUSH ASDIRECTED PRN PRN Reason: Hypoglycemia Enoxaparin Sodium (Lovenox) 40 mg SUBCUT DAILY [facility] Last Admin: 11/07/19 13:30 Dose: 40 mg Documented by: DRAC Fluoxetine HCl (Prozac) 20 mg PO DAILY [facility] Folic Acid (Folic Acid) 1 mg PO DAILY [facility] Sodium Chloride (Normal Saline) 1,000 mls @ 150 mls/hr IV ASDIRECTED IVA Last Admin: 11/07/19 16:50 Dose: 150 mls/hr Documented by: ZEHRA Insulin Glargine (Lantus) 25 unit SUBCUT BEDTIME IVA Insulin Human Lispro (Humalog) 0 unit SUBCUT QIDACANDBED [facility]; Protocol Last Admin: 11/07/19 17:39 Dose: Not Given Documented by: Admin: 11/07/19 14:31 Dose: 10 units Documented by: ANGELO Insulin Human Lispro (Humalog) 5 unit SUBCUT TIDAC [facility] Last Admin: 11/07/19 17:44 Dose: 5 units Documented by: ZEHRA Lorazepam (Ativan) 0 mg IVPUSH Q15M PRN; Protocol PRN Reason: Withdrawal Symptoms Lorazepam (Ativan) 0 mg PO Q1H PRN; Protocol PRN Reason: Withdrawal Symptoms Mirtazapine (Remeron) 7.5 mg PO BEDTIME [facility] Miscellaneous Information (Remove Patch) 1 ea TRDERM DAILY [facility] Nicotine (Habitrol) 21 mg TRDERM DAILY IVA Simvastatin (Zocor) 10 mg PO DAILY [facility] Sodium Chloride (Saline Flush) 10 ml FLUSH ASDIRECTED PRN PRN Reason: Keep Vein Open Last Admin: 11/07/19 01:55 Dose: 10 ml Documented by: ANNA Thiamine HCl (Vitamin B-1) 100 mg PO BEDTIME [facility] Topiramate (Topamax) 25 mg PO BID [facility] Labs: Laboratory Tests 11/07/19 11/07/19 11/07/19 Range/Units 02:07 02:07 02:07 WBC 2.97 L (4.23-9.07) K/mm3 RBC 3.79 L (4.63-6.08) M/mm3 Hgb 11.4 L (13.7-17.5) gm/dl Hct 32.4 L (40.1-51.0) % MCV 85.5 D (79.0-92.2) fl MCH 30.1 (25.7-32.2) pg MCHC 35.2 (32.2-35.5) g/dl RDW Std Deviation 39.8 (35.1-43.9) fL Plt Count 181 D (163-337) K/mm3 MPV 10.2 (9.4-12.3) fl Neut % (Auto) 79.2 H (34.0-67.9) % Lymph % (Auto) 9.1 L (21.8-53.1) % [place] % (Auto) 9.8 (5.3-12.2) % Eos % (Auto) 1.3 (0.8-7.0) Baso % (Auto) 0.3 (0.1-1.2) % Neut # (Auto) 2.35 (1.78-5.38) K/mm3 Lymph # (Auto) 0.27 L (1.32-3.57) K/mm3 [place] # (Auto) 0.29 L (0.30-0.82) K/mm3 Eos # (Auto) 0.04 (0.04-0.54) K/mm3 Baso # (Auto) 0.01 (0.01-0.08) K/mm3 Manual Slide Review Abnormal smear Sodium 125 L (136-145) mEq/L Potassium 4.1 (3.5-5.1) mEq/L Chloride 85 L D (98-107) mEq/L Carbon Dioxide 21 (21-32) mEq/L Anion Gap 23.1 H (5-15) BUN 42 H D (7-18) mg/dL Creatinine 1.8 H (0.7-1.3) mg/dL Est Cr Clr Drug Dosing 42.86 mL/min Estimated GFR (MDRD) 39 (>60) mL/min BUN/Creatinine Ratio 23.3 H (14-18) Glucose 213 H (80-115) mg/dL Calcium 9.1 (8.5-10.1) mg/dL Magnesium 1.7 L (1.8-2.4) mg/dl Total Bilirubin 3.2 H (0.2-1.0) mg/dL AST 888 H (15-37) U/L ALT 677 H (16-63) U/L Alkaline Phosphatase 411 H (46-116) U/L Total Protein 7.6 (6.4-8.2) g/dl Albumin 3.3 L (3.4-5.0) g/dl Globulin 4.3 gm/dL Albumin/Globulin Ratio 0.8 L (1-2) Ethyl Alcohol 0.18 (0.00) gm% COVID-19 (ISABEL) (NEGATIVE) 11/07/19 Range/Units 09:53 WBC (4.23-9.07) K/mm3 RBC (4.63-6.08) M/mm3 Hgb (13.7-17.5) gm/dl Hct (40.1-51.0) % MCV (79.0-92.2) fl MCH (25.7-32.2) pg MCHC (32.2-35.5) g/dl RDW Std Deviation (35.1-43.9) fL Plt Count (163-337) K/mm3 MPV (9.4-12.3) fl Neut % (Auto) (34.0-67.9) % Lymph % (Auto) (21.8-53.1) % [place] % (Auto) (5.3-12.2) % Eos % (Auto) (0.8-7.0) Baso % (Auto) (0.1-1.2) % Neut # (Auto) (1.78-5.38) K/mm3 Lymph # (Auto) (1.32-3.57) K/mm3 [place] # (Auto) (0.30-0.82) K/mm3 Eos # (Auto) (0.04-0.54) K/mm3 Baso # (Auto) (0.01-0.08) K/mm3 Manual Slide Review Sodium (136-145) mEq/L Potassium (3.5-5.1) mEq/L Chloride (98-107) mEq/L Carbon Dioxide (21-32) mEq/L Anion Gap (5-15) BUN (7-18) mg/dL Creatinine (0.7-1.3) mg/dL Est Cr Clr Drug Dosing mL/min Estimated GFR (MDRD) (>60) mL/min BUN/Creatinine Ratio (14-18) Glucose (80-115) mg/dL Calcium (8.5-10.1) mg/dL Magnesium (1.8-2.4) mg/dl Total Bilirubin (0.2-1.0) mg/dL AST (15-37) U/L ALT (16-63) U/L Alkaline Phosphatase (46-116) U/L Total Protein (6.4-8.2) g/dl Albumin (3.4-5.0) g/dl Globulin gm/dL Albumin/Globulin Ratio (1-2) Ethyl Alcohol (0.00) gm% COVID-19 (ISABEL) Negative (NEGATIVE) Meds: Medications Generic Name Dose Route Start Last Admin Trade Name Freq PRN Reason Stop Dose Admin Amlodipine Besylate 5 mg 11/08/19 09:00 Norvasc PO DAILY [facility] Dextrose/Water 50 ml 11/07/19 12:00 Dextrose 50% In Water IVPUSH ASDIRECTED PRN Hypoglycemia Enoxaparin Sodium 40 mg 11/07/19 13:00 11/07/19 13:30 Lovenox SUBCUT 40 mg DAILY IVA Administration Fluoxetine HCl 20 mg 11/08/19 09:00 Prozac PO DAILY [facility] Folic Acid 1 mg 11/08/19 09:00 Folic Acid PO DAILY [facility] Sodium Chloride 1,000 mls @ 150 mls/hr 11/07/19 14:15 11/07/19 16:50 Normal Saline IV 150 mls/hr ASDIRECTED IVA Administration Insulin Glargine 25 unit 11/07/19 21:00 Lantus SUBCUT BEDTIME [facility] Insulin Human Lispro 0 unit 11/07/19 14:30 11/07/19 17:39 Humalog SUBCUT Not Given QIDACANDBED [facility] Protocol Insulin Human Lispro 5 unit 11/07/19 17:00 11/07/19 17:44 Humalog SUBCUT 5 units TIDAC IVA Administration Lorazepam 0 mg 11/07/19 10:45 Ativan IVPUSH Q15M PRN Withdrawal Symptoms Protocol Lorazepam 0 mg 11/07/19 10:48 Ativan PO Q1H PRN Withdrawal Symptoms Protocol Mirtazapine 7.5 mg 11/07/19 21:00 Remeron PO BEDTIME [facility] Miscellaneous Information 1 ea 11/09/19 09:00 Remove Patch TRDERM DAILY [facility] Nicotine 21 mg 11/08/19 09:00 Habitrol TRDERM DAILY [facility] Simvastatin 10 mg 11/08/19 09:00 Zocor PO DAILY [facility] Sodium Chloride 10 ml 11/07/19 01:42 11/07/19 01:55 Saline Flush FLUSH 10 ml ASDIRECTED PRN Administration Keep Vein Open Thiamine HCl 100 mg 11/07/19 21:00 Vitamin B-1 PO BEDTIME [facility] Topiramate 25 mg 11/07/19 21:00 Topamax PO BID [facility] Discontinued Medications Generic Name Dose Route Start Last Admin Trade Name Freq PRN Reason Stop Dose Admin Enoxaparin Sodium 40 mg 11/07/19 13:00 Lovenox SUBCUT Q24H [facility] Sodium Chloride 1,000 mls @ 999 mls/hr 11/07/19 01:45 11/07/19 01:55 Normal Saline IV 999 mls/hr ONETIME IVA Administration Lactated Ringer's 1,000 mls @ 999 mls/hr 11/07/19 02:46 11/07/19 02:58 Ringers, Lactated IV 11/07/19 03:46 999 mls/hr .BOLUS ONE Administration Lactated Ringer's 1,000 mls @ 150 mls/hr 11/07/19 05:00 11/07/19 13:29 Ringers, Lactated IV 150 mls/hr ASDIRECTED IVA Administration Magnesium Sulfate/Dextrose 1 100 mls @ 100 mls/hr 11/07/19 09:56 11/07/19 10:01 gm/ Premix IV 11/07/19 10:55 Not Given ONETIME ONE Magnesium Sulfate/Dextrose 1 100 mls @ 100 mls/hr 11/07/19 10:15 gm/ Premix IV 11/07/19 14:14 Q1H IVA Magnesium Sulfate 2 gm/ Premix 50 mls @ 25 mls/hr 11/07/19 10:14 11/07/19 10:20 IV 11/07/19 12:13 25 mls/hr ONETIME ONE Administration Lorazepam 1 mg 11/07/19 06:59 11/07/19 07:09 Ativan IVPUSH 11/07/19 07:00 1 mg ONETIME ONE Administration Thiamine HCl 100 mg 11/07/19 11:00 11/07/19 12:45 Vitamin B-1 IVPUSH 11/07/19 11:01 100 mg ONETIME ONE Administration - Re-Assessments/Exams Free Text/Narrative Re-Assessment/Exam: 11/07/19 06:45. His Na was low, very dehydrated with Co2 low, anion gap high, blood alcohol 0.18. Have given a liter of NS, 1 liter of LR, have continued r unning LR at 150/hr. Head CT does not show acute changes. We are going to have a socially responsible investment adviser visit with him when they come in around 8 this AM, see what services might be available to help him out. He already is getting meals on wheels. He has been up to the bathroom once or twice. Did [place] of [place] but not great with a walker. He has just been using a cane at home. He is starting to get a bit anxious. Will order ativan 1 mg IV. Departure - Departure Condition: Fair Sepsis Event Note (ED) - Evaluation Sepsis Screening Result: No Definite Risk - My Orders Last 24 Hours: My Active Orders 11/07/19 01:42 Sodium Chloride 0.9% [Saline Flush] 10 ml FLUSH ASDIRECTED PRN Peripheral IV Insertion Adult [OM.PC] Stat - Assessment/Plan Last 24 Hours: My Active Orders 11/07/19 01:42 Sodium Chloride 0.9% [Saline Flush] 10 ml FLUSH ASDIRECTED PRN Peripheral IV Insertion Adult [OM.PC] Stat
[2019-11-07] MEDS ORDERED: Lactated Ringers 1,000 ML IV ONE (02:46)
[2019-11-07] MEDS: Lactated Ringers 1,000 ML IV SCH ×2 (05:29→13:29)
[2019-11-07] MEDS ORDERED: LORazepam 2 MG/ML SDV IVPUSH ONE (06:59)
--- NOTE | 2019-11-07 08:07 | CT ---
Head CT Technique: Multiple axial sections through the brain were obtained. Intravenous contrast was not utilized. Comparison: Prior head CT study of 04/24/16. Findings: Focal and encephalomalacia is identified within the left frontal convexity. This is an interval change from previous exam and most likely relates to chronic change resulting from previous trauma. Mild areas of diminished density are noted within the periventricular white matter which is compatible with small vessel ischemic demyelination change. No evidence of intracranial hemorrhage. No midline shift or mass-effect is seen. Mild generalized atrophy is seen. Bone window settings were reviewed. No acute osseous finding is seen. Visualized mastoid sinuses and visualized paranasal sinuses are clear. Carotid artery calcification is seen within the carotid siphon as well as vertebral artery calcification. Impression: 1. Evidence of old trauma as noted above. 2. Senescent change as described above. 3. No acute intracranial abnormality is appreciated. Diagnostic code #2 This report was dictated in MDT I agree with preliminary report from [facility], finalized on 11/07/19, 3:37 AM Central Daylight Time
[2019-11-07] MEDS ORDERED: Magnesium Sulfate/Water 2 GM in Premix Bag 1 BAG IV ONE (10:14)
[2019-11-07] MEDS ORDERED: LORazepam 2 MG/ML SDV IVPUSH PRN (10:45)
[2019-11-07] MEDS ORDERED: LORazepam 1 MG Tab PO PRN (10:48)
[2019-11-07] MEDS ORDERED: Thiamine 200 MG/2 ML MDV IVPUSH ONE (11:00)
[2019-11-07] MEDS ORDERED: 50% Dextrose in Water 50 ML Syringe IVPUSH PRN (12:00)
--- NOTE | 2019-11-07 12:30 | PCM.HP.2 ---
H&P History of Present Illness - General Date of Service: 11/07/19 Admit Problem/Dx: Admission Diagnosis/Problem Admission Diagnosis/Problem Alcohol dependence with withdrawal - History of Present Illness Initial Comments - Free Text/Narative: 59-year-old male with history of alcohol abuse presented to the emergency department with complaints of lower extremity weakness. Patient has a history of chronic right-sided leg weakness and states that over the last day he has had worsening weakness. He states he drinks 3-4 drinks of vodka a day. When asked he stated that it goes up to approximately the first line of plastic blue cup. It sounds to be 2 to 3 ounces. Patient denies any history of withdrawal seiz ures. He was seen and hospitalized in June secondary to hyperosmolar nonketotic state, alcohol withdrawal and intoxication, severe deconditioning, depression, alcoholic hepatitis, and acute renal failure. Patient at that time had suicidal ideations was admitted to the ICU and ultimately discharged to the psychiatric unit in [place]. In the emergency department it was felt the patient could go home. Unfortunately, when they tried to stand him up he was unable to walk even with a walker. Patient also wants to have help with his alcoholism and therefore will be admitted to the ICU for further treatment. Significant labs: Leukopenia, WBC 2.97, hemoglobin 11.4 (normocytic), platelets 181, absolute lymphocytes low at 0.27 K/mm3, hyponatremia with corrected sodium of 128, magnesium 1.7, anion gap 23.1, potassium 4.1, BUN 42, creatinine 1.8 estimated GFR 39, glucose 213, total bilirubin 3.2, AST 888, ALT 677, alkaline phosphatase 411, albumin low at 3.3, ethyl alcohol 0.18 g%. Patient was given 2 L fluid bolus and Ativan. - Related Data Allergies/Adverse Reactions: Allergies Allergy/AdvReac Type Severity Reaction Status Date / Time No Known Allergies Allergy Verified 11/07/19 12:37 Home Medications: Home Meds Folic Acid 1 mg PO DAILY tablet 07/07/19 [Rx] Thiamine [Vitamin B-1] 100 mg PO BEDTIME tablet 07/07/19 [Rx] FLUoxetine HCl [Prozac] 20 mg PO DAILY 11/07/19 [History] Insulin Glarg,Human.Rec.Analog [Lantus] 30 unit SUBCUT BEDTIME 11/07/19 [History] Insulin Lispro [HumaLOG] 10 - 15 unit SUBCUT QAM 11/07/19 [History] Mirtazapine 7.5 mg PO BEDTIME 11/07/19 [History] Naproxen Sodium [Aleve] 220 mg PO BID 11/07/19 [History] Nicotine [Nicotine Patch] 1 patch TRDERM DAILY 11/07/19 [History] Topiramate 25 mg PO BID 11/07/19 [History] amLODIPine [Norvasc] 5 mg PO DAILY 11/07/19 [History] atorvaSTATin [Lipitor] 10 mg PO DAILY 11/07/19 [History] sitaGLIPtin Phosphate [Januvia] 50 mg PO DAILY 11/07/19 [History] Past Medical History HEENT History: Reports: Impaired Vision Cardiovascular History: Reports: Hypertension Respiratory History: Reports: None Gastrointestinal History: Reports: None Genitourinary History: Reports: None Musculoskeletal History: Reports: Fracture, Other (See Below) Other Musculoskeletal History: rib fracture Psychiatric History: Reports: Addiction, Depression, Suicidal Ideation Endocrine/Metabolic History: Reports: Diabetes, Type II Hematologic History: Reports: None Immunologic History: Reports: None Oncologic (Cancer) History: Reports: None Dermatologic History: Reports: None - Infectious Disease History Infectious Disease History: Reports: None - Past Surgical History HEENT Surgical History: Reports: Oral Surgery GI Surgical History: Reports: Colonoscopy Neurological Surgical History: Reports: Lumbar Spine Musculoskeletal Surgical History: Reports: Arthroscopic Knee, Carpal Tunnel, Knee Replacement Social & Family History - Family History Family Medical History: Noncontributory - Tobacco Use Smoking Status *Q: Current Every Day Smoker Years of Tobacco use: 50 Packs/Tins Daily: 1 Second Hand Smoke Exposure: No - Caffeine Use Caffeine Use: Reports: Energy Drinks - Alcohol Use Days Per Week of Alcohol Use: 7 Number of Drinks Per Day: 12 Total Drinks Per Week: 84 Date of Last Drink: 11/06/19 Time of Last Drink: 19:00 - Recreational Drug Use Recreational Drug Use: No - Living Situation & Occupation Occupation: Employed H&P Review of Systems - Review of Systems: Review Of Systems: Comprehensive ROS is negative, except as noted in HPI. Exam - Exam Exam: See Below - Vital Signs Vital Signs: Last Vital Signs Temp 97.7 F 11/07/19 11:35 Pulse 123 H 08/25/20 11:35 Resp 22 H 11/07/19 11:35 BP 155/81 H 11/07/19 11:35 Pulse Ox 94 L 11/07/19 11:35 Weight: 65.952 kg - Exam Quality Assessment: No: Supplemental Oxygen General: Alert, Oriented, 4 HEENT: Conjunctiva Clear, Hearing Intact, Mucosa Moist & [place] Neck: Supple, Trachea Midline, 2 Lungs: Clear to Auscultation, Normal Respiratory Effort Cardiovascular: Regular Rhythm, Tachycardia GI/Abdominal Exam: Normal Bowel Sounds, Soft, Non-Tender, No Distention Back Exam: Normal Inspection Extremities: Normal Inspection, Non-Tender, No Pedal Edema, Normal Capillary Refill Peripheral Pulses: 2+: Posterior Tibial (L), Posterior Tibial (R), Dorsalis Pedis (L), Dorsalis Pedis (R) Skin: Warm, Dry, Intact Neuro Extensive - Mental Status: Alert, Oriented x3, Normal Mood/Affect, Normal Cognition, Memory Intact Psychiatric: Alert, Normal Affect, Normal Mood - Patient Data Lab Results Last 24 hrs: Laboratory Results - last 24 hr 11/07/19 11/07/19 11/07/19 Range/Units 02:07 02:07 02:07 WBC 2.97 L (4.23-9.07) K/mm3 RBC 3.79 L (4.63-6.08) M/mm3 Hgb 11.4 L (13.7-17.5) gm/dl Hct 32.4 L (40.1-51.0) % MCV 85.5 D (79.0-92.2) fl MCH 30.1 (25.7-32.2) pg MCHC 35.2 (32.2-35.5) g/dl RDW Std Deviation 39.8 (35.1-43.9) fL Plt Count 181 D (163-337) K/mm3 MPV 10.2 (9.4-12.3) fl Neut % (Auto) 79.2 H (34.0-67.9) % Lymph % (Auto) 9.1 L (21.8-53.1) % [place] % (Auto) 9.8 (5.3-12.2) % Eos % (Auto) 1.3 (0.8-7.0) Baso % (Auto) 0.3 (0.1-1.2) % Neut # (Auto) 2.35 (1.78-5.38) K/mm3 Lymph # (Auto) 0.27 L (1.32-3.57) K/mm3 [place] # (Auto) 0.29 L (0.30-0.82) K/mm3 Eos # (Auto) 0.04 (0.04-0.54) K/mm3 Baso # (Auto) 0.01 (0.01-0.08) K/mm3 Manual Slide Review Abnormal smear Sodium 125 L (136-145) mEq/L Potassium 4.1 (3.5-5.1) mEq/L Chloride 85 L D (98-107) mEq/L Carbon Dioxide 21 (21-32) mEq/L Anion Gap 23.1 H (5-15) BUN 42 H D (7-18) mg/dL Creatinine 1.8 H (0.7-1.3) mg/dL Est Cr Clr Drug Dosing 42.86 mL/min Estimated GFR (MDRD) 39 (>60) mL/min BUN/Creatinine Ratio 23.3 H (14-18) Glucose 213 H (80-115) mg/dL Calcium 9.1 (8.5-10.1) mg/dL Magnesium 1.7 L (1.8-2.4) mg/dl Total Bilirubin 3.2 H (0.2-1.0) mg/dL AST 888 H (15-37) U/L ALT 677 H (16-63) U/L Alkaline Phosphatase 411 H (46-116) U/L Total Protein 7.6 (6.4-8.2) g/dl Albumin 3.3 L (3.4-5.0) g/dl Globulin 4.3 gm/dL Albumin/Globulin Ratio 0.8 L (1-2) Ethyl Alcohol 0.18 (0.00) gm% COVID-19 (ISABEL) (NEGATIVE) 11/07/19 Range/Units 09:53 WBC (4.23-9.07) K/mm3 RBC (4.63-6.08) M/mm3 Hgb (13.7-17.5) gm/dl Hct (40.1-51.0) % MCV (79.0-92.2) fl MCH (25.7-32.2) pg MCHC (32.2-35.5) g/dl RDW Std Deviation (35.1-43.9) fL Plt Count (163-337) K/mm3 MPV (9.4-12.3) fl Neut % (Auto) (34.0-67.9) % Lymph % (Auto) (21.8-53.1) % Baldwin % (Auto) (5.3-12.2) % Eos % (Auto) (0.8-7.0) Baso % (Auto) (0.1-1.2) % Neut # (Auto) (1.78-5.38) K/mm3 Lymph # (Auto) (1.32-3.57) K/mm3 Baldwin # (Auto) (0.30-0.82) K/mm3 Eos # (Auto) (0.04-0.54) K/mm3 Baso # (Auto) (0.01-0.08) K/mm3 Manual Slide Review Sodium (136-145) mEq/L Potassium (3.5-5.1) mEq/L Chloride (98-107) mEq/L Carbon Dioxide (21-32) mEq/L Anion Gap (5-15) BUN (7-18) mg/dL Creatinine (0.7-1.3) mg/dL Est Cr Clr Drug Dosing mL/min Estimated GFR (MDRD) (>60) mL/min BUN/Creatinine Ratio (14-18) Glucose (80-115) mg/dL Calcium (8.5-10.1) mg/dL Magnesium (1.8-2.4) mg/dl Total Bilirubin (0.2-1.0) mg/dL AST (15-37) U/L ALT (16-63) U/L Alkaline Phosphatase (46-116) U/L Total Protein (6.4-8.2) g/dl Albumin (3.4-5.0) g/dl Globulin gm/dL Albumin/Globulin Ratio (1-2) Ethyl Alcohol (0.00) gm% COVID-19 (ISABEL) Negative (NEGATIVE) Result Diagrams: 11/07/19 12:15 11/07/19 12:15 Imaging Impressions Last 24 hrs: Head CT showed: 1. Evidence of old trauma as noted. (Focal and encephalomalacia is identified within the left frontal convexity. This is an interval change from previous exam in 2017 and most likely relates to chronic changes resulting from previous trauma.) 2. Senescent change. 3. No acute intracranial abnormality Sepsis Event Note - Evaluation Sepsis Screening Result: No Definite Risk - Focused Exam Vital Signs: Vital Signs Temp Pulse Resp BP Pulse Ox 11/07/19 11:35 97.7 F 123 H 22 H 155/81 H 94 L 11/07/19 07:13 98.5 F 120 H 22 H 153/75 H 95 11/07/19 02:08 109 H 22 H 132/78 98 11/07/19 01:20 97.6 F 117 H 18 154/71 H 94 L Problem List Initiated/Reviewed/Updated: Yes Orders Last 24hrs: Active Orders 24 hr Category Date Time Status Admission Status [Patient Status] [ADT] Routine ADT 11/07/19 10:03 Active Blood Glucose Check, Bedside [RC] QIDACANDBED Care 11/07/19 12:00 Active CIWAA Assessment [RC] Q1HR Care 11/07/19 10:45 Active Consult to Case Management/Product Transfer Pumper [CONS] Cons 11/07/19 12:08 Active Routine COMPREHENSIVE METABOLIC PN,CMP [CHEM] Routine Lab 11/07/19 12:15 Received Dextrose 50% in Water Med 11/07/19 12:00 Active 50 ml IVPUSH ASDIRECTED PRN Folic Acid Med 11/08/19 09:00 Active 1 mg PO DAILY Insulin Lispro [HumaLOG] Med 11/07/19 17:00 Active See Protocol SUBCUT QIDACANDBED LORazepam [Ativan] Med 11/07/19 10:45 Active See Protocol IVPUSH Q15M PRN LORazepam [Ativan] Med 11/07/19 10:48 Active See Protocol PO Q1H PRN Lactated Ringers [Ringers, Lactated] 1,000 ml Med 11/07/19 05:00 Active IV ASDIRECTED Sodium Chloride 0.9% [Normal Saline] 1,000 ml Med 11/07/19 01:45 Active IV ONETIME Sodium Chloride 0.9% [Saline Flush] Med 11/07/19 01:42 Active 10 ml FLUSH ASDIRECTED PRN Thiamine [Vitamin B-1] Med 11/07/19 21:00 Active 100 mg PO BEDTIME Peripheral IV Insertion Adult [OM.PC] Stat Oth 11/07/19 01:42 Ordered Medication Orders Dextrose/Water (Dextrose 50% In Water) 50 ml IVPUSH ASDIRECTED PRN PRN Reason: Hypoglycemia Folic Acid (Folic Acid) 1 mg PO DAILY [facility] Sodium Chloride (Normal Saline) 1,000 mls @ 999 mls/hr IV ONETIME IVA Last Admin: 11/07/19 01:55 Dose: 999 mls/hr Documented by: ANNA Lactated Ringer's (Ringers, Lactated) 1,000 mls @ 150 mls/hr IV ASDIRECTED IVA Last Admin: 11/07/19 05:29 Dose: 150 mls/hr Documented by: ANNA Insulin Human Lispro (Humalog) 0 unit SUBCUT QIDACANDBED IVA; Protocol Lorazepam (Ativan) 0 mg IVPUSH Q15M PRN; Protocol PRN Reason: Withdrawal Symptoms Lorazepam (Ativan) 0 mg PO Q1H PRN; Protocol PRN Reason: Withdrawal Symptoms Sodium Chloride (Saline Flush) 10 ml FLUSH ASDIRECTED PRN PRN Reason: Keep Vein Open Last Admin: 11/07/19 01:55 Dose: 10 ml Documented by: ANNA Thiamine HCl (Vitamin B-1) 100 mg PO BEDTIME IVA Assessment/Plan Comment:: Assessment Alcohol intoxication with alcohol withdrawal * Patient is known to be a heavy alcohol consumer with previous severe alcohol withdrawal. * Patient denies any history of seizure with alcohol withdrawal. * Patient did start developing some withdrawal symptoms while having an ethanol level of 0.18 g%. This increases his risk for difficulty and severe detox. * Patient is requesting help with quitting. * agricultural services director has already been consulted and has seen him. Hyponatremia/hypomagnesemia * Serum and urine osmolality was not obtained prior to fluid boluses. * Corrected sodium 128 * Magnesium 1.7 * Given magnesium riders in the ER Acute renal injury * Estimated GFR 39 * Creatinine 1.8 * BUN to creatinine ratio 23.3 * Likely injury is from hypovolemia Alcoholic hepatitis-recurrent * Total bilirubin 3.2, AST 888, ALT 677, alkaline phosphatase 411, albumin 3.3 * PT, INR, PTT not obtained Depression * Patient is not complaining of depression currently. * He was started on Prozac last hospitalization. Nicotine dependence * Currently using nicotine patch Plan * Admit to ICU * Aggressive fluid rehydration * CIWAA protocol * Ativan for withdrawal symptoms * Fingerstick blood sugars 4 times daily with sliding scale coverage * Lantus 25 units nightly * Humalog 5 units with each meal * Hemoglobin A1c, TSH * Trend CBC, CMP, magnesium * Get PT, INR, PTT * Continue nicotine patch. * When patient is medically stable refer to alcohol rehab * Abdominal ultrasound in the morning * Hepatitis C and B screening * Regular diet * VTE prophylaxis with Lovenox * CODE STATUS: Full code * Length of stay 2 to 3 days. - Mortality Measure Prognosis:: Poor (Overall prognosis with multiple comorbidities and recurrent alcoholism)
[2019-11-07] MEDS ORDERED: Enoxaparin 40 MG/0.4 ML Syringe SUBCUT SCH (13:00)
[2019-11-07] MEDS: Enoxaparin 40 MG/0.4 ML Syringe SUBCUT SCH (13:30)
[2019-11-07] MEDS: Insulin Lispro 100 Units/ML 3 ML Vial SUBCUT SCH ×4 (14:31→21:12)
[2019-11-07] MEDS: Sodium Chloride 0.9% 1,000 ML IV SCH ×2 (16:50→23:29)
[2019-11-07] MEDS ORDERED: Insulin Glarg,Human.Rec.Analog 100 Unit/ML SUBCUT SCH (21:00)
[2019-11-07] MEDS: Mirtazapine 15 MG Tab PO SCH (21:05)
[2019-11-07] MEDS: Topiramate 25 MG Tab PO SCH (21:06)
[2019-11-07] MEDS: Thiamine 100 MG Tab PO SCH (21:06)
[2019-11-08] MEDS: Sodium Chloride 0.9% 1,000 ML IV SCH (06:42)
[2019-11-08 07:58] LABS: HEMOGLOBIN A1C 9.8 % (4.50-6.20)
[2019-11-08] MEDS: FLUoxetine 20 MG Cap PO SCH (08:20)
[2019-11-08] MEDS: Topiramate 25 MG Tab PO SCH ×2 (08:20→20:27)
[2019-11-08] MEDS: Folic Acid 1 MG Tab PO SCH (08:20)
[2019-11-08] MEDS: amLODIPine 5 MG Tab PO SCH (08:20)
[2019-11-08] MEDS: Nicotine 21 MG/24 Hr Patch TRDERM SCH (08:21)
[2019-11-08] MEDS: Insulin Glarg,Human.Rec.Analog 100 Unit/ML SUBCUT SCH (08:21)
[2019-11-08] MEDS: Insulin Lispro 100 Units/ML 3 ML Vial SUBCUT SCH ×8 (08:22→21:01)
[2019-11-08] MEDS: Enoxaparin 40 MG/0.4 ML Syringe SUBCUT SCH (08:23)
--- NOTE | 2019-11-08 08:36 | US ---
Abdominal ultrasound: Multiple real-time images were obtained. Comparison: No prior abdominal imaging is available. Liver is echogenic when compared to the right kidney which is most likely due to fatty infiltration. Small amount of fluid is noted between the diaphragm and liver. This is felt compatible with slight ascites. Gallbladder wall is thickened. No shadowing gallstones are seen. No pericholecystic fluid is seen. No biliary duct dilatation is seen. Pancreas is incompletely seen. Visualized portions of the pancreas appear within normal limits. Kidneys show no hydronephrosis or discrete mass. Right kidney length is 10.4 cm and left kidney length is 11.6 cm. Aorta shows no aneurysmal dilatation. Inferior vena cava is patent. Portal vein shows normal hepatopedal flow. Spleen size is normal. Impression: 1. Probable fatty infiltration within the liver. 2. Slight gallbladder wall thickening but no biliary duct dilatation, gallstones or pericholecystic fluid is seen. 3. Possible minimal fluid between the liver and diaphragm suggesting minimal ascites. Diagnostic code #3 This report was dictated in MDT
[2019-11-08] MEDS ORDERED: Magnesium Sulfate/Water 4 GM in Premix Bag 1 BAG IV ONE (09:00)
[2019-11-08] MEDS ORDERED: Simvastatin 10 MG Tab PO SCH (09:00)
[2019-11-08] MEDS ORDERED: Sodium Chloride 0.9% 1,000 ML IV SCH (10:45)
[2019-11-08] MEDS ORDERED: Potassium Phosphates 30 MMOLE in Sodium Chloride 0.9% 500 ML IV ONE (13:00)
--- NOTE | 2019-11-08 13:07 | PCM.PN ---
- General Info Date of Service: 11/08/19 Admission Dx/Problem (Free Text): Admission Diagnosis/Problem Admission Diagnosis/Problem Alcohol dependence with withdrawal Subjective Update: Patient states that he is feeling well. He was having difficulty urinating last night and a Ghosh catheter was placed. After Ghosh catheter was placed he had 1000 mL out. Functional Status: Reports: Pain Controlled - Review of Systems General: Reports: No Symptoms HEENT: Reports: No Symptoms Pulmonary: Reports: No Symptoms Cardiovascular: Reports: No Symptoms Gastrointestinal: Reports: No Symptoms Musculoskeletal: Denies: Leg Pain Neurological: Reports: Difficulty Walking, Weakness Psychiatric: Reports: Confusion - Patient Data Vitals - Most Recent: Last Vital Signs Temp 98.5 F 11/08/19 08:00 Pulse 123 H 11/07/19 11:35 Resp 19 11/08/19 08:00 BP 130/80 11/08/19 08:20 Pulse Ox 98 11/08/19 08:00 Weight - Most Recent: 66.224 kg I&O - Last 24 Hours: Intake & Output 11/07/19 11/08/19 11/08/19 22:59 06:59 14:59 Intake Total 1324 2139 240 Output Total 2050 345 Balance 1324 89 -105 Imaging Impressions - Last 24 Hours: Abdominal ultrasound: 1. Probable fatty infiltration within the liver. 2. Slight gallbladder wall thickening but no biliary duct dilatation, gallstones, or pericholecystic fluid is seen. 3. Possible minimal fluid between the liver and diaphragm suggesting minimal ascites. Lab Results Last 24 Hours: Laboratory Results - last 24 hr 11/07/19 11/07/19 11/07/19 Range/Units 12:15 12:15 12:15 WBC 2.89 L (4.23-9.07) K/mm3 RBC 3.24 L (4.63-6.08) M/mm3 Hgb 9.8 L D (13.7-17.5) gm/dl Hct 28.2 L (40.1-51.0) % MCV 87.0 (79.0-92.2) fl MCH 30.2 (25.7-32.2) pg MCHC 34.8 (32.2-35.5) g/dl RDW Std Deviation 40.2 (35.1-43.9) fL Plt Count 156 L (163-337) K/mm3 MPV 10.4 (9.4-12.3) fl Neut % (Auto) 73.1 H (34.0-67.9) % Lymph % (Auto) 9.3 L (21.8-53.1) % Clark % (Auto) 13.1 H (5.3-12.2) % Eos % (Auto) 3.1 (0.8-7.0) Baso % (Auto) 0.7 (0.1-1.2) % Neut # (Auto) 2.11 (1.78-5.38) K/mm3 Lymph # (Auto) 0.27 L (1.32-3.57) K/mm3 Clark # (Auto) 0.38 (0.30-0.82) K/mm3 Eos # (Auto) 0.09 (0.04-0.54) K/mm3 Baso # (Auto) 0.02 (0.01-0.08) K/mm3 Manual Slide Review Abnormal smear PT (9.7-12.0) SECONDS INR APTT (22-31) SECONDS Sodium 119 L (136-145) mEq/L Potassium 4.4 (3.5-5.1) mEq/L Chloride 83 L (98-107) mEq/L Carbon Dioxide 21 (21-32) mEq/L Anion Gap 19.4 H (5-15) BUN 30 H (7-18) mg/dL Creatinine 1.6 H (0.7-1.3) mg/dL Est Cr Clr Drug Dosing 45.23 mL/min Estimated GFR (MDRD) 44 (>60) mL/min BUN/Creatinine Ratio 18.8 H (14-18) Glucose 443 H (80-115) mg/dL POC Glucose (80-115) mg/dL Hemoglobin A1c (4.50-6.20) % Calcium 9.1 (8.5-10.1) mg/dL Phosphorus (2.6-4.7) mg/dL Magnesium (1.8-2.4) mg/dl Total Bilirubin 4.4 H (0.2-1.0) mg/dL AST 1059 H (15-37) U/L ALT 631 H (16-63) U/L Alkaline Phosphatase 420 H (46-116) U/L Ammonia (11-32) umol/L Total Protein 6.7 (6.4-8.2) g/dl Albumin 3.0 L (3.4-5.0) g/dl Globulin 3.7 gm/dL Albumin/Globulin Ratio 0.8 L (1-2) TSH 3rd Generation (0.358-3.74) uIU/mL Urine Color (Yellow) Urine Appearance (Clear) Urine pH (5.0-8.0) Ur Specific [place] (1.005-1.030) Urine Protein (Negative) Urine Glucose (UA) (Negative) Urine Ketones (Negative) Urine Occult Blood (Negative) Urine Nitrite (Negative) Urine Bilirubin (Negative) Urine Urobilinogen (0.2-1.0) Ur Leukocyte Esterase (Negative) Hepatitis C Antibody Negative (NEGATIVE) 11/07/19 11/07/19 11/08/19 Range/Units 16:44 21:04 05:08 WBC 4.06 L (4.23-9.07) K/mm3 RBC 3.63 L (4.63-6.08) M/mm3 Hgb 10.9 L (13.7-17.5) gm/dl Hct 31.7 L (40.1-51.0) % MCV 87.3 (79.0-92.2) fl MCH 30.0 (25.7-32.2) pg MCHC 34.4 (32.2-35.5) g/dl RDW Std Deviation 42.0 (35.1-43.9) fL Plt Count 190 (163-337) K/mm3 MPV 10.8 (9.4-12.3) fl Neut % (Auto) 75.8 H (34.0-67.9) % Lymph % (Auto) 8.9 L (21.8-53.1) % Clark % (Auto) 9.4 (5.3-12.2) % Eos % (Auto) 4.2 (0.8-7.0) Baso % (Auto) 0.2 (0.1-1.2) % Neut # (Auto) 3.08 (1.78-5.38) K/mm3 Lymph # (Auto) 0.36 L (1.32-3.57) K/mm3 Clark # (Auto) 0.38 (0.30-0.82) K/mm3 Eos # (Auto) 0.17 (0.04-0.54) K/mm3 Baso # (Auto) 0.01 (0.01-0.08) K/mm3 Manual Slide Review Abnormal smear PT (9.7-12.0) SECONDS INR APTT (22-31) SECONDS Sodium (136-145) mEq/L Potassium (3.5-5.1) mEq/L Chloride (98-107) mEq/L Carbon Dioxide (21-32) mEq/L Anion Gap (5-15) BUN (7-18) mg/dL Creatinine (0.7-1.3) mg/dL Est Cr Clr Drug Dosing mL/min Estimated GFR (MDRD) (>60) mL/min BUN/Creatinine Ratio (14-18) Glucose (80-115) mg/dL POC Glucose 82 91 (80-115) mg/dL Hemoglobin A1c (4.50-6.20) % Calcium (8.5-10.1) mg/dL Phosphorus (2.6-4.7) mg/dL Magnesium (1.8-2.4) mg/dl Total Bilirubin (0.2-1.0) mg/dL AST (15-37) U/L ALT (16-63) U/L Alkaline Phosphatase (46-116) U/L Ammonia (11-32) umol/L Total Protein (6.4-8.2) g/dl Albumin (3.4-5.0) g/dl Globulin gm/dL Albumin/Globulin Ratio (1-2) TSH 3rd Generation (0.358-3.74) uIU/mL Urine Color (Yellow) Urine Appearance (Clear) Urine pH (5.0-8.0) Ur Specific [place] (1.005-1.030) Urine Protein (Negative) Urine Glucose (UA) (Negative) Urine Ketones (Negative) Urine Occult Blood (Negative) Urine Nitrite (Negative) Urine Bilirubin (Negative) Urine Urobilinogen (0.2-1.0) Ur Leukocyte Esterase (Negative) Hepatitis C Antibody (NEGATIVE) 11/08/19 11/08/19 11/08/19 Range/Units 05:08 05:08 05:08 WBC (4.23-9.07) K/mm3 RBC (4.63-6.08) M/mm3 Hgb (13.7-17.5) gm/dl Hct (40.1-51.0) % MCV (79.0-92.2) fl MCH (25.7-32.2) pg MCHC (32.2-35.5) g/dl RDW Std Deviation (35.1-43.9) fL Plt Count (163-337) K/mm3 MPV (9.4-12.3) fl Neut % (Auto) (34.0-67.9) % Lymph % (Auto) (21.8-53.1) % Clark % (Auto) (5.3-12.2) % Eos % (Auto) (0.8-7.0) Baso % (Auto) (0.1-1.2) % Neut # (Auto) (1.78-5.38) K/mm3 Lymph # (Auto) (1.32-3.57) K/mm3 Clark # (Auto) (0.30-0.82) K/mm3 Eos # (Auto) (0.04-0.54) K/mm3 Baso # (Auto) (0.01-0.08) K/mm3 Manual Slide Review PT 10.6 (9.7-12.0) SECONDS INR 0.99 APTT 22 (22-31) SECONDS Sodium 128 L (136-145) mEq/L Potassium 3.2 L (3.5-5.1) mEq/L Chloride 87 L (98-107) mEq/L Carbon Dioxide 23 (21-32) mEq/L Anion Gap 21.2 H (5-15) BUN 17 (7-18) mg/dL Creatinine 1.1 (0.7-1.3) mg/dL Est Cr Clr Drug Dosing 66.06 mL/min Estimated GFR (MDRD) > 60 (>60) mL/min BUN/Creatinine Ratio 15.5 (14-18) Glucose 161 H (80-115) mg/dL POC Glucose (80-115) mg/dL Hemoglobin A1c 9.80 H (4.50-6.20) % Calcium 9.1 (8.5-10.1) mg/dL Phosphorus 2.0 L (2.6-4.7) mg/dL Magnesium 1.6 L (1.8-2.4) mg/dl Total Bilirubin 5.3 H (0.2-1.0) mg/dL AST 1434 H (15-37) U/L ALT 781 H (16-63) U/L Alkaline Phosphatase 524 H (46-116) U/L Ammonia (11-32) umol/L Total Protein 6.9 (6.4-8.2) g/dl Albumin 3.0 L (3.4-5.0) g/dl Globulin 3.9 gm/dL Albumin/Globulin Ratio 0.8 L (1-2) TSH 3rd Generation 1.066 (0.358-3.74) uIU/mL Urine Color (Yellow) Urine Appearance (Clear) Urine pH (5.0-8.0) Ur Specific [place] (1.005-1.030) Urine Protein (Negative) Urine Glucose (UA) (Negative) Urine Ketones (Negative) Urine Occult Blood (Negative) Urine Nitrite (Negative) Urine Bilirubin (Negative) Urine Urobilinogen (0.2-1.0) Ur Leukocyte Esterase (Negative) Hepatitis C Antibody (NEGATIVE) 11/08/19 11/08/19 11/08/19 Range/Units 05:16 06:45 09:15 WBC (4.23-9.07) K/mm3 RBC (4.63-6.08) M/mm3 Hgb (13.7-17.5) gm/dl Hct (40.1-51.0) % MCV (79.0-92.2) fl MCH (25.7-32.2) pg MCHC (32.2-35.5) g/dl RDW Std Deviation (35.1-43.9) fL Plt Count (163-337) K/mm3 MPV (9.4-12.3) fl Neut % (Auto) (34.0-67.9) % Lymph % (Auto) (21.8-53.1) % Clark % (Auto) (5.3-12.2) % Eos % (Auto) (0.8-7.0) Baso % (Auto) (0.1-1.2) % Neut # (Auto) (1.78-5.38) K/mm3 Lymph # (Auto) (1.32-3.57) K/mm3 Clark # (Auto) (0.30-0.82) K/mm3 Eos # (Auto) (0.04-0.54) K/mm3 Baso # (Auto) (0.01-0.08) K/mm3 Manual Slide Review PT (9.7-12.0) SECONDS INR APTT (22-31) SECONDS Sodium (136-145) mEq/L Potassium (3.5-5.1) mEq/L Chloride (98-107) mEq/L Carbon Dioxide (21-32) mEq/L Anion Gap (5-15) BUN (7-18) mg/dL Creatinine (0.7-1.3) mg/dL Est Cr Clr Drug Dosing mL/min Estimated GFR (MDRD) (>60) mL/min BUN/Creatinine Ratio (14-18) Glucose (80-115) mg/dL POC Glucose 167 H (80-115) mg/dL Hemoglobin A1c (4.50-6.20) % Calcium (8.5-10.1) mg/dL Phosphorus (2.6-4.7) mg/dL Magnesium (1.8-2.4) mg/dl Total Bilirubin (0.2-1.0) mg/dL AST (15-37) U/L ALT (16-63) U/L Alkaline Phosphatase (46-116) U/L Ammonia 22 (11-32) umol/L Total Protein (6.4-8.2) g/dl Albumin (3.4-5.0) g/dl Globulin gm/dL Albumin/Globulin Ratio (1-2) TSH 3rd Generation (0.358-3.74) uIU/mL Urine Color Yellow (Yellow) Urine Appearance Clear (Clear) Urine pH 6.5 (5.0-8.0) Ur Specific [place] 1.020 (1.005-1.030) Urine Protein 1+ H (Negative) Urine Glucose (UA) 1+ H (Negative) Urine Ketones 3+ H (Negative) Urine Occult Blood 1+ H (Negative) Urine Nitrite Negative (Negative) Urine Bilirubin Negative (Negative) Urine Urobilinogen 1.0 (0.2-1.0) Ur Leukocyte Esterase Negative (Negative) Hepatitis C Antibody (NEGATIVE) 11/08/19 Range/Units 11:16 WBC (4.23-9.07) K/mm3 RBC (4.63-6.08) M/mm3 Hgb (13.7-17.5) gm/dl Hct (40.1-51.0) % MCV (79.0-92.2) fl MCH (25.7-32.2) pg MCHC (32.2-35.5) g/dl RDW Std Deviation (35.1-43.9) fL Plt Count (163-337) K/mm3 MPV (9.4-12.3) fl Neut % (Auto) (34.0-67.9) % Lymph % (Auto) (21.8-53.1) % Clark % (Auto) (5.3-12.2) % Eos % (Auto) (0.8-7.0) Baso % (Auto) (0.1-1.2) % Neut # (Auto) (1.78-5.38) K/mm3 Lymph # (Auto) (1.32-3.57) K/mm3 Clark # (Auto) (0.30-0.82) K/mm3 Eos # (Auto) (0.04-0.54) K/mm3 Baso # (Auto) (0.01-0.08) K/mm3 Manual Slide Review PT (9.7-12.0) SECONDS INR APTT (22-31) SECONDS Sodium (136-145) mEq/L Potassium (3.5-5.1) mEq/L Chloride (98-107) mEq/L Carbon Dioxide (21-32) mEq/L Anion Gap (5-15) BUN (7-18) mg/dL Creatinine (0.7-1.3) mg/dL Est Cr Clr Drug Dosing mL/min Estimated GFR (MDRD) (>60) mL/min BUN/Creatinine Ratio (14-18) Glucose (80-115) mg/dL POC Glucose 187 H (80-115) mg/dL Hemoglobin A1c (4.50-6.20) % Calcium (8.5-10.1) mg/dL Phosphorus (2.6-4.7) mg/dL Magnesium (1.8-2.4) mg/dl Total Bilirubin (0.2-1.0) mg/dL AST (15-37) U/L ALT (16-63) U/L Alkaline Phosphatase (46-116) U/L Ammonia (11-32) umol/L Total Protein (6.4-8.2) g/dl Albumin (3.4-5.0) g/dl Globulin gm/dL Albumin/Globulin Ratio (1-2) TSH 3rd Generation (0.358-3.74) uIU/mL Urine Color (Yellow) Urine Appearance (Clear) Urine pH (5.0-8.0) Ur Specific [place] (1.005-1.030) Urine Protein (Negative) Urine Glucose (UA) (Negative) Urine Ketones (Negative) Urine Occult Blood (Negative) Urine Nitrite (Negative) Urine Bilirubin (Negative) Urine Urobilinogen (0.2-1.0) Ur Leukocyte Esterase (Negative) Hepatitis C Antibody (NEGATIVE) Med Orders - Current: Current Medications Amlodipine Besylate (Norvasc) 5 mg PO DAILY [facility] Last Admin: 11/08/19 08:20 Dose: 5 mg Documented by: Dextrose/Water (Dextrose 50% In Water) 50 ml IVPUSH ASDIRECTED PRN PRN Reason: Hypoglycemia Enoxaparin Sodium (Lovenox) 40 mg SUBCUT DAILY [facility] Last Admin: 11/08/19 08:23 Dose: 40 mg Documented by: Fluoxetine HCl (Prozac) 20 mg PO DAILY [facility] Last Admin: 11/08/19 08:20 Dose: 20 mg Documented by: Folic Acid (Folic Acid) 1 mg PO DAILY [facility] Last Admin: 11/08/19 08:20 Dose: 1 mg Documented by: Potassium Phosphate 30 mmole/ (Sodium Chloride) 510 mls @ 102 mls/hr IV ONETIME ONE Stop: 11/08/19 17:59 Last Admin: 11/08/19 12:45 Dose: 102 mls/hr Documented by: Sodium Chloride (Normal Saline) 1,000 mls @ 150 mls/hr IV ASDIRECTED [facility] Last Admin: 11/08/19 12:48 Dose: 150 mls/hr Documented by: Insulin Glargine (Lantus) 20 unit SUBCUT DAILY [facility] Last Admin: 11/08/19 08:21 Dose: 20 units Documented by: Insulin Human Lispro (Humalog) 0 unit SUBCUT QIDACANDBED [facility]; Protocol Last Admin: 11/08/19 11:16 Dose: 2 units Documented by: Insulin Human Lispro (Humalog) 5 unit SUBCUT TIDAC [facility] Last Admin: 11/08/19 11:17 Dose: 5 units Documented by: Lorazepam (Ativan) 0 mg IVPUSH Q15M PRN; Protocol PRN Reason: Withdrawal Symptoms Last Admin: 11/08/19 00:06 Dose: 1 mg Documented by: Lorazepam (Ativan) 0 mg PO Q1H PRN; Protocol PRN Reason: Withdrawal Symptoms Mirtazapine (Remeron) 7.5 mg PO BEDTIME [facility] Last Admin: 11/07/19 21:05 Dose: 7.5 mg Documented by: Miscellaneous Information (Remove Patch) 1 ea TRDERM DAILY [facility] Nicotine (Habitrol) 21 mg TRDERM DAILY [facility] Last Admin: 11/08/19 08:21 Dose: Not Given Documented by: Sodium Chloride (Saline Flush) 10 ml FLUSH ASDIRECTED PRN PRN Reason: Keep Vein Open Last Admin: 11/07/19 01:55 Dose: 10 ml Documented by: Thiamine HCl (Vitamin B-1) 100 mg PO BEDTIME [facility] Last Admin: 11/07/19 21:06 Dose: 100 mg Documented by: Topiramate (Topamax) 25 mg PO BID [facility] Last Admin: 11/08/19 08:20 Dose: 25 mg Documented by: Discontinued Medications Enoxaparin Sodium (Lovenox) 40 mg SUBCUT Q24H [facility] Sodium Chloride (Normal Saline) 1,000 mls @ 999 mls/hr IV ONETIME [facility] Last Admin: 11/07/19 01:55 Dose: 999 mls/hr Documented by: Lactated Ringer's (Ringers, Lactated) 1,000 mls @ 999 mls/hr IV .BOLUS ONE Stop: 11/07/19 03:46 Last Admin: 11/07/19 02:58 Dose: 999 mls/hr Documented by: Lactated Ringer's (Ringers, Lactated) 1,000 mls @ 150 mls/hr IV ASDIRECTED [facility] Last Admin: 11/07/19 13:29 Dose: 150 mls/hr Documented by: Magnesium Sulfate/Dextrose 1 (gm/ Premix) 100 mls @ 100 mls/hr IV ONETIME ONE Stop: 11/07/19 10:55 Last Admin: 11/07/19 10:01 Dose: Not Given Documented by: Magnesium Sulfate/Dextrose 1 (gm/ Premix) 100 mls @ 100 mls/hr IV Q1H [facility] Stop: 11/07/19 14:14 Magnesium Sulfate 2 gm/ Premix 50 mls @ 25 mls/hr IV ONETIME ONE Stop: 11/07/19 12:13 Last Admin: 11/07/19 10:20 Dose: 25 mls/hr Documented by: Sodium Chloride (Normal Saline) 1,000 mls @ 150 mls/hr IV ASDIRECTED [facility] Last Admin: 11/08/19 06:42 Dose: 150 mls/hr Documented by: Magnesium Sulfate 4 gm/ Premix 50 mls @ 12.5 mls/hr IV ONETIME ONE Stop: 11/08/19 12:59 Last Admin: 11/08/19 08:54 Dose: 12.5 mls/hr Documented by: Insulin Glargine (Lantus) 25 unit SUBCUT BEDTIME [facility] Last Admin: 11/07/19 21:08 Dose: Not Given Documented by: Lorazepam (Ativan) 1 mg IVPUSH ONETIME ONE Stop: 11/07/19 07:00 Last Admin: 11/07/19 07:09 Dose: 1 mg Documented by: Simvastatin (Zocor) 10 mg PO DAILY [facility] Last Admin: 11/08/19 08:20 Dose: 10 mg Documented by: Thiamine HCl (Vitamin B-1) 100 mg IVPUSH ONETIME ONE Stop: 11/07/19 11:01 Last Admin: 11/07/19 12:45 Dose: 100 mg Documented by: - Exam Quality Assessment: Urine Catheter. No: Supplemental Oxygen General: Oriented, Other (Bradykinesia) HEENT: Pupils Equal, Mucous Membr. Moist/[place] Neck: Supple Lungs: Clear to Auscultation, Normal Respiratory Effort Cardiovascular: Regular Rate, Regular Rhythm GI/Abdominal Exam: Normal Bowel Sounds, Soft, Non-Tender, No Distention Extremities: Normal Inspection, Normal Range of Motion, Non-Tender, No Pedal Edema, Normal Capillary Refill Skin: Warm, Dry, Intact Neurological: Other (Global weakness) Psy/Mental Status: Alert, Normal Affect, Normal Mood Sepsis Event Note - Evaluation Sepsis Screening Result: No Definite Risk - Focused Exam Vital Signs: Vital Signs Temp Resp BP BP Pulse Ox 11/08/19 08:20 130/80 11/08/19 08:00 98.5 F 19 130/80 98 11/08/19 04:00 97.5 F 24 H 157/74 H 97 11/08/19 02:00 23 H 96 - Problem List & Annotations (1) Alcoholic hepatitis with ascites SNOMED Code(s): 9478091641758061 Code(s): K70.11 - ALCOHOLIC HEPATITIS WITH ASCITES Status: Acute Current Visit: Yes (2) Uncontrolled diabetes mellitus SNOMED Code(s): 90614812, 275443716 Code(s): E11.65 - TYPE 2 DIABETES MELLITUS WITH HYPERGLYCEMIA Status: Acute Current Visit: Yes (3) Alcohol intoxication SNOMED Code(s): 26162501 Code(s): F10.929 - ALCOHOL USE, UNSPECIFIED WITH INTOXICATION, UNSPECIFIED Status: Acute Current Visit: Yes Qualifiers: Complication of substance-induced condition: uncomplicated Qualified Code(s): F10.920 - Alcohol use, unspecified with intoxication, uncomplicated (4) Elevated liver enzymes SNOMED Code(s): 304875117 Code(s): R74.8 - ABNORMAL LEVELS OF OTHER SERUM ENZYMES Status: Acute Current Visit: Yes (5) Acute renal injury SNOMED Code(s): 98122701, 06771048 Code(s): N17.9 - ACUTE KIDNEY FAILURE, UNSPECIFIED Status: Resolved Priority: High Current Visit: No (6) [id number] kidney injury SNOMED Code(s): 940706813 Code(s): N17.9 - ACUTE KIDNEY FAILURE, UNSPECIFIED; N18.9 - CHRONIC KIDNEY DISEASE, UNSPECIFIED Status: Resolved Priority: High Current Visit: No (7) Hypomagnesemia SNOMED Code(s): 753997483 Code(s): E83.42 - HYPOMAGNESEMIA Status: Resolved Priority: High Current Visit: No - Problem List Review Problem List Initiated/Reviewed/Updated: Yes - My Orders Last 24 Hours: My Active Orders 11/07/19 12:08 Consult to Case Management/Education And Training Manager [CONS] Routine 11/07/19 13:00 Enoxaparin [Lovenox] 40 mg SUBCUT DAILY 11/07/19 13:26 Code Status [Resuscitation Status] Routine 11/07/19 13:27 OT Evaluation and Treatment [CONS] Routine PT Evaluation and Treatment [CONS] Routine 11/07/19 14:30 Insulin Lispro [HumaLOG] See Protocol SUBCUT QIDACANDBED 11/07/19 17:00 Insulin Lispro [HumaLOG] 5 unit SUBCUT TIDAC 11/07/19 21:00 Mirtazapine [Remeron] 7.5 mg PO BEDTIME Thiamine [Vitamin B-1] 100 mg PO BEDTIME Topiramate [Topamax] 25 mg PO BID 11/07/19 21:11 Up ad Alla [RC] ASDIRECTED 11/08/19 03:15 Insert Ghosh Catheter [Insert Urinary Catheter] [OM.PC] Q24H 11/08/19 04:21 Urinary Catheter Assessment [RC] Q4HR 11/08/19 Breakfast NPO After Midnight [Nothing per Oral After Midnight Diet] [DIET] 11/08/19 09:00 FLUoxetine [PROzac] 20 mg PO DAILY Folic Acid 1 mg PO DAILY Insulin Glarg,Human.Rec.Analog [LantUS] 20 unit SUBCUT DAILY Nicotine [Habitrol] 21 mg TRDERM DAILY amLODIPine [Norvasc] 5 mg PO DAILY 11/08/19 10:45 Sodium Chloride 0.9% [Normal Saline] 1,000 ml IV ASDIRECTED 11/08/19 11:23 Patient Status [ADT] Routine 11/08/19 13:00 Potassium Phosphates 30 mmole Sodium Chloride 0.9% [Normal Saline] 500 ml IV ONETIME 11/09/19 05:11 CBC WITH AUTO DIFF [HEME] AM CMP [COMPREHENSIVE METABOLIC PN,CMP] [CHEM] AM MAGNESIUM [CHEM] AM PHOSPHORUS [CHEM] AM 11/09/19 09:00 Remove Patch 1 ea TRDERM DAILY 11/10/19 05:11 CBC WITH AUTO DIFF [HEME] AM CMP [COMPREHENSIVE METABOLIC PN,CMP] [CHEM] AM MAGNESIUM [CHEM] AM PHOSPHORUS [CHEM] AM - Assessment Assessment:: 11/07/2019 Assessment Alcohol intoxication with alcohol withdrawal * Patient is known to be a heavy alcohol consumer with previous severe alcohol withdrawal. * Patient denies any history of seizure with alcohol withdrawal. * Patient did start developing some withdrawal symptoms while having an ethanol level of 0.18 g%. This increases his risk for difficulty and severe detox. * Patient is requesting help with quitting. * visitor services information assistant has already been consulted and has seen him. Hyponatremia/hypomagnesemia * Serum and urine osmolality was not obtained prior to fluid boluses. * Corrected sodium 128 * Magnesium 1.7 * Given magnesium riders in the ER Acute renal injury * Estimated GFR 39 * Creatinine 1.8 * BUN to creatinine ratio 23.3 * Likely injury is from hypovolemia Alcoholic hepatitis-recurrent * Total bilirubin 3.2, AST 888, ALT 677, alkaline phosphatase 411, albumin 3.3 * PT, INR, PTT not obtained Depression * Patient is not complaining of depression currently. * He was started on Prozac last hospitalization. Nicotine dependence * Currently using nicotine patch 11/08/2019 Alcohol intoxication with alcohol withdrawal * Patient has had minimal alcohol withdrawal so far. * He only received 1 mg of Ativan overnight. * CIWA scores are less than 8 this morning * Unlikely he will have significant withdrawal. Hyponatremia/hypomagnesemia/hypophosphatemia/hypokalemia * Potassium 3.2, magnesium 1.6, phosphorus 2.0, sodium 128 * No arrhythmias Acute renal injury-improved * Estimated GFR 60, creatinine 1.1 * Anion gap increased to 21 Alcoholic hepatitisdeteriorated * AST 1434, ALT 781, alkaline phosphatase 524 * Total bilirubin 5.3, INR 1, albumin 3.0 * MELD score (NEW) 22 -19.6 % mortality and 90 days * Abdominal ultrasound showed fatty liver, slight gallbladder wall thickening but no biliary duct dilatation, gallstones, or pericholecystic fluid. Possible minimal fluid between the liver and diaphragm suggesting minimal ascites. * Ammonia level 22normal * Hepatitis C- Uncontrolled diabetes * Hemoglobin A1c 9.8 * Home insulin: Lantus 30 units nightly, Humalog 7 units in the morning and 10 units at 11 and 2200 with sliding scale. * Patient was not given his Lantus last night because of borderline low blood sugars. Depression * Stable Nicotine dependence * Nicotine patch - Plan Plan:: 11/07/2019 * Admit to ICU * Aggressive fluid rehydration * CIWAA protocol * Ativan for withdrawal symptoms * Fingerstick blood sugars 4 times daily with sliding scale coverage * Lantus 25 units nightly * Humalog 5 units with each meal * Hemoglobin A1c, TSH * Trend CBC, CMP, magnesium * Get PT, INR, PTT * Continue nicotine patch. * When patient is medically stable refer to alcohol rehab * Abdominal ultrasound in the morning * Hepatitis C and B screening * Regular diet * VTE prophylaxis with Lovenox * CODE STATUS: Full code * Length of stay 2 to 3 days. 11/08/2019 * Continue IV fluids until this afternoon. If continuing to eat adequately to drink adequately will stop and recheck anion gap in the morning. * Lantus 20 units in the morning * Humalog 5 units after meals * Sliding scale insulin * Encourage patient to stop alcohol. * visitor services information assistant consult * PT consult * Continue CIWAA at every 4 hours with Ativan coverage * Anticipate discharge in 1 to 2 days.
--- NOTE | 2019-11-08 16:18 | CR ---
Abdomen: Upright and supine study of the abdomen was obtained. Comparison: No previous study. Vas deferens calcification is seen. Prior lumbar spine surgery is noted. Calcifications within the pelvis compatible with phleboliths. No free air is seen. Bowel gas pattern is normal. Impression: 1. Findings as noted above. 2. Nothing acute is seen. Diagnostic code #2 This report was dictated in MDT
[2019-11-08] MEDS: Mirtazapine 15 MG Tab PO SCH (20:27)
[2019-11-08] MEDS: Thiamine 100 MG Tab PO SCH (20:28)
[2019-11-09] MEDS: Insulin Lispro 100 Units/ML 3 ML Vial SUBCUT SCH ×5 (07:22→21:00)
[2019-11-09] MEDS: Insulin Glarg,Human.Rec.Analog 100 Unit/ML SUBCUT SCH (08:11)
[2019-11-09] MEDS: Enoxaparin 40 MG/0.4 ML Syringe SUBCUT SCH (08:12)
[2019-11-09] MEDS: Folic Acid 1 MG Tab PO SCH (08:12)
[2019-11-09] MEDS: amLODIPine 5 MG Tab PO SCH (08:12)
[2019-11-09] MEDS: FLUoxetine 20 MG Cap PO SCH (08:12)
[2019-11-09] MEDS: Topiramate 25 MG Tab PO SCH ×2 (08:12→20:43)
[2019-11-09] MEDS: Nicotine 21 MG/24 Hr Patch TRDERM SCH (08:13)
--- NOTE | 2019-11-09 09:54 | PCM.PN ---
- General Info Date of Service: 11/09/19 Admission Dx/Problem (Free Text): Admission Diagnosis/Problem Admission Diagnosis/Problem Alcohol dependence with withdrawal Functional Status: Reports: Pain Controlled, Tolerating Diet, Ambulating, Urinating - Review of Systems General: Reports: Weakness (improving ). Denies: Fever, Fatigue, Chills HEENT: Reports: No Symptoms. Denies: Headaches, Sore Throat Pulmonary: Reports: No Symptoms. Denies: Shortness of Breath, Cough, Sputum, Wheezing Cardiovascular: Reports: No Symptoms. Denies: Chest Pain, Palpitations, Edema Gastrointestinal: Reports: No Symptoms. Denies: Abdominal Pain, Constipation, Diarrhea, Nausea, Vomiting Genitourinary: Reports: No Symptoms. Denies: Pain Musculoskeletal: Reports: No Symptoms Skin: Reports: No Symptoms. Denies: Cyanosis Neurological: Reports: Difficulty Walking, Weakness, Gait Disturbance. Denies: Numbness, Tingling Psychiatric: Reports: No Symptoms - Patient Data Vitals - Most Recent: Last Vital Signs Temp 97.8 F 11/09/19 08:13 Pulse 97 11/09/19 08:13 Resp 19 11/09/19 08:13 BP 132/71 11/09/19 08:13 Pulse Ox 97 11/09/19 08:13 Weight - Most Recent: 144 lb 4.8 oz I&O - Last 24 Hours: Intake & Output 11/08/19 11/09/19 11/09/19 22:59 06:59 14:59 Intake Total 2479 350 Output Total 625 400 300 Balance 1854 -50 -300 Lab Results Last 24 Hours: Laboratory Results - last 24 hr 11/08/19 11/08/19 11/08/19 Range/Units 11:16 17:03 20:32 WBC (4.23-9.07) K/mm3 RBC (4.63-6.08) M/mm3 Hgb (13.7-17.5) gm/dl Hct (40.1-51.0) % MCV (79.0-92.2) fl MCH (25.7-32.2) pg MCHC (32.2-35.5) g/dl RDW Std Deviation (35.1-43.9) fL Plt Count (163-337) K/mm3 MPV (9.4-12.3) fl Neut % (Auto) (34.0-67.9) % Lymph % (Auto) (21.8-53.1) % [place] % (Auto) (5.3-12.2) % Eos % (Auto) (0.8-7.0) Baso % (Auto) (0.1-1.2) % Neut # (Auto) (1.78-5.38) K/mm3 Lymph # (Auto) (1.32-3.57) K/mm3 [place] # (Auto) (0.30-0.82) K/mm3 Eos # (Auto) (0.04-0.54) K/mm3 Baso # (Auto) (0.01-0.08) K/mm3 Manual Slide Review Sodium (136-145) mEq/L Potassium (3.5-5.1) mEq/L Chloride (98-107) mEq/L Carbon Dioxide (21-32) mEq/L Anion Gap (5-15) BUN (7-18) mg/dL Creatinine (0.7-1.3) mg/dL Est Cr Clr Drug Dosing mL/min Estimated GFR (MDRD) (>60) mL/min BUN/Creatinine Ratio (14-18) Glucose (80-115) mg/dL POC Glucose 187 H 96 276 H (80-115) mg/dL Calcium (8.5-10.1) mg/dL Phosphorus (2.6-4.7) mg/dL Magnesium (1.8-2.4) mg/dl Total Bilirubin (0.2-1.0) mg/dL AST (15-37) U/L ALT (16-63) U/L Alkaline Phosphatase (46-116) U/L Total Protein (6.4-8.2) g/dl Albumin (3.4-5.0) g/dl Globulin gm/dL Albumin/Globulin Ratio (1-2) 11/09/19 11/09/19 11/09/19 Range/Units 05:03 05:03 05:03 WBC 4.33 (4.23-9.07) K/mm3 RBC 3.60 L (4.63-6.08) M/mm3 Hgb 10.7 L (13.7-17.5) gm/dl Hct 31.3 L (40.1-51.0) % MCV 86.9 (79.0-92.2) fl MCH 29.7 (25.7-32.2) pg MCHC 34.2 (32.2-35.5) g/dl RDW Std Deviation 42.0 (35.1-43.9) fL Plt Count 214 (163-337) K/mm3 MPV 11.1 (9.4-12.3) fl Neut % (Auto) 72.1 H (34.0-67.9) % Lymph % (Auto) 9.9 L (21.8-53.1) % [place] % (Auto) 9.7 (5.3-12.2) % Eos % (Auto) 6.2 (0.8-7.0) Baso % (Auto) 0.5 (0.1-1.2) % Neut # (Auto) 3.12 (1.78-5.38) K/mm3 Lymph # (Auto) 0.43 L (1.32-3.57) K/mm3 [place] # (Auto) 0.42 (0.30-0.82) K/mm3 Eos # (Auto) 0.27 (0.04-0.54) K/mm3 Baso # (Auto) 0.02 (0.01-0.08) K/mm3 Manual Slide Review Normal smear Sodium 129 L (136-145) mEq/L Potassium 2.9 L (3.5-5.1) mEq/L Chloride 91 L (98-107) mEq/L Carbon Dioxide 26 (21-32) mEq/L Anion Gap 14.9 (5-15) BUN 13 (7-18) mg/dL Creatinine 1.0 (0.7-1.3) mg/dL Est Cr Clr Drug Dosing 71.82 mL/min Estimated GFR (MDRD) > 60 (>60) mL/min BUN/Creatinine Ratio 13.0 L (14-18) Glucose 87 (80-115) mg/dL POC Glucose 78 L (80-115) mg/dL Calcium 9.2 (8.5-10.1) mg/dL Phosphorus 2.3 L (2.6-4.7) mg/dL Magnesium 1.8 (1.8-2.4) mg/dl Total Bilirubin 5.7 H (0.2-1.0) mg/dL AST 1024 H (15-37) U/L ALT 688 H (16-63) U/L Alkaline Phosphatase 544 H (46-116) U/L Total Protein 6.6 (6.4-8.2) g/dl Albumin 2.9 L (3.4-5.0) g/dl Globulin 3.7 gm/dL Albumin/Globulin Ratio 0.8 L (1-2) 11/09/19 11/09/19 Range/Units 06:09 08:11 WBC (4.23-9.07) K/mm3 RBC (4.63-6.08) M/mm3 Hgb (13.7-17.5) gm/dl Hct (40.1-51.0) % MCV (79.0-92.2) fl MCH (25.7-32.2) pg MCHC (32.2-35.5) g/dl RDW Std Deviation (35.1-43.9) fL Plt Count (163-337) K/mm3 MPV (9.4-12.3) fl Neut % (Auto) (34.0-67.9) % Lymph % (Auto) (21.8-53.1) % [place] % (Auto) (5.3-12.2) % Eos % (Auto) (0.8-7.0) Baso % (Auto) (0.1-1.2) % Neut # (Auto) (1.78-5.38) K/mm3 Lymph # (Auto) (1.32-3.57) K/mm3 [place] # (Auto) (0.30-0.82) K/mm3 Eos # (Auto) (0.04-0.54) K/mm3 Baso # (Auto) (0.01-0.08) K/mm3 Manual Slide Review Sodium (136-145) mEq/L Potassium (3.5-5.1) mEq/L Chloride (98-107) mEq/L Carbon Dioxide (21-32) mEq/L Anion Gap (5-15) BUN (7-18) mg/dL Creatinine (0.7-1.3) mg/dL Est Cr Clr Drug Dosing mL/min Estimated GFR (MDRD) (>60) mL/min BUN/Creatinine Ratio (14-18) Glucose (80-115) mg/dL POC Glucose 146 H 152 H (80-115) mg/dL Calcium (8.5-10.1) mg/dL Phosphorus (2.6-4.7) mg/dL Magnesium (1.8-2.4) mg/dl Total Bilirubin (0.2-1.0) mg/dL AST (15-37) U/L ALT (16-63) U/L Alkaline Phosphatase (46-116) U/L Total Protein (6.4-8.2) g/dl Albumin (3.4-5.0) g/dl Globulin gm/dL Albumin/Globulin Ratio (1-2) Med Orders - Current: Current Medications Amlodipine Besylate (Norvasc) 5 mg PO DAILY [facility] Last Admin: 11/09/19 08:12 Dose: 5 mg Documented by: Dextrose/Water (Dextrose 50% In Water) 50 ml IVPUSH ASDIRECTED PRN PRN Reason: Hypoglycemia Enoxaparin Sodium (Lovenox) 40 mg SUBCUT DAILY [facility] Last Admin: 11/09/19 08:12 Dose: 40 mg Documented by: Fluoxetine HCl (Prozac) 20 mg PO DAILY [facility] Last Admin: 11/09/19 08:12 Dose: 20 mg Documented by: Folic Acid (Folic Acid) 1 mg PO DAILY [facility] Last Admin: 11/09/19 08:12 Dose: 1 mg Documented by: Potassium Chloride 10 meq/ (Premix) 100 mls @ 100 mls/hr IV Q1H [facility] Stop: 11/09/19 15:59 Insulin Glargine (Lantus) 20 unit SUBCUT DAILY [facility] Last Admin: 11/09/19 08:11 Dose: 20 units Documented by: Insulin Human Lispro (Humalog) 0 unit SUBCUT QIDACANDBED [facility]; Protocol Last Admin: 11/09/19 07:22 Dose: Not Given Documented by: Insulin Human Lispro (Humalog) 5 unit SUBCUT TIDPC [facility] Last Admin: 11/09/19 08:12 Dose: 5 units Documented by: Lorazepam (Ativan) 0 mg IVPUSH Q15M PRN; Protocol PRN Reason: Withdrawal Symptoms Last Admin: 11/08/19 00:06 Dose: 1 mg Documented by: Lorazepam (Ativan) 0 mg PO Q1H PRN; Protocol PRN Reason: Withdrawal Symptoms Mirtazapine (Remeron) 7.5 mg PO BEDTIME [facility] Last Admin: 11/08/19 20:27 Dose: 7.5 mg Documented by: Miscellaneous Information (Remove Patch) 1 ea TRDERM DAILY [facility] Last Admin: 11/09/19 08:13 Dose: Not Given Documented by: Nicotine (Habitrol) 21 mg TRDERM DAILY [facility] Last Admin: 11/09/19 08:13 Dose: Not Given Documented by: Sodium Chloride (Saline Flush) 10 ml FLUSH ASDIRECTED PRN PRN Reason: Keep Vein Open Last Admin: 11/07/19 01:55 Dose: 10 ml Documented by: Thiamine HCl (Vitamin B-1) 100 mg PO BEDTIME [facility] Last Admin: 11/08/19 20:28 Dose: 100 mg Documented by: Topiramate (Topamax) 25 mg PO BID [facility] Last Admin: 11/09/19 08:12 Dose: 25 mg Documented by: Discontinued Medications Enoxaparin Sodium (Lovenox) 40 mg SUBCUT Q24H [facility] Sodium Chloride (Normal Saline) 1,000 mls @ 999 mls/hr IV ONETIME [facility] Last Admin: 11/07/19 01:55 Dose: 999 mls/hr Documented by: Lactated Ringer's (Ringers, Lactated) 1,000 mls @ 999 mls/hr IV .BOLUS ONE Stop: 11/07/19 03:46 Last Admin: 11/07/19 02:58 Dose: 999 mls/hr Documented by: Lactated Ringer's (Ringers, Lactated) 1,000 mls @ 150 mls/hr IV ASDIRECTED [facility] Last Admin: 11/07/19 13:29 Dose: 150 mls/hr Documented by: Magnesium Sulfate/Dextrose 1 (gm/ Premix) 100 mls @ 100 mls/hr IV ONETIME ONE Stop: 11/07/19 10:55 Last Admin: 11/07/19 10:01 Dose: Not Given Documented by: Magnesium Sulfate/Dextrose 1 (gm/ Premix) 100 mls @ 100 mls/hr IV Q1H IVA Stop: 11/07/19 14:14 Magnesium Sulfate 2 gm/ Premix 50 mls @ 25 mls/hr IV ONETIME ONE Stop: 11/07/19 12:13 Last Admin: 11/07/19 10:20 Dose: 25 mls/hr Documented by: Sodium Chloride (Normal Saline) 1,000 mls @ 150 mls/hr IV ASDIRECTED [facility] Last Admin: 11/08/19 06:42 Dose: 150 mls/hr Documented by: Magnesium Sulfate 4 gm/ Premix 50 mls @ 12.5 mls/hr IV ONETIME ONE Stop: 11/08/19 12:59 Last Admin: 11/08/19 08:54 Dose: 12.5 mls/hr Documented by: Potassium Phosphate 30 mmole/ (Sodium Chloride) 510 mls @ 102 mls/hr IV ONETIME ONE Stop: 11/08/19 17:59 Last Admin: 11/08/19 12:45 Dose: 102 mls/hr Documented by: Sodium Chloride (Normal Saline) 1,000 mls @ 150 mls/hr IV ASDIRECTED [facility] Last Admin: 11/08/19 12:48 Dose: 150 mls/hr Documented by: Insulin Glargine (Lantus) 25 unit SUBCUT BEDTIME [facility] Last Admin: 11/07/19 21:08 Dose: Not Given Documented by: Insulin Human Lispro (Humalog) 5 unit SUBCUT TIDAC [facility] Last Admin: 11/08/19 17:05 Dose: Not Given Documented by: Lorazepam (Ativan) 1 mg IVPUSH ONETIME ONE Stop: 11/07/19 07:00 Last Admin: 11/07/19 07:09 Dose: 1 mg Documented by: Simvastatin (Zocor) 10 mg PO DAILY [facility] Last Admin: 11/08/19 08:20 Dose: 10 mg Documented by: Thiamine HCl (Vitamin B-1) 100 mg IVPUSH ONETIME ONE Stop: 11/07/19 11:01 Last Admin: 11/07/19 12:45 Dose: 100 mg Documented by: - Exam Quality Assessment: DVT Prophylaxis General: Alert, Oriented, Cooperative, No Acute Distress HEENT: Pupils Equal, Pupils Reactive, Mucous Membr. Moist/Noonday Neck: Supple, Trachea Midline Lungs: Clear to Auscultation, Normal Respiratory Effort Cardiovascular: Regular Rate, Regular Rhythm GI/Abdominal Exam: Normal Bowel Sounds, Soft, Non-Tender, No Distention (Male) Exam: Deferred Back Exam: Normal Inspection, Full Range of Motion Extremities: Normal Inspection, Normal Range of Motion, Non-Tender, No Pedal Edema, Normal Capillary Refill Skin: Warm, Dry, Intact Neurological: No New Focal Deficit Psy/Mental Status: Alert, Normal Affect, Normal Mood Sepsis Event Note - Evaluation Sepsis Screening Result: No Definite Risk - Focused Exam Vital Signs: Vital Signs Temp Pulse Resp BP BP Pulse Ox 11/09/19 08:13 97.8 F 97 19 132/71 97 11/09/19 08:12 132/71 11/09/19 03:30 97.3 F 91 18 137/81 96 - Problem List & Annotations (1) Alcohol intoxication SNOMED Code(s): 57071372 Code(s): F10.929 - ALCOHOL USE, UNSPECIFIED WITH INTOXICATION, UNSPECIFIED Status: Acute Priority: High Current Visit: Yes Qualifiers: Complication of substance-induced condition: uncomplicated Qualified Code(s): F10.920 - Alcohol use, unspecified with intoxication, uncomplicated (2) Alcoholic hepatitis with ascites SNOMED Code(s): 6826441511187816 Code(s): K70.11 - ALCOHOLIC HEPATITIS WITH ASCITES Status: Acute Priority: High Current Visit: Yes (3) Hypophosphatasia SNOMED Code(s): 000811824 Code(s): E83.39 - OTHER DISORDERS OF PHOSPHORUS METABOLISM Status: Acute Priority: High Current Visit: Yes (4) Elevated liver enzymes SNOMED Code(s): 136553378 Code(s): R74.8 - ABNORMAL LEVELS OF OTHER SERUM ENZYMES Status: Acute Priority: High Current Visit: Yes (5) Generalized weakness SNOMED Code(s): 13983121 Code(s): R53.1 - WEAKNESS Status: Chronic Priority: High Current Visit: Yes (6) Hypoglycemia SNOMED Code(s): 769200811 Code(s): E16.2 - HYPOGLYCEMIA, UNSPECIFIED Status: Acute Priority: High Current Visit: Yes (7) Hypertension SNOMED Code(s): 23815641 Code(s): I10 - ESSENTIAL (PRIMARY) HYPERTENSION Status: Chronic Priority: Medium Current Visit: No Qualifiers: Hypertension type: unspecified Qualified Code(s): I10 - Essential (primary) hypertension (8) Type II diabetes mellitus SNOMED Code(s): 17827676 Code(s): E11.9 - TYPE 2 DIABETES MELLITUS WITHOUT COMPLICATIONS Status: Chronic Priority: High Current Visit: No Qualifiers: 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: without prison use Diabetes mellitus complication status: with other specified complication Qualified Code(s): E11.69 - Type 2 diabetes mellitus with other specified complication (9) Acute renal injury SNOMED Code(s): 81588307, 93016888 Code(s): N17.9 - ACUTE KIDNEY FAILURE, UNSPECIFIED Status: Resolved Priority: High Current Visit: Yes (10) [id number]-[id number] kidney injury SNOMED Code(s): 551222877 Code(s): N17.9 - ACUTE KIDNEY FAILURE, UNSPECIFIED; N18.9 - CHRONIC KIDNEY DISEASE, UNSPECIFIED Status: Resolved Priority: High Current Visit: Yes Qualifiers: Acute renal failure type: unspecified Chronic kidney disease stage: unspecified stage Qualified Code(s): N17.9 - Acute kidney failure, unspecified; N18.9 - Chronic kidney disease, unspecified (11) Hypokalemia SNOMED Code(s): 84537933 Code(s): E87.6 - HYPOKALEMIA Status: Acute Priority: High Current Visit: Yes (12) Hypomagnesemia SNOMED Code(s): 040806636 Code(s): E83.42 - HYPOMAGNESEMIA Status: Acute Priority: High Current Visit: Yes (13) Current every day smoker SNOMED Code(s): 661693376, 026929535 Code(s): F17.200 - NICOTINE DEPENDENCE, UNSPECIFIED, UNCOMPLICATED Status: Chronic Priority: High Current Visit: Yes (14) Uncontrolled diabetes mellitus SNOMED Code(s): 78741326, 573931679 Code(s): E11.65 - TYPE 2 DIABETES MELLITUS WITH HYPERGLYCEMIA Status: Acute Priority: High Current Visit: Yes Qualifiers: Diabetes mellitus type: type 2 Glycemic state: with hypoglycemia Coma presence: without coma Qualified Code(s): E11.649 - Type 2 diabetes mellitus with hypoglycemia without coma - Problem List Review Problem List Initiated/Reviewed/Updated: Yes - My Orders Last 24 Hours: My Active Orders 11/09/19 10:00 Potassium Chloride [KCl 10 MEQ in Water 100 ML] 10 meq Premix Bag 1 bag IV Q1H - Assessment Assessment:: 11/07/2019 Assessment Alcohol intoxication with alcohol withdrawal * Patient is known to be a heavy alcohol consumer with previous severe alcohol withdrawal. * Patient denies any history of seizure with alcohol withdrawal. * Patient did start developing some withdrawal symptoms while having an ethanol level of 0.18 g%. This increases his risk for difficulty and severe detox. * Patient is requesting help with quitting. * consulting services manager has already been consulted and has seen him. Hyponatremia/hypomagnesemia * Serum and urine osmolality was not obtained prior to fluid boluses. * Corrected sodium 128 * Magnesium 1.7 * Given magnesium riders in the ER Acute renal injury * Estimated GFR 39 * Creatinine 1.8 * BUN to creatinine ratio 23.3 * Likely injury is from hypovolemia Alcoholic hepatitis-recurrent * Total bilirubin 3.2, AST 888, ALT 677, alkaline phosphatase 411, albumin 3.3 * PT, INR, PTT not obtained Depression * Patient is not complaining of depression currently. * He was started on Prozac last hospitalization. Nicotine dependence * Currently using nicotine patch 11/08/2019 Alcohol intoxication with alcohol withdrawal * Patient has had minimal alcohol withdrawal so far. * He only received 1 mg of Ativan overnight. * CIWA scores are less than 8 this morning * Unlikely he will have significant withdrawal. Hyponatremia/hypomagnesemia/hypophosphatemia/hypokalemia * Potassium 3.2, magnesium 1.8, phosphorus 2.3, sodium 128 * No arrhythmias Acute renal injury-improved * Estimated GFR 60, creatinine 1.1 * Anion gap increased to 21 Alcoholic hepatitisdeteriorated * AST 1434, ALT 781, alkaline phosphatase 524 * Total bilirubin 5.3, INR 1, albumin 3.0 * MELD score (NEW) 22 -19.6 % mortality and 90 days * Abdominal ultrasound showed fatty liver, slight gallbladder wall thickening but no biliary duct dilatation, gallstones, or pericholecystic fluid. Possible minimal fluid between the liver and diaphragm suggesting minimal ascites. * Ammonia level 22normal * Hepatitis C- Uncontrolled diabetes * Hemoglobin A1c 9.8 * Home insulin: Lantus 30 units nightly, Humalog 7 units in the morning and 10 units at 11 and 2200 with sliding scale. * Patient was not given his Lantus last night because of borderline low blood sugars. Depression * Stable Nicotine dependence * Nicotine patch 11/09/2019 Alcohol intoxication with alcohol withdrawal - stable * Patient has continued to have minimal withdrawals thus far * Highest CIWA was 8 yesterday * CIWA has been 0 since yesterday evening. * Unlikely he will have significant withdrawal. Hyponatremia/hypomagnesemia/hypophosphatemia/hypokalemia * Potassium 2.9, magnesium 1.6, phosphorus 2.0, sodium 129 * No arrhythmias * Has been eating Acute renal injury-Resolved * Estimated GFR 60, creatinine 1.0 * Anion gap now 14.9 Alcoholic hepatitisimproved * AST 1024, ALT 688, alkaline phosphatase 544 * Total bilirubin 5.7, INR 1, albumin 3.0 * Abdominal ultrasound showed fatty liver, slight gallbladder wall thickening but no biliary duct dilatation, gallstones, or pericholecystic fluid. Possible minimal fluid between the liver and diaphragm suggesting minimal ascites. * Hepatitis C- negative Uncontrolled diabetes * Hemoglobin A1c 9.8 * Home insulin: Lantus 30 units nightly, Humalog 7 units in the morning and 10 units at 11 and 2200 with sliding scale. * Scheduled humalog 5 units discontinued due to low blood sugars Depression * Stable Nicotine dependence * Nicotine patch - Plan Plan:: 11/07/2019 * Admit to ICU * Aggressive fluid rehydration * CIWAA protocol * Ativan for withdrawal symptoms * Fingerstick blood sugars 4 times daily with sliding scale coverage * Lantus 25 units nightly * Humalog 5 units with each meal * Hemoglobin A1c, TSH * Trend CBC, CMP, magnesium * Get PT, INR, PTT * Continue nicotine patch. * When patient is medically stable refer to alcohol rehab * Abdominal ultrasound in the morning * Hepatitis C and B screening * Regular diet * VTE prophylaxis with Lovenox * CODE STATUS: Full code * Length of stay 2 to 3 days. 11/08/2019 * Continue IV fluids until this afternoon. If continuing to eat adequately to drink adequately will stop and recheck anion gap in the morning. * Lantus 20 units in the morning * Humalog 5 units after meals * Sliding scale insulin * Encourage patient to stop alcohol. * consulting services manager consult * PT consult * Continue CIWAA at every 4 hours with Ativan coverage * Anticipate discharge in 1 to 2 days. 11/09/2019 * Discontinued IV fluids * Humalog 5 units discontinued after hypoglycemic episode * Consider discontinuing CIWA assessments tomorrow if numbers remain low * CBC, CMP, Magnesium, Phosphorous, GGT, Direct bilirubin tomorrow * Continue to ambulate * Monitor blood sugars * Likely discharge tomorrow to SNF pending continued improvement
[2019-11-09] MEDS ORDERED: Potassium Chloride 10 MEQ in Premix Bag 1 BAG IV SCH (10:00)
[2019-11-09] MEDS ORDERED: Magnesium Sulfate/Water 4 GM in Premix Bag 1 BAG IV ONE (10:01)
[2019-11-09] MEDS: Potassium Chloride 10 MEQ in Premix Bag 1 BAG IV SCH ×4 (10:14→13:17)
[2019-11-09] MEDS ORDERED: Potassium Phosphates 30 MMOLE in Sodium Chloride 0.9% 500 ML IV SCH (10:15)
[2019-11-09] MEDS: Thiamine 100 MG Tab PO SCH (20:43)
[2019-11-09] MEDS: Mirtazapine 15 MG Tab PO SCH (20:43)
[2019-11-10] MEDS: Folic Acid 1 MG Tab PO SCH (08:23)
[2019-11-10] MEDS: Topiramate 25 MG Tab PO SCH ×2 (08:23→20:58)
[2019-11-10] MEDS: Enoxaparin 40 MG/0.4 ML Syringe SUBCUT SCH (08:23)
[2019-11-10] MEDS: Insulin Glarg,Human.Rec.Analog 100 Unit/ML SUBCUT SCH (08:23)
[2019-11-10] MEDS: FLUoxetine 20 MG Cap PO SCH (08:23)
[2019-11-10] MEDS: amLODIPine 5 MG Tab PO SCH (08:23)
[2019-11-10] MEDS: Insulin Lispro 100 Units/ML 3 ML Vial SUBCUT SCH ×2 (08:23→14:49)
[2019-11-10] MEDS: Nicotine 21 MG/24 Hr Patch TRDERM SCH (08:24)
--- NOTE | 2019-11-10 13:26 | PCM.PN ---
- General Info Date of Service: 11/10/19 Admission Dx/Problem (Free Text): Admission Diagnosis/Problem Admission Diagnosis/Problem Alcohol dependence with withdrawal Functional Status: Reports: Pain Controlled, Ambulating, Urinating. Denies: Tolerating Diet (reports indigestion ), New Symptoms - Review of Systems General: Reports: Weakness. Denies: Fever, Fatigue, Malaise, Chills HEENT: Reports: No Symptoms. Denies: Headaches, Sore Throat Pulmonary: Reports: No Symptoms. Denies: Shortness of Breath, Cough, Sputum, Wheezing Cardiovascular: Reports: No Symptoms. Denies: Chest Pain, Palpitations, Dyspnea on Exertion, Edema Gastrointestinal: Reports: Abdominal Pain (RUQ), Decreased Appetite. Denies: Constipation, Diarrhea, Hematochezia, Melena, Nausea (This AM but not now ), Vomiting Genitourinary: Reports: No Symptoms. Denies: Pain Musculoskeletal: Reports: No Symptoms Skin: Reports: No Symptoms. Denies: Cyanosis Neurological: Reports: No Symptoms, Difficulty Walking, Weakness, Gait Disturbance. Denies: Confusion, Headache, Numbness, Syncope, Tingling, Tremors, Trouble Speaking, Change in Speech Psychiatric: Reports: No Symptoms - Patient Data Vitals - Most Recent: Last Vital Signs Temp 97.1 F 11/10/19 08:00 Pulse 105 H 11/10/19 04:00 Resp 17 11/10/19 08:00 BP 120/92 H 11/10/19 08:23 Pulse Ox 98 11/10/19 08:00 Weight - Most Recent: 142 lb 12.8 oz I&O - Last 24 Hours: Intake & Output 11/09/19 11/10/19 11/10/19 22:59 06:59 14:59 Intake Total 960 Output Total 600 300 Balance 360 -300 Imaging Impressions - Last 24 Hours: Biliary HIDA scan obtained 11/10/2019. " Findings scintigraphically have the appearance of cystic duct obstruction and therefore raising the possibility of a calculus cholecystitis." Lab Results Last 24 Hours: Laboratory Results - last 24 hr 11/09/19 11/09/19 11/10/19 Range/Units 16:52 20:42 05:17 WBC 4.87 (4.23-9.07) K/mm3 RBC 3.66 L (4.63-6.08) M/mm3 Hgb 11.0 L (13.7-17.5) gm/dl Hct 32.2 L (40.1-51.0) % MCV 88.0 (79.0-92.2) fl MCH 30.1 (25.7-32.2) pg MCHC 34.2 (32.2-35.5) g/dl RDW Std Deviation 43.8 (35.1-43.9) fL Plt Count 253 (163-337) K/mm3 MPV 10.4 (9.4-12.3) fl Neut % (Auto) 67.7 (34.0-67.9) % Lymph % (Auto) 10.3 L (21.8-53.1) % [place] % (Auto) 11.9 (5.3-12.2) % Eos % (Auto) 7.0 (0.8-7.0) Baso % (Auto) 0.4 (0.1-1.2) % Neut # (Auto) 3.30 (1.78-5.38) K/mm3 Lymph # (Auto) 0.50 L (1.32-3.57) K/mm3 [place] # (Auto) 0.58 (0.30-0.82) K/mm3 Eos # (Auto) 0.34 (0.04-0.54) K/mm3 Baso # (Auto) 0.02 (0.01-0.08) K/mm3 Manual Slide Review Abnormal smear Sodium (136-145) mEq/L Potassium (3.5-5.1) mEq/L Chloride (98-107) mEq/L Carbon Dioxide (21-32) mEq/L Anion Gap (5-15) BUN (7-18) mg/dL Creatinine (0.7-1.3) mg/dL Est Cr Clr Drug Dosing mL/min Estimated GFR (MDRD) (>60) mL/min BUN/Creatinine Ratio (14-18) Glucose (80-115) mg/dL POC Glucose 114 192 H (80-115) mg/dL Calcium (8.5-10.1) mg/dL Phosphorus (2.6-4.7) mg/dL Magnesium (1.8-2.4) mg/dl Total Bilirubin (0.2-1.0) mg/dL Direct Bilirubin (0.0-0.2) mg/dl GGT (15-85) U/L AST (15-37) U/L ALT (16-63) U/L Alkaline Phosphatase (46-116) U/L Total Protein (6.4-8.2) g/dl Albumin (3.4-5.0) g/dl Globulin gm/dL Albumin/Globulin Ratio (1-2) // Range/Units 05:17 WBC (4.23-9.07) K/mm3 RBC (4.63-6.08) M/mm3 Hgb (13.7-17.5) gm/dl Hct (40.1-51.0) % MCV (79.0-92.2) fl MCH (25.7-32.2) pg MCHC (32.2-35.5) g/dl RDW Std Deviation (35.1-43.9) fL Plt Count (163-337) K/mm3 MPV (9.4-12.3) fl Neut % (Auto) (34.0-67.9) % Lymph % (Auto) (21.8-53.1) % [place] % (Auto) (5.3-12.2) % Eos % (Auto) (0.8-7.0) Baso % (Auto) (0.1-1.2) % Neut # (Auto) (1.78-5.38) K/mm3 Lymph # (Auto) (1.32-3.57) K/mm3 [place] # (Auto) (0.30-0.82) K/mm3 Eos # (Auto) (0.04-0.54) K/mm3 Baso # (Auto) (0.01-0.08) K/mm3 Manual Slide Review Sodium 127 L (136-145) mEq/L Potassium 4.0 (3.5-5.1) mEq/L Chloride 91 L (98-107) mEq/L Carbon Dioxide 24 (21-32) mEq/L Anion Gap 16.0 H (5-15) BUN 14 (7-18) mg/dL Creatinine 1.1 (0.7-1.3) mg/dL Est Cr Clr Drug Dosing 64.61 mL/min Estimated GFR (MDRD) > 60 (>60) mL/min BUN/Creatinine Ratio 12.7 L (14-18) Glucose 129 H (80-115) mg/dL POC Glucose (80-115) mg/dL Calcium 9.1 (8.5-10.1) mg/dL Phosphorus 3.2 (2.6-4.7) mg/dL Magnesium 2.0 (1.8-2.4) mg/dl Total Bilirubin 5.7 H (0.2-1.0) mg/dL Direct Bilirubin 5.40 H (0.0-0.2) mg/dl GGT 1314 H (15-85) U/L AST 679 H (15-37) U/L ALT 577 H (16-63) U/L Alkaline Phosphatase 588 H (46-116) U/L Total Protein 6.8 (6.4-8.2) g/dl Albumin 2.8 L (3.4-5.0) g/dl Globulin 4.0 gm/dL Albumin/Globulin Ratio 0.7 L (1-2) Med Orders - Current: Current Medications Amlodipine Besylate (Norvasc) 5 mg PO DAILY [facility] Last Admin: 11/10/19 08:23 Dose: 5 mg Documented by: Dextrose/Water (Dextrose 50% In Water) 50 ml IVPUSH ASDIRECTED PRN PRN Reason: Hypoglycemia Enoxaparin Sodium (Lovenox) 40 mg SUBCUT DAILY [facility] Last Admin: 11/10/19 08:23 Dose: 40 mg Documented by: Fluoxetine HCl (Prozac) 20 mg PO DAILY [facility] Last Admin: 11/10/19 08:23 Dose: 20 mg Documented by: Folic Acid (Folic Acid) 1 mg PO DAILY [facility] Last Admin: 11/10/19 08:23 Dose: 1 mg Documented by: Insulin Glargine (Lantus) 20 unit SUBCUT BEDTIME [facility] Insulin Human Lispro (Humalog) 0 unit SUBCUT QIDACANDBED [facility]; Protocol Last Admin: 11/10/19 08:23 Dose: Not Given Documented by: Mirtazapine (Remeron) 7.5 mg PO BEDTIME [facility] Last Admin: 11/09/19 20:43 Dose: 7.5 mg Documented by: Miscellaneous Information (Remove Patch) 1 ea TRDERM DAILY [facility] Last Admin: 11/10/19 08:25 Dose: Not Given Documented by: Nicotine (Habitrol) 21 mg TRDERM DAILY [facility] Last Admin: 11/10/19 08:24 Dose: 21 mg Documented by: Sodium Chloride (Saline Flush) 10 ml FLUSH ASDIRECTED PRN PRN Reason: Keep Vein Open Last Admin: 11/07/19 01:55 Dose: 10 ml Documented by: Thiamine HCl (Vitamin B-1) 100 mg PO BEDTIME [facility] Last Admin: 11/09/19 20:43 Dose: 100 mg Documented by: Topiramate (Topamax) 25 mg PO BID [facility] Last Admin: 11/10/19 08:23 Dose: 25 mg Documented by: Discontinued Medications Enoxaparin Sodium (Lovenox) 40 mg SUBCUT Q24H [facility] Sodium Chloride (Normal Saline) 1,000 mls @ 999 mls/hr IV ONETIME [facility] Last Admin: 11/07/19 01:55 Dose: 999 mls/hr Documented by: Lactated Ringer's (Ringers, Lactated) 1,000 mls @ 999 mls/hr IV .BOLUS ONE Stop: 11/07/19 03:46 Last Admin: 11/07/19 02:58 Dose: 999 mls/hr Documented by: Lactated Ringer's (Ringers, Lactated) 1,000 mls @ 150 mls/hr IV ASDIRECTED [facility] Last Admin: 11/07/19 13:29 Dose: 150 mls/hr Documented by: Magnesium Sulfate/Dextrose 1 (gm/ Premix) 100 mls @ 100 mls/hr IV ONETIME ONE Stop: 11/07/19 10:55 Last Admin: 11/07/19 10:01 Dose: Not Given Documented by: Magnesium Sulfate/Dextrose 1 (gm/ Premix) 100 mls @ 100 mls/hr IV Q1H [facility] Stop: 11/07/19 14:14 Magnesium Sulfate 2 gm/ Premix 50 mls @ 25 mls/hr IV ONETIME ONE Stop: 11/07/19 12:13 Last Admin: 11/07/19 10:20 Dose: 25 mls/hr Documented by: Sodium Chloride (Normal Saline) 1,000 mls @ 150 mls/hr IV ASDIRECTED [facility] Last Admin: 11/08/19 06:42 Dose: 150 mls/hr Documented by: Magnesium Sulfate 4 gm/ Premix 50 mls @ 12.5 mls/hr IV ONETIME ONE Stop: 11/08/19 12:59 Last Admin: 11/08/19 08:54 Dose: 12.5 mls/hr Documented by: Potassium Phosphate 30 mmole/ (Sodium Chloride) 510 mls @ 102 mls/hr IV ONETIME ONE Stop: 11/08/19 17:59 Last Admin: 11/08/19 12:45 Dose: 102 mls/hr Documented by: Sodium Chloride (Normal Saline) 1,000 mls @ 150 mls/hr IV ASDIRECTED [facility] Last Admin: 11/08/19 12:48 Dose: 150 mls/hr Documented by: Potassium Chloride 10 meq/ (Premix) 100 mls @ 100 mls/hr IV Q1H IVA Stop: 11/09/19 15:59 Potassium Chloride 10 meq/ (Premix) 100 mls @ 100 mls/hr IV Q1H IVA Stop: 11/09/19 13:59 Last Admin: 11/09/19 13:17 Dose: 100 mls/hr Documented by: Potassium Phosphate 30 mmole/ (Sodium Chloride) 510 mls @ 102 mls/hr IV ASDIRECTED [facility] Stop: 11/09/19 15:14 Last Admin: 11/09/19 10:20 Dose: 102 mls/hr Documented by: Magnesium Sulfate 4 gm/ Premix 50 mls @ 12.5 mls/hr IV ONETIME ONE Stop: 11/09/19 14:00 Last Admin: 11/09/19 10:14 Dose: 12.5 mls/hr Documented by: Insulin Glargine (Lantus) 25 unit SUBCUT BEDTIME [facility] Last Admin: 11/07/19 21:08 Dose: Not Given Documented by: Insulin Glargine (Lantus) 20 unit SUBCUT DAILY [facility] Last Admin: 11/10/19 08:23 Dose: 20 units Documented by: Insulin Human Lispro (Humalog) 5 unit SUBCUT TIDAC [facility] Last Admin: 11/08/19 17:05 Dose: Not Given Documented by: Insulin Human Lispro (Humalog) 5 unit SUBCUT TIDPC [facility] Last Admin: 11/09/19 08:12 Dose: 5 units Documented by: Lorazepam (Ativan) 1 mg IVPUSH ONETIME ONE Stop: 11/07/19 07:00 Last Admin: 11/07/19 07:09 Dose: 1 mg Documented by: Lorazepam (Ativan) 0 mg IVPUSH Q15M PRN; Protocol PRN Reason: Withdrawal Symptoms Last Admin: 11/08/19 00:06 Dose: 1 mg Documented by: Lorazepam (Ativan) 0 mg PO Q1H PRN; Protocol PRN Reason: Withdrawal Symptoms Simvastatin (Zocor) 10 mg PO DAILY IVA Last Admin: 11/08/19 08:20 Dose: 10 mg Documented by: Thiamine HCl (Vitamin B-1) 100 mg IVPUSH ONETIME ONE Stop: 11/07/19 11:01 Last Admin: 11/07/19 12:45 Dose: 100 mg Documented by: - Exam Quality Assessment: DVT Prophylaxis General: Alert, Oriented, Cooperative, No Acute Distress HEENT: Pupils Equal, Pupils Reactive, Mucous Membr. Moist/[place] Neck: Supple, Trachea Midline Lungs: Clear to Auscultation, Normal Respiratory Effort Cardiovascular: Regular Rate, Regular Rhythm GI/Abdominal Exam: Normal Bowel Sounds, Soft, No Distention, Tender (RUQ). No: Guarding, Rebound (Male) Exam: Deferred Back Exam: Normal Inspection, Full Range of Motion Extremities: Normal Inspection, Normal Range of Motion, Non-Tender, No Pedal Edema, Normal Capillary Refill, Other (Various scabs on extremites as patient "Picks" - states he has been doing this for years. ) Peripheral Pulses: 2+: Radial (L), Radial (R), Dorsalis Pedis (L), Dorsalis Pedis (R) Skin: Warm, Dry, Intact Neurological: No New Focal Deficit Psy/Mental Status: Alert, Normal Affect, Normal Mood. No: Labile Mood, Withdrawal Symptoms Sepsis Event Note - Evaluation Sepsis Screening Result: No Definite Risk - Focused Exam Vital Signs: Vital Signs Temp Pulse Resp BP BP Pulse Ox 11/10/19 08:23 120/92 H 11/10/19 08:00 97.1 F 17 120/92 H 98 11/10/19 04:00 97.0 F 105 H 18 137/91 H 97 - Problem List & Annotations (1) Alcohol intoxication SNOMED Code(s): 92838693 Code(s): F10.929 - ALCOHOL USE, UNSPECIFIED WITH INTOXICATION, UNSPECIFIED Status: Acute Priority: High Current Visit: Yes Qualifiers: Complication of substance-induced condition: uncomplicated Qualified Code(s): F10.920 - Alcohol use, unspecified with intoxication, uncomplicated (2) Alcoholic hepatitis with ascites SNOMED Code(s): 5103052267413715 Code(s): K70.11 - ALCOHOLIC HEPATITIS WITH ASCITES Status: Acute Priority: High Current Visit: Yes (3) Hypophosphatasia SNOMED Code(s): 656645672 Code(s): E83.39 - OTHER DISORDERS OF PHOSPHORUS METABOLISM Status: Acute Priority: High Current Visit: Yes (4) Elevated liver enzymes SNOMED Code(s): 578932081 Code(s): R74.8 - ABNORMAL LEVELS OF OTHER SERUM ENZYMES Status: Acute Priority: High Current Visit: Yes (5) Generalized weakness SNOMED Code(s): 67519563 Code(s): R53.1 - WEAKNESS Status: Chronic Priority: High Current Visit: Yes (6) Hypoglycemia SNOMED Code(s): 551786555 Code(s): E16.2 - HYPOGLYCEMIA, UNSPECIFIED Status: Acute Priority: High Current Visit: Yes (7) Hypertension SNOMED Code(s): 04530378 Code(s): I10 - ESSENTIAL (PRIMARY) HYPERTENSION Status: Chronic Priority: Medium Current Visit: No Qualifiers: Hypertension type: unspecified Qualified Code(s): I10 - Essential (primary) hypertension (8) Type II diabetes mellitus SNOMED Code(s): 91194700 Code(s): E11.9 - TYPE 2 DIABETES MELLITUS WITHOUT COMPLICATIONS Status: Chronic Priority: High Current Visit: No Qualifiers: Diabetes mellitus senior care insulin use: without senior care use Diabetes mellitus complication status: with other specified complication Qualified Code(s): E11.69 - Type 2 diabetes mellitus with other specified complication (9) Acute renal injury SNOMED Code(s): 00177839, 44028633 Code(s): N17.9 - ACUTE KIDNEY FAILURE, UNSPECIFIED Status: Resolved Priority: High Current Visit: Yes (10) [id number] kidney injury SNOMED Code(s): 162498038 Code(s): N17.9 - ACUTE KIDNEY FAILURE, UNSPECIFIED; N18.9 - CHRONIC KIDNEY DISEASE, UNSPECIFIED Status: Resolved Priority: High Current Visit: Yes Qualifiers: Acute renal failure type: unspecified Chronic kidney disease stage: unspecified stage Qualified Code(s): N17.9 - Acute kidney failure, unspecified; N18.9 - Chronic kidney disease, unspecified (11) Hypokalemia SNOMED Code(s): 61803512 Code(s): E87.6 - HYPOKALEMIA Status: Acute Priority: High Current Visit: Yes (12) Hypomagnesemia SNOMED Code(s): 334837221 Code(s): E83.42 - HYPOMAGNESEMIA Status: Acute Priority: High Current Visit: Yes (13) Current every day smoker SNOMED Code(s): 947238694, 211990660 Code(s): F17.200 - NICOTINE DEPENDENCE, UNSPECIFIED, UNCOMPLICATED Status: Chronic Priority: High Current Visit: Yes (14) Uncontrolled diabetes mellitus SNOMED Code(s): 38126153, 399717718 Code(s): E11.65 - TYPE 2 DIABETES MELLITUS WITH HYPERGLYCEMIA Status: Acute Priority: High Current Visit: Yes Qualifiers: Diabetes mellitus type: type 2 Glycemic state: with hypoglycemia Coma presence: without coma Qualified Code(s): E11.649 - Type 2 diabetes mellitus with hypoglycemia without coma (15) Elevated serum GGT level SNOMED Code(s): 690445932, 474706635 Code(s): R74.8 - ABNORMAL LEVELS OF OTHER SERUM ENZYMES Status: Acute Priority: High Current Visit: Yes (16) Hyperbilirubinemia SNOMED Code(s): 46395942 Code(s): E80.6 - OTHER DISORDERS OF BILIRUBIN METABOLISM Status: Acute Priority: High Current Visit: Yes (17) Abnormal biliary HIDA scan SNOMED Code(s): 908053944, 804394003 Code(s): R94.8 - ABNORMAL RESULTS OF FUNCTION STUDIES OF ORGANS AND SYSTEMS Status: Acute Priority: High Current Visit: Yes - Problem List Review Problem List Initiated/Reviewed/Updated: Yes - My Orders Last 24 Hours: My Active Orders 11/10/19 09:11 Notify Provider Consults [RC] ASDIRECTED Consult to Physician [CONS] Routine 11/10/19 Lunch NPO Now [Nothing per Oral Now Diet] [DIET] 11/10/19 12:30 HIDA with EF [Cholescintigraphy w Pharm Int] [NM] Urgent - Assessment Assessment:: 11/07/2019 Assessment Alcohol intoxication with alcohol withdrawal * Patient is known to be a heavy alcohol consumer with previous severe alcohol withdrawal. * Patient denies any history of seizure with alcohol withdrawal. * Patient did start developing some withdrawal symptoms while having an ethanol level of 0.18 g%. This increases his risk for difficulty and severe detox. * Patient is requesting help with quitting. * environmental services attendant has already been consulted and has seen him. Hyponatremia/hypomagnesemia * Serum and urine osmolality was not obtained prior to fluid boluses. * Corrected sodium 128 * Magnesium 1.7 * Given magnesium riders in the ER Acute renal injury * Estimated GFR 39 * Creatinine 1.8 * BUN to creatinine ratio 23.3 * Likely injury is from hypovolemia Alcoholic hepatitis-recurrent * Total bilirubin 3.2, AST 888, ALT 677, alkaline phosphatase 411, albumin 3.3 * PT, INR, PTT not obtained Depression * Patient is not complaining of depression currently. * He was started on Prozac last hospitalization. Nicotine dependence * Currently using nicotine patch 11/08/2019 Alcohol intoxication with alcohol withdrawal * Patient has had minimal alcohol withdrawal so far. * He only received 1 mg of Ativan overnight. * CIWA scores are less than 8 this morning * Unlikely he will have significant withdrawal. Hyponatremia/hypomagnesemia/hypophosphatemia/hypokalemia * Potassium 3.2, magnesium 1.8, phosphorus 2.3, sodium 128 * No arrhythmias Acute renal injury-improved * Estimated GFR 60, creatinine 1.1 * Anion gap increased to 21 Alcoholic hepatitisdeteriorated * AST 1434, ALT 781, alkaline phosphatase 524 * Total bilirubin 5.3, INR 1, albumin 3.0 * MELD score (NEW) 22 -19.6 % mortality and 90 days * Abdominal ultrasound showed fatty liver, slight gallbladder wall thickening but no biliary duct dilatation, gallstones, or pericholecystic fluid. Possible minimal fluid between the liver and diaphragm suggesting minimal ascites. * Ammonia level 22normal * Hepatitis C- Uncontrolled diabetes * Hemoglobin A1c 9.8 * Home insulin: Lantus 30 units nightly, Humalog 7 units in the morning and 10 units at 11 and 2200 with sliding scale. * Patient was not given his Lantus last night because of borderline low blood sugars. Depression * Stable Nicotine dependence * Nicotine patch 11/09/2019 Alcohol intoxication with alcohol withdrawal - stable * Patient has continued to have minimal withdrawals thus far * Highest CIWA was 8 yesterday * CIWA has been 0 since yesterday evening. * Unlikely he will have significant withdrawal. Hyponatremia/hypomagnesemia/hypophosphatemia/hypokalemia * Potassium 2.9, magnesium 1.6, phosphorus 2.0, sodium 129 * No arrhythmias * Has been eating Acute renal injury-Resolved * Estimated GFR 60, creatinine 1.0 * Anion gap now 14.9 Alcoholic hepatitisimproved * AST 1024, ALT 688, alkaline phosphatase 544 * Total bilirubin 5.7, INR 1, albumin 3.0 * Abdominal ultrasound showed fatty liver, slight gallbladder wall thickening but no biliary duct dilatation, gallstones, or pericholecystic fluid. Possible minimal fluid between the liver and diaphragm suggesting minimal ascites. * Hepatitis C- negative Uncontrolled diabetes * Hemoglobin A1c 9.8 * Home insulin: Lantus 30 units nightly, Humalog 7 units in the morning and 10 units at 11 and 2200 with sliding scale. * Scheduled humalog 5 units discontinued due to low blood sugars Depression * Stable Nicotine dependence * Nicotine patch 11/10/2019 Alcohol intoxication with alcohol withdrawal - stable * Patient has continued to have minimal withdrawals thus far * CIWAs have been 0 for several days * Unlikely he will have significant withdrawal. Hyponatremia/hypomagnesemia/hypophosphatemia/hypokalemia * Potassium 4.0, magnesium 2.0, phosphorus 3.2, sodium 127 * No arrhythmias * Has been NPO since noon Acute renal injury-Resolved * Estimated GFR 60, creatinine 1.0 * Anion gap now 14.9 Alcoholic hepatitisimproved * AST 679, ALT 577, alkaline phosphatase 588 * Total bilirubin 5.7 * Abdominal ultrasound showed fatty liver, slight gallbladder wall thickening but no biliary duct dilatation, gallstones, or pericholecystic fluid. Possible minimal fluid between the liver and diaphragm suggesting minimal ascites. * Hepatitis C- negative Abnormal GGT Abnormal HIDA * Alk phos as above * [id number] * Biliary HIDA suggests acalculous cholecystitis * Dr. Maki general surgeon consulted, recommends MRCP Uncontrolled diabetes * Hemoglobin A1c 9.8 * Home insulin: Lantus 30 units nightly, Humalog 7 units in the morning and 10 units at 11 and 2200 with sliding scale. * Lantus 20 units bedtime * Humalog discontinued due to NPO status - consider resumption when eating Depression * Stable Nicotine dependence * Nicotine patch - Plan Plan:: 11/07/2019 * Admit to ICU * Aggressive fluid rehydration * CIWAA protocol * Ativan for withdrawal symptoms * Fingerstick blood sugars 4 times daily with sliding scale coverage * Lantus 25 units nightly * Humalog 5 units with each meal * Hemoglobin A1c, TSH * Trend CBC, CMP, magnesium * Get PT, INR, PTT * Continue nicotine patch. * When patient is medically stable refer to alcohol rehab * Abdominal ultrasound in the morning * Hepatitis C and B screening * Regular diet * VTE prophylaxis with Lovenox * CODE STATUS: Full code * Length of stay 2 to 3 days. 11/08/2019 * Continue IV fluids until this afternoon. If continuing to eat adequately to drink adequately will stop and recheck anion gap in the morning. * Lantus 20 units in the morning * Humalog 5 units after meals * Sliding scale insulin * Encourage patient to stop alcohol. * environmental services attendant consult * PT consult * Continue CIWAA at every 4 hours with Ativan coverage * Anticipate discharge in 1 to 2 days. 11/09/2019 * Discontinued IV fluids * Humalog 5 units discontinued after hypoglycemic episode * Consider discontinuing CIWA assessments tomorrow if numbers remain low * CBC, CMP, Magnesium, Phosphorous, GGT, Direct bilirubin tomorrow * Continue to ambulate * Monitor blood sugars * Likely discharge tomorrow to SNF pending continued improvement 11/10/19 * Lantus dosing changed to PM * Patient reports ongoing RUQ abdominal pain * Direct bilirubin 5.40, Indirect bilirubin 5.7, GGT 1314 * AST 679; ALT 577, Alk Phos 588 * Alk phos continuing to increase * Sodium 127, Potassium 4.0, Phosphorous 3.2, Magnesium 2.0 * No leukocytosis or fevers * HIDA scan obtained suggesting acalculous cholecystitis * Dr. Maki, general surgery consultation * MRCP ordered * Discontinue CIWAs and ativan protocol as CIWAs have been 0 for several days, no signs of withdrawal * Continue PT/OT evaluations - now recommending rehab before SNF * Likely discharge Wednesday, pending MRCP results.
[2019-11-10] MEDS ORDERED: Bismuth Subsalicylate 262 MG/15 ML Susp 236 ML Bottle PO PRN (15:03)
--- NOTE | 2019-11-10 15:14 | NM ---
Biliary HIDA scan Technique: 8.8 mCi of technetium 99m mebrofenin was given intravenously. Scintigraphic imaging then obtained over the upper abdomen. Comparison: Prior right upper quadrant abdominal ultrasound of 11/08/19. Findings: No activity is seen within the gallbladder despite 2 hour delayed images. This would indicate cystic duct obstruction. Small bowel activity is noted. Impression: 1. Findings scintigraphically have the appearance of cystic duct obstruction and therefore raising the possibility of acalculous cholecystitis. Diagnostic code #5 This report was dictated in MDT Tape Transferrer called Tres Starks at 14:50 on 11/10/2019 with the results.
[2019-11-10] MEDS: Aluminum Hydroxide/Magnesium Hydroxide/Simethicone Susp 30 ML Cup PO PRN ×2 (15:22→17:57)
--- NOTE | 2019-11-10 16:47 | MR ---
MRI abdomen Technique: Various sequences were obtained in axial and coronal planes as well as MRCP study. Findings: CHD and CBD appeared normal in size. Cystic duct is felt to be visualized and shows no discrete filling defects. Etiology for the lack of gallbladder filling on recent biliary HIDA scan is not seen on this study. No evidence of choledocholithiasis is seen within the CHD or CBD. No abnormality is seen on this noncontrast study within the liver or spleen. Small cyst is noted within the upper left kidney measuring 1.1 cm. No additional renal abnormality is seen. Pancreas shows no abnormality. Aorta shows no aneurysm. Adrenal glands show no discrete nodule. Impression: 1. CHD and CBD are normal in size with no evidence of choledocholithiasis. 2. Cystic duct believed to be seen and shows no filling defects. Etiology for the cystic duct obstruction and biliary HIDA scan not appreciated on the study. 3. Small cyst within the upper left kidney. Diagnostic code #3 This report was dictated in MDT
--- NOTE | 2019-11-10 16:51 | PCM.CONS ---
H&P History of Present Illness - General Date of Service: 11/10/19 Admit Problem/Dx: Admission Diagnosis/Problem Admission Diagnosis/Problem Alcohol dependence with withdrawal Source of Information: Patient History Limitations: Reports: No Limitations - History of Present Illness Initial Comments - Free Text/Narative: The patient is admitted for weakness. Has a known history of alcohol abuse and weakness. In the hospital CIWA normalized quickly. However, yesterday the pat ient started complaining of mild abdominal pain and indigestion. Same complaints today but worse. Labs reveals normal WBC but elevated Tbili to 5.7 from 3.2 on admission. Transaminases have trended down today except bilirubin. RUQ US revealed gallbladder wall thickening without cholelithiasis. HIDA did not show gallbladder filling however, there was delayed activity in the small bowel. Patient has no fevers. Onset of Symptoms: Reports: Gradual Duration of Symptoms: Reports: Day(s): (2) Location: Reports: Abdomen (Epigastric and RUQ) Quality: Reports: Dull Severity: Moderate Improves with: Reports: None Worsens with: Reports: None Associated Symptoms: Reports: No Other Symptoms - Related Data Allergies/Adverse Reactions: Allergies Allergy/AdvReac Type Severity Reaction Status Date / Time No Known Allergies Allergy Verified 11/07/19 12:37 Home Medications: Home Meds Folic Acid 1 mg PO DAILY tablet 07/07/19 [Rx] Thiamine [Vitamin B-1] 100 mg PO BEDTIME tablet 07/07/19 [Rx] FLUoxetine HCl [Prozac] 20 mg PO DAILY 11/07/19 [History] Insulin Glarg,Human.Rec.Analog [Lantus] 30 unit SUBCUT BEDTIME 11/07/19 [H istory] Insulin Lispro [HumaLOG] 10 - 15 unit SUBCUT QAM 11/07/19 [History] Mirtazapine 7.5 mg PO BEDTIME 11/07/19 [History] Naproxen Sodium [Aleve] 220 mg PO BID 11/07/19 [History] Nicotine [Nicotine Patch] 1 patch TRDERM DAILY 11/07/19 [History] Topiramate 25 mg PO BID 11/07/19 [History] amLODIPine [Norvasc] 5 mg PO DAILY 11/07/19 [History] atorvaSTATin [Lipitor] 10 mg PO DAILY 11/07/19 [History] sitaGLIPtin Phosphate [Januvia] 50 mg PO DAILY 11/07/19 [History] Past Medical History HEENT History: Reports: Impaired Vision Cardiovascular History: Reports: Hypertension Respiratory History: Reports: None Gastrointestinal History: Reports: None Genitourinary History: Reports: None Musculoskeletal History: Reports: Fracture, Other (See Below) Other Musculoskeletal History: rib fracture Psychiatric History: Reports: Addiction, Depression, Suicidal Ideation Endocrine/Metabolic History: Reports: Diabetes, Type II Hematologic History: Reports: None Immunologic History: Reports: None Oncologic (Cancer) History: Reports: None Dermatologic History: Reports: None - Infectious Disease History Infectious Disease History: Reports: None - Past Surgical History Neurological Surgical History: Reports: Lumbar Spine Musculoskeletal Surgical History: Reports: Arthroscopic Knee, Carpal Tunnel Social & Family History - Family History Family Medical History: Noncontributory - Tobacco Use Smoking Status *Q: Current Every Day Smoker Years of Tobacco use: 50 Packs/Tins Daily: 1 Second Hand Smoke Exposure: No - Caffeine Use Caffeine Use: Reports: Coffee - Alcohol Use Days Per Week of Alcohol Use: 7 Number of Drinks Per Day: 12 Total Drinks Per Week: 84 Date of Last Drink: 11/06/19 Time of Last Drink: 19:00 - Recreational Drug Use Recreational Drug Use: No - Living Situation & Occupation Occupation: Employed H&P Review of Systems - Review of Systems: Review Of Systems: See Below General: Reports: No Symptoms HEENT: Reports: No Symptoms Pulmonary: Reports: No Symptoms Cardiovascular: Reports: No Symptoms Gastrointestinal: Reports: Abdominal Pain, Nausea Genitourinary: Reports: No Symptoms Musculoskeletal: Reports: Other (weakness) Skin: Reports: No Symptoms Exam - Exam Exam: See Below - Vital Signs Vital Signs: Last Vital Signs Temp 97.1 F 11/10/19 08:00 Pulse 105 H 11/10/19 04:00 Resp 17 11/10/19 08:00 BP 120/92 H 11/10/19 08:23 Pulse Ox 98 11/10/19 08:00 Weight: 64.773 kg - Exam General: Alert, Oriented, Cooperative HEENT: Scleral Icterus Lungs: Clear to Auscultation, Normal Respiratory Effort Cardiovascular: Regular Rate, Regular Rhythm, Normal S1, Normal S2 GI/Abdominal Exam: Soft, No Organomegaly, No Distention, No Abnormal Bruit, No Mass, Tender (epigastrium and RUQ) - Patient Data Lab Results Last 24 hrs: Laboratory Results - last 24 hr 11/09/19 11/09/19 11/10/19 Range/Units 16:52 20:42 05:17 WBC 4.87 (4.23-9.07) K/mm3 RBC 3.66 L (4.63-6.08) M/mm3 Hgb 11.0 L (13.7-17.5) gm/dl Hct 32.2 L (40.1-51.0) % MCV 88.0 (79.0-92.2) fl MCH 30.1 (25.7-32.2) pg MCHC 34.2 (32.2-35.5) g/dl RDW Std Deviation 43.8 (35.1-43.9) fL Plt Count 253 (163-337) K/mm3 MPV 10.4 (9.4-12.3) fl Neut % (Auto) 67.7 (34.0-67.9) % Lymph % (Auto) 10.3 L (21.8-53.1) % [place] % (Auto) 11.9 (5.3-12.2) % Eos % (Auto) 7.0 (0.8-7.0) Baso % (Auto) 0.4 (0.1-1.2) % Neut # (Auto) 3.30 (1.78-5.38) K/mm3 Lymph # (Auto) 0.50 L (1.32-3.57) K/mm3 [place] # (Auto) 0.58 (0.30-0.82) K/mm3 Eos # (Auto) 0.34 (0.04-0.54) K/mm3 Baso # (Auto) 0.02 (0.01-0.08) K/mm3 Manual Slide Review Abnormal smear Sodium (136-145) mEq/L Potassium (3.5-5.1) mEq/L Chloride (98-107) mEq/L Carbon Dioxide (21-32) mEq/L Anion Gap (5-15) BUN (7-18) mg/dL Creatinine (0.7-1.3) mg/dL Est Cr Clr Drug Dosing mL/min Estimated GFR (MDRD) (>60) mL/min BUN/Creatinine Ratio (14-18) Glucose (80-115) mg/dL POC Glucose 114 192 H (80-115) mg/dL Calcium (8.5-10.1) mg/dL Phosphorus (2.6-4.7) mg/dL Magnesium (1.8-2.4) mg/dl Total Bilirubin (0.2-1.0) mg/dL Direct Bilirubin (0.0-0.2) mg/dl GGT (15-85) U/L AST (15-37) U/L ALT (16-63) U/L Alkaline Phosphatase (46-116) U/L Total Protein (6.4-8.2) g/dl Albumin (3.4-5.0) g/dl Globulin gm/dL Albumin/Globulin Ratio (1-2) 11/10/19 11/10/19 11/10/19 Range/Units 05:17 11:37 14:47 WBC (4.23-9.07) K/mm3 RBC (4.63-6.08) M/mm3 Hgb (13.7-17.5) gm/dl Hct (40.1-51.0) % MCV (79.0-92.2) fl MCH (25.7-32.2) pg MCHC (32.2-35.5) g/dl RDW Std Deviation (35.1-43.9) fL Plt Count (163-337) K/mm3 MPV (9.4-12.3) fl Neut % (Auto) (34.0-67.9) % Lymph % (Auto) (21.8-53.1) % [place] % (Auto) (5.3-12.2) % Eos % (Auto) (0.8-7.0) Baso % (Auto) (0.1-1.2) % Neut # (Auto) (1.78-5.38) K/mm3 Lymph # (Auto) (1.32-3.57) K/mm3 [place] # (Auto) (0.30-0.82) K/mm3 Eos # (Auto) (0.04-0.54) K/mm3 Baso # (Auto) (0.01-0.08) K/mm3 Manual Slide Review Sodium 127 L (136-145) mEq/L Potassium 4.0 (3.5-5.1) mEq/L Chloride 91 L (98-107) mEq/L Carbon Dioxide 24 (21-32) mEq/L Anion Gap 16.0 H (5-15) BUN 14 (7-18) mg/dL Creatinine 1.1 (0.7-1.3) mg/dL Est Cr Clr Drug Dosing 64.61 mL/min Estimated GFR (MDRD) > 60 (>60) mL/min BUN/Creatinine Ratio 12.7 L (14-18) Glucose 129 H (80-115) mg/dL POC Glucose 216 H 214 H (80-115) mg/dL Calcium 9.1 (8.5-10.1) mg/dL Phosphorus 3.2 (2.6-4.7) mg/dL Magnesium 2.0 (1.8-2.4) mg/dl Total Bilirubin 5.7 H (0.2-1.0) mg/dL Direct Bilirubin 5.40 H (0.0-0.2) mg/dl GGT 1314 H (15-85) U/L AST 679 H (15-37) U/L ALT 577 H (16-63) U/L Alkaline Phosphatase 588 H (46-116) U/L Total Protein 6.8 (6.4-8.2) g/dl Albumin 2.8 L (3.4-5.0) g/dl Globulin 4.0 gm/dL Albumin/Globulin Ratio 0.7 L (1-2) Result Diagrams: 11/10/19 05:17 11/10/19 05:17 Sepsis Event Note - Evaluation Sepsis Screening Result: No Definite Risk - Focused Exam Vital Signs: Vital Signs Temp Resp BP BP Pulse Ox 11/10/19 08:23 120/92 H 11/10/19 08:00 97.1 F 17 120/92 H 98 Consult PN Assessment/Plan Procedures: Procedures COMPLETE CBC W/AUTO DIFF WBC (06/03/18) COMPREHEN METABOLIC PANEL (06/03/18) CT HEAD/BRAIN W/O DYE (04/24/16) CT NECK SPINE W/O DYE (04/24/16) EMERGENCY DEPT VISIT (06/03/18) GLUCOSE BLOOD TEST (06/03/18) ROUTINE VENIPUNCTURE (06/03/18) THROMBOPLASTIN TIME PARTIAL (04/26/14) URINE BACTERIA CULTURE (04/26/14) Problem List Initiated/Reviewed/Updated: No Plan: Patient has possible acalculous cholecystitis. HIDA shows no gallbladder uptake but has small bowel activity. MRCP shows no biliary obstruction. Exam is positive for RUQ and epigastric tenderness. Plan - Laparoscopic cholecystectomy. I discussed with the patient risks (bleeding, infection, injuries to adjacent structures, leak etc), benefits (eventual resolution of RUQ pain and jaundice) and alternatives - no good alternatives, postentially a cholecystostomy tube. Patient understands and agrees to proceed with the procedure. Informed consent obtained. Will plan for surgery tomorrow.
[2019-11-10] MEDS: Mirtazapine 15 MG Tab PO SCH (20:58)
[2019-11-10] MEDS: Thiamine 100 MG Tab PO SCH (20:59)
[2019-11-11] MEDS ORDERED: Bupivacaine 0.5%/EPINEPHrine 1:200,000 50 ML MDV ONE (07:59)
--- NOTE | 2019-11-11 09:07 | PCM.PREANE ---
Preanesthetic Assessment - Procedure Proposed Procedure: Laparoscopic Cholecystectomy - Anesthesia/Transfusion/Family Hx Anesthesia History: Prior Anesthesia Reaction Other Type of Anesthesia Reaction Comment: Postoperative Delirium Transfusion History: Prior Transfusion Without Reaction - Review of Systems General: Weakness, Appetite (loss of) Pulmonary: No Symptoms Cardiovascular: No Symptoms Gastrointestinal: Decreased Appetite, Other (abdomen tenderness) Neurological: No Symptoms, Other (etOH withdrawal) Other: Reports: Diabetes, Depression - Physical Assessment NPO Status Date: 11/10/19 NPO Status Time: 08:00 Vital Signs: Last Vital Signs Temp 98.2 F 11/11/19 08:06 Pulse 100 11/11/19 08:06 Resp 20 11/11/19 08:06 BP 128/72 11/11/19 08:06 Pulse Ox 100 11/11/19 08:06 Height: 1.75 m Weight: 64.592 kg ASA Class: 3 Mental Status: Alert & Oriented x3 Airway Class: Mallampati = 2 Dentition: Reports: Dentures (upper and lower), Edentulous Thyro-Mental Finger Breadths: 3 Mouth Opening Finger Breadths: 3 ROM/Head Extension: Full Lungs: Clear to Auscultation, Normal Respiratory Effort Cardiovascular: Regular Rate, Regular Rhythm - Lab Values: Laboratory Last Values WBC 6.04 K/mm3 (4.23-9.07) 11/11/19 05:46 RBC 3.84 M/mm3 (4.63-6.08) L 11/11/19 05:46 Hgb 11.4 gm/dl (13.7-17.5) L 11/11/19 05:46 Hct 34.4 % (40.1-51.0) L 11/11/19 05:46 MCV 89.6 fl (79.0-92.2) 11/11/19 05:46 MCH 29.7 pg (25.7-32.2) 11/11/19 05:46 MCHC 33.1 g/dl (32.2-35.5) 11/11/19 05:46 RDW Std Deviation 46.1 fL (35.1-43.9) H 11/11/19 05:46 Plt Count 362 K/mm3 (163-337) H D 11/11/19 05:46 MPV 9.8 fl (9.4-12.3) 11/11/19 05:46 Neut % (Auto) 67.4 % (34.0-67.9) 11/11/19 05:46 Lymph % (Auto) 8.6 % (21.8-53.1) L 11/11/19 05:46 [place] % (Auto) 17.2 % (5.3-12.2) H 11/11/19 05:46 Eos % (Auto) 4.3 (0.8-7.0) 11/11/19 05:46 Baso % (Auto) 0.5 % (0.1-1.2) 11/11/19 05:46 Neut # (Auto) 4.07 K/mm3 (1.78-5.38) 11/11/19 05:46 Lymph # (Auto) 0.52 K/mm3 (1.32-3.57) L 11/11/19 05:46 [place] # (Auto) 1.04 K/mm3 (0.30-0.82) H 11/11/19 05:46 Eos # (Auto) 0.26 K/mm3 (0.04-0.54) 11/11/19 05:46 Baso # (Auto) 0.03 K/mm3 (0.01-0.08) 11/11/19 05:46 Manual Slide Review Normal smear 11/11/19 05:46 PT 10.6 SECONDS (9.7-12.0) 11/08/19 05:08 INR 0.99 11/08/19 05:08 APTT 22 SECONDS (22-31) 11/08/19 05:08 Sodium 125 mEq/L (136-145) L 11/11/19 05:46 Potassium 4.0 mEq/L (3.5-5.1) 11/11/19 05:46 Chloride 91 mEq/L (98-107) L 11/11/19 05:46 Carbon Dioxide 22 mEq/L (21-32) 11/11/19 05:46 Anion Gap 16.0 (5-15) H 11/11/19 05:46 BUN 19 mg/dL (7-18) H 11/11/19 05:46 Creatinine 1.1 mg/dL (0.7-1.3) 11/11/19 05:46 Est Cr Clr Drug Dosing 64.43 mL/min 11/11/19 05:46 Estimated GFR (MDRD) > 60 mL/min (>60) 11/11/19 05:46 BUN/Creatinine Ratio 17.3 (14-18) 11/11/19 05:46 Glucose 183 mg/dL (80-115) H 11/11/19 05:46 POC Glucose 161 mg/dL (80-115) H 11/11/19 05:45 Hemoglobin A1c 9.80 % (4.50-6.20) H 11/08/19 05:08 Calcium 9.3 mg/dL (8.5-10.1) 11/11/19 05:46 Phosphorus 3.2 mg/dL (2.6-4.7) 11/10/19 05:17 Magnesium 1.8 mg/dl (1.8-2.4) 11/11/19 05:46 Total Bilirubin 6.0 mg/dL (0.2-1.0) H 11/11/19 05:46 Direct Bilirubin 5.40 mg/dl (0.0-0.2) H 11/10/19 05:17 GGT 1314 U/L (15-85) H 11/10/19 05:17 AST 573 U/L (15-37) H 11/11/19 05:46 ALT 554 U/L (16-63) H 11/11/19 05:46 Alkaline Phosphatase 692 U/L (46-116) H 11/11/19 05:46 Ammonia 22 umol/L (11-32) 11/08/19 09:15 Total Protein 7.0 g/dl (6.4-8.2) 11/11/19 05:46 Albumin 2.8 g/dl (3.4-5.0) L 11/11/19 05:46 Globulin 4.2 gm/dL 11/11/19 05:46 Albumin/Globulin Ratio 0.7 (1-2) L 11/11/19 05:46 Lipase 4583 U/L (73-393) H 11/10/19 05:17 TSH 3rd Generation 1.066 uIU/mL (0.358-3.74) 11/08/19 05:08 Urine Color Yellow (Yellow) 11/08/19 05:16 Urine Appearance Clear (Clear) 11/08/19 05:16 Urine pH 6.5 (5.0-8.0) 11/08/19 05:16 Ur Specific Levan 1.020 (1.005-1.030) 11/08/19 05:16 Urine Protein 1+ (Negative) H 11/08/19 05:16 Urine Glucose (UA) 1+ (Negative) H 11/08/19 05:16 Urine Ketones 3+ (Negative) H 11/08/19 05:16 Urine Occult Blood 1+ (Negative) H 11/08/19 05:16 Urine Nitrite Negative (Negative) 11/08/19 05:16 Urine Bilirubin Negative (Negative) 11/08/19 05:16 Urine Urobilinogen 1.0 (0.2-1.0) 11/08/19 05:16 Ur Leukocyte Esterase Negative (Negative) 11/08/19 05:16 Ethyl Alcohol 0.18 gm% (0.00) 11/07/19 02:07 COVID-19 (ISABEL) Negative (NEGATIVE) 11/07/19 09:53 Hepatitis C Antibody Negative (NEGATIVE) 11/07/19 12:15 - Allergies Allergies/Adverse Reactions: Allergies Allergy/AdvReac Type Severity Reaction Status Date / Time No Known Allergies Allergy Verified 11/07/19 12:37 - Acknowledgements Anesthesia Type Planned: General Anesthesia Pt an Appropriate Candidate for the Planned Anesthesia: Yes Alternatives and Risks of Anesthesia Discussed w Pt/Guardian: Yes Pt/Guardian Understands and Agrees with Anesthesia Plan: Yes PreAnesthesia Questionnaire HEENT History: Reports: Impaired Vision Cardiovascular History: Reports: Hypertension Respiratory History: Reports: None Gastrointestinal History: Reports: None, Other (See Below) Genitourinary History: Reports: None Musculoskeletal History: Reports: Fracture, Other (See Below) Other Musculoskeletal History: rib fracture Psychiatric History: Reports: Addiction, Depression, Suicidal Ideation Endocrine/Metabolic History: Reports: Diabetes, Type II Hematologic History: Reports: None Immunologic History: Reports: None Oncologic (Cancer) History: Reports: None Dermatologic History: Reports: None - Infectious Disease History Infectious Disease History: Reports: None - Past Surgical History Neurological Surgical History: Reports: Lumbar Spine Musculoskeletal Surgical History: Reports: Arthroscopic Knee, Carpal Tunnel - SUBSTANCE USE Smoking Status *Q: Current Every Day Smoker Tobacco Use Within Last Twelve Months: Cigarettes Second Hand Smoke Exposure: No Days Per Week of Alcohol Use: 7 Number of Drinks Per Day: 12 Total Drinks Per Week: 84 Date of Last Drink: 11/06/19 Time of Last Drink: 19:00 Recreational Drug Use History: No - HOME MEDS Home Medications: Home Meds Folic Acid 1 mg PO DAILY tablet 07/07/19 [Rx] Thiamine [Vitamin B-1] 100 mg PO BEDTIME tablet 07/07/19 [Rx] FLUoxetine HCl [Prozac] 20 mg PO DAILY 11/07/19 [History] Insulin Glarg,Human.Rec.Analog [Lantus] 30 unit SUBCUT BEDTIME 11/07/19 [History] Insulin Lispro [HumaLOG] 10 - 15 unit SUBCUT QAM 11/07/19 [History] Mirtazapine 7.5 mg PO BEDTIME 11/07/19 [History] Naproxen Sodium [Aleve] 220 mg PO BID 11/07/19 [History] Nicotine [Nicotine Patch] 1 patch TRDERM DAILY 11/07/19 [History] Topiramate 25 mg PO BID 11/07/19 [History] amLODIPine [Norvasc] 5 mg PO DAILY 11/07/19 [History] atorvaSTATin [Lipitor] 10 mg PO DAILY 11/07/19 [History] sitaGLIPtin Phosphate [Januvia] 50 mg PO DAILY 11/07/19 [History] - CURRENT (IN HOUSE) MEDS Current Meds: Current Medications Al Hydroxide/Mg Hydroxide (Mag-Al Plus) 30 ml PO BTHMEALBED PRN PRN Reason: Dyspepsia Last Admin: 11/10/19 17:57 Dose: 30 ml Documented by: Amlodipine Besylate (Norvasc) 5 mg PO DAILY [facility] Last Admin: 11/10/19 08:23 Dose: 5 mg Documented by: Bismuth Subsalicylate (Pepto Bismol) 30 ml PO Q6H PRN PRN Reason: Indigestion Dextrose/Water (Dextrose 50% In Water) 50 ml IVPUSH ASDIRECTED PRN PRN Reason: Hypoglycemia Enoxaparin Sodium (Lovenox) 40 mg SUBCUT DAILY [facility] Last Admin: 11/10/19 08:23 Dose: 40 mg Documented by: Fluoxetine HCl (Prozac) 20 mg PO DAILY [facility] Last Admin: 11/10/19 08:23 Dose: 20 mg Documented by: Folic Acid (Folic Acid) 1 mg PO DAILY [facility] Last Admin: 11/10/19 08:23 Dose: 1 mg Documented by: Insulin Glargine (Lantus) 20 unit SUBCUT BEDTIME [facility] Mirtazapine (Remeron) 7.5 mg PO BEDTIME [facility] Last Admin: 11/10/19 20:58 Dose: 7.5 mg Documented by: Miscellaneous Information (Remove Patch) 1 ea TRDERM DAILY [facility] Last Admin: 11/10/19 08:25 Dose: Not Given Documented by: Nicotine (Habitrol) 21 mg TRDERM DAILY [facility] Last Admin: 11/10/19 08:24 Dose: 21 mg Documented by: Sodium Chloride (Saline Flush) 10 ml FLUSH ASDIRECTED PRN PRN Reason: Keep Vein Open Last Admin: 11/07/19 01:55 Dose: 10 ml Documented by: Thiamine HCl (Vitamin B-1) 100 mg PO BEDTIME [facility] Last Admin: 11/10/19 20:59 Dose: 100 mg Documented by: Topiramate (Topamax) 25 mg PO BID [facility] Last Admin: 11/10/19 20:58 Dose: 25 mg Documented by: Discontinued Medications Bupivacaine HCl/Epinephrine Bitart (Marcaine 0.5%/Epinephrine 1:200,000) Confirm Administered Dose 50 ml .ROUTE .STK-MED ONE Stop: 11/11/19 08:00 Enoxaparin Sodium (Lovenox) 40 mg SUBCUT Q24H [facility] Sodium Chloride (Normal Saline) 1,000 mls @ 999 mls/hr IV ONETIME [facility] Last Admin: 11/07/19 01:55 Dose: 999 mls/hr Documented by: Lactated Ringer's (Ringers, Lactated) 1,000 mls @ 999 mls/hr IV .BOLUS ONE Stop: 11/07/19 03:46 Last Admin: 11/07/19 02:58 Dose: 999 mls/hr Documented by: Lactated Ringer's (Ringers, Lactated) 1,000 mls @ 150 mls/hr IV ASDIRECTED [facility] Last Admin: 11/07/19 13:29 Dose: 150 mls/hr Documented by: Magnesium Sulfate/Dextrose 1 (gm/ Premix) 100 mls @ 100 mls/hr IV ONETIME ONE Stop: 11/07/19 10:55 Last Admin: 11/07/19 10:01 Dose: Not Given Documented by: Magnesium Sulfate/Dextrose 1 (gm/ Premix) 100 mls @ 100 mls/hr IV Q1H [facility] Stop: 11/07/19 14:14 Magnesium Sulfate 2 gm/ Premix 50 mls @ 25 mls/hr IV ONETIME ONE Stop: 11/07/19 12:13 Last Admin: 11/07/19 10:20 Dose: 25 mls/hr Documented by: Sodium Chloride (Normal Saline) 1,000 mls @ 150 mls/hr IV ASDIRECTED [facility] Last Admin: 11/08/19 06:42 Dose: 150 mls/hr Documented by: Magnesium Sulfate 4 gm/ Premix 50 mls @ 12.5 mls/hr IV ONETIME ONE Stop: 11/08/19 12:59 Last Admin: 11/08/19 08:54 Dose: 12.5 mls/hr Documented by: Potassium Phosphate 30 mmole/ (Sodium Chloride) 510 mls @ 102 mls/hr IV ONETIME ONE Stop: 11/08/19 17:59 Last Admin: 11/08/19 12:45 Dose: 102 mls/hr Documented by: Sodium Chloride (Normal Saline) 1,000 mls @ 150 mls/hr IV ASDIRECTED [facility] Last Admin: 11/08/19 12:48 Dose: 150 mls/hr Documented by: Potassium Chloride 10 meq/ (Premix) 100 mls @ 100 mls/hr IV Q1H [facility] Stop: 11/09/19 15:59 Potassium Chloride 10 meq/ (Premix) 100 mls @ 100 mls/hr IV Q1H [facility] Stop: 11/09/19 13:59 Last Admin: 11/09/19 13:17 Dose: 100 mls/hr Documented by: Potassium Phosphate 30 mmole/ (Sodium Chloride) 510 mls @ 102 mls/hr IV ASDIRECTED [facility] Stop: 11/09/19 15:14 Last Admin: 11/09/19 10:20 Dose: 102 mls/hr Documented by: Magnesium Sulfate 4 gm/ Premix 50 mls @ 12.5 mls/hr IV ONETIME ONE Stop: 11/09/19 14:00 Last Admin: 11/09/19 10:14 Dose: 12.5 mls/hr Documented by: Insulin Glargine (Lantus) 25 unit SUBCUT BEDTIME [facility] Last Admin: 11/07/19 21:08 Dose: Not Given Documented by: Insulin Glargine (Lantus) 20 unit SUBCUT DAILY [facility] Last Admin: 11/10/19 08:23 Dose: 20 units Documented by: Insulin Human Lispro (Humalog) 0 unit SUBCUT QIDACANDBED [facility]; Protocol Last Admin: 11/10/19 14:49 Dose: 4 units Documented by: Insulin Human Lispro (Humalog) 5 unit SUBCUT TIDAC [facility] Last Admin: 11/08/19 17:05 Dose: Not Given Documented by: Insulin Human Lispro (Humalog) 5 unit SUBCUT TIDPC [facility] Last Admin: 11/09/19 08:12 Dose: 5 units Documented by: Lorazepam (Ativan) 1 mg IVPUSH ONETIME ONE Stop: 11/07/19 07:00 Last Admin: 11/07/19 07:09 Dose: 1 mg Documented by: Lorazepam (Ativan) 0 mg IVPUSH Q15M PRN; Protocol PRN Reason: Withdrawal Symptoms Last Admin: 11/08/19 00:06 Dose: 1 mg Documented by: Lorazepam (Ativan) 0 mg PO Q1H PRN; Protocol PRN Reason: Withdrawal Symptoms Simvastatin (Zocor) 10 mg PO DAILY [facility] Last Admin: 11/08/19 08:20 Dose: 10 mg Documented by: Thiamine HCl (Vitamin B-1) 100 mg IVPUSH ONETIME ONE Stop: 11/07/19 11:01 Last Admin: 11/07/19 12:45 Dose: 100 mg Documented by:
[2019-11-11] MEDS ORDERED: Propofol 200 MG/20 ML SDV ONE (09:27)
[2019-11-11] MEDS ORDERED: Rocuronium 50 MG/5 ML Vial ONE (09:27)
[2019-11-11] MEDS ORDERED: fentaNYL 250 MCG/5 ML SDV ONE (09:28)
[2019-11-11] MEDS ORDERED: Midazolam 1 MG/ML 2 ML SDV ONE (09:28)
[2019-11-11] MEDS ORDERED: Lidocaine 1% 4 ML ONE (09:28)
[2019-11-11] MEDS ORDERED: Succinylcholine/Sod PF 100 MG/5 ML SYRINGE IV ONE (09:55)
[2019-11-11] MEDS ORDERED: ceFAZolin 1 GM Vial ONE (09:59)
[2019-11-11] MEDS ORDERED: Ondansetron 4 MG/2 ML SDV ONE (10:25)
[2019-11-11] MEDS ORDERED: Sodium Chloride 0.9% 1,000 ML ONE (10:35)
[2019-11-11] MEDS ORDERED: HYDROmorphone 0.5 MG/0.5 ML Syringe IVPUSH PRN (10:47)
[2019-11-11] MEDS ORDERED: fentaNYL 100 MCG/2 ML SDV IVPUSH PRN (10:47)
[2019-11-11] MEDS ORDERED: Sodium Chloride 0.9% 100 ML ONE (10:48)
[2019-11-11] MEDS ORDERED: HYDROmorphone 0.5 MG/0.5 ML Syringe ONE (11:01)
--- NOTE | 2019-11-11 11:22 | PCM.PN ---
- General Info Date of Service: 11/11/19 Admission Dx/Problem (Free Text): Acalculous cholecystitis Subjective Update: patient did well overnight. No new symptoms Functional Status: Reports: Pain Controlled - Review of Systems General: Reports: No Symptoms HEENT: Reports: No Symptoms Pulmonary: Reports: No Symptoms Cardiovascular: Reports: No Symptoms Gastrointestinal: Reports: Abdominal Pain Genitourinary: Reports: No Symptoms Musculoskeletal: Reports: No Symptoms Skin: Reports: No Symptoms - Patient Data Vitals - Most Recent: Last Vital Signs Temp 98.2 F 11/11/19 08:06 Pulse 100 11/11/19 08:06 Resp 20 11/11/19 08:06 BP 128/72 11/11/19 08:06 Pulse Ox 100 11/11/19 08:06 Weight - Most Recent: 64.592 kg I&O - Last 24 Hours: Intake & Output 11/10/19 11/11/19 11/11/19 22:59 06:59 14:59 Intake Total 300 Output Total 300 750 Balance -300 -450 Lab Results Last 24 Hours: Laboratory Results - last 24 hr 11/10/19 11/10/19 11/10/19 Range/Units 05:17 11:37 14:47 WBC (4.23-9.07) K/mm3 RBC (4.63-6.08) M/mm3 Hgb (13.7-17.5) gm/dl Hct (40.1-51.0) % MCV (79.0-92.2) fl MCH (25.7-32.2) pg MCHC (32.2-35.5) g/dl RDW Std Deviation (35.1-43.9) fL Plt Count (163-337) K/mm3 MPV (9.4-12.3) fl Neut % (Auto) (34.0-67.9) % Lymph % (Auto) (21.8-53.1) % [place] % (Auto) (5.3-12.2) % Eos % (Auto) (0.8-7.0) Baso % (Auto) (0.1-1.2) % Neut # (Auto) (1.78-5.38) K/mm3 Lymph # (Auto) (1.32-3.57) K/mm3 [place] # (Auto) (0.30-0.82) K/mm3 Eos # (Auto) (0.04-0.54) K/mm3 Baso # (Auto) (0.01-0.08) K/mm3 Manual Slide Review Sodium (136-145) mEq/L Potassium (3.5-5.1) mEq/L Chloride (98-107) mEq/L Carbon Dioxide (21-32) mEq/L Anion Gap (5-15) BUN (7-18) mg/dL Creatinine (0.7-1.3) mg/dL Est Cr Clr Drug Dosing mL/min Estimated GFR (MDRD) (>60) mL/min BUN/Creatinine Ratio (14-18) Glucose (80-115) mg/dL POC Glucose 216 H 214 H (80-115) mg/dL Calcium (8.5-10.1) mg/dL Magnesium (1.8-2.4) mg/dl Total Bilirubin (0.2-1.0) mg/dL AST (15-37) U/L ALT (16-63) U/L Alkaline Phosphatase (46-116) U/L Total Protein (6.4-8.2) g/dl Albumin (3.4-5.0) g/dl Globulin gm/dL Albumin/Globulin Ratio (1-2) Lipase 4583 H (73-393) U/L 11/10/19 11/10/19 11/11/19 Range/Units 18:01 21:03 05:45 WBC (4.23-9.07) K/mm3 RBC (4.63-6.08) M/mm3 Hgb (13.7-17.5) gm/dl Hct (40.1-51.0) % MCV (79.0-92.2) fl MCH (25.7-32.2) pg MCHC (32.2-35.5) g/dl RDW Std Deviation (35.1-43.9) fL Plt Count (163-337) K/mm3 MPV (9.4-12.3) fl Neut % (Auto) (34.0-67.9) % Lymph % (Auto) (21.8-53.1) % [place] % (Auto) (5.3-12.2) % Eos % (Auto) (0.8-7.0) Baso % (Auto) (0.1-1.2) % Neut # (Auto) (1.78-5.38) K/mm3 Lymph # (Auto) (1.32-3.57) K/mm3 [place] # (Auto) (0.30-0.82) K/mm3 Eos # (Auto) (0.04-0.54) K/mm3 Baso # (Auto) (0.01-0.08) K/mm3 Manual Slide Review Sodium (136-145) mEq/L Potassium (3.5-5.1) mEq/L Chloride (98-107) mEq/L Carbon Dioxide (21-32) mEq/L Anion Gap (5-15) BUN (7-18) mg/dL Creatinine (0.7-1.3) mg/dL Est Cr Clr Drug Dosing mL/min Estimated GFR (MDRD) (>60) mL/min BUN/Creatinine Ratio (14-18) Glucose (80-115) mg/dL POC Glucose 101 159 H 161 H (80-115) mg/dL Calcium (8.5-10.1) mg/dL Magnesium (1.8-2.4) mg/dl Total Bilirubin (0.2-1.0) mg/dL AST (15-37) U/L ALT (16-63) U/L Alkaline Phosphatase (46-116) U/L Total Protein (6.4-8.2) g/dl Albumin (3.4-5.0) g/dl Globulin gm/dL Albumin/Globulin Ratio (1-2) Lipase (73-393) U/L 11/11/19 11/11/19 Range/Units 05:46 05:46 WBC 6.04 (4.23-9.07) K/mm3 RBC 3.84 L (4.63-6.08) M/mm3 Hgb 11.4 L (13.7-17.5) gm/dl Hct 34.4 L (40.1-51.0) % MCV 89.6 (79.0-92.2) fl MCH 29.7 (25.7-32.2) pg MCHC 33.1 (32.2-35.5) g/dl RDW Std Deviation 46.1 H (35.1-43.9) fL Plt Count 362 H D (163-337) K/mm3 MPV 9.8 (9.4-12.3) fl Neut % (Auto) 67.4 (34.0-67.9) % Lymph % (Auto) 8.6 L (21.8-53.1) % [place] % (Auto) 17.2 H (5.3-12.2) % Eos % (Auto) 4.3 (0.8-7.0) Baso % (Auto) 0.5 (0.1-1.2) % Neut # (Auto) 4.07 (1.78-5.38) K/mm3 Lymph # (Auto) 0.52 L (1.32-3.57) K/mm3 [place] # (Auto) 1.04 H (0.30-0.82) K/mm3 Eos # (Auto) 0.26 (0.04-0.54) K/mm3 Baso # (Auto) 0.03 (0.01-0.08) K/mm3 Manual Slide Review Normal smear Sodium 125 L (136-145) mEq/L Potassium 4.0 (3.5-5.1) mEq/L Chloride 91 L (98-107) mEq/L Carbon Dioxide 22 (21-32) mEq/L Anion Gap 16.0 H (5-15) BUN 19 H (7-18) mg/dL Creatinine 1.1 (0.7-1.3) mg/dL Est Cr Clr Drug Dosing 64.43 mL/min Estimated GFR (MDRD) > 60 (>60) mL/min BUN/Creatinine Ratio 17.3 (14-18) Glucose 183 H (80-115) mg/dL POC Glucose (80-115) mg/dL Calcium 9.3 (8.5-10.1) mg/dL Magnesium 1.8 (1.8-2.4) mg/dl Total Bilirubin 6.0 H (0.2-1.0) mg/dL AST 573 H (15-37) U/L ALT 554 H (16-63) U/L Alkaline Phosphatase 692 H (46-116) U/L Total Protein 7.0 (6.4-8.2) g/dl Albumin 2.8 L (3.4-5.0) g/dl Globulin 4.2 gm/dL Albumin/Globulin Ratio 0.7 L (1-2) Lipase (73-393) U/L Med Orders - Current: Current Medications Al Hydroxide/Mg Hydroxide (Mag-Al Plus) 30 ml PO BTHMEALBED PRN PRN Reason: Dyspepsia Last Admin: 11/10/19 17:57 Dose: 30 ml Documented by: Amlodipine Besylate (Norvasc) 5 mg PO DAILY [facility] Last Admin: 11/10/19 08:23 Dose: 5 mg Documented by: Bismuth Subsalicylate (Pepto Bismol) 30 ml PO Q6H PRN PRN Reason: Indigestion Dextrose/Water (Dextrose 50% In Water) 50 ml IVPUSH ASDIRECTED PRN PRN Reason: Hypoglycemia Enoxaparin Sodium (Lovenox) 40 mg SUBCUT DAILY [facility] Last Admin: 11/10/19 08:23 Dose: 40 mg Documented by: Fentanyl (Sublimaze) 100 mcg IVPUSH ONETIME PRN PRN Reason: Pain Fluoxetine HCl (Prozac) 20 mg PO DAILY [facility] Last Admin: 11/10/19 08:23 Dose: 20 mg Documented by: Folic Acid (Folic Acid) 1 mg PO DAILY [facility] Last Admin: 11/10/19 08:23 Dose: 1 mg Documented by: Hydromorphone HCl (Dilaudid) 0.5 mg IVPUSH ONETIME PRN PRN Reason: Pain (severe 7-10) Insulin Glargine (Lantus) 20 unit SUBCUT BEDTIME [facility] Mirtazapine (Remeron) 7.5 mg PO BEDTIME [facility] Last Admin: 11/10/19 20:58 Dose: 7.5 mg Documented by: Miscellaneous Information (Remove Patch) 1 ea TRDERM DAILY [facility] Last Admin: 11/10/19 08:25 Dose: Not Given Documented by: Nicotine (Habitrol) 21 mg TRDERM DAILY [facility] Last Admin: 11/10/19 08:24 Dose: 21 mg Documented by: Sodium Chloride (Saline Flush) 10 ml FLUSH ASDIRECTED PRN PRN Reason: Keep Vein Open Last Admin: 11/07/19 01:55 Dose: 10 ml Documented by: Thiamine HCl (Vitamin B-1) 100 mg PO BEDTIME [facility] Last Admin: 11/10/19 20:59 Dose: 100 mg Documented by: Topiramate (Topamax) 25 mg PO BID [facility] Last Admin: 11/10/19 20:58 Dose: 25 mg Documented by: Discontinued Medications Bupivacaine HCl/Epinephrine Bitart (Marcaine 0.5%/Epinephrine 1:200,000) Confirm Administered Dose 50 ml .ROUTE .STK-MED ONE Stop: 11/11/19 08:00 Last Admin: 11/11/19 10:03 Dose: 50 ml Documented by: Cefazolin Sodium (Ancef) Confirm Administered Dose 2 gm .ROUTE .STK-MED ONE Stop: 11/11/19 10:00 Enoxaparin Sodium (Lovenox) 40 mg SUBCUT Q24H [facility] Fentanyl (Sublimaze) Confirm Administered Dose 250 mcg .ROUTE .STK-MED ONE Stop: 11/11/19 09:29 Hydromorphone HCl (Dilaudid) Confirm Administered Dose 0.5 mg .ROUTE .STK-MED ONE Stop: 11/11/19 11:02 Sodium Chloride (Normal Saline) 1,000 mls @ 999 mls/hr IV ONETIME [facility] Last Admin: 11/07/19 01:55 Dose: 999 mls/hr Documented by: Lactated Ringer's (Ringers, Lactated) 1,000 mls @ 999 mls/hr IV .BOLUS ONE Stop: 11/07/19 03:46 Last Admin: 11/07/19 02:58 Dose: 999 mls/hr Documented by: Lactated Ringer's (Ringers, Lactated) 1,000 mls @ 150 mls/hr IV ASDIRECTED [facility] Last Admin: 11/07/19 13:29 Dose: 150 mls/hr Documented by: Magnesium Sulfate/Dextrose 1 (gm/ Premix) 100 mls @ 100 mls/hr IV ONETIME ONE Stop: 11/07/19 10:55 Last Admin: 11/07/19 10:01 Dose: Not Given Documented by: Magnesium Sulfate/Dextrose 1 (gm/ Premix) 100 mls @ 100 mls/hr IV Q1H [facility] Stop: 11/07/19 14:14 Magnesium Sulfate 2 gm/ Premix 50 mls @ 25 mls/hr IV ONETIME ONE Stop: 11/07/19 12:13 Last Admin: 11/07/19 10:20 Dose: 25 mls/hr Documented by: Sodium Chloride (Normal Saline) 1,000 mls @ 150 mls/hr IV ASDIRECTED [facility] Last Admin: 11/08/19 06:42 Dose: 150 mls/hr Documented by: Magnesium Sulfate 4 gm/ Premix 50 mls @ 12.5 mls/hr IV ONETIME ONE Stop: 11/08/19 12:59 Last Admin: 11/08/19 08:54 Dose: 12.5 mls/hr Documented by: Potassium Phosphate 30 mmole/ (Sodium Chloride) 510 mls @ 102 mls/hr IV ONETIME ONE Stop: 11/08/19 17:59 Last Admin: 11/08/19 12:45 Dose: 102 mls/hr Documented by: Sodium Chloride (Normal Saline) 1,000 mls @ 150 mls/hr IV ASDIRECTED [facility] Last Admin: 11/08/19 12:48 Dose: 150 mls/hr Documented by: Potassium Chloride 10 meq/ (Premix) 100 mls @ 100 mls/hr IV Q1H [facility] Stop: 11/09/19 15:59 Potassium Chloride 10 meq/ (Premix) 100 mls @ 100 mls/hr IV Q1H [facility] Stop: 11/09/19 13:59 Last Admin: 11/09/19 13:17 Dose: 100 mls/hr Documented by: Potassium Phosphate 30 mmole/ (Sodium Chloride) 510 mls @ 102 mls/hr IV ASDIRECTED [facility] Stop: 11/09/19 15:14 Last Admin: 11/09/19 10:20 Dose: 102 mls/hr Documented by: Magnesium Sulfate 4 gm/ Premix 50 mls @ 12.5 mls/hr IV ONETIME ONE Stop: 11/09/19 14:00 Last Admin: 11/09/19 10:14 Dose: 12.5 mls/hr Documented by: Lidocaine HCl (Xylocaine-Mpf 1%) Confirm Administered Dose 4 mls @ as directed .ROUTE .STK-MED ONE Stop: 11/11/19 09:29 Sodium Chloride (Normal Saline) Confirm Administered Dose 1,000 mls @ as directed .ROUTE .STK-MED ONE Stop: 11/11/19 10:36 Sodium Chloride (Normal Saline) Confirm Administered Dose 100 mls @ as directed .ROUTE .STK-MED ONE Stop: 11/11/19 10:49 Insulin Glargine (Lantus) 25 unit SUBCUT BEDTIME [facility] Last Admin: 11/07/19 21:08 Dose: Not Given Documented by: Insulin Glargine (Lantus) 20 unit SUBCUT DAILY [facility] Last Admin: 11/10/19 08:23 Dose: 20 units Documented by: Insulin Human Lispro (Humalog) 0 unit SUBCUT QIDACANDBED [facility]; Protocol Last Admin: 11/10/19 14:49 Dose: 4 units Documented by: Insulin Human Lispro (Humalog) 5 unit SUBCUT TIDAC [facility] Last Admin: 11/08/19 17:05 Dose: Not Given Documented by: Insulin Human Lispro (Humalog) 5 unit SUBCUT TIDPC [facility] Last Admin: 11/09/19 08:12 Dose: 5 units Documented by: Lorazepam (Ativan) 1 mg IVPUSH ONETIME ONE Stop: 11/07/19 07:00 Last Admin: 11/07/19 07:09 Dose: 1 mg Documented by: Lorazepam (Ativan) 0 mg IVPUSH Q15M PRN; Protocol PRN Reason: Withdrawal Symptoms Last Admin: 11/08/19 00:06 Dose: 1 mg Documented by: Lorazepam (Ativan) 0 mg PO Q1H PRN; Protocol PRN Reason: Withdrawal Symptoms Midazolam HCl (Versed 1 Mg/Ml) Confirm Administered Dose 4 mg .ROUTE .STK-MED ONE Stop: 11/11/19 09:29 Miscellaneous Medication (Phenylephrine 1 Mg/10 Ml-Ns) Confirm Administered Dose 1 mg IV .STK-MED ONE Stop: 11/11/19 10:40 Ondansetron HCl (Zofran) Confirm Administered Dose 4 mg .ROUTE .STK-MED ONE Stop: 11/11/19 10:26 Propofol (Diprivan 20 Ml) Confirm Administered Dose 200 mg .ROUTE .STK-MED ONE Stop: 11/11/19 09:28 Rocuronium [place] (Zemuron) Confirm Administered Dose 50 mg .ROUTE .STK-MED ONE Stop: 11/11/19 09:28 Simvastatin (Zocor) 10 mg PO DAILY [facility] Last Admin: 11/08/19 08:20 Dose: 10 mg Documented by: Thiamine HCl (Vitamin B-1) 100 mg IVPUSH ONETIME ONE Stop: 11/07/19 11:01 Last Admin: 11/07/19 12:45 Dose: 100 mg Documented by: - Exam General: Alert, Oriented, Cooperative Lungs: Normal Respiratory Effort Cardiovascular: Regular Rate, Regular Rhythm, No Murmurs GI/Abdominal Exam: Soft, No Organomegaly, No Distention, No Abnormal Bruit, Tender (RUQ/Epigastrium) Sepsis Event Note - Evaluation Sepsis Screening Result: No Definite Risk - Focused Exam Vital Signs: Vital Signs Temp Pulse Resp BP Pulse Ox 11/11/19 08:06 98.2 F 100 20 128/72 100 11/11/19 05:10 98.2 F 97 13 144/80 H 97 - Problem List Review Problem List Initiated/Reviewed/Updated: No - My Orders Last 24 Hours: My Active Orders 11/11/19 09:00 Schedule Procedure [COMM] Routine - Assessment Assessment:: Acalculous cholecystitis s/p lap cholecystectomy. No immediate complications - Plan Plan:: - Patient just underwent laparoscopic cholecystectomy. There was mild inflammation at the infundibulum - Pain control with 5 oxycodone q6hr as needed - Ok to resume diet with clears and advance as tolerated - Trend LFTs daily
--- NOTE | 2019-11-11 11:36 | PCM.POSTAN ---
POST ANESTHESIA ASSESSMENT - MENTAL STATUS Mental Status: Somnolent - VITAL SIGNS Vital Signs: Last Vital Signs Temp 97.2 F 11/11/19 11:30 Pulse 99 11/11/19 11:30 Resp 14 11/11/19 11:30 BP 108/66 11/11/19 11:30 Pulse Ox 98 11/11/19 11:34 - RESPIRATORY Respiratory Status: Respiratory Rate WNL, Airway Patent, O2 Saturation Stable, Supplemental Oxygen - CARDIOVASCULAR CV Status: Pulse Rate WNL, Blood Pressure Stable - GASTROINTESTINAL GI Status: No Symptoms - PAIN Pain Score: 0 - POST OP HYDRATION Hydration Status: Adequate & Stable
--- NOTE | 2019-11-11 11:59 | OR ---
DATE OF OPERATION: 11/11/2019 SURGEON: Karl Maki MD PREOPERATIVE DIAGNOSIS: Acalculous cholecystitis. POSTOPERATIVE DIAGNOSIS: Acalculous cholecystitis. OPERATION PERFORMED: Laparoscopic cholecystectomy. ANESTHESIA: Endotracheal. ESTIMATED BLOOD LOSS: 5 mL. COMPLICATIONS: None. INDICATIONS AND CONSENT: Mr. Christensen is a 59-year-old male with history of alcohol abuse who presented to the hospital with weakness. The patient was admitted and cared for in the ICU for concern for also withdrawal syndrome from alcohol. The patient did well in the first 2 days, but eventually, his LFTs, which were elevated at admission were trending down. However, his total bilirubin was trending up. The patient also then developing right upper quadrant pain that was radiating to the epigastric area. Due to this, the patient underwent ultrasound that showed no gallstones. HIDA scan was performed, which did not show a gallbladder; however, there was contrast in the small intestines. Due to high bilirubin levels, MRCP was performed. It did not show distal obstruction. Therefore, the patient was offered laparoscopic cholecystectomy due to positive HIDA scan as well as positive exam. Risks, benefits, and alternatives were discussed, and informed consent was obtained. DESCRIPTION OF PROCEDURE: The patient was taken to the operating room, placed in supine position. Following induction of general endotracheal anesthesia, the patient was padded. A time-out was performed. Preop antibiotics were given. Then, we began by making an infraumbilical incision after injecting local anesthetic consisting of 1% lidocaine with epinephrine. Then, incision was made in this area. Umbilical stalk was elevated, and Veress needle was introduced into the abdomen. The abdomen was insufflated to 15 mmHg. Then, a 12 mm Visiport was inserted under direct laparoscopic visualization. No injury to the intraabdominal structures was noted upon inspection of the abdomen. Three additional 5 mm trocars were placed, 1 in the subxiphoid area and 2 in the right subcostal area. Then, we turned our attention to the right upper quadrant. Liver appears yellowish in color signifying significant fatty infiltration. Liver contour smooth. Gallbladder was identified, grasped and elevated cranially. There were some adhesions of omentum as well as duodenum to the infundibulum. These were taken down bluntly and with judicious use of cautery. Then, the infundibulum was dissected, and critical view of safety was achieved where the cystic duct and the cystic artery were visualized clearly. There was mild inflammation at the infundibulum and cystic triangle. Cystic duct and artery were clipped with 3 clips and then transected leaving 2 clips in situ. Then, the gallbladder was taken off the gallbladder fossa with cautery. There were no immediate injuries. At this point, the abdomen was again reinspected. There were no other signs of injury. The gallbladder was placed in the EndoCatch bag and removed through the infraumbilical incision. Then, the fascia at the infraumbilical incision was closed with 0 Vicryl using Jg-Rivka device. Then, the abdomen was desufflated, and the rest of the trocars were removed. Incisions at all 4 sites were closed with 4-0 Monocryl stitches at skin level. Dermabond was applied. The patient tolerated the procedure well. At the end of the procedure, all instruments, sharps, and sponges were counted and found to be correct x2. The patient was awoken from general anesthesia, extubated, and taken to the PACU for further recovery. The patient will be returned to inpatient service for continued care. We will trend LFTs and see if they go down prior to patient's discharge. MMCECILIO /[id number] SHABBIR
--- NOTE | 2019-11-11 12:07 | PCM48HPAN ---
Post Anesthesia Note - EVALUATION WITHIN 48HRS OF ANESTHETIC Vital Signs in Normal Range: Yes Patient Participated in Evaluation: Yes Respiratory Function Stable: Yes Airway Patent: Yes Cardiovascular Function Stable: Yes Hydration Status Stable: Yes Pain Control Satisfactory: Yes Nausea and Vomiting Control Satisfactory: Yes Mental Status Recovered: Yes Vital Signs: Last Vital Signs Temp 97.6 F 11/11/19 12:00 Pulse 97 11/11/19 12:00 Resp 11 L 11/11/19 12:00 BP 100/61 11/11/19 12:00 Pulse Ox 100 11/11/19 12:00 - COMMENTS/OBSERVATIONS Free Text/Narrative:: No anesthesia complications noted. Patient is being transferred back to his room on Med-Surgical floor
[2019-11-11] MEDS: Folic Acid 1 MG Tab PO SCH (15:00)
[2019-11-11] MEDS: amLODIPine 5 MG Tab PO SCH (15:02)
[2019-11-11] MEDS: FLUoxetine 20 MG Cap PO SCH (15:03)
[2019-11-11] MEDS: Nicotine 21 MG/24 Hr Patch TRDERM SCH (15:04)
[2019-11-11] MEDS: Topiramate 25 MG Tab PO SCH ×2 (15:04→20:35)
[2019-11-11] MEDS: Enoxaparin 40 MG/0.4 ML Syringe SUBCUT SCH (15:05)
[2019-11-11] MEDS ORDERED: Morphine 2 MG/ML SYRINGE IVPUSH PRN (20:02)
[2019-11-11] MEDS: Acetaminophen/Codeine 300-30 MG Tab PO PRN (20:35)
[2019-11-11] MEDS: Mirtazapine 15 MG Tab PO SCH (20:35)
[2019-11-11] MEDS: Thiamine 100 MG Tab PO SCH (20:35)
[2019-11-11] MEDS: Insulin Glarg,Human.Rec.Analog 100 Unit/ML SUBCUT SCH (20:40)
--- NOTE | 2019-11-11 21:01 | PCM.PN ---
- General Info Date of Service: 11/11/19 Subjective Update: Slept OK No pain No signs of withdrawal - Patient Data Weight - Most Recent: 64.592 kg - Exam General: Alert, Oriented, Cooperative, No Acute Distress HEENT: Pupils Equal, Pupils Reactive, EOMI, Mucous Membr. Moist/[place] Neck: Supple, Trachea Midline, No JVD, No Thyromegaly Lungs: Clear to Auscultation, Normal Respiratory Effort. No: Crackles, Rales, Rhonchi, Rub, Stridor, Wheezing Cardiovascular: Regular Rate, Regular Rhythm. No: Murmurs, Gallops, Rubs GI/Abdominal Exam: Soft, Distended, Tender, Abnormal Bowel Sounds. No: Guarding, Rigid, Rebound Extremities: Normal Inspection, Normal Range of Motion, Non-Tender, No Pedal Edema, Normal Capillary Refill Peripheral Pulses: 2+: Radial (L), Radial (R) Sepsis Event Note - Evaluation Sepsis Screening Result: No Definite Risk - Problem List & Annotations (1) Acute acalculous cholecystitis SNOMED Code(s): 80413561 Code(s): K81.0 - ACUTE CHOLECYSTITIS Status: Acute Current Visit: Yes (2) Abnormal LFTs (liver function tests) SNOMED Code(s): 808834478 Code(s): R94.5 - ABNORMAL RESULTS OF LIVER FUNCTION STUDIES Status: Acute Current Visit: No (3) [id number] kidney injury SNOMED Code(s): 203506594 Code(s): N17.9 - ACUTE KIDNEY FAILURE, UNSPECIFIED; N18.9 - CHRONIC KIDNEY DISEASE, UNSPECIFIED Status: Resolved Priority: High Current Visit: Yes Qualifiers: Acute renal failure type: unspecified Chronic kidney disease stage: unspecified stage Qualified Code(s): N17.9 - Acute kidney failure, unspecified; N18.9 - Chronic kidney disease, unspecified (4) Alcohol abuse SNOMED Code(s): 97418575 Code(s): F10.10 - ALCOHOL ABUSE, UNCOMPLICATED Status: Chronic Priority: High Current Visit: No (5) Alcohol intoxication SNOMED Code(s): 04831617 Code(s): F10.929 - ALCOHOL USE, UNSPECIFIED WITH INTOXICATION, UNSPECIFIED Status: Acute Priority: High Current Visit: Yes Qualifiers: Complication of substance-induced condition: uncomplicated Qualified Code(s): F10.920 - Alcohol use, unspecified with intoxication, uncomplicated (6) Alcoholic hepatitis with ascites SNOMED Code(s): 6003143291218948 Code(s): K70.11 - ALCOHOLIC HEPATITIS WITH ASCITES Status: Acute Priority: High Current Visit: Yes (7) Current every day smoker SNOMED Code(s): 404103904, 935765122 Code(s): F17.200 - NICOTINE DEPENDENCE, UNSPECIFIED, UNCOMPLICATED Status: Chronic Priority: High Current Visit: Yes (8) Depression SNOMED Code(s): 90619857 Code(s): F32.9 - MAJOR DEPRESSIVE DISORDER, SINGLE EPISODE, UNSPECIFIED Status: Chronic Priority: High Current Visit: No Qualifiers: Depression Type: major depressive disorder Major depression recurrence: unspecified whether recurrent Active/Remission status: currently active Major depression episode severity: severe Psychotic features: without psychotic features Qualified Code(s): F32.2 - Major depressive disorder, single episode, severe without psychotic features (9) Hypertension SNOMED Code(s): 91688460 Code(s): I10 - ESSENTIAL (PRIMARY) HYPERTENSION Status: Chronic Priority: Medium Current Visit: No Qualifiers: Hypertension type: unspecified Qualified Code(s): I10 - Essential (primary) hypertension (10) Hypoglycemia SNOMED Code(s): 223100639 Code(s): E16.2 - HYPOGLYCEMIA, UNSPECIFIED Status: Acute Priority: High Current Visit: Yes (11) Hypokalemia SNOMED Code(s): 02838160 Code(s): E87.6 - HYPOKALEMIA Status: Acute Priority: High Current Visit: Yes (12) Hypomagnesemia SNOMED Code(s): 391171426 Code(s): E83.42 - HYPOMAGNESEMIA Status: Acute Priority: High Current Visit: Yes (13) Hyponatremia SNOMED Code(s): 49705232 Code(s): E87.1 - HYPO-OSMOLALITY AND HYPONATREMIA Status: Acute Current Visit: Yes (14) Hypophosphatasia SNOMED Code(s): 498642083 Code(s): E83.39 - OTHER DISORDERS OF PHOSPHORUS METABOLISM Status: Acute Priority: High Current Visit: Yes (15) Type II diabetes mellitus SNOMED Code(s): 91067643 Code(s): E11.9 - TYPE 2 DIABETES MELLITUS WITHOUT COMPLICATIONS Status: Chronic Priority: High Current Visit: No Qualifiers: Diabetes mellitus shelter insulin use: without shelter use Diabetes mellitus complication status: with other specified complication Qualified Code(s): E11.69 - Type 2 diabetes mellitus with other specified complication - Problem List Review Problem List Initiated/Reviewed/Updated: Yes - Assessment Assessment:: 11/07/2019 Alcohol intoxication with alcohol withdrawal - Patient is known to be a heavy alcohol consumer with previous severe alcohol withdrawal. - Patient denies any history of seizure with alcohol withdrawal. - Patient did start developing some withdrawal symptoms while having an ethanol level of 0.18 g%. This increases his risk for difficulty and severe detox. - Patient is requesting help with quitting. - services mgr has already been consulted and has seen him. Hyponatremia/hypomagnesemia - Serum and urine osmolality was not obtained prior to fluid boluses. - Corrected sodium 128 - Magnesium 1.7 - Given magnesium riders in the ER Acute renal injury - Estimated GFR 39 - Creatinine 1.8 - BUN to creatinine ratio 23.3 - Likely injury is from hypovolemia Alcoholic hepatitis-recurrent - Total bilirubin 3.2, AST 888, ALT 677, alkaline phosphatase 411, albumin 3.3 - PT, INR, PTT not obtained Depression - Patient is not complaining of depression currently. - He was started on Prozac last hospitalization. Nicotine dependence - Currently using nicotine patch 11/08/2019 Alcohol intoxication with alcohol withdrawal - Patient has had minimal alcohol withdrawal so far. - He only received 1 mg of Ativan overnight. - CIWA scores are less than 8 this morning - Unlikely he will have significant withdrawal. Hyponatremia/hypomagnesemia/hypophosphatemia/hypokalemia - Potassium 3.2, magnesium 1.8, phosphorus 2.3, sodium 128 - No arrhythmias Acute renal injury-improved - Estimated GFR 60, creatinine 1.1 - Anion gap increased to 21 Alcoholic hepatitisdeteriorated - AST 1434, ALT 781, alkaline phosphatase 524 - Total bilirubin 5.3, INR 1, albumin 3.0 - MELD score (NEW) 22 -19.6 % mortality and 90 days - Abdominal ultrasound showed fatty liver, slight gallbladder wall thickening but no biliary duct dilatation, gallstones, or pericholecystic fluid. Possible minimal fluid between the liver and diaphragm suggesting minimal ascites. - Ammonia level 22normal - Hepatitis C- Uncontrolled diabetes - Hemoglobin A1c 9.8 - Home insulin: Lantus 30 units nightly, Humalog 7 units in the morning and 10 units at 11 and 2200 with sliding scale. - Patient was not given his Lantus last night because of borderline low blood sugars. Depression - Stable Nicotine dependence - Nicotine patch 11/09/2019 Alcohol intoxication with alcohol withdrawal - stable - Patient has continued to have minimal withdrawals thus far - Highest CIWA was 8 yesterday - CIWA has been 0 since yesterday evening. - Unlikely he will have significant withdrawal. Hyponatremia/hypomagnesemia/hypophosphatemia/hypokalemia - Potassium 2.9, magnesium 1.6, phosphorus 2.0, sodium 129 - No arrhythmias - Has been eating Acute renal injury-Resolved - Estimated GFR 60, creatinine 1.0 - Anion gap now 14.9 Alcoholic hepatitisimproved - AST 1024, ALT 688, alkaline phosphatase 544 - Total bilirubin 5.7, INR 1, albumin 3.0 - Abdominal ultrasound showed fatty liver, slight gallbladder wall thickening but no biliary duct dilatation, gallstones, or pericholecystic fluid. Possible minimal fluid between the liver and diaphragm suggesting minimal ascites. - Hepatitis C- negative Uncontrolled diabetes - Home insulin: Lantus 30 units nightly, Humalog 7 units in the morning and 10 units at 11 and 2200 with sliding scale. - Scheduled humalog 5 units discontinued due to low blood sugars Depression * Stable Nicotine dependence * Nicotine patch 11/10/2019 Alcohol intoxication with alcohol withdrawal - stable - Patient has continued to have minimal withdrawals thus far - CIWAs have been 0 for several days - Unlikely he will have significant withdrawal. Hyponatremia/hypomagnesemia/hypophosphatemia/hypokalemia - Potassium 4.0, magnesium 2.0, phosphorus 3.2, sodium 127 - No arrhythmias - Has been NPO since noon Acute renal injury-Resolved - Estimated GFR 60, creatinine 1.0 - Anion gap now 14.9 Alcoholic hepatitisimproved - AST 679, ALT 577, alkaline phosphatase 588 - Total bilirubin 5.7 - Abdominal ultrasound showed fatty liver, slight gallbladder wall thickening but no biliary duct dilatation, gallstones, or pericholecystic fluid. Possible minimal fluid between the liver and diaphragm suggesting minimal ascites. - Hepatitis C- negative Abnormal GGT Abnormal HIDA - Alk phos as above - [id number] - Biliary HIDA suggests acalculous cholecystitis - Dr. Maki general surgeon consulted, recommends MRCP Uncontrolled diabetes - Hemoglobin A1c 9.8 - Home insulin: Lantus 30 units nightly, Humalog 7 units in the morning and 10 units at 11 and 2200 with sliding scale. - Lantus 20 units bedtime - Humalog discontinued due to NPO status - consider resumption when eating Depression - Stable Nicotine dependence - Nicotine patch 11/11/2019 Transferred out of ICU Surgery evaluated patient who recommended cholecystectomy today Vital signs trend MAP 60977 T-max 98.2 Heart rate 00279 Pulse ox greater than 97% on room air Intake and output Urine output 1, 450 24-hour balance +290 Admission balance +3327 Lab results Hemoglobin stable 11-11.4 Platelets up from 253-362 Sodium down from 127-225 Chloride stable at 91 GFR stable greater than 60 Total bilirubin up from 5.7-6.0 AST down from 679-573 ALT down from 577-544 Alkaline phosphatase up from 588-692 - Plan Plan:: Acute acalculous cholecystitis Cholestatic pattern on LFTs - Cholecystectomy today Alcohol withdrawal Alcohol abuse - Daily folic acid and thiamine - Continue Prozac, Remeron and Topamax Type II diabetes mellitus, FcF1l-7.8% - Hypoglycemia protocol - Glargine 20u bedtime - Scheduled glucose checks Hypertension, controlled - Continue Amlodipine - PRN Hydralazine Hyponatremia, worsened - High salt diet - Repeat labs in AM Depression - Continue Prozac and Remeron Current every day smoker - Nicotine patch Alcohol intoxication, resolved Acute kidney injury, resolved Hypoglycemia, resolved Hypokalemia, resolved Hypomagnesemia, resolved PROPHYLAXIS DVT- Lovenox GI- not indicated CODE STATUS: FULL CODE DISPOSITION: Patient will remain admitted for cholecystectomy today, will consult psychiatry for recommendations on placement. Patient agrees, he needs inpatient rehab and is willing to go
[2019-11-11] MEDS ORDERED: Sodium Chloride 0.9% 1,000 ML IV ONE (21:22)
[2019-11-12] MEDS: Acetaminophen/Codeine 300-30 MG Tab PO PRN ×6 (00:02→23:10)
[2019-11-12] MEDS: Enoxaparin 40 MG/0.4 ML Syringe SUBCUT SCH (09:32)
[2019-11-12] MEDS: Folic Acid 1 MG Tab PO SCH (09:32)
[2019-11-12] MEDS: amLODIPine 5 MG Tab PO SCH (09:32)
[2019-11-12] MEDS: FLUoxetine 20 MG Cap PO SCH (09:32)
[2019-11-12] MEDS: Topiramate 25 MG Tab PO SCH ×2 (09:32→21:22)
[2019-11-12] MEDS: Nicotine 21 MG/24 Hr Patch TRDERM SCH (09:33)
--- NOTE | 2019-11-12 11:05 | PCM.PN ---
- General Info Date of Service: 11/12/19 Subjective Update: Tolerated diet, still sore around the incisions, ambulating, urinating Functional Status: Reports: Pain Controlled, Tolerating Diet, Ambulating, Urinating - Review of Systems General: Reports: No Symptoms HEENT: Reports: No Symptoms Pulmonary: Reports: No Symptoms Cardiovascular: Reports: No Symptoms Gastrointestinal: Reports: Abdominal Pain Genitourinary: Reports: No Symptoms Musculoskeletal: Reports: No Symptoms Skin: Reports: No Symptoms Neurological: Reports: No Symptoms - Patient Data Vitals - Most Recent: Last Vital Signs Temp 98.2 F 11/12/19 08:22 Pulse 120 H 11/12/19 08:22 Resp 18 11/12/19 08:22 BP 112/52 L 11/12/19 09:32 Pulse Ox 100 11/12/19 08:22 Weight - Most Recent: 64.546 kg I&O - Last 24 Hours: Intake & Output 11/11/19 11/12/19 11/12/19 22:59 06:59 14:59 Intake Total 900 1350 Output Total 1500 Balance 900 -150 Lab Results Last 24 Hours: Laboratory Results - last 24 hr 11/11/19 11/11/19 11/11/19 Range/Units 12:40 17:12 20:39 WBC (4.23-9.07) K/mm3 RBC (4.63-6.08) M/mm3 Hgb (13.7-17.5) gm/dl Hct (40.1-51.0) % MCV (79.0-92.2) fl MCH (25.7-32.2) pg MCHC (32.2-35.5) g/dl RDW Std Deviation (35.1-43.9) fL Plt Count (163-337) K/mm3 MPV (9.4-12.3) fl Neut % (Auto) (34.0-67.9) % Lymph % (Auto) (21.8-53.1) % Frontier % (Auto) (5.3-12.2) % Eos % (Auto) (0.8-7.0) Baso % (Auto) (0.1-1.2) % Neut # (Auto) (1.78-5.38) K/mm3 Lymph # (Auto) (1.32-3.57) K/mm3 Frontier # (Auto) (0.30-0.82) K/mm3 Eos # (Auto) (0.04-0.54) K/mm3 Baso # (Auto) (0.01-0.08) K/mm3 Manual Slide Review Sodium (136-145) mEq/L Potassium (3.5-5.1) mEq/L Chloride (98-107) mEq/L Carbon Dioxide (21-32) mEq/L Anion Gap (5-15) BUN (7-18) mg/dL Creatinine (0.7-1.3) mg/dL Est Cr Clr Drug Dosing mL/min Estimated GFR (MDRD) (>60) mL/min BUN/Creatinine Ratio (14-18) Glucose (80-115) mg/dL POC Glucose 206 H 302 H 340 H (80-115) mg/dL Calcium (8.5-10.1) mg/dL Phosphorus (2.6-4.7) mg/dL Magnesium (1.8-2.4) mg/dl Total Bilirubin (0.2-1.0) mg/dL AST (15-37) U/L ALT (16-63) U/L Alkaline Phosphatase (46-116) U/L Total Protein (6.4-8.2) g/dl Albumin (3.4-5.0) g/dl Globulin gm/dL Albumin/Globulin Ratio (1-2) 11/12/19 11/12/19 11/12/19 Range/Units 05:50 05:50 06:51 WBC 6.76 (4.23-9.07) K/mm3 RBC 3.52 L (4.63-6.08) M/mm3 Hgb 10.4 L (13.7-17.5) gm/dl Hct 33.2 L (40.1-51.0) % MCV 94.3 H D (79.0-92.2) fl MCH 29.5 (25.7-32.2) pg MCHC 31.3 L (32.2-35.5) g/dl RDW Std Deviation 48.3 H (35.1-43.9) fL Plt Count 419 H (163-337) K/mm3 MPV 9.9 (9.4-12.3) fl Neut % (Auto) 67.2 (34.0-67.9) % Lymph % (Auto) 7.7 L (21.8-53.1) % Frontier % (Auto) 20.4 H (5.3-12.2) % Eos % (Auto) 2.8 (0.8-7.0) Baso % (Auto) 0.4 (0.1-1.2) % Neut # (Auto) 4.54 (1.78-5.38) K/mm3 Lymph # (Auto) 0.52 L (1.32-3.57) K/mm3 Frontier # (Auto) 1.38 H (0.30-0.82) K/mm3 Eos # (Auto) 0.19 (0.04-0.54) K/mm3 Baso # (Auto) 0.03 (0.01-0.08) K/mm3 Manual Slide Review Abnormal smear Sodium 127 L (136-145) mEq/L Potassium 3.9 (3.5-5.1) mEq/L Chloride 94 L (98-107) mEq/L Carbon Dioxide 23 (21-32) mEq/L Anion Gap 13.9 (5-15) BUN 17 (7-18) mg/dL Creatinine 1.0 (0.7-1.3) mg/dL Est Cr Clr Drug Dosing 70.82 mL/min Estimated GFR (MDRD) > 60 (>60) mL/min BUN/Creatinine Ratio 17.0 (14-18) Glucose 212 H (80-115) mg/dL POC Glucose 198 H (80-115) mg/dL Calcium 9.0 (8.5-10.1) mg/dL Phosphorus 2.8 (2.6-4.7) mg/dL Magnesium 1.7 L (1.8-2.4) mg/dl Total Bilirubin 4.9 H (0.2-1.0) mg/dL AST 479 H (15-37) U/L ALT 456 H (16-63) U/L Alkaline Phosphatase 726 H (46-116) U/L Total Protein 6.8 (6.4-8.2) g/dl Albumin 2.6 L (3.4-5.0) g/dl Globulin 4.2 gm/dL Albumin/Globulin Ratio 0.6 L (1-2) Med Orders - Current: Current Medications Acetaminophen/Codeine Phosphate (Tylenol With Codeine No.3 300mg/30mg) 1 tab PO Q4H PRN PRN Reason: Pain (moderate 4-6) Last Admin: 11/12/19 09:32 Dose: 1 tab Documented by: Al Hydroxide/Mg Hydroxide (Mag-Al Plus) 30 ml PO BTHMEALBED PRN PRN Reason: Dyspepsia Last Admin: 11/10/19 17:57 Dose: 30 ml Documented by: Amlodipine Besylate (Norvasc) 5 mg PO DAILY [facility] Last Admin: 11/12/19 09:32 Dose: 5 mg Documented by: Bismuth Subsalicylate (Pepto Bismol) 30 ml PO Q6H PRN PRN Reason: Indigestion Dextrose/Water (Dextrose 50% In Water) 50 ml IVPUSH ASDIRECTED PRN PRN Reason: Hypoglycemia Enoxaparin Sodium (Lovenox) 40 mg SUBCUT DAILY [facility] Last Admin: 11/12/19 09:32 Dose: 40 mg Documented by: Fluoxetine HCl (Prozac) 20 mg PO DAILY [facility] Last Admin: 11/12/19 09:32 Dose: 20 mg Documented by: Folic Acid (Folic Acid) 1 mg PO DAILY [facility] Last Admin: 11/12/19 09:32 Dose: 1 mg Documented by: Insulin Glargine (Lantus) 20 unit SUBCUT BEDTIME [facility] Last Admin: 11/11/19 20:40 Dose: 20 units Documented by: Mirtazapine (Remeron) 7.5 mg PO BEDTIME [facility] Last Admin: 11/11/19 20:35 Dose: 7.5 mg Documented by: Miscellaneous Information (Remove Patch) 1 ea TRDERM DAILY [facility] Last Admin: 11/11/19 15:03 Dose: Not Given Documented by: Morphine Sulfate (Morphine) 2 mg IVPUSH Q4H PRN PRN Reason: Pain (severe 7-10) Nicotine (Habitrol) 21 mg TRDERM DAILY [facility] Last Admin: 11/12/19 09:33 Dose: 21 mg Documented by: Sodium Chloride (Saline Flush) 10 ml FLUSH ASDIRECTED PRN PRN Reason: Keep Vein Open Last Admin: 11/07/19 01:55 Dose: 10 ml Documented by: Thiamine HCl (Vitamin B-1) 100 mg PO BEDTIME [facility] Last Admin: 11/11/19 20:35 Dose: 100 mg Documented by: Topiramate (Topamax) 25 mg PO BID [facility] Last Admin: 11/12/19 09:32 Dose: 25 mg Documented by: Discontinued Medications Bupivacaine HCl/Epinephrine Bitart (Marcaine 0.5%/Epinephrine 1:200,000) Confirm Administered Dose 50 ml .ROUTE .STK-MED ONE Stop: 11/11/19 08:00 Last Admin: 11/11/19 10:03 Dose: 45 ml Documented by: Cefazolin Sodium (Ancef) Confirm Administered Dose 2 gm .ROUTE .STK-MED ONE Stop: 11/11/19 10:00 Enoxaparin Sodium (Lovenox) 40 mg SUBCUT Q24H [facility] Fentanyl (Sublimaze) Confirm Administered Dose 250 mcg .ROUTE .STK-MED ONE Stop: 11/11/19 09:29 Fentanyl (Sublimaze) 100 mcg IVPUSH ONETIME PRN PRN Reason: Pain Hydromorphone HCl (Dilaudid) 0.5 mg IVPUSH ONETIME PRN PRN Reason: Pain (severe 7-10) Last Admin: 11/11/19 17:07 Dose: 0.5 mg Documented by: Hydromorphone HCl (Dilaudid) Confirm Administered Dose 0.5 mg .ROUTE .STK-MED ONE Stop: 11/11/19 11:02 Sodium Chloride (Normal Saline) 1,000 mls @ 999 mls/hr IV ONETIME [facility] Last Admin: 11/07/19 01:55 Dose: 999 mls/hr Documented by: Lactated Ringer's (Ringers, Lactated) 1,000 mls @ 999 mls/hr IV .BOLUS ONE Stop: 11/07/19 03:46 Last Admin: 11/07/19 02:58 Dose: 999 mls/hr Documented by: Lactated Ringer's (Ringers, Lactated) 1,000 mls @ 150 mls/hr IV ASDIRECTED [facility] Last Admin: 11/07/19 13:29 Dose: 150 mls/hr Documented by: Magnesium Sulfate/Dextrose 1 (gm/ Premix) 100 mls @ 100 mls/hr IV ONETIME ONE Stop: 11/07/19 10:55 Last Admin: 11/07/19 10:01 Dose: Not Given Documented by: Magnesium Sulfate/Dextrose 1 (gm/ Premix) 100 mls @ 100 mls/hr IV Q1H IVA Stop: 11/07/19 14:14 Magnesium Sulfate 2 gm/ Premix 50 mls @ 25 mls/hr IV ONETIME ONE Stop: 11/07/19 12:13 Last Admin: 11/07/19 10:20 Dose: 25 mls/hr Documented by: Sodium Chloride (Normal Saline) 1,000 mls @ 150 mls/hr IV ASDIRECTED [facility] Last Admin: 11/08/19 06:42 Dose: 150 mls/hr Documented by: Magnesium Sulfate 4 gm/ Premix 50 mls @ 12.5 mls/hr IV ONETIME ONE Stop: 11/08/19 12:59 Last Admin: 11/08/19 08:54 Dose: 12.5 mls/hr Documented by: Potassium Phosphate 30 mmole/ (Sodium Chloride) 510 mls @ 102 mls/hr IV ONETIME ONE Stop: 11/08/19 17:59 Last Admin: 11/08/19 12:45 Dose: 102 mls/hr Documented by: Sodium Chloride (Normal Saline) 1,000 mls @ 150 mls/hr IV ASDIRECTED [facility] Last Admin: 11/08/19 12:48 Dose: 150 mls/hr Documented by: Potassium Chloride 10 meq/ (Premix) 100 mls @ 100 mls/hr IV Q1H [facility] Stop: 11/09/19 15:59 Potassium Chloride 10 meq/ (Premix) 100 mls @ 100 mls/hr IV Q1H [facility] Stop: 11/09/19 13:59 Last Admin: 11/09/19 13:17 Dose: 100 mls/hr Documented by: Potassium Phosphate 30 mmole/ (Sodium Chloride) 510 mls @ 102 mls/hr IV ASDIRECTED [facility] Stop: 11/09/19 15:14 Last Admin: 11/09/19 10:20 Dose: 102 mls/hr Documented by: Magnesium Sulfate 4 gm/ Premix 50 mls @ 12.5 mls/hr IV ONETIME ONE Stop: 11/09/19 14:00 Last Admin: 11/09/19 10:14 Dose: 12.5 mls/hr Documented by: Lidocaine HCl (Xylocaine-Mpf 1%) Confirm Administered Dose 4 mls @ as directed .ROUTE .STK-MED ONE Stop: 11/11/19 09:29 Sodium Chloride (Normal Saline) Confirm Administered Dose 1,000 mls @ as directed .ROUTE .STK-MED ONE Stop: 11/11/19 10:36 Sodium Chloride (Normal Saline) Confirm Administered Dose 100 mls @ as directed .ROUTE .STK-MED ONE Stop: 11/11/19 10:49 Sodium Chloride (Normal Saline) 1,000 mls @ 999 mls/hr IV ONETIME ONE Stop: 11/11/19 22:22 Last Admin: 11/11/19 22:47 Dose: 999 mls/hr Documented by: Insulin Glargine (Lantus) 25 unit SUBCUT BEDTIME [facility] Last Admin: 11/07/19 21:08 Dose: Not Given Documented by: Insulin Glargine (Lantus) 20 unit SUBCUT DAILY [facility] Last Admin: 11/10/19 08:23 Dose: 20 units Documented by: Insulin Human Lispro (Humalog) 0 unit SUBCUT QIDACANDBED [facility]; Protocol Last Admin: 11/10/19 14:49 Dose: 4 units Documented by: Insulin Human Lispro (Humalog) 5 unit SUBCUT TIDAC [facility] Last Admin: 11/08/19 17:05 Dose: Not Given Documented by: [facility]ulin [facility] Last Admin: 11/09/19 08:12 Dose: 5 units Documented by: Lorazepam (Ativan) 1 mg IVPUSH ONETIME ONE Stop: 11/07/19 07:00 Last Admin: 11/07/19 07:09 Dose: 1 mg Documented by: Lorazepam (Ativan) 0 mg IVPUSH Q15M PRN; Protocol PRN Reason: Withdrawal Symptoms Last Admin: 11/08/19 00:06 Dose: 1 mg Documented by: Lorazepam (Ativan) 0 mg PO Q1H PRN; Protocol PRN Reason: Withdrawal Symptoms Midazolam HCl (Versed 1 Mg/Ml) Confirm Administered Dose 4 mg .ROUTE .STK-MED ONE Stop: 11/11/19 09:29 Miscellaneous Medication (Phenylephrine 1 Mg/10 Ml-Ns) Confirm Administered Dose 1 mg IV .STK-MED ONE Stop: 11/11/19 10:40 Ondansetron HCl (Zofran) Confirm Administered Dose 4 mg .ROUTE .STK-MED ONE Stop: 11/11/19 10:26 Propofol (Diprivan 20 Ml) Confirm Administered Dose 200 mg .ROUTE .STK-MED ONE Stop: 11/11/19 09:28 Rocuronium [place] (Zemuron) Confirm Administered Dose 50 mg .ROUTE .STK-MED ONE Stop: 11/11/19 09:28 Simvastatin (Zocor) 10 mg PO DAILY IVA Last Admin: 11/08/19 08:20 Dose: 10 mg Documented by: Thiamine HCl (Vitamin B-1) 100 mg IVPUSH ONETIME ONE Stop: 11/07/19 11:01 Last Admin: 11/07/19 12:45 Dose: 100 mg Documented by: - Exam General: Alert, Oriented, Cooperative Cardiovascular: Regular Rate, Regular Rhythm GI/Abdominal Exam: Soft, No Organomegaly, No Distention, No Abnormal Bruit, Tender (kang-incisional, incisions c/d/i) Sepsis Event Note - Evaluation Sepsis Screening Result: No Definite Risk - Focused Exam Vital Signs: Vital Signs Temp Pulse Resp BP Pulse Ox 11/12/19 09:32 112/52 L 11/12/19 08:22 98.2 F 120 H 18 112/52 L 100 11/12/19 03:18 98.1 F 95 13 149/82 H 98 - Problem List Review Problem List Initiated/Reviewed/Updated: No - My Orders Last 24 Hours: My Active Orders 11/12/19 Breakfast ADA Diabetic [[place] [employer] Diet] [DIET] - Assessment Assessment:: POD 1 s/p lap juan a. Progressing well. - Plan Plan:: - Continue pain control - Tolerating diet - ambulated TID - Incentive spirometer - stool softener - Ok to dc from my standpoint. No lifting > 20lb for 2 weeks - Follow up with Dilma Leos in 2 weeks for post op check
--- NOTE | 2019-11-12 18:51 | PCM.PN ---
- General Info Date of Service: 11/12/19 Subjective Update: Feeling OK Tolerated clear liquid diet throughout the day yesterday No BM since 11/08 Pain controlled Using IS - Patient Data Vitals - Most Recent: Last Vital Signs Temp 100.0 F 11/12/19 12:46 Pulse 113 H 11/12/19 12:46 Resp 16 11/12/19 12:46 BP 143/82 H 11/12/19 12:46 Pulse Ox 98 11/12/19 12:46 Weight - Most Recent: 64.546 kg - Exam General: Alert, Oriented, Cooperative, No Acute Distress HEENT: Pupils Equal, Pupils Reactive, EOMI, Mucous Membr. Moist/Nason Neck: Supple, Trachea Midline, No JVD, No Thyromegaly. No: Lymphadenopathy Lungs: Clear to Auscultation, Normal Respiratory Effort. No: Decreased Breath Sounds, Crackles, Rales, Rhonchi, Rub, Stridor, Wheezing Cardiovascular: Regular Rate, Regular Rhythm. No: Murmurs, Gallops, Rubs GI/Abdominal Exam: Soft, Non-Tender, Abnormal Bowel Sounds (decreased frequency), Other (generalized soreness on palpation). No: Guarding, Rigid, Rebound Back Exam: Normal Inspection. No: CVA Tenderness (L), CVA Tenderness (R) Extremities: Normal Inspection, Normal Range of Motion, Normal Capillary Refill, Other (multiple amputated fingers on left hand) Peripheral Pulses: 2+: Radial (L), Radial (R), Dorsalis Pedis (L), Dorsalis Pedis (R) Neurological: No New Focal Deficit Sepsis Event Note - Evaluation Sepsis Screening Result: No Definite Risk - Problem List & Annotations (1) Acute acalculous cholecystitis SNOMED Code(s): 73972915 Code(s): K81.0 - ACUTE CHOLECYSTITIS Status: Acute Current Visit: Yes (2) Abnormal LFTs (liver function tests) SNOMED Code(s): 603751011 Code(s): R94.5 - ABNORMAL RESULTS OF LIVER FUNCTION STUDIES Status: Acute Current Visit: No (3) Ipdyu-wz-mccyhzd kidney injury SNOMED Code(s): 837524748 Code(s): N17.9 - ACUTE KIDNEY FAILURE, UNSPECIFIED; N18.9 - CHRONIC KIDNEY DISEASE, UNSPECIFIED Status: Resolved Priority: High Current Visit: Yes Qualifiers: Acute renal failure type: unspecified Chronic kidney disease stage: unspecified stage Qualified Code(s): N17.9 - Acute kidney failure, unspecified; N18.9 - Chronic kidney disease, unspecified (4) Alcohol abuse SNOMED Code(s): 33274276 Code(s): F10.10 - ALCOHOL ABUSE, UNCOMPLICATED Status: Chronic Priority: High Current Visit: No (5) Alcohol intoxication SNOMED Code(s): 64460753 Code(s): F10.929 - ALCOHOL USE, UNSPECIFIED WITH INTOXICATION, UNSPECIFIED Status: Acute Priority: High Current Visit: Yes Qualifiers: Complication of substance-induced condition: uncomplicated Qualified Code(s): F10.920 - Alcohol use, unspecified with intoxication, uncomplicated (6) Alcoholic hepatitis with ascites SNOMED Code(s): 8497834745923742 Code(s): K70.11 - ALCOHOLIC HEPATITIS WITH ASCITES Status: Acute Priority: High Current Visit: Yes (7) Current every day smoker SNOMED Code(s): 221850627, 171105322 Code(s): F17.200 - NICOTINE DEPENDENCE, UNSPECIFIED, UNCOMPLICATED Status: Chronic Priority: High Current Visit: Yes (8) Depression SNOMED Code(s): 70271982 Code(s): F32.9 - MAJOR DEPRESSIVE DISORDER, SINGLE EPISODE, UNSPECIFIED Status: Chronic Priority: High Current Visit: No Qualifiers: Depression Type: major depressive disorder Major depression recurrence: unspecified whether recurrent Active/Remission status: currently active Major depression episode severity: severe Psychotic features: without psychotic features Qualified Code(s): F32.2 - Major depressive disorder, single episode, severe without psychotic features (9) Hypertension SNOMED Code(s): 55518164 Code(s): I10 - ESSENTIAL (PRIMARY) HYPERTENSION Status: Chronic Priority: Medium Current Visit: No Qualifiers: Hypertension type: unspecified Qualified Code(s): I10 - Essential (primary) hypertension (10) Hypoglycemia SNOMED Code(s): 196145334 Code(s): E16.2 - HYPOGLYCEMIA, UNSPECIFIED Status: Acute Priority: High Current Visit: Yes (11) Hypokalemia SNOMED Code(s): 86875766 Code(s): E87.6 - HYPOKALEMIA Status: Acute Priority: High Current Visit: Yes (12) Hypomagnesemia SNOMED Code(s): 930485410 Code(s): E83.42 - HYPOMAGNESEMIA Status: Acute Priority: High Current Visit: Yes (13) Hyponatremia SNOMED Code(s): 85116142 Code(s): E87.1 - HYPO-OSMOLALITY AND HYPONATREMIA Status: Acute Current Visit: Yes (14) Hypophosphatasia SNOMED Code(s): 804774127 Code(s): E83.39 - OTHER DISORDERS OF PHOSPHORUS METABOLISM Status: Acute Priority: High Current Visit: Yes (15) Type II diabetes mellitus SNOMED Code(s): 86261125 Code(s): E11.9 - TYPE 2 DIABETES MELLITUS WITHOUT COMPLICATIONS Status: Chronic Priority: High Current Visit: No Qualifiers: Diabetes mellitus nursing home insulin use: without nursing home use Diabetes mellitus complication status: with other specified complication Qualified Code(s): E11.69 - Type 2 diabetes mellitus with other specified complication - Problem List Review Problem List Initiated/Reviewed/Updated: Yes - Assessment Assessment:: 11/07/2019 Alcohol intoxication with alcohol withdrawal - Patient is known to be a heavy alcohol consumer with previous severe alcohol withdrawal. - Patient denies any history of seizure with alcohol withdrawal. - Patient did start developing some withdrawal symptoms while having an ethanol level of 0.18 g%. This increases his risk for difficulty and severe detox. - Patient is requesting help with quitting. - human resources services specialist has already been consulted and has seen him. Hyponatremia/hypomagnesemia - Serum and urine osmolality was not obtained prior to fluid boluses. - Corrected sodium 128 - Magnesium 1.7 - Given magnesium riders in the ER Acute renal injury - Estimated GFR 39 - Creatinine 1.8 - BUN to creatinine ratio 23.3 - Likely injury is from hypovolemia Alcoholic hepatitis-recurrent - Total bilirubin 3.2, AST 888, ALT 677, alkaline phosphatase 411, albumin 3.3 - PT, INR, PTT not obtained Depression - Patient is not complaining of depression currently. - He was started on Prozac last hospitalization. Nicotine dependence - Currently using nicotine patch 11/08/2019 Alcohol intoxication with alcohol withdrawal - Patient has had minimal alcohol withdrawal so far. - He only received 1 mg of Ativan overnight. - CIWA scores are less than 8 this morning - Unlikely he will have significant withdrawal. Hyponatremia/hypomagnesemia/hypophosphatemia/hypokalemia - Potassium 3.2, magnesium 1.8, phosphorus 2.3, sodium 128 - No arrhythmias Acute renal injury-improved - Estimated GFR 60, creatinine 1.1 - Anion gap increased to 21 Alcoholic hepatitisdeteriorated - AST 1434, ALT 781, alkaline phosphatase 524 - Total bilirubin 5.3, INR 1, albumin 3.0 - MELD score (NEW) 22 -19.6 % mortality and 90 days - Abdominal ultrasound showed fatty liver, slight gallbladder wall thickening but no biliary duct dilatation, gallstones, or pericholecystic fluid. Possible minimal fluid between the liver and diaphragm suggesting minimal ascites. - Ammonia level 22normal - Hepatitis C- Uncontrolled diabetes - Hemoglobin A1c 9.8 - Home insulin: Lantus 30 units nightly, Humalog 7 units in the morning and 10 units at 11 and 2200 with sliding scale. - Patient was not given his Lantus last night because of borderline low blood sugars. Depression - Stable Nicotine dependence - Nicotine patch 11/09/2019 Alcohol intoxication with alcohol withdrawal - stable - Patient has continued to have minimal withdrawals thus far - Highest CIWA was 8 yesterday - CIWA has been 0 since yesterday evening. - Unlikely he will have significant withdrawal. Hyponatremia/hypomagnesemia/hypophosphatemia/hypokalemia - Potassium 2.9, magnesium 1.6, phosphorus 2.0, sodium 129 - No arrhythmias - Has been eating Acute renal injury-Resolved - Estimated GFR 60, creatinine 1.0 - Anion gap now 14.9 Alcoholic hepatitisimproved - AST 1024, ALT 688, alkaline phosphatase 544 - Total bilirubin 5.7, INR 1, albumin 3.0 - Abdominal ultrasound showed fatty liver, slight gallbladder wall thickening but no biliary duct dilatation, gallstones, or pericholecystic fluid. Possible minimal fluid between the liver and diaphragm suggesting minimal ascites. - Hepatitis C- negative Uncontrolled diabetes - Home insulin: Lantus 30 units nightly, Humalog 7 units in the morning and 10 units at 11 and 2200 with sliding scale. - Scheduled humalog 5 units discontinued due to low blood sugars Depression * Stable Nicotine dependence * Nicotine patch 11/10/2019 Alcohol intoxication with alcohol withdrawal - stable - Patient has continued to have minimal withdrawals thus far - CIWAs have been 0 for several days - Unlikely he will have significant withdrawal. Hyponatremia/hypomagnesemia/hypophosphatemia/hypokalemia - Potassium 4.0, magnesium 2.0, phosphorus 3.2, sodium 127 - No arrhythmias - Has been NPO since noon Acute renal injury-Resolved - Estimated GFR 60, creatinine 1.0 - Anion gap now 14.9 Alcoholic hepatitisimproved - AST 679, ALT 577, alkaline phosphatase 588 - Total bilirubin 5.7 - Abdominal ultrasound showed fatty liver, slight gallbladder wall thickening but no biliary duct dilatation, gallstones, or pericholecystic fluid. Possible minimal fluid between the liver and diaphragm suggesting minimal ascites. - Hepatitis C- negative Abnormal GGT Abnormal HIDA - Alk phos as above - [id number] - Biliary HIDA suggests acalculous cholecystitis - Dr. Maki general surgeon consulted, recommends MRCP Uncontrolled diabetes - Hemoglobin A1c 9.8 - Home insulin: Lantus 30 units nightly, Humalog 7 units in the morning and 10 units at 11 and 2200 with sliding scale. - Lantus 20 units bedtime - Humalog discontinued due to NPO status - consider resumption when eating Depression - Stable Nicotine dependence - Nicotine patch 11/11/2019 Transferred out of ICU Surgery evaluated patient who recommended cholecystectomy today [place] [address] T-max 98.2 Heart rate 90090 Pulse ox greater than 97% on room air Intake and output Urine output 1, 450 24-hour balance +290 Admission balance +3327 Lab results Hemoglobin stable 11-11.4 Platelets up from 253-362 Sodium down from 127-125 Chloride stable at 91 GFR stable greater than 60 Total bilirubin up from 5.7-6.0 AST down from 679-573 ALT down from 577-544 Alkaline phosphatase up from 588-692 PLAN Cholecystectomy today Daily folic acid and thiamine Continue Prozac, Remeron and Topamax Hypoglycemia protocol Glargine 20u bedtime Scheduled glucose checks Continue Amlodipine PRN Hydralazine High salt diet Repeat labs in AM Nicotine patch Later in the day 11/12/19 Weight down from 70.3 kg on admission to 64.54 Vital signs trend BP 111-142/61-80 T-max 98.4 Heart rate 85-110 Pulse ox greater than 93% on room air Intake and output Urine output 1,350 24-hour balance -630 Admission balance +2,697 Lab results Hemoglobin down from 11.4-10.4 Platelets up from 362-419 Sodium up from 125 227 Chloride up from 91-94 Magnesium down from 1.8-1.7 GFR stable greater than 60 Total bilirubin down from 6-4.9 AST down from 573-479 ALT down from 554-456 Alkaline phosphatase up from 692-726 Glucose POC trend from 161-340 - Plan Plan:: Acute acalculous cholecystitis s/p cholecystectomy 11/10 Cholestatic pattern on LFTs - Continue IS - Tylenol #3 for pain control - Simethicone for bloating today Alcohol withdrawal Alcohol abuse - Daily folic acid and thiamine - Continue Prozac and Topamax - Discontinue Remeron Type II diabetes mellitus, RbL2u-8.8% - Hypoglycemia protocol - Increase Glargine to 30u bedtime - Scheduled glucose checks Hypertension, controlled - Continue Amlodipine - PRN Hydralazine Hyponatremia, improved - High salt diet - Repeat labs in AM Depression - Continue Prozac Current every day smoker - Nicotine patch Alcohol intoxication, resolved Acute kidney injury, resolved Hypoglycemia, resolved Hypokalemia, resolved Hypomagnesemia, resolved PROPHYLAXIS DVT- Lovenox GI- not indicated CODE STATUS: FULL CODE DISPOSITION: Patient will remain admitted for postpoperative monitorization. Discharge once he has a BM and tolerates regular diet
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
[2019-11-12] MEDS: Insulin Glarg,Human.Rec.Analog 100 Unit/ML SUBCUT SCH (21:18)
[2019-11-12] MEDS: Thiamine 100 MG Tab PO SCH (21:22)
[2019-11-12] MEDS ORDERED: Insulin Glarg,Human.Rec.Analog 100 Unit/ML SUBCUT STA (21:44)
[2019-11-13] MEDS: Acetaminophen/Codeine 300-30 MG Tab PO PRN ×2 (04:28→11:06)
[2019-11-13] MEDS: FLUoxetine 20 MG Cap PO SCH (09:02)
[2019-11-13] MEDS: Folic Acid 1 MG Tab PO SCH (09:02)
[2019-11-13] MEDS: Topiramate 25 MG Tab PO SCH (09:02)
[2019-11-13] MEDS: amLODIPine 5 MG Tab PO SCH (09:02)
[2019-11-13] MEDS: Nicotine 21 MG/24 Hr Patch TRDERM SCH (09:03)
[2019-11-13] MEDS: Enoxaparin 40 MG/0.4 ML Syringe SUBCUT SCH (09:04)
[2019-11-13] MEDS ORDERED: Magnesium Oxide 400 MG Tab PO ONE (11:00)
[2019-11-13 12:10] VITALS: BP 94/55; PULSE 117
--- NOTE | 2019-11-13 13:35 | PCM.DCSUM1 ---
Discharge Summary - Hospital Course HPI Initial Comments: 59-year-old male with history of alcohol abuse presented to the emergency department with complaints of lower extremity weakness. Patient has a history of chronic right-sided leg weakness and states that over the last day he has had worsening weakness. He states he drinks 3-4 drinks of vodka a day. When asked he stated that it goes up to approximately the first line of plastic blue cup. It sounds to be 2 to 3 ounces. Patient denies any history of withdrawal seizures. He was seen and hospitalized in June secondary to hyperosmolar nonketotic state, alcohol withdrawal and intoxication, severe deconditioning, depression, alcoholic hepatitis, and acute renal failure. Patient at that time had suicidal ideations was admitted to the ICU and ultimately discharged to the psychiatric unit in [place]. In the emergency department it was felt the patient could go home. Unfortunately, when they tried to stand him up he was unable to walk even with a walker. Patient also wants to have help with his alcoholism and therefore will be admitted to the ICU for further treatment. Significant labs: Leukopenia, WBC 2.97, hemoglobin 11.4 (normocytic), platelets 181, absolute lymphocytes low at 0.27 K/mm3, hyponatremia with corrected sodium of 128, magnesium 1.7, anion gap 23.1, potassium 4.1, BUN 42, creatinine 1.8 estimated GFR 39, glucose 213, total bilirubin 3.2, AST 888, ALT 677, alkaline phosphatase 411, albumin low at 3.3, ethyl alcohol 0.18 g%. Patient was given 2 L fluid bolus and Ativan. Diagnosis: Stroke: No - Discharge Data Discharge Date: 11/13/19 (Admit date: 11/07/19) Discharge Disposition: Home, Self-Care 01 Condition: Fair - Referral to Home Health Primary Care Physician: PCP None - Discharge Diagnosis/Problem(s) (1) Alcohol intoxication SNOMED Code(s): 60381948 ICD Code: F10.929 - ALCOHOL USE, UNSPECIFIED WITH INTOXICATION, UNSPECIFIED Status: Resolved Priority: High Qualifiers: Complication of substance-induced condition: uncomplicated Qualified Code(s): F10.920 - Alcohol use, unspecified with intoxication, uncomplicated (2) Alcoholic hepatitis with ascites SNOMED Code(s): 0071165051906400 ICD Code: K70.11 - ALCOHOLIC HEPATITIS WITH ASCITES Status: Acute Pr iority: High (3) Hypophosphatasia SNOMED Code(s): 448850774 ICD Code: E83.39 - OTHER DISORDERS OF PHOSPHORUS METABOLISM Status: Resolved Priority: High (4) Elevated liver enzymes SNOMED Code(s): 839809834 ICD Code: R74.8 - ABNORMAL LEVELS OF OTHER SERUM ENZYMES Status: Acute Priority: High (5) Generalized weakness SNOMED Code(s): 28865445 ICD Code: R53.1 - WEAKNESS Status: Chronic Priority: High (6) Hypoglycemia SNOMED Code(s): 753421606 ICD Code: E16.2 - HYPOGLYCEMIA, UNSPECIFIED Status: Acute Priority: High (7) Hypertension SNOMED Code(s): 35308492 ICD Code: I10 - ESSENTIAL (PRIMARY) HYPERTENSION Status: Chronic Priority: Medium Qualifiers: Hypertension type: unspecified Qualified Code(s): I10 - Essential (primary) hypertension (8) Type II diabetes mellitus SNOMED Code(s): 39392619 ICD Code: E11.9 - TYPE 2 DIABETES MELLITUS WITHOUT COMPLICATIONS Status: Chronic Priority: High Qualifiers: Diabetes mellitus chcf insulin use: without chcf use Diabetes mellitus complication status: with other specified complication Qualified Code(s): E11.69 - Type 2 diabetes mellitus with other specified complication (9) Acute renal injury SNOMED Code(s): 71073168, 66848508 ICD Code: N17.9 - ACUTE KIDNEY FAILURE, UNSPECIFIED Status: Resolved Priority: High (10) Uyoea-ue-bivddlx kidney injury SNOMED Code(s): 036783504 ICD Code: N17.9 - ACUTE KIDNEY FAILURE, UNSPECIFIED; N18.9 - CHRONIC KIDNEY DISEASE, UNSPECIFIED Status: Resolved Priority: High Qualifiers: Acute renal failure type: unspecified Chronic kidney disease stage: unspecified stage Qualified Code(s): N17.9 - Acute kidney failure, unspecified; N18.9 - Chronic kidney disease, unspecified (11) Hypokalemia SNOMED Code(s): 74990853 ICD Code: E87.6 - HYPOKALEMIA Status: Resolved Priority: High (12) Hypomagnesemia SNOMED Code(s): 409155895 ICD Code: E83.42 - HYPOMAGNESEMIA Status: Acute Priority: High (13) Current every day smoker SNOMED Code(s): 471819565, 539228561 ICD Code: F17.200 - NICOTINE DEPENDENCE, UNSPECIFIED, UNCOMPLICATED Status: Chronic Priority: High (14) Uncontrolled diabetes mellitus SNOMED Code(s): 14401719, 835889816 ICD Code: E11.65 - TYPE 2 DIABETES MELLITUS WITH HYPERGLYCEMIA Status: Acute Priority: High Qualifiers: Diabetes mellitus type: type 2 Glycemic state: with hypoglycemia Coma presence: without coma Qualified Code(s): E11.649 - Type 2 diabetes mellitus with hypoglycemia without coma (15) Elevated serum GGT level SNOMED Code(s): 828044313, 190487376 ICD Code: R74.8 - ABNORMAL LEVELS OF OTHER SERUM ENZYMES Status: Acute Priority: High (16) Hyperbilirubinemia SNOMED Code(s): 80921722 ICD Code: E80.6 - OTHER DISORDERS OF BILIRUBIN METABOLISM Status: Acute Priority: High (17) Abnormal biliary HIDA scan SNOMED Code(s): 142880429, 898639725 ICD Code: R94.8 - ABNORMAL RESULTS OF FUNCTION STUDIES OF ORGANS AND SYSTEMS Status: Resolved Priority: High (18) S/P cholecystectomy SNOMED Code(s): 881029390, 33764909, 350203973 ICD Code: Z90.49 - ACQUIRED ABSENCE OF OTHER SPECIFIED PARTS OF DIGESTIVE TRACT Status: Acute Priority: High (19) Acute acalculous cholecystitis SNOMED Code(s): 11113667 ICD Code: K81.0 - ACUTE CHOLECYSTITIS Status: Resolved Priority: High - Patient Summary/Data Consults: Consultations 11/07/19 12:08 Consult to Case Management/Student Success Advisor [CONS] Routine 11/07/19 13:27 OT Evaluation and Treatment [CONS] Routine PT Evaluation and Treatment [CONS] Routine 11/10/19 09:11 Consult to Physician [CONS] Routine 11/11/19 14:48 Consult to Physician [CONS] Routine Labs Pending at D/C: None Recommended Follow-up Testing/Procedures: Follow-up with primary care provider within 7-10 days of discharge, sooner if needed. Follow-up with Dr. Maki/Dilma Graves NP within 2 weeks. Recommend treatment for ETOH use. Hospital Course: 11/07/2019 Alcohol intoxication with alcohol withdrawal - Patient is known to be a heavy alcohol consumer with previous severe alcohol withdrawal. - Patient denies any history of seizure with alcohol withdrawal. - Patient did start developing some withdrawal symptoms while having an ethanol level of 0.18 g%. This increases his risk for difficulty and severe detox. - Patient is requesting help with quitting. - business services representative has already been consulted and has seen him. Hyponatremia/hypomagnesemia - Serum and urine osmolality was not obtained prior to fluid boluses. - Corrected sodium 128 - Magnesium 1.7 - Given magnesium riders in the ER Acute renal injury - Estimated GFR 39 - Creatinine 1.8 - BUN to creatinine ratio 23.3 - Likely injury is from hypovolemia Alcoholic hepatitis-recurrent - Total bilirubin 3.2, AST 888, ALT 677, alkaline phosphatase 411, albumin 3.3 - PT, INR, PTT not obtained Depression - Patient is not complaining of depression currently. - He was started on Prozac last hospitalization. Nicotine dependence - Currently using nicotine patch 11/08/2019 Alcohol intoxication with alcohol withdrawal - Patient has had minimal alcohol withdrawal so far. - He only received 1 mg of Ativan overnight. - CIWA scores are less than 8 this morning - Unlikely he will have significant withdrawal. Hyponatremia/hypomagnesemia/hypophosphatemia/hypokalemia - Potassium 3.2, magnesium 1.8, phosphorus 2.3, sodium 128 - No arrhythmias Acute renal injury-improved - Estimated GFR 60, creatinine 1.1 - Anion gap increased to 21 Alcoholic hepatitisdeteriorated - AST 1434, ALT 781, alkaline phosphatase 524 - Total bilirubin 5.3, INR 1, albumin 3.0 - MELD score (NEW) 22 -19.6 % mortality and 90 days - Abdominal ultrasound showed fatty liver, slight gallbladder wall thickening but no biliary duct dilatation, gallstones, or pericholecystic fluid. Possible minimal fluid between the liver and diaphragm suggesting minimal ascites. - Ammonia level 22normal - Hepatitis C- Uncontrolled diabetes - Hemoglobin A1c 9.8 - Home insulin: Lantus 30 units nightly, Humalog 7 units in the morning and 10 units at 11 and 2200 with sliding scale. - Patient was not given his Lantus last night because of borderline low blood sugars. Depression - Stable Nicotine dependence - Nicotine patch 11/09/2019 Alcohol intoxication with alcohol withdrawal - stable - Patient has continued to have minimal withdrawals thus far - Highest CIWA was 8 yesterday - CIWA has been 0 since yesterday evening. - Unlikely he will have significant withdrawal. Hyponatremia/hypomagnesemia/hypophosphatemia/hypokalemia - Potassium 2.9, magnesium 1.6, phosphorus 2.0, sodium 129 - No arrhythmias - Has been eating Acute renal injury-Resolved - Estimated GFR 60, creatinine 1.0 - Anion gap now 14.9 Alcoholic hepatitisimproved - AST 1024, ALT 688, alkaline phosphatase 544 - Total bilirubin 5.7, INR 1, albumin 3.0 - Abdominal ultrasound showed fatty liver, slight gallbladder wall thickening but no biliary duct dilatation, gallstones, or pericholecystic fluid. Possible minimal fluid between the liver and diaphragm suggesting minimal ascites. - Hepatitis C- negative Uncontrolled diabetes - Home insulin: Lantus 30 units nightly, Humalog 7 units in the morning and 10 units at 11 and 2200 with sliding scale. - Scheduled humalog 5 units discontinued due to low blood sugars Depression * Stable Nicotine dependence * Nicotine patch 11/10/2019 Alcohol intoxication with alcohol withdrawal - stable - Patient has continued to have minimal withdrawals thus far - CIWAs have been 0 for several days - Unlikely he will have significant withdrawal. Hyponatremia/hypomagnesemia/hypophosphatemia/hypokalemia - Potassium 4.0, magnesium 2.0, phosphorus 3.2, sodium 127 - No arrhythmias - Has been NPO since noon Acute renal injury-Resolved - Estimated GFR 60, creatinine 1.0 - Anion gap now 14.9 Alcoholic hepatitisimproved - AST 679, ALT 577, alkaline phosphatase 588 - Total bilirubin 5.7 - Abdominal ultrasound showed fatty liver, slight gallbladder wall thickening but no biliary duct dilatation, gallstones, or pericholecystic fluid. Possible minimal fluid between the liver and diaphragm suggesting minimal ascites. - Hepatitis C- negative Abnormal GGT Abnormal HIDA - Alk phos as above - [id number] - Biliary HIDA suggests acalculous cholecystitis - Dr. Maki general surgeon consulted, recommends MRCP Uncontrolled diabetes - Hemoglobin A1c 9.8 - Home insulin: Lantus 30 units nightly, Humalog 7 units in the morning and 10 units at 11 and 2200 with sliding scale. - Lantus 20 units bedtime - Humalog discontinued due to NPO status - consider resumption when eating Depression - Stable Nicotine dependence - Nicotine patch 11/11/2019 Transferred out of ICU Surgery evaluated patient who recommended cholecystectomy [place] [address] T-max 98.2 Heart rate 46295 Pulse ox greater than 97% on room air Intake and output Urine output 1, 450 24-hour balance +290 Admission balance +3327 Lab results Hemoglobin stable 11-11.4 Platelets up from 253-362 Sodium down from 127-125 Chloride stable at 91 GFR stable greater than 60 Total bilirubin up from 5.7-6.0 AST down from 679-573 ALT down from 577-544 Alkaline phosphatase up from 588-692 PLAN Cholecystectomy today Daily folic acid and thiamine Continue Prozac, Remeron and Topamax Hypoglycemia protocol Glargine 20u bedtime Scheduled glucose checks Continue Amlodipine PRN Hydralazine High salt diet Repeat labs in AM Nicotine patch Later in the day 11/12/19 Weight down from 70.3 kg on admission to 64.54 Vital signs trend BP 111-142/61-80 T-max 98.4 Heart rate 85-110 Pulse ox greater than 93% on room air Intake and output Urine output 1,350 24-hour balance -630 Admission balance +2,697 Lab results Hemoglobin down from 11.4-10.4 Platelets up from 362-419 Sodium up from 125 227 Chloride up from 91-94 Magnesium down from 1.8-1.7 GFR stable greater than 60 Total bilirubin down from 6-4.9 AST down from 573-479 ALT down from 554-456 Alkaline phosphatase up from 692-726 Glucose POC trend from 161-340 11/13/2019 - day of discharge Silvio continues to do well. His diet was able to be advanced to a regular diet today without incident. They had tried to advance it earlier however he reported abdominal pain and this was while on back to clear liquids. Today he was doing well. His bilirubin continues to trend downward. Hyponatremia has remained stable. Museum was low today and was supplemented with milligram p.o. He has been utilizing Tylenol 3 for pain and this is been well for him. He did see during this admission who recommended the patient report to [facility] with sobriety. He also recommended discontinue the patient's Remeron as this may have been contributing to the patient's unsteady gait. Patient did work with PT and OT who were recommending he continue to use a walker. He has been improving throughout his stay. Abdominal incisions continue to look good. Alk phos and other liver enzymes continue to trend downward. He is a smoker who would did not want a nicotine patch or tobacco cessation counseling at discharge. We did discuss things such as risk factors and resources available to him including [facility] [email or web address] and his primary care provider. He was given contact information for this. He did meet with AA and reported that his first meeting would be tonight. Unfortunate the patient adamantly refused any other plans for treatment through transfer after discharge. He states that he needs to go home and get his bills paid over the next 1 to 2 days and then he will go to [facility] for treatment. He was instructed to follow-up with his primary care provider within 7 to 10 days of discharge. He was instructed to remain sober. He was instructed to follow-up with Dr. Maki's office within 2 weeks of discharge for surgical follow-up. Throughout his stay his blood sugars had noted to be quite low. His home Lantus was decreased from 30-20. He will he will be discharged on this new dosing. His Humalog was discontinued. He was instructed to take his blood sugars before all meals and 2 hours after meals, along with before bed. He was instructed to record this and bring it with to all medical appointments. Recommend he follow-up with a outpatient family life educator. He was directed to continue to utilize his incentive spirometer for at least 1 more week. He was passing flatus prior to discharge. Case discussed with Dr. Watson who recommended patient is clear for discharge from a medical standpoint. - Patient Instructions Diet: Diabetic Diet Activity: As Tolerated, No Lifting Over 20 Pounds (for 2 weeks ), Rest and Relax Today Driving: Do Not Drive Showering/Bathing: May Shower Wound/Incision Care: Keep Operative Site/Wound Site Clean and Dry Notify Provider of: Fever, Increased Pain, Nausea and/or Vomiting Other/Special Instructions: Follow-up with primary care provider within 7-10 days of discharge, sooner if needed. Remain sober. We recommend you follow-up with [facility] regarding your sobriety along with AA. Follow-up with Dr. Maki within 2 weeks of discharge regarding abdominal surgery. Recommend you follow-up with family life educator outpatient after discharge. Take all medications as prescribed. Resume home medications as directed. Your insulin dosing was changed due to low blood sugars while here. You were prescribed perscription pain medications. Do not drive or operate machinery while on these. They may make you sleepy. Try to wean off as soon as possible. No lifiting over 20lbs for 2 weeks due to abdominal surgery. Continue to utilize your incentive spirometer (Clear/blue device you inhale through) for the next week. Take it easy on the diet. Avoid spicy and fatty foods. You may notice a change in your bowel habits now that your gallbladder has been removed. We discussed your smoking status. You indicated that you want patches on discharge, nor do you want smoking cessation counseling scheduled. Should you change your mind you may contact resources such as [facility] or the [facility] tobacco cessation program. Another excellent resource would be your primary care provider. We discussed risk factors and potential triggers for smoking. You again indicated that you do not want patches. Take your blood sugar before and 1-2 hours after each meal for one week. Also take it at bedtime. Record the nubers in a journal and bring this with to all medical appointments. Continue to utilize walker. Should symptoms return or worsen contact your primary care provider or return to the ED. - Discharge Plan *PRESCRIPTION DRUG MONITORING PROGRAM REVIEWED*: No *COPY OF PRESCRIPTION DRUG MONITORING REPORT IN PATIENT ALEJANDRO: No Prescriptions/Med Rec: Insulin Glarg,Human.Rec.Analog [Lantus] 20 unit SUBCUT BEDTIME #3 ml Acetaminophen/Codeine [Tylenol with Codeine No.3 300MG/30MG] 1 tab PO Q4H PRN #16 tablet PRN Reason: Pain (Moderate 4-6) Home Medications: Home Meds Folic Acid 1 mg PO DAILY tablet 07/07/19 [Rx] Thiamine [Vitamin B-1] 100 mg PO BEDTIME tablet 07/07/19 [Rx] FLUoxetine HCl [Prozac] 20 mg PO DAILY 11/07/19 [History] Nicotine [Nicotine Patch] 1 patch TRDERM DAILY 11/07/19 [History] Topiramate 25 mg PO BID 11/07/19 [History] amLODIPine [Norvasc] 5 mg PO DAILY 11/07/19 [History] atorvaSTATin [Lipitor] 10 mg PO DAILY 11/07/19 [History] Acetaminophen/Codeine [Tylenol with Codeine No.3 300MG/30MG] 1 tab PO Q4H PRN #16 tablet 11/13/19 [Rx] Insulin Glarg,Human.Rec.Analog [Lantus] 20 unit SUBCUT BEDTIME #3 ml 11/13/19 [Rx] Other Amb Orders: DME for Discharge [COMM] Location: None Selected Oxygen Therapy Mode: Room Air Patient Handouts: Alcohol Use Disorder, Type 2 Diabetes Mellitus, Diagnosis, Adult, Alcohol Intoxication, Lnda-xf-Ptow, Laparoscopic Cholecystectomy, Care After, Fsfe-vc-Gmis, Gallbladder Eating Plan, Steps to Quit Smoking Referrals: Marv Eduardo MD [Physician] - 11/22/19 1:00 pm (Please register by 12:45am. (Your appointment on Friday, November 15, 2019 was cancelled).) Dilma Leos NP [Nurse Practitioner] - 11/23/19 3:30 pm (Follow up with Dilma in 2 weeks for post op check. Please check in by 3:15pm.) - Discharge Summary/Plan Comment DC Time >30 min.: Yes (45 mins ) - General Info Date of Service: 11/13/19 Admission Dx/Problem (Free Text: Acalculous cholecystitis Functional Status: Reports: Pain Controlled, Tolerating Diet, Ambulating, Urinating, Incentive Spirometry. Denies: New Symptoms - Review of Systems General: Reports: No Symptoms, Weakness (improving ). Denies: Fever, Fatigue, Malaise, Chills HEENT: Reports: No Symptoms. Denies: Headaches, Sore Throat Pulmonary: Reports: No Symptoms. Denies: Shortness of Breath, Pleuritic Chest Pain, Cough, Sputum, Wheezing Cardiovascular: Reports: No Symptoms. Denies: Chest Pain, Palpitations, Dyspnea on Exertion, Edema Gastrointestinal: Reports: Abdominal Pain (improving ), Flatus. Denies: Constipation, Decreased Appetite, Diarrhea, Nausea, Vomiting Genitourinary: Reports: No Symptoms. Denies: Pain Musculoskeletal: Reports: No Symptoms Skin: Reports: Jaundice (improving ). Denies: Cyanosis Neurological: Reports: No Symptoms, Difficulty Walking, Gait Disturbance. Denies: Confusion, Dizziness, Headache, Numbness, Pre-Existing Deficit, Seizure, Syncope, Tingling, Trouble Speaking Psychiatric: Reports: No Symptoms - Patient Data Vitals - Most Recent: Last Vital Signs Temp 98.1 F 11/13/19 08:21 Pulse 117 H 11/13/19 11:59 Resp 20 11/13/19 11:59 BP 94/55 L 11/13/19 11:59 Pulse Ox 99 11/13/19 11:59 Weight - Most Recent: 142 lb 4.8 oz I&O - Last 24 hours: Intake & Output 11/12/19 11/13/19 11/13/19 22:59 06:59 14:59 Intake Total 1180 400 Output Total 875 Balance 1180 -475 Lab Results - Last 24 hrs: Laboratory Results - last 24 hr 11/12/19 11/12/19 11/13/19 Range/Units 16:54 21:18 05:35 WBC 5.24 (4.23-9.07) K/mm3 RBC 3.13 L (4.63-6.08) M/mm3 Hgb 9.4 L (13.7-17.5) gm/dl Hct 29.3 L (40.1-51.0) % MCV 93.6 H (79.0-92.2) fl MCH 30.0 (25.7-32.2) pg MCHC 32.1 L (32.2-35.5) g/dl RDW Std Deviation 46.7 H (35.1-43.9) fL Plt Count 414 H (163-337) K/mm3 MPV 10.2 (9.4-12.3) fl Neut % (Auto) 53.6 (34.0-67.9) % Lymph % (Auto) 14.7 L (21.8-53.1) % Grady % (Auto) 23.3 H (5.3-12.2) % Eos % (Auto) 5.3 (0.8-7.0) Baso % (Auto) 1.0 (0.1-1.2) % Neut # (Auto) 2.81 (1.78-5.38) K/mm3 Lymph # (Auto) 0.77 L (1.32-3.57) K/mm3 Grady # (Auto) 1.22 H (0.30-0.82) K/mm3 Eos # (Auto) 0.28 (0.04-0.54) K/mm3 Baso # (Auto) 0.05 (0.01-0.08) K/mm3 Manual Slide Review Abnormal smear Sodium (136-145) mEq/L Potassium (3.5-5.1) mEq/L Chloride (98-107) mEq/L Carbon Dioxide (21-32) mEq/L Anion Gap (5-15) BUN (7-18) mg/dL Creatinine (0.7-1.3) mg/dL Est Cr Clr Drug Dosing mL/min Estimated GFR (MDRD) (>60) mL/min BUN/Creatinine Ratio (14-18) Glucose (80-115) mg/dL POC Glucose 269 H 393 H (80-115) mg/dL Calcium (8.5-10.1) mg/dL Phosphorus (2.6-4.7) mg/dL Magnesium (1.8-2.4) mg/dl Total Bilirubin (0.2-1.0) mg/dL AST (15-37) U/L ALT (16-63) U/L Alkaline Phosphatase (46-116) U/L Total Protein (6.4-8.2) g/dl Albumin (3.4-5.0) g/dl Globulin gm/dL Albumin/Globulin Ratio (1-2) 11/13/19 11/13/19 11/13/19 Range/Units 05:35 06:18 11:06 WBC (4.23-9.07) K/mm3 RBC (4.63-6.08) M/mm3 Hgb (13.7-17.5) gm/dl Hct (40.1-51.0) % MCV (79.0-92.2) fl MCH (25.7-32.2) pg MCHC (32.2-35.5) g/dl RDW Std Deviation (35.1-43.9) fL Plt Count (163-337) K/mm3 MPV (9.4-12.3) fl Neut % (Auto) (34.0-67.9) % Lymph % (Auto) (21.8-53.1) % Grady % (Auto) (5.3-12.2) % Eos % (Auto) (0.8-7.0) Baso % (Auto) (0.1-1.2) % Neut # (Auto) (1.78-5.38) K/mm3 Lymph # (Auto) (1.32-3.57) K/mm3 Grady # (Auto) (0.30-0.82) K/mm3 Eos # (Auto) (0.04-0.54) K/mm3 Baso # (Auto) (0.01-0.08) K/mm3 Manual Slide Review Sodium 129 L (136-145) mEq/L Potassium 3.7 (3.5-5.1) mEq/L Chloride 95 L (98-107) mEq/L Carbon Dioxide 23 (21-32) mEq/L Anion Gap 14.7 (5-15) BUN 17 (7-18) mg/dL Creatinine 0.9 (0.7-1.3) mg/dL Est Cr Clr Drug Dosing 77.03 mL/min Estimated GFR (MDRD) > 60 (>60) mL/min BUN/Creatinine Ratio 18.9 H (14-18) Glucose 188 H (80-115) mg/dL POC Glucose 159 H 309 H (80-115) mg/dL Calcium 9.0 (8.5-10.1) mg/dL Phosphorus 3.1 (2.6-4.7) mg/dL Magnesium 1.7 L (1.8-2.4) mg/dl Total Bilirubin 3.7 H (0.2-1.0) mg/dL AST 243 H (15-37) U/L ALT 318 H (16-63) U/L Alkaline Phosphatase 644 H (46-116) U/L Total Protein 6.5 (6.4-8.2) g/dl Albumin 2.3 L (3.4-5.0) g/dl Globulin 4.2 gm/dL Albumin/Globulin Ratio 0.6 L (1-2) Med Orders - Current: Current Medications Acetaminophen/Codeine Phosphate (Tylenol With Codeine No.3 300mg/30mg) 1 tab PO Q4H PRN PRN Reason: Pain (moderate 4-6) Last Admin: 11/13/19 11:06 Dose: 1 tab Documented by: Al Hydroxide/Mg Hydroxide (Mag-Al Plus) 30 ml PO BTHMEALBED PRN PRN Reason: Dyspepsia Last Admin: 11/10/19 17:57 Dose: 30 ml Documented by: Amlodipine Besylate (Norvasc) 5 mg PO DAILY [facility] Last Admin: 11/13/19 09:02 Dose: 5 mg Documented by: Bismuth Subsalicylate (Pepto Bismol) 30 ml PO Q6H PRN PRN Reason: Indigestion Dextrose/Water (Dextrose 50% In Water) 50 ml IVPUSH ASDIRECTED PRN PRN Reason: Hypoglycemia Enoxaparin Sodium (Lovenox) 40 mg SUBCUT DAILY [facility] Last Admin: 11/13/19 09:04 Dose: 40 mg Documented by: Fluoxetine HCl (Prozac) 20 mg PO DAILY [facility] Last Admin: 11/13/19 09:02 Dose: 20 mg Documented by: Folic Acid (Folic Acid) 1 mg PO DAILY [facility] Last Admin: 11/13/19 09:02 Dose: 1 mg Documented by: Insulin Glargine (Lantus) 20 unit SUBCUT BEDTIME [facility] Last Admin: 11/12/19 21:18 Dose: 20 units Documented by: Miscellaneous Information (Remove Patch) 1 ea TRDERM DAILY [facility] Last Admin: 11/13/19 09:04 Dose: Not Given Documented by: Morphine Sulfate (Morphine) 2 mg IVPUSH Q4H PRN PRN Reason: Pain (severe 7-10) Nicotine (Habitrol) 21 mg TRDERM DAILY [facility] Last Admin: 11/13/19 09:03 Dose: Not Given Documented by: Sodium Chloride (Saline Flush) 10 ml FLUSH ASDIRECTED PRN PRN Reason: Keep Vein Open Last Admin: 11/07/19 01:55 Dose: 10 ml Documented by: Thiamine HCl (Vitamin B-1) 100 mg PO [facility] Last Admin: 11/12/19 21:22 Dose: 100 mg Documented by: Topiramate (Topamax) 25 mg PO BID [facility] Last Admin: 11/13/19 09:02 Dose: 25 mg Documented by: Discontinued Medications Bupivacaine HCl/Epinephrine Bitart (Marcaine 0.5%/Epinephrine 1:200,000) Confirm Administered Dose 50 ml .ROUTE .STK-MED ONE Stop: 11/11/19 08:00 Last Admin: 11/11/19 10:03 Dose: 45 ml Documented by: Cefazolin Sodium (Ancef) Confirm Administered Dose 2 gm .ROUTE .STK-MED ONE Stop: 11/11/19 10:00 Enoxaparin Sodium (Lovenox) 40 mg SUBCUT Q24H [facility] Fentanyl (Sublimaze) Confirm Administered Dose 250 mcg .ROUTE .STK-MED ONE Stop: 11/11/19 09:29 Fentanyl (Sublimaze) 100 mcg IVPUSH ONETIME PRN PRN Reason: Pain Hydromorphone HCl (Dilaudid) 0.5 mg IVPUSH ONETIME PRN PRN Reason: Pain (severe 7-10) Last Admin: 11/11/19 17:07 Dose: 0.5 mg Documented by: Hydromorphone HCl (Dilaudid) Confirm Administered Dose 0.5 mg .ROUTE .STK-MED ONE Stop: 11/11/19 11:02 Sodium Chloride (Normal Saline) 1,000 mls @ 999 mls/hr IV ONETIME [facility] Last Admin: 11/07/19 01:55 Dose: 999 mls/hr Documented by: Lactated Ringer's (Ringers, Lactated) 1,000 mls @ 999 mls/hr IV .BOLUS ONE Stop: 11/07/19 03:46 Last Admin: 11/07/19 02:58 Dose: 999 mls/hr Documented by: Lactated Ringer's (Ringers, Lactated) 1,000 mls @ 150 mls/hr IV ASDIRECTED [facility] Last Admin: 11/07/19 13:29 Dose: 150 mls/hr Documented by: Magnesium Sulfate/Dextrose 1 (gm/ Premix) 100 mls @ 100 mls/hr IV ONETIME ONE Stop: 11/07/19 10:55 Last Admin: 11/07/19 10:01 Dose: Not Given Documented by: Magnesium Sulfate/Dextrose 1 (gm/ Premix) 100 mls @ 100 mls/hr IV Q1H [facility] Stop: 11/07/19 14:14 Magnesium Sulfate 2 gm/ Premix 50 mls @ 25 mls/hr IV ONETIME ONE Stop: 11/07/19 12:13 Last Admin: 11/07/19 10:20 Dose: 25 mls/hr Documented by: Sodium Chloride (Normal Saline) 1,000 mls @ 150 mls/hr IV ASDIRECTED [facility] Last Admin: 11/08/19 06:42 Dose: 150 mls/hr Documented by: Magnesium Sulfate 4 gm/ Premix 50 mls @ 12.5 mls/hr IV ONETIME ONE Stop: 11/08/19 12:59 Last Admin: 11/08/19 08:54 Dose: 12.5 mls/hr Documented by: Potassium Phosphate 30 mmole/ (Sodium Chloride) 510 mls @ 102 mls/hr IV ONETIME ONE Stop: 11/08/19 17:59 Last Admin: 11/08/19 12:45 Dose: 102 mls/hr Documented by: Sodium Chloride (Normal Saline) 1,000 mls @ 150 mls/hr IV ASDIRECTED [facility] Last Admin: 11/08/19 12:48 Dose: 150 mls/hr Documented by: Potassium Chloride 10 meq/ (Premix) 100 mls @ 100 mls/hr IV Q1H [facility] Stop: 11/09/19 15:59 Potassium Chloride 10 meq/ (Premix) 100 mls @ 100 mls/hr IV Q1H [facility] Stop: 11/09/19 13:59 Last Admin: 11/09/19 13:17 Dose: 100 mls/hr Documented by: Potassium Phosphate 30 mmole/ (Sodium Chloride) 510 mls @ 102 mls/hr IV ASDIRECTED [facility] Stop: 11/09/19 15:14 Last Admin: 11/09/19 10:20 Dose: 102 mls/hr Documented by: Magnesium Sulfate 4 gm/ Premix 50 mls @ 12.5 mls/hr IV ONETIME ONE Stop: 11/09/19 14:00 Last Admin: 11/09/19 10:14 Dose: 12.5 mls/hr Documented by: Lidocaine HCl (Xylocaine-Mpf 1%) Confirm Administered Dose 4 mls @ as directed .ROUTE .STK-MED ONE Stop: 11/11/19 09:29 Sodium Chloride (Normal Saline) Confirm Administered Dose 1,000 mls @ as directed .ROUTE .STK-MED ONE Stop: 11/11/19 10:36 Sodium Chloride (Normal Saline) Confirm Administered Dose 100 mls @ as directed .ROUTE .STK-MED ONE Stop: 11/11/19 10:49 Sodium Chloride (Normal Saline) 1,000 mls @ 999 mls/hr IV ONETIME ONE Stop: 11/11/19 22:22 Last Admin: 11/11/19 22:47 Dose: 999 mls/hr Documented by: Insulin Glargine (Lantus) 25 unit SUBCUT [facility] Last Admin: 08/25/20 21:08 Dose: Not Given Documented by: Insulin Glargine (Lantus) 20 unit SUBCUT DAILY [facility] Last Admin: 11/10/19 08:23 Dose: 20 units Documented by: Insulin Glargine (Lantus) 10 unit SUBCUT ONETIME STA Stop: 11/12/19 21:45 Last Admin: 11/12/19 22:27 Dose: 10 units Documented by: Insulin Human Lispro (Humalog) 0 unit SUBCUT QIDACANDBED [facility]; Protocol Last Admin: 11/10/19 14:49 Dose: 4 units Documented by: Insulin Human Lispro (Humalog) 5 unit SUBCUT TIDAC [facility] Last Admin: 11/08/19 17:05 Dose: Not Given Documented by: Insulin Human Lispro (Humalog) 5 unit SUBCUT TIDPC [facility] Last Admin: 11/09/19 08:12 Dose: 5 units Documented by: Lorazepam (Ativan) 1 mg IVPUSH ONETIME ONE Stop: 11/07/19 07:00 Last Admin: 11/07/19 07:09 Dose: 1 mg Documented by: Lorazepam (Ativan) 0 mg IVPUSH Q15M PRN; Protocol PRN Reason: Withdrawal Symptoms Last Admin: 11/08/19 00:06 Dose: 1 mg Documented by: Lorazepam (Ativan) 0 mg PO Q1H PRN; Protocol PRN Reason: Withdrawal Symptoms Magnesium Oxide (Magnesium Oxide) 400 mg PO ONETIME ONE Stop: 11/13/19 11:01 Last Admin: 11/13/19 11:06 Dose: 400 mg Documented by: Midazolam HCl (Versed 1 Mg/Ml) Confirm Administered Dose 4 mg .ROUTE .STK-MED ONE Stop: 11/11/19 09:29 Mirtazapine (Remeron) 7.5 mg PO [facility]TIME [facility] Last Admin: 11/11/19 20:35 Dose: 7.5 mg Documented by: Miscellaneous Medication (Phenylephrine 1 Mg/10 Ml-Ns) Confirm Administered Dose 1 mg IV .STK-MED ONE Stop: 11/11/19 10:40 Ondansetron HCl (Zofran) Confirm Administered Dose 4 mg .ROUTE .STK-MED ONE Stop: 11/11/19 10:26 Propofol (Diprivan 20 Ml) Confirm Administered Dose 200 mg .ROUTE .STK-MED ONE Stop: 11/11/19 09:28 Rocuronium [place] (Zemuron) Confirm Administered Dose 50 mg .ROUTE .STK-MED ONE Stop: 11/11/19 09:28 Simvastatin (Zocor) 10 mg PO DAILY IVA Last Admin: 11/08/19 08:20 Dose: 10 mg Documented by: Thiamine HCl (Vitamin B-1) 100 mg IVPUSH ONETIME ONE Stop: 11/07/19 11:01 Last Admin: 11/07/19 12:45 Dose: 100 mg Documented by: - Exam Quality Assessment: Reports: DVT Prophylaxis. Denies: Supplemental Oxygen, Urine Catheter General: Reports: Alert, Oriented, Cooperative, No Acute Distress HEENT: Reports: Pupils Equal, Pupils Reactive, Mucous Membr. Moist/[place], Scleral Icterus Neck: Reports: Supple, Trachea Midline Lungs: Reports: Clear to Auscultation, Normal Respiratory Effort Cardiovascular: Reports: Regular Rate, Regular Rhythm GI/Abdominal Exam: Normal Bowel Sounds, Soft, No Distention, Tender (near incis ions ) (Male) Exam: Deferred Rectal (Males) Exam: Deferred Back Exam: Reports: Normal Inspection, Full Range of Motion Extremities: Normal Inspection, Normal Range of Motion, Non-Tender, No Pedal Edema, Normal Capillary Refill Skin: Reports: Warm, Dry, Intact Wound/Incisions: Reports: Healing Well, No Drainage. Denies: Erythema Neurological: Reports: No New Focal Deficit Psy/Mental Status: Reports: Alert, Normal Affect, Normal Mood
== END 2019-11-13 14:44 | disposition home or self-care (01) | DRG 988 ==
LOC: JD.ED 01:16 → JD.ICU 10:03 → JD.MS 11-08 08:00 → JD.ICU 11-08 08:04 → JD.MS 11-10 19:51
PROVIDERS: ADMIT Family Medicine; ATTEND Family Medicine
PROC: 0FT44ZZ Resection of Gallbladder, Percutaneous Endoscopic Approach (ICD-10-PCS; principal; 2019-11-10)
DX: F10.239 Alcohol dependence with withdrawal, unspecified (principal); K81.0 Acute cholecystitis; N17.9 Acute kidney failure, unspecified; E87.1 Hypo-osmolality and hyponatremia; K70.11 Alcoholic hepatitis with ascites; E83.39 Other disorders of phosphorus metabolism; R74.8 Abnormal levels of other serum enzymes; N18.9 Chronic kidney disease, unspecified; E87.6 Hypokalemia; H54.7 Unspecified visual loss; I12.9 Hypertensive chronic kidney disease with stage 1 through stage 4 chronic kidney disease, or unspecified chronic kidney disease; E83.42 Hypomagnesemia; F17.210 Nicotine dependence, cigarettes, uncomplicated; E11.649 Type 2 diabetes mellitus with hypoglycemia without coma; E80.6 Other disorders of bilirubin metabolism; Y90.0 Blood alcohol level of less than 20 mg/100 ml; F32.9 Major depressive disorder, single episode, unspecified; Z79.4 Long term (current) use of insulin; Z79.899 Other long term (current) drug therapy; Z89.022 Acquired absence of left finger(s); Z90.49 Acquired absence of other specified parts of digestive tract
CPT/HCPCS: 00790; 36415; 51702; 70450; 70450-26; 74019; 74019-26; 74181; 74181-26; 76700; 76700-26; 78226; 78226-26; 80053; 80307; 81003; 82140; 82248; 82962; 82977; 83036; 83690; 83735; 84100; 84443; 85025; 85610; 85730; 86803; 96361; 96374; 97110-GO; 97110-GP; 97116-GP; 97163-GP; 97165-GO; 97530-GO; 97535-GO; 99284; 99285-25; A9270-GY; A9537; J0330; J0690; J1170; J1650; J1815-GY; J2001; J2060; J2250; J2370; J2405; J2704; J3010; J3411; J3475; J3480; J3490; J7030; J7040; J7050; J7120; Q3014; U0002

== ENCOUNTER 2019-11-23 17:36 | Emergency (ER) | payer MEDICAID ==
[2019-11-23] MEDS ORDERED: Sodium Chloride 0.9% 10 ML Syringe FLUSH PRN (18:07)
[2019-11-23] MEDS ORDERED: Sodium Chloride 0.9% 1,000 ML IV ONE ×2 (18:15→18:45)
--- NOTE | 2019-11-23 18:22 | EDM.PDOC ---
<VeeValentina V - Last Filed: 11/23/19 20:39> ED HPI GENERAL MEDICAL PROBLEM - General Chief Complaint: Diabetic Complaint Stated Complaint: HIGH BLOOD SUGAR, SENT BY VALENZUELA Time Seen by Provider: 11/23/19 18:06 Source of Information: Reports: Patient, RN Notes Reviewed History Limitations: Reports: No Limitations - History of Present Illness INITIAL COMMENTS - FREE TEXT/NARRATIVE: Patient is a 59-year-old male who presents to the ED for the evaluation of his elevated blood sugar. Patient notes he had a recent cholecystectomy, and was discharged from this hospital roughly 1-1/2 weeks ago. He went for his postop appointment today, they did lab work and that he was found to have a blood sugar in the 700s. Patient states he has a history of elevated blood sugars, and has been as high as 800 in the past. He is not complaining of any symptoms he is not having any fevers or chills, shortness of breath, nausea/vomiting/diarrhea, he states he does have a smoker's cough which is chronic for him. He does state that he has been taking his insulin and other medications as prescribed however his diet has not been the greatest, and states he has been eating lots of milkshakes after the surgery. He knows this is not good for him. - Related Data Allergies Allergy/AdvReac Type Severity Reaction Status Date / Time No Known Allergies Allergy Verified 11/23/19 17:57 Home Meds: Home Meds Folic Acid 1 mg PO DAILY tablet 07/07/19 [Rx] Thiamine [Vitamin B-1] 100 mg PO BEDTIME tablet 07/07/19 [Rx] FLUoxetine HCl [Prozac] 20 mg PO DAILY 11/07/19 [History] Nicotine [Nicotine Patch] 1 patch TRDERM DAILY 11/07/19 [History] Topiramate 25 mg PO BID 11/07/19 [History] amLODIPine [Norvasc] 5 mg PO DAILY 11/07/19 [History] atorvaSTATin [Lipitor] 10 mg PO DAILY 11/07/19 [History] Acetaminophen/Codeine [Tylenol with Codeine No.3 300MG/30MG] 1 tab PO Q4H PRN #16 tablet 11/13/19 [Rx] Insulin Glarg,Human.Rec.Analog [Lantus] 20 unit SUBCUT BEDTIME #3 ml 11/13/19 [Rx] Past Medical History HEENT History: Reports: Impaired Vision Cardiovascular History: Reports: Hypertension Gastrointestinal History: Reports: Fecal Incontinence Musculoskeletal History: Reports: Fracture, Other (See Below) Other Musculoskeletal History: rib fracture Psychiatric History: Reports: Addiction, Depression, Suicidal Ideation Endocrine/Metabolic History: Reports: Diabetes, Type II - Past Surgical History GI Surgical History: Reports: Cholecystectomy (October 2019) Neurological Surgical History: Reports: Lumbar Spine Musculoskeletal Surgical History: Reports: Arthroscopic Knee, Carpal Tunnel Social & Family History - Family History Family Medical History: Noncontributory - Tobacco Use Smoking Status *Q: Current Every Day Smoker Years of Tobacco use: 40 Packs/Tins Daily: 1 - Caffeine Use Caffeine Use: Reports: Coffee - Recreational Drug Use Recreational Drug Use: No - Living Situation & Occupation Occupation: Employed ED ROS GENERAL - Review of Systems Review Of Systems: Comprehensive ROS is negative, except as noted in HPI. ED EXAM GENERAL NO PERIP PULSE - Physical Exam Exam: See Below Exam Limited By: No Limitations General Appearance: Alert, WD/WN, No Apparent Distress Eye Exam: Bilateral Eye: EOMI, Normal Inspection, PERRL Throat/Mouth: Normal Inspection, Normal Lips, Normal Teeth, Normal Gums, Normal Oropharynx, Normal Voice, No Airway Compromise Head: Atraumatic, Normocephalic Neck: Normal Inspection Respiratory/Chest: No Respiratory Distress, Lungs Clear, Normal Breath Sounds, No Accessory Muscle Use, Chest Non-Tender Cardiovascular: Normal Peripheral Pulses, Regular Rate, Rhythm, No Murmur GI/Abdominal: Normal Bowel Sounds, Soft, Non-Tender, No Distention, No Mass Extremities: Normal Inspection, Normal Capillary Refill Neurological: Alert, Oriented, Normal Cognition, No Motor/Sensory Deficits Psychiatric: Normal Affect, Normal Mood Skin Exam: Warm, Dry, Intact, Normal Color (slight pallor noted.), No Rash Course - Re-Assessments/Exams Free Text/Narrative Re-Assessment/Exam: 11/23/19 18:21 Patient presents to the ED from the [facility] due to elevated blood sugar of 716. We will repeat labs today for our purposes. Liver enzymes did appear to be elevated as well along with a total bili of 1.7. Patient states he is not been very compliant with a diabetic diet and drinking lots of milkshakes since his surgery. This may be the cause of some of his symptoms. Will start IV fluids at this time for initial management. 11/23/19 19:45 Patient's labs have mostly resulted, CBC demonstrates a mild anemia. Venous pH is 7.40, within normal limits. Sodium mildly low at 126. Creatinine elevated at 1.7, with a GFR that is low at 41, which is an interval change from his hospital discharge where his creatinine is 0.9 and GFR was over 60. Liver enzymes are still elevated to the same level as they were at time of discharge. Ketones are 0.24, and blood glucose is measured at 621. Patient has gotten at least half of his bag of fluids, will repeat a second bag, and repeat a blood glucose between bags. We will do serial glucose checks, to make sure everything is getting better as expected. Patient was very adamant about not having to stay in the hospital. 11/23/19 20:03 Serum osmolality is slightly elevated at 309, our upper limit of normal is 300. 11/23/19 20:[address] Estrada about the patient's course. He did recommend starting insulin drip and doing copious IV fluids. Patient will likely have to stay in the ER overnight for resuscitation, Dr. Estrada is okay with managing this patient at this time. I did discuss this with the patient, he is okay with staying in the ER, but states he has a meeting tomorrow at 1 PM that he desperately needs to go to. We will hopefully have him ready to go and feeling better by tomorrow morning. Departure - Departure Disposition: Home, Self-Care 01 Condition: Good Clinical Impression: Hyperglycemia without ketosis - Discharge Information *PRESCRIPTION DRUG MONITORING PROGRAM REVIEWED*: No *COPY OF PRESCRIPTION DRUG MONITORING REPORT IN PATIENT ALEJANDRO: No Referrals: Marv Eduardo MD [Primary Care Provider] - Forms: ED Department Discharge Additional Instructions: You were seen in the emergency room for elevated blood sugar. Work-up in the ER included blood work, which found your blood sugar to be as high as 621. You were treated with IV fluid and an insulin drip in the ER. Your most recent blood sugar was 89. Going forward, we recommend that you stay adequately hydrated with a low sugar beverage, and eat a diabetic/low glycemic index diet. Follow-up with your PCP, Dr. Marv Eduardo, at the next available appointment. If any other problems, please do not hesitate to return to the ER. Sepsis Event Note (ED) - Evaluation Sepsis Screening Result: No Definite Risk <Manny Estrada - Last Filed: 11/24/19 00:40> Course - Vital Signs Last Recorded V/S: Last Vital Signs Temp 36.4 C 11/23/19 17:52 Pulse 119 H 11/23/19 17:52 Resp 20 11/23/19 17:52 BP 124/67 11/23/19 17:52 Pulse Ox 98 11/23/19 17:52 - Orders/Labs/Meds Orders: Active Orders 24 hr Category Date Time Status Blood Glucose Check, Bedside [] Q1HR Care 11/23/19 20:50 Active POC Glucose [Blood Glucose Check, Bedside] [] ONETIME Care 11/23/19 17:57 Active POC Glucose [Blood Glucose Check, Bedside] [] ONETIME Care 11/23/19 19:41 Active Peripheral IV Care [RC] . DIRECTED Care 11/23/19 18:08 Active Insulin Regular, Human [HumuLIN R] 100 unit Med 11/23/19 20:45 Active Sodium Chloride 0.9% [Normal Saline] 99 ml IV TITRATE Sodium Chloride 0.9% [Saline Flush] Med 11/23/19 18:07 Active 10 ml FLUSH ASDIRECTED PRN Peripheral IV Insertion Adult [OM.PC] Routine Oth 11/23/19 18:08 Ordered Medication Orders Insulin Human Regular 100 unit (/ Sodium Chloride) 100 mls @ 6.441 mls/hr IV TITRATE IVA; Protocol Last Titration: 11/23/19 21:59 Dose: 0.05 units/kg/hr, 3.2 mls/hr Documented by: GUILLE Cosigned by: SARAH Admin: 11/23/19 20:50 Dose: 0.1 units/kg/hr, 6.441 mls/hr Documented by: GUILLE Cosigned by: JAMMIE Sodium Chloride (Saline Flush) 10 ml FLUSH ASDIRECTED PRN PRN Reason: Keep Vein Open Last Admin: 11/23/19 19:06 Dose: 10 ml Documented by: ISAIAS Labs: Laboratory Tests 11/23/19 11/23/19 11/23/19 Range/Units 19:00 19:00 19:00 WBC 5.36 (4.23-9.07) K/mm3 RBC 3.11 L (4.63-6.08) M/mm3 Hgb 9.6 L (13.7-17.5) gm/dl Hct 30.0 L (40.1-51.0) % MCV 96.5 H (79.0-92.2) fl MCH 30.9 (25.7-32.2) pg MCHC 32.0 L (32.2-35.5) g/dl RDW Std Deviation 55.4 H (35.1-43.9) fL Plt Count 408 H (163-337) K/mm3 MPV 10.5 (9.4-12.3) fl Neut % (Auto) 73.3 H (34.0-67.9) % Lymph % (Auto) 16.4 L (21.8-53.1) % [place] % (Auto) 6.9 (5.3-12.2) % Eos % (Auto) 1.5 (0.8-7.0) Baso % (Auto) 1.3 H (0.1-1.2) % Neut # (Auto) 3.93 (1.78-5.38) K/mm3 Lymph # (Auto) 0.88 L (1.32-3.57) K/mm3 [place] # (Auto) 0.37 (0.30-0.82) K/mm3 Eos # (Auto) 0.08 (0.04-0.54) K/mm3 Baso # (Auto) 0.07 (0.01-0.08) K/mm3 VBG pH (7.30-7.40) Sodium 126 L (136-145) mEq/L Potassium 4.6 (3.5-5.1) mEq/L Chloride 90 L (98-107) mEq/L Carbon Dioxide 26 (21-32) mEq/L Anion Gap 14.6 (5-15) BUN 19 H (7-18) mg/dL Creatinine 1.7 H (0.7-1.3) mg/dL Est Cr Clr Drug Dosing 41.57 mL/min Estimated GFR (MDRD) 41 (>60) mL/min BUN/Creatinine Ratio 11.2 L (14-18) Glucose 621 H* (80-115) mg/dL POC Glucose (80-115) mg/dL Serum Osmolality 309 H (280-300) mosm/kg Calcium 8.8 (8.5-10.1) mg/dL Magnesium 1.8 (1.8-2.4) mg/dl Total Bilirubin 1.4 H (0.2-1.0) mg/dL AST 222 H (15-37) U/L ALT 202 H (16-63) U/L Alkaline Phosphatase 557 H (46-116) U/L Total Protein 6.8 (6.4-8.2) g/dl Albumin 2.7 L (3.4-5.0) g/dl Globulin 4.1 gm/dL Albumin/Globulin Ratio 0.7 L (1-2) Ketones 0.24 (0.0-0.3) mM 11/23/19 11/23/19 11/23/19 Range/Units 19:00 21:50 23:00 WBC (4.23-9.07) K/mm3 RBC (4.63-6.08) M/mm3 Hgb (13.7-17.5) gm/dl Hct (40.1-51.0) % MCV (79.0-92.2) fl MCH (25.7-32.2) pg MCHC (32.2-35.5) g/dl RDW Std Deviation (35.1-43.9) fL Plt Count (163-337) K/mm3 MPV (9.4-12.3) fl Neut % (Auto) (34.0-67.9) % Lymph % (Auto) (21.8-53.1) % [place] % (Auto) (5.3-12.2) % Eos % (Auto) (0.8-7.0) Baso % (Auto) (0.1-1.2) % Neut # (Auto) (1.78-5.38) K/mm3 Lymph # (Auto) (1.32-3.57) K/mm3 [place] # (Auto) (0.30-0.82) K/mm3 Eos # (Auto) (0.04-0.54) K/mm3 Baso # (Auto) (0.01-0.08) K/mm3 VBG pH 7.40 (7.30-7.40) Sodium (136-145) mEq/L Potassium (3.5-5.1) mEq/L Chloride (98-107) mEq/L Carbon Dioxide (21-32) mEq/L Anion Gap (5-15) BUN (7-18) mg/dL Creatinine (0.7-1.3) mg/dL Est Cr Clr Drug Dosing mL/min Estimated GFR (MDRD) (>60) mL/min BUN/Creatinine Ratio (14-18) Glucose (80-115) mg/dL POC Glucose 348 H 169 H (80-115) mg/dL Serum Osmolality (280-300) mosm/kg Calcium (8.5-10.1) mg/dL Magnesium (1.8-2.4) mg/dl Total Bilirubin (0.2-1.0) mg/dL AST (15-37) U/L ALT (16-63) U/L Alkaline Phosphatase (46-116) U/L Total Protein (6.4-8.2) g/dl Albumin (3.4-5.0) g/dl Globulin gm/dL Albumin/Globulin Ratio (1-2) Ketones (0.0-0.3) mM 11/24/19 Range/Units 00:12 WBC (4.23-9.07) K/mm3 RBC (4.63-6.08) M/mm3 Hgb (13.7-17.5) gm/dl Hct (40.1-51.0) % MCV (79.0-92.2) fl MCH (25.7-32.2) pg MCHC (32.2-35.5) g/dl RDW Std Deviation (35.1-43.9) fL Plt Count (163-337) K/mm3 MPV (9.4-12.3) fl Neut % (Auto) (34.0-67.9) % Lymph % (Auto) (21.8-53.1) % [place] % (Auto) (5.3-12.2) % Eos % (Auto) (0.8-7.0) Baso % (Auto) (0.1-1.2) % Neut # (Auto) (1.78-5.38) K/mm3 Lymph # (Auto) (1.32-3.57) K/mm3 [place] # (Auto) (0.30-0.82) K/mm3 Eos # (Auto) (0.04-0.54) K/mm3 Baso # (Auto) (0.01-0.08) K/mm3 VBG pH (7.30-7.40) Sodium (136-145) mEq/L Potassium (3.5-5.1) mEq/L Chloride (98-107) mEq/L Carbon Dioxide (21-32) mEq/L Anion Gap (5-15) BUN (7-18) mg/dL Creatinine (0.7-1.3) mg/dL Est Cr Clr Drug Dosing mL/min Estimated GFR (MDRD) (>60) mL/min BUN/Creatinine Ratio (14-18) Glucose (80-115) mg/dL POC Glucose 89 (80-115) mg/dL Serum Osmolality (280-300) mosm/kg Calcium (8.5-10.1) mg/dL Magnesium (1.8-2.4) mg/dl Total Bilirubin (0.2-1.0) mg/dL AST (15-37) U/L ALT (16-63) U/L Alkaline Phosphatase (46-116) U/L Total Protein (6.4-8.2) g/dl Albumin (3.4-5.0) g/dl Globulin gm/dL Albumin/Globulin Ratio (1-2) Ketones (0.0-0.3) mM Meds: Medications Generic Name Dose Route Start Last Admin Trade Name Freq PRN Reason Stop Dose Admin Insulin Human Regular 100 unit 100 mls @ 6.441 mls/hr 11/23/19 20:45 11/23/19 21:59 / Sodium Chloride IV 0.05 units/kg/hr TITRATE IVA 3.2 mls/hr Titration Protocol 0.1 UNITS/KG/HR Sodium Chloride 10 ml 11/23/19 18:07 11/23/19 19:06 Saline Flush FLUSH 10 ml ASDIRECTED PRN Administration Keep Vein Open Discontinued Medications Generic Name Dose Route Start Last Admin Trade Name Freq PRN Reason Stop Dose Admin Sodium Chloride 1,000 mls @ 999 mls/hr 11/23/19 18:15 11/23/19 19:06 Normal Saline IV 11/23/19 19:15 999 mls/hr ONETIME ONE Administration Sodium Chloride 1,000 mls @ 999 mls/hr 11/23/19 18:45 11/23/19 20:13 Normal Saline IV 11/23/19 19:45 999 mls/hr ONETIME ONE Administration Lorazepam 1 mg 11/23/19 18:41 11/23/19 18:47 Ativan PO 11/23/19 18:42 1 mg ONETIME ONE Administration Lorazepam 1 mg 11/23/19 21:37 11/23/19 21:51 Ativan IVPUSH 11/23/19 21:38 1 mg ONETIME ONE Administration - Re-Assessments/Exams Free Text/Narrative Re-Assessment/Exam: 11/23/19 21:58 Case received from Ms. Baxter. The patient's blood glucose was 621 at 19:00, and now down to 348 at 21:50, however, his insulin drip was not started until 20:50, indicating a drop of nearly 300 mg/dL in an hour. This is too aggressive a drop, therefore I asked Deyanira FISH to reduce the insulin drip to 0.05 Units/hr, then recheck a blood glucose in 1 hour. 11/23/19 23:05 Accu-Chek at 23:00 is 169. I have asked for his insulin drip to be discontinued, although his IV fluid continued. We will recheck an Accu-Chek in an hour. 11/24/19 00:14 Notified by Deyanira FISH that the most recent Accu-Chek is 89. We will see if we can get him a snack. 11/24/19 00:37 Test results discussed with the patient. He feels well and would like to go home. I advised that he stay adequately hydrated with non-sugar drinks, and stop drinking milkshakes. The patient agreed. Departure - Departure Time of Disposition: 00:37 Sepsis Event Note (ED) - Focused Exam Vital Signs: Vital Signs Temp Pulse Resp BP Pulse Ox 11/23/19 17:52 36.4 C 119 H 20 124/67 98
[2019-11-23] MEDS ORDERED: LORazepam 0.5 MG Tab PO ONE (18:41)
[2019-11-23] MEDS ORDERED: LORazepam 2 MG/ML SDV IVPUSH ONE (21:37)
[2019-11-24 01:05] VITALS: BP 143/88; PULSE 102
== END 2019-11-24 01:00 | disposition home or self-care (01) ==
LOC: JD.ED 17:36
DX: E11.65 Type 2 diabetes mellitus with hyperglycemia (principal); I10 Essential (primary) hypertension; F32.9 Major depressive disorder, single episode, unspecified; Z79.899 Other long term (current) drug therapy; Z79.4 Long term (current) use of insulin; F17.210 Nicotine dependence, cigarettes, uncomplicated
CPT/HCPCS: 36415; 80053; 82009; 82800; 82962; 83735; 83930; 85025; 96361; 96374; 99283; A9270; J1815; J2060; J7030; J7050; 99284

== ENCOUNTER 2020-01-03 08:19 | Emergency (ER) | payer MEDICAID ==
[2020-01-03] MEDS ORDERED: Ondansetron 4 MG/2 ML SDV IVPUSH ONE (08:32)
--- NOTE | 2020-01-03 08:38 | EDM.PDOCBH ---
ED HPI GENERAL MEDICAL PROBLEM - General Chief Complaint: Drug or Alcohol Abuse Stated Complaint: [place] Time Seen by Provider: 01/03/20 08:25 Source of Information: Reports: Patient, EMS History Limitations: Reports: Physical Impairment (patient is very ill and offers only a few answers to questions. ) - History of Present Illness INITIAL COMMENTS - FREE TEXT/NARRATIVE: 59-year-old male presents to the ED per [facility]. He is a known chronic alcohol user. He has known to have cirrhosis of the liver and mild ascites. He is also a type II diabetic and uses insulin for control. Patient presents to the ED in a moribund status and is obviously ketotic. Paramedics identified blood sugar to be greater than 495. Patient cannot tell me when he last was able to eat or retain food. He is also not able to tell me when he last used insulin. Patient presents deeply jaundiced. Apparently has been continue to drink vodka in large quantities daily.He is unable to quantify how much he drinks daily. Patient presents tachycardic and tachypneic. Blood pressure is recorded as 79/44. O2 sats 100% on room air. Afebrile and actually cool to touch. He reports he has been vomiting but is unclear if there is been any hematemesis. He has chronic diarrhea. Patient provides very little history due to his acute severe illness. Complains of diffuse upper abdominal pain. Onset: Unknown/Unsure, Other (History of chronic alcohol abuse. History of noncompliance with medications particular insulin to control blood sugars.) Onset Date: 01/02/20 Duration: Day(s):, Constant, Getting Worse Location: Reports: Abdomen, Generalized (Generalized weakness), Other (Intractable nausea vomiting) Quality: Reports: Ache (Diffuse ache primarily in the epigastrium and in the long costal margins towards both flanks.) Severity: Moderate (7-8 out of 10.) Improves with: Reports: None Worsens with: Reports: Other (And to take any fluids makes him vomit.) Context: Reports: Other (Chronic alcoholism. Noncompliance with medications including insulin for diabetic control). Denies: Activity, Exercise, Lifting, Sick Contact, Trauma Associated Symptoms: Reports: Chest Pain, Cough, cough w sputum, Loss of Appetite, Malaise, Nausea/Vomiting, Shortness of Breath, Weakness (Neurolyse severe weakness). Denies: Diaphoresis, Fever/Chills, Headaches, Rash, Seizure (I merrily bilious no reported hematemesis), Syncope Treatments ENDOCRINOLOGY NURSE: Reports: Other (see below) (It is unclear when he last took any of his medications.) Chest Pain Score (Numeric/FACES): 5 - Related Data Allergies Allergy/AdvReac Type Severity Reaction Status Date / Time ibuprofen AdvReac Abdominal Verified 01/03/20 08:31 Pain Home Meds: Home Meds Thiamine [Vitamin B-1] 100 mg PO BEDTIME tablet 07/07/19 [Rx] FLUoxetine HCl [Prozac] 20 mg PO DAILY 11/07/19 [History] Insulin Glarg,Human.Rec.Analog [Lantus] 30 unit SUBCUT BEDTIME 01/03/20 [History] Mirtazapine 7.5 mg PO BEDTIME 01/03/20 [History] Triamcinolone Acetonide [Triamcinolone Acetonide 0.1% Crm] 1 applic TOP BID 01/03/20 [History] Past Medical History HEENT History: Reports: Impaired Vision Cardiovascular History: Reports: Hypertension Respiratory History: Reports: None Gastrointestinal History: Reports: Fecal Incontinence Genitourinary History: Reports: None Musculoskeletal History: Reports: Fracture, Other (See Below) Other Musculoskeletal History: rib fracture Psychiatric History: Reports: Addiction, Depression, Suicidal Ideation Endocrine/Metabolic History: Reports: Diabetes, Type II (Controlled with insulin.) Hematologic History: Reports: None Immunologic History: Reports: None Oncologic (Cancer) History: Reports: None Dermatologic History: Reports: None - Past Surgical History GI Surgical History: Reports: Cholecystectomy (October 2019) Neurological Surgical History: Reports: Lumbar Spine Musculoskeletal Surgical History: Reports: Arthroscopic Knee, Carpal Tunnel Social & Family History - Family History Family Medical History: Noncontributory - Caffeine Use Caffeine Use: Reports: Coffee - Alcohol Use Alcohol Use History: Yes Days Per Week of Alcohol Use: 7 Number of Drinks Per Day: 12 Total Drinks Per Week: 84 - Living Situation & Occupation Living situation: Reports: Occupation: Unemployed ED ROS GENERAL - Review of Systems Review Of Systems: See Below Constitutional: Reports: Malaise, Weakness, Fatigue, Decreased Appetite, Weight Loss. Denies: Fever, Chills HEENT: Reports: Other Respiratory: Reports: Shortness of Breath, Cough, Sputum. Denies: Wheezing (Dry mouth), Pleuritic Chest Pain, Hemoptysis Cardiovascular: Reports: Chest Pain (Epigastrium lower retrosternal chest discomfort), Dyspnea on Exertion, Lightheadedness. Denies: Blood Pressure Problem, Claudication, Edema, Orthopnea Endocrine: Reports: Fatigue, High Glucose, Polyuria GI/Abdominal: Reports: Abdominal Pain (Gastrum and rating along the margins bilaterally.), Diarrhea (Chronic loose semiformed stools. Denies any melena), Nausea, Stool Incontinence, Vomiting (Double nausea and vomiting since ). Denies: Hematochezia, Melena : Reports: Other (Urine is dark in color.) Musculoskeletal: Reports: Back Pain Skin: Reports: Other (Diffuse jaundice with mild pruritus) Neurological: Reports: Confusion (Mildly confused at times hard to sort out as he is acutely ill.), Difficulty Walking (Unable to walk at this time), Weakness Psychiatric: Reports: Anxiety, Depression, Other (Chronic alcohol use disorder) Hematologic/Lymphatic: Reports: Easy Bruising Immunologic: Reports: No Symptoms ED EXAM, BEHAVIORAL HEALTH - Physical Exam Exam: See Below Exam Limited By: Physical Impairment (Is acutely ill and presents in a moribund status. He smells strongly of ketones and is obviously suffering diabetic ketoacidosis. He has been vomiting for at least 24 hours. Denies any hematemesis. Cannot tell me when he last had a solid meal. Cannot tell me when he last used insulin. Blood sugars recorded by paramedics was 495. Patient has been continue to drink whiskey up until last evening.) General Appearance: Lethargic, Severe Distress (Presents in a moribund status.), Thin, Other (Diffusely deeply jaundiced.) Eye Exam: Bilateral Eye: Nystagmus (Mild nystagmus on lateral gaze bilaterally.), PERRL, Other (Bilateral significant scleral icterus.) Throat/Mouth: Normal Oropharynx (No signs of infection), Other (Tongue is dry and coated.). No: Normal Teeth Head: Atraumatic, Normocephalic, Other (No outward signs of head or neck trauma.) Neck: Normal Inspection, Supple, Non-Tender, Full Range of Motion. No: Carotid Bruit, Lymphadenopathy (L), Lymphadenopathy (R) Respiratory/Chest: Lungs Clear, No Accessory Muscle Use, Chest Non-Tender, Respiratory Distress (Tachypnea at rest with strong smell of ketones on his breath. O2 sats 100% on room air), Decreased Breath Sounds (Decreased breath sounds of the lower 25% of the lung saucedo posteriorly due to) Cardiovascular: No Gallop ( at the time of my exam.), No Murmur, No Rub, Tachycardia (108) GI/Abdominal: Distended (Bowel sounds are absent on examination. Abdomen is distended and dull to percussion suggesting ascites. Evidence of recent laparoscopic cholecystectomy with scab still present on the wounds. None of them appear to be infected.), Abnormal Bowel Sounds, Hepatomegaly, Splenomegaly (Liver is palpable 3 fingerbreadths below the right costal margin and is moderately tender. I believe I can just feel the tip of the spleen left lower costal margin). No: Normal Bowel Sounds Back Exam: Normal Inspection, Other (No signs of contusions abrasions of the back either in the thoracic or lumbar spine area.). No: Decreased Range of Motion Extremities: Normal Range of Motion, Non-Tender, Pedal Edema (1+ pitting edema lower tib-fib's bilaterally.), Other (It appears that he has fallen with some mild bruising on both anterior knees.) Neurological: CN II-XII Intact, Normal Cognition (Unable to ascertain for sure as the patient can only answer a few minor questions.). No: Normal Mood/Affect, Normal Gait, Normal Reflexes, Oriented x 3 (Disoriented to time ) Psychiatric: No: Normal Cognition, Normal Mood, Oriented Skin Exam: Cool, Jaundice (Fusilli jaundiced.). No: Needle sawyer #1 Interpretation EKG Date: 01/03/20 Time: 08:40 Rhythm: NSR Rate (Beats/Min): 90 Odum: Normal P-Wave: Enlarged (Consider left atrial hypertrophy) QRS: Other (Intraventricular conduction delay consider atypical right bundle ble branch block pattern. There are much minimal Q waves noted in leads II, III and aVF which are less than 25% of the QRS complex and are considered insignificant.) ST-T: Other (T wave flattening aVL nonspecific) QT: Prolonged (Mildly prolonged) COURSE, BEHAVIORAL HEALTH COMP - Course Vital Signs: Last Vital Signs Temp 35.6 C L 01/03/20 08:28 Pulse 99 01/03/20 13:00 Resp 33 H 01/03/20 13:00 BP 119/73 01/03/20 13:00 Pulse Ox 100 01/03/20 13:00 Orders, Labs, Meds: Active Orders 24 hr Category Date Time Status Chest 1V Frontal [CR] Stat Exams 01/03/20 08:33 Taken CULTURE BLOOD [BC] Stat Lab 01/03/20 10:05 Received CULTURE BLOOD [BC] Stat Lab 01/03/20 10:20 Received GLUCOSE RANDOM [CHEM] Stat Lab 01/03/20 12:03 Ordered GLUCOSE RANDOM [CHEM] Stat Lab 01/03/20 12:04 Ordered LACTIC ACID [CHEM] Stat Lab 01/03/20 12:45 Received Blood Culture x2 Reflex Set [OM.PC] Stat Oth 01/03/20 08:35 Ordered Laboratory Tests 01/03/20 01/03/20 01/03/20 Range/Units 08:45 09:05 09:05 WBC 4.47 (4.23-9.07) K/mm3 RBC 3.30 L (4.63-6.08) M/mm3 Hgb 10.7 L (13.7-17.5) gm/dl Hct 33.4 L (40.1-51.0) % MCV 101.2 H D (79.0-92.2) fl MCH 32.4 H (25.7-32.2) pg MCHC 32.0 L (32.2-35.5) g/dl RDW Std Deviation 46.1 H (35.1-43.9) fL Plt Count 103 L D (163-337) K/mm3 MPV 12.3 (9.4-12.3) fl Neutrophils % (Manual) 79 H (40-60) % Band Neutrophils % 0 (0-10) % Lymphocytes % (Manual) 10 L (20-40) % Atypical Lymphs % 0 % Monocytes % (Manual) 11 H (2-10) % Eosinophils % (Manual) 0 L (0.8-7.0) % Basophils % (Manual) 0 L (0.2-1.2) Platelet Estimate Decreased Anisocytosis 1+ slight Macrocytosis 2+ moderate RBC Morph Comment Abnormal PT 13.1 H (9.7-11.7) SECONDS INR 1.23 APTT 27 (22-31) SECONDS Puncture Site Rt radial ABG pH 7.19 L* (7.35-7.45) ABG pCO2 18.8 L* (35.0-45.0) mmHg ABG pO2 85.0 (80.0-100.0) mmHg ABG HCO3 6.9 L (22.0-26.0) meq/L ABG O2 Saturation 92.9 L (96.0-97.0) % ABG Base Excess -19.9 L (-2-2.0) Nathen Test Positive A-a Gradient 41 mmHg O2 Delivery Device Room air Sodium (136-145) mEq/L Potassium (3.5-5.1) mEq/L Chloride (98-107) mEq/L Carbon Dioxide (21-32) mEq/L Anion Gap (5-15) BUN (7-18) mg/dL Creatinine (0.7-1.3) mg/dL Est Cr Clr Drug Dosing mL/min Estimated GFR (MDRD) (>60) mL/min BUN/Creatinine Ratio (14-18) Glucose (80-115) mg/dL Serum Osmolality (280-300) mosm/kg Lactic Acid (0.4-2.0) mmol/L Calcium (8.5-10.1) mg/dL Phosphorus (2.6-4.7) mg/dL Magnesium (1.8-2.4) mg/dl Ferritin (26-388) ng/ml Total Bilirubin (0.2-1.0) mg/dL GGT (15-85) U/L AST (15-37) U/L ALT (16-63) U/L Alkaline Phosphatase (46-116) U/L Ammonia (11-32) umol/L Lactate Dehydrogenase (85-227) U/L CK-MB (CK-2) (0-3.6) ng/ml Troponin I (0.00-0.056) ng/mL C-Reactive Protein (<1.0) mg/dL NT-Pro-B Natriuret Pep (0-125) pg/mL Total Protein (6.4-8.2) g/dl Albumin (3.4-5.0) g/dl Globulin gm/dL Albumin/Globulin Ratio (1-2) Lipase (73-393) U/L Urine Color (Yellow) Urine Appearance (Clear) Urine pH (5.0-8.0) Ur Specific [place] (1.005-1.030) Urine Protein (Negative) Urine Glucose (UA) (Negative) Urine Ketones (Negative) Urine Occult Blood (Negative) Urine Nitrite (Negative) Urine Bilirubin (Negative) Urine Urobilinogen (0.2-1.0) Ur Leukocyte Esterase (Negative) U Hyaline Cast (Auto) (0-5) /lpf Urine RBC (0-5) /hpf Urine WBC (0-5) /hpf Ur Squamous Epith Cells (0-5) /hpf Urine Bacteria (FEW) /hpf Urine Mucus (FEW) /hpf Urine Opiates Screen (KYBWKK=411) Ur Buprenorphine Scrn (CUTOFF=10) Ur Oxycodone Screen (SBT8KL=810) Urine Methadone Screen (ODP0DA=807) Ur Propoxyphene Screen (DTANMS=442) Ur Barbiturates Screen (LTUKUZ=393) Ur Tricyclics Screen (UYUYWB=153) Ur Phencyclidine Scrn (CUTOFF=25) Ur Amphetamine Screen (WDWZZZ=249) U Methamphetamines Scrn (NBQHII=087) U Benzodiazepines Scrn (FWEAOS=319) U Cocaine Metab Screen (MYRMPS=667) U Marijuana (THC) Screen (CUTOFF=50) Ethyl Alcohol (0.00) gm% Ketones (0.0-0.3) mM SARS-CoV-2 RNA (ISABEL) (NEGATIVE) 01/03/20 01/03/20 01/03/20 Range/Units 09:05 09:05 09:05 WBC (4.23-9.07) K/mm3 RBC (4.63-6.08) M/mm3 Hgb (13.7-17.5) gm/dl Hct (40.1-51.0) % MCV (79.0-92.2) fl MCH (25.7-32.2) pg MCHC (32.2-35.5) g/dl RDW Std Deviation (35.1-43.9) fL Plt Count (163-337) K/mm3 MPV (9.4-12.3) fl Neutrophils % (Manual) (40-60) % Band Neutrophils % (0-10) % Lymphocytes % (Manual) (20-40) % Atypical Lymphs % % Monocytes % (Manual) (2-10) % Eosinophils % (Manual) (0.8-7.0) % Basophils % (Manual) (0.2-1.2) Platelet Estimate Anisocytosis Macrocytosis RBC Morph Comment PT (9.7-11.7) SECONDS INR APTT (22-31) SECONDS Puncture Site ABG pH (7.35-7.45) ABG pCO2 (35.0-45.0) mmHg ABG pO2 (80.0-100.0) mmHg ABG HCO3 (22.0-26.0) meq/L ABG O2 Saturation (96.0-97.0) % ABG Base Excess (-2-2.0) Nathen Test A-a Gradient mmHg O2 Delivery Device Sodium 118 L (136-145) mEq/L Potassium 6.4 H* D (3.5-5.1) mEq/L Chloride 75 L D (98-107) mEq/L Carbon Dioxide 7 L* D (21-32) mEq/L Anion Gap 42.4 H (5-15) BUN 140 H D (7-18) mg/dL Creatinine 6.1 H D (0.7-1.3) mg/dL Est Cr Clr Drug Dosing 8.99 mL/min Estimated GFR (MDRD) 9 (>60) mL/min BUN/Creatinine Ratio 23.0 H (14-18) Glucose 603 H* (80-115) mg/dL Serum Osmolality 362 H (280-300) mosm/kg Lactic Acid 19.0 H* (0.4-2.0) mmol/L Calcium 8.7 (8.5-10.1) mg/dL Phosphorus 9.0 H (2.6-4.7) mg/dL Magnesium 3.1 H (1.8-2.4) mg/dl Ferritin 6833 H (26-388) ng/ml Total Bilirubin 4.0 H (0.2-1.0) mg/dL GGT 640 H (15-85) U/L AST 6269 H (15-37) U/L ALT 2501 H (16-63) U/L Alkaline Phosphatase 330 H (46-116) U/L Ammonia (11-32) umol/L Lactate Dehydrogenase 3721 H (85-227) U/L CK-MB (CK-2) 4.9 H (0-3.6) ng/ml Troponin I 0.040 (0.00-0.056) ng/mL C-Reactive Protein 2.3 H* (<1.0) mg/dL NT-Pro-B Natriuret Pep (0-125) pg/mL Total Protein 6.5 (6.4-8.2) g/dl Albumin 2.7 L (3.4-5.0) g/dl Globulin 3.8 gm/dL Albumin/Globulin Ratio 0.7 L (1-2) Lipase 3185 H (73-393) U/L Urine Color (Yellow) Urine Appearance (Clear) Urine pH (5.0-8.0) Ur Specific [place] (1.005-1.030) Urine Protein (Negative) Urine Glucose (UA) (Negative) Urine Ketones (Negative) Urine Occult Blood (Negative) Urine Nitrite (Negative) Urine Bilirubin (Negative) Urine Urobilinogen (0.2-1.0) Ur Leukocyte Esterase (Negative) U Hyaline Cast (Auto) (0-5) /lpf Urine RBC (0-5) /hpf Urine WBC (0-5) /hpf Ur Squamous Epith Cells (0-5) /hpf Urine Bacteria (FEW) /hpf Urine Mucus (FEW) /hpf Urine Opiates Screen (SHXWGL=083) Ur Buprenorphine Scrn (CUTOFF=10) Ur Oxycodone Screen (RMP0WN=603) Urine Methadone Screen (FZE8TN=459) Ur Propoxyphene Screen (NPWCCU=190) Ur Barbiturates Screen (TWCYPE=819) Ur Tricyclics Screen (RCTKLV=825) Ur Phencyclidine Scrn (CUTOFF=25) Ur Amphetamine Screen (IAGKDQ=858) U Methamphetamines Scrn (OVOLCE=771) U Benzodiazepines Scrn (QLYDQR=275) U Cocaine Metab Screen (ZFAHAE=443) U Marijuana (THC) Screen (CUTOFF=50) Ethyl Alcohol 0.00 (0.00) gm% Ketones (0.0-0.3) mM SARS-CoV-2 RNA (ISABEL) (NEGATIVE) 01/03/20 01/03/20 01/03/20 Range/Units 09:05 09:05 09:05 WBC (4.23-9.07) K/mm3 RBC (4.63-6.08) M/mm3 Hgb (13.7-17.5) gm/dl Hct (40.1-51.0) % MCV (79.0-92.2) fl MCH (25.7-32.2) pg MCHC (32.2-35.5) g/dl RDW Std Deviation (35.1-43.9) fL Plt Count (163-337) K/mm3 MPV (9.4-12.3) fl Neutrophils % (Manual) (40-60) % Band Neutrophils % (0-10) % Lymphocytes % (Manual) (20-40) % Atypical Lymphs % % Monocytes % (Manual) (2-10) % Eosinophils % (Manual) (0.8-7.0) % Basophils % (Manual) (0.2-1.2) Platelet Estimate Anisocytosis Macrocytosis RBC Morph Comment PT (9.7-11.7) SECONDS INR APTT (22-31) SECONDS Puncture Site ABG pH (7.35-7.45) ABG pCO2 (35.0-45.0) mmHg ABG pO2 (80.0-100.0) mmHg ABG HCO3 (22.0-26.0) meq/L ABG O2 Saturation (96.0-97.0) % ABG Base Excess (-2-2.0) Nathen Test A-a Gradient mmHg O2 Delivery Device Sodium (136-145) mEq/L Potassium (3.5-5.1) mEq/L Chloride (98-107) mEq/L Carbon Dioxide (21-32) mEq/L Anion Gap (5-15) BUN (7-18) mg/dL Creatinine (0.7-1.3) mg/dL Est Cr Clr Drug Dosing mL/min Estimated GFR (MDRD) (>60) mL/min BUN/Creatinine Ratio (14-18) Glucose (80-115) mg/dL Serum Osmolality (280-300) mosm/kg Lactic Acid (0.4-2.0) mmol/L Calcium (8.5-10.1) mg/dL Phosphorus (2.6-4.7) mg/dL Magnesium (1.8-2.4) mg/dl Ferritin (26-388) ng/ml Total Bilirubin (0.2-1.0) mg/dL GGT (15-85) U/L AST (15-37) U/L ALT (16-63) U/L Alkaline Phosphatase (46-116) U/L Ammonia 100 H (11-32) umol/L Lactate Dehydrogenase (85-227) U/L CK-MB (CK-2) (0-3.6) ng/ml Troponin I (0.00-0.056) ng/mL C-Reactive Protein (<1.0) mg/dL NT-Pro-B Natriuret Pep 2360 H (0-125) pg/mL Total Protein (6.4-8.2) g/dl Albumin (3.4-5.0) g/dl Globulin gm/dL Albumin/Globulin Ratio (1-2) Lipase (73-393) U/L Urine Color (Yellow) Urine Appearance (Clear) Urine pH (5.0-8.0) Ur Specific [place] (1.005-1.030) Urine Protein (Negative) Urine Glucose (UA) (Negative) Urine Ketones (Negative) Urine Occult Blood (Negative) Urine Nitrite (Negative) Urine Bilirubin (Negative) Urine Urobilinogen (0.2-1.0) Ur Leukocyte Esterase (Negative) U Hyaline Cast (Auto) (0-5) /lpf Urine RBC (0-5) /hpf Urine WBC (0-5) /hpf Ur Squamous Epith Cells (0-5) /hpf Urine Bacteria (FEW) /hpf Urine Mucus (FEW) /hpf Urine Opiates Screen (KTBTPG=817) Ur Buprenorphine Scrn (CUTOFF=10) Ur Oxycodone Screen (OMU5FR=353) Urine Methadone Screen (TUC3CT=256) Ur Propoxyphene Screen (ZDARSZ=294) Ur Barbiturates Screen (FOHVWD=969) Ur Tricyclics Screen (XLHUQW=108) Ur Phencyclidine Scrn (CUTOFF=25) Ur Amphetamine Screen (CIMDLS=611) U Methamphetamines Scrn (CHMXOM=854) U Benzodiazepines Scrn (ZWIXKF=429) U Cocaine Metab Screen (PAFDXD=435) U Marijuana (THC) Screen (CUTOFF=50) Ethyl Alcohol (0.00) gm% Ketones 3.49 (0.0-0.3) mM SARS-CoV-2 RNA (ISABEL) (NEGATIVE) 01/03/20 01/03/20 01/03/20 Range/Units 09:25 09:25 09:30 WBC (4.23-9.07) K/mm3 RBC (4.63-6.08) M/mm3 Hgb (13.7-17.5) gm/dl Hct (40.1-51.0) % MCV (79.0-92.2) fl MCH (25.7-32.2) pg MCHC (32.2-35.5) g/dl RDW Std Deviation (35.1-43.9) fL Plt Count (163-337) K/mm3 MPV (9.4-12.3) fl Neutrophils % (Manual) (40-60) % Band Neutrophils % (0-10) % Lymphocytes % (Manual) (20-40) % Atypical Lymphs % % Monocytes % (Manual) (2-10) % Eosinophils % (Manual) (0.8-7.0) % Basophils % (Manual) (0.2-1.2) Platelet Estimate Anisocytosis Macrocytosis RBC Morph Comment PT (9.7-11.7) SECONDS INR APTT (22-31) SECONDS Puncture Site ABG pH (7.35-7.45) ABG pCO2 (35.0-45.0) mmHg ABG pO2 (80.0-100.0) mmHg ABG HCO3 (22.0-26.0) meq/L ABG O2 Saturation (96.0-97.0) % ABG Base Excess (-2-2.0) Nathen Test A-a Gradient mmHg O2 Delivery Device Sodium (136-145) mEq/L Potassium (3.5-5.1) mEq/L Chloride (98-107) mEq/L Carbon Dioxide (21-32) mEq/L Anion Gap (5-15) BUN (7-18) mg/dL Creatinine (0.7-1.3) mg/dL Est Cr Clr Drug Dosing mL/min Estimated GFR (MDRD) (>60) mL/min BUN/Creatinine Ratio (14-18) Glucose (80-115) mg/dL Serum Osmolality (280-300) mosm/kg Lactic Acid (0.4-2.0) mmol/L Calcium (8.5-10.1) mg/dL Phosphorus (2.6-4.7) mg/dL Magnesium (1.8-2.4) mg/dl Ferritin (26-388) ng/ml Total Bilirubin (0.2-1.0) mg/dL GGT (15-85) U/L AST (15-37) U/L ALT (16-63) U/L Alkaline Phosphatase (46-116) U/L Ammonia (11-32) umol/L Lactate Dehydrogenase (85-227) U/L CK-MB (CK-2) (0-3.6) ng/ml Troponin I (0.00-0.056) ng/mL C-Reactive Protein (<1.0) mg/dL NT-Pro-B Natriuret Pep (0-125) pg/mL Total Protein (6.4-8.2) g/dl Albumin (3.4-5.0) g/dl Globulin gm/dL Albumin/Globulin Ratio (1-2) Lipase (73-393) U/L Urine Color Yellow (Yellow) Urine Appearance Clear (Clear) Urine pH 5.5 (5.0-8.0) Ur Specific [place] 1.020 (1.005-1.030) Urine Protein 2+ H (Negative) Urine Glucose (UA) 2+ H (Negative) Urine Ketones Trace H (Negative) Urine Occult Blood Trace-lysed H (Negative) Urine Nitrite Negative (Negative) Urine Bilirubin 1+ H (Negative) Urine Urobilinogen 1.0 (0.2-1.0) Ur Leukocyte Esterase Negative (Negative) U Hyaline Cast (Auto) 0-5 (0-5) /lpf Urine RBC 5-10 H (0-5) /hpf Urine WBC 0-5 (0-5) /hpf Ur Squamous Epith Cells 0-5 (0-5) /hpf Urine Bacteria Moderate H (FEW) /hpf Urine Mucus Few (FEW) /hpf Urine Opiates Screen Negative (ALNZVJ=262) Ur Buprenorphine Scrn Negative (CUTOFF=10) Ur Oxycodone Screen Negative (BRJ4WO=562) Urine Methadone Screen Negative (HGR6PE=223) Ur Propoxyphene Screen Negative (HHOZZS=395) Ur Barbiturates Screen Negative (UIQUIL=144) Ur Tricyclics Screen Negative (HBSQVB=594) Ur Phencyclidine Scrn Negative (CUTOFF=25) Ur Amphetamine Screen Negative (RCWPEF=269) U Methamphetamines Scrn Negative (RTZCRG=915) U Benzodiazepines Scrn Negative (SXDZPJ=633) U Cocaine Metab Screen Negative (AUUEEJ=769) U Marijuana (THC) Screen Negative (CUTOFF=50) Ethyl Alcohol (0.00) gm% Ketones (0.0-0.3) mM SARS-CoV-2 RNA (ISABEL) Negative (NEGATIVE) 01/03/20 01/03/20 Range/Units 10:50 12:45 WBC (4.23-9.07) K/mm3 RBC (4.63-6.08) M/mm3 Hgb (13.7-17.5) gm/dl Hct (40.1-51.0) % MCV (79.0-92.2) fl MCH (25.7-32.2) pg MCHC (32.2-35.5) g/dl RDW Std Deviation (35.1-43.9) fL Plt Count (163-337) K/mm3 MPV (9.4-12.3) fl Neutrophils % (Manual) (40-60) % Band Neutrophils % (0-10) % Lymphocytes % (Manual) (20-40) % Atypical Lymphs % % Monocytes % (Manual) (2-10) % Eosinophils % (Manual) (0.8-7.0) % Basophils % (Manual) (0.2-1.2) Platelet Estimate Anisocytosis Macrocytosis RBC Morph Comment PT (9.7-11.7) SECONDS INR APTT (22-31) SECONDS Puncture Site ABG pH (7.35-7.45) ABG pCO2 (35.0-45.0) mmHg ABG pO2 (80.0-100.0) mmHg ABG HCO3 (22.0-26.0) meq/L ABG O2 Saturation (96.0-97.0) % ABG Base Excess (-2-2.0) Nathen Test A-a Gradient mmHg O2 Delivery Device Sodium (136-145) mEq/L Potassium 6.2 H* (3.5-5.1) mEq/L Chloride (98-107) mEq/L Carbon Dioxide (21-32) mEq/L Anion Gap (5-15) BUN (7-18) mg/dL Creatinine (0.7-1.3) mg/dL Est Cr Clr Drug Dosing mL/min Estimated GFR (MDRD) (>60) mL/min BUN/Creatinine Ratio (14-18) Glucose 516 H 443 H (80-115) mg/dL Serum Osmolality (280-300) mosm/kg Lactic Acid (0.4-2.0) mmol/L Calcium (8.5-10.1) mg/dL Phosphorus (2.6-4.7) mg/dL Magnesium (1.8-2.4) mg/dl Ferritin (26-388) ng/ml Total Bilirubin (0.2-1.0) mg/dL GGT (15-85) U/L AST (15-37) U/L ALT (16-63) U/L Alkaline Phosphatase (46-116) U/L Ammonia (11-32) umol/L Lactate Dehydrogenase (85-227) U/L CK-MB (CK-2) (0-3.6) ng/ml Troponin I (0.00-0.056) ng/mL C-Reactive Protein (<1.0) mg/dL NT-Pro-B Natriuret Pep (0-125) pg/mL Total Protein (6.4-8.2) g/dl Albumin (3.4-5.0) g/dl Globulin gm/dL Albumin/Globulin Ratio (1-2) Lipase (73-393) U/L Urine Color (Yellow) Urine Appearance (Clear) Urine pH (5.0-8.0) Ur Specific [place] (1.005-1.030) Urine Protein (Negative) Urine Glucose (UA) (Negative) Urine Ketones (Negative) Urine Occult Blood (Negative) Urine Nitrite (Negative) Urine Bilirubin (Negative) Urine Urobilinogen (0.2-1.0) Ur Leukocyte Esterase (Negative) U Hyaline Cast (Auto) (0-5) /lpf Urine RBC (0-5) /hpf Urine WBC (0-5) /hpf Ur Squamous Epith Cells (0-5) /hpf Urine Bacteria (FEW) /hpf Urine Mucus (FEW) /hpf Urine Opiates Screen (PNJPLG=466) Ur Buprenorphine Scrn (CUTOFF=10) Ur Oxycodone Screen (RTT8AT=565) Urine Methadone Screen (MBH7EW=446) Ur Propoxyphene Screen (MIRIKG=591) Ur Barbiturates Screen (QGMHCP=619) Ur Tricyclics Screen (AJRAKJ=203) Ur Phencyclidine Scrn (CUTOFF=25) Ur Amphetamine Screen (HBTKRT=841) U Methamphetamines Scrn (TRVEZG=060) U Benzodiazepines Scrn (LVEAWJ=956) U Cocaine Metab Screen (EJUNTX=554) U Marijuana (THC) Screen (CUTOFF=50) Ethyl Alcohol (0.00) gm% Ketones (0.0-0.3) mM SARS-CoV-2 RNA (ISABEL) (NEGATIVE) Medications Discontinued Medications Generic Name Dose Route Start Last Admin Trade Name Bridget PRN Reason Stop Dose Admin Lactated Ringer's 1,000 mls @ 999 mls/hr 01/03/20 08:45 01/03/20 08:40 Ringers, Lactated IV 999 mls/hr ASDIRECTED IVA Administration Insulin Human Regular 100 unit 100 mls @ 3 mls/hr 01/03/20 08:45 01/03/20 09:32 / Sodium Chloride IV 3 unit/hr TITRATE IVA 3 mls/hr Administration Protocol 3 UNIT/HR Lactated Ringer's 1,000 mls @ 999 mls/hr 01/03/20 09:45 01/03/20 09:47 Ringers, Lactated IV 999 mls/hr ASDIRECTED IVA Administration Lactated Ringer's 1,000 mls @ 999 mls/hr 01/03/20 11:00 01/03/20 11:02 Ringers, Lactated IV 999 mls/hr ASDIRECTED IVA Administration Lactated Ringer's 1,000 mls @ 999 mls/hr 01/03/20 12:10 01/03/20 12:11 Ringers, Lactated IV 01/03/20 13:10 999 mls/hr .BOLUS ONE Administration Lactated Ringer's 1,000 mls @ 999 mls/hr 01/03/20 12:15 01/03/20 13:15 Ringers, Lactated IV 999 mls/hr ASDIRECTED IVA Administration Lorazepam 1 mg 01/03/20 09:10 01/03/20 09:28 Ativan IV 01/03/20 09:11 1 mg ONETIME ONE Administration Ondansetron HCl 4 mg 01/03/20 08:32 01/03/20 08:40 Zofran IVPUSH 01/03/20 08:33 4 mg ONETIME ONE Administration Thiamine HCl 100 mg 01/03/20 08:53 01/03/20 09:25 Vitamin B-1 IVPUSH 01/03/20 08:54 100 mg ONETIME ONE Administration Re-Assessment/Re-Exam: 59-year-old male who is a chronic alcoholic presents to the ED per [facility] where he resides. He presents due to intractable nausea and vomiting and diffuse upper abdominal pain. By history he has been using insulin for type 2 diabetes and is known to be noncompliant with medications. Blood sugar was reported to be greater than 495 by paramedics. They were not able to establish an IV. Patient cannot tell me when he last used insulin or had anything solid to eat. Reports intractable nausea and vomiting of bilious material without blood. Stools are always diarrhea stools. They tend to be yellowish in color. Appreciates urine to be quite dark in color. Has been drinking vodka up until last evening. He is too weak to walk at this time. He is obviously deeply jaundiced and and has known cirrhosis of the liver with ascites. Patient has strong smell of ketones on his breath indicating diabetic ketoacidosis possibly combined with alcohol induced keto acidosis. Plan IV Ringer's lactate at open. Given Zofran 4 mg IV for nausea relief. Will give Ativan 1 mg IV and thiamine 100 mg IV. ABGs and labs ordered. He will have 1 view chest x-ray. A COVID-19 screen will be carried out as the patient will have to be admitted to hospital. Re-Assessment/Re-Exam Date: 01/03/20 (I did review an ultrasound reported on his abdomen dated 08 November 2019 liver was found to be echogenic when compared to the right kidney which is most likely due to fatty infiltration. Small amount of fluid was noted between the diaphragm and liver compatible with mild ascites. Gallbladder wall was thickened without gallstones noted. No pericholecystic fluid identified. Pancreas was incompletely visualized. Spleen size reported to be normal at that time. ABGs revealed a pH of 7.19. PCO2 of 18.8 PO2 is 85 with O2 sats of 93%. Blood pressure has improved to 93/61. Heart rate is now 96 and sinus.) Re-Assessment/Re-Exam Time: 09:27 (Labs reveal a white count of 4.47. Differential pending hemoglobin is low at 10.7 with hematocrit of 33.4. MCV is elevated at 101.2. Platelet count is low at 103,000. Sling infusion will be started shortly. He will have his first blood sugar q. hourly after starting insulin drip. Blood pressure is currently 85/56 with a mean arterial pressure of 67. Heart rate is 96 in sinus O2 sats 100% room air. Chest x-ray done portably reveals mildly hyperinflated lungs bilaterally. There is early infiltrate in the left lower lobe as well as mildly in the right lower lobe concerning for possible viral pneumonia. Covid screen has been ordered.) Medical Clearance: 01/03/20 10:27 Chemistry is now back. Sodium is very low at 118. Potassium mildly elevated at 6.4 and will come down with insulin treatment. Chloride is 75 with a bicarb of 7. Anion gap is markedly elevated at 42.4. BUN is 140 markedly elevated with a creatinine of 6.1. Estimated GFR is only 9. This suggest pre-existing renal insufficiency. Glucose is 603. Serum osmolality 362 calcium 8.7 phosphorus was elevated at 9.0 magnesium elevated at 3.1. Total bilirubin is 4.0 GGT elevated at 640 AST is not yet available ALT markedly elevated at 2501. Alkaline phosphatase is 330. LDH is elevated at 3721. CK-MB fraction 4.9 troponin I is 0.040. C-reactive protein is 2.3. Total protein is 6.5 with an albumin fraction of 2.7. Lipase is pending. Serum ketones elevated at 3.49. COVID-19 screen pending 01/03/20 10:54 Lactic acid has returned at markedly elevated at 19.0. C- reactive protein 2.3. Troponin I was 0.040. CK-MB fraction 4.9 serum ferritin elevated at 6833 lipase elevated at 3185. COVID-19 screen is negative. He has completed 2 L of Ringer's lactate. He will be started on third liter of Ringer's lactate at open. Case will be discussed with Dr. Shahbaz Self on-call hospitalist with the view to admission to the intensive care unit versus need for possible transfer to a larger institution. Her blood sugar has just been drawn by the lab but is not yet available. 01/03/20 11:25 I have discussed the case with Dr. Ceron and he agrees the patient needs to be cared for at a larger center likely an ICU bed as he likely will require dialysis. 01/03/20 11:37 blood sugar is reported out at 516. Insulin drip will remain at 3 units an hour 01/03/20 14:01: Repeat blood sugar came back at 443. Insulin drip will remain at 3 units an hour. Lab was unable to calculate the lactic acid at this time. Serum potassium is relatively unchanged at 6.2. Patient has had 3-1/2 L of IV fluids and has yet to void concerning for possible acute renal failure. Given 1 amp of sodium bicarb intravenously in route to [place] in the ambulance. Departure - Departure Time of Disposition: 13:15 Disposition: DC/Tfer to Acute Hospital 02 Preliminary Cause of *Q: Multi System Organ Failure Condition: Critical Clinical Impression: Hepatorenal failure, Alcoholic cirrhosis of liver with ascites, Hyperkalemia, diminished renal excretion, Transaminasemia, Lactic acidosis Diabetic ketoacidosis associated with type 2 diabetes mellitus Qualifiers: Diabetes mellitus complication detail: without coma Qualified Code(s): E11.10 - Type 2 diabetes mellitus with ketoacidosis without coma Congestive heart failure Qualifiers: Heart failure type: unspecified Heart failure chronicity: acute on chronic Qualified Code(s): I50.9 - Heart failure, unspecified Acute pancreatitis Qualifiers: Pancreatitis type: alcohol induced - Discharge Information *PRESCRIPTION DRUG MONITORING PROGRAM REVIEWED*: No *COPY OF PRESCRIPTION DRUG MONITORING REPORT IN PATIENT ALEJANDRO: No Referrals: PCP,None [Ordering Only Provider] - Forms: ED Department Discharge Additional Instructions: Patient transferred to [facility] in [place] under the care of Dr. Chad Woodall financial business analyst due to multisystem failure. Patient presents with diabetic ketoacidosis and mild hyperkalemia. Severe renal insufficiency with hepatorenal failure. Anuria while in our hospital. Jaundice secondary to alcoholic induced cirrhosis of the liver with known ascites. Associated development of elevated liver enzymes and serum lipase. Associated congestive heart failure Sepsis Event Note (ED) - Focused Exam Vital Signs: Vital Signs Temp Pulse Resp BP Pulse Ox 01/03/20 13:00 99 33 H 119/73 100 01/03/20 08:28 35.6 C L 98 33 H 79/44 L 100 - My Orders Last 24 Hours: My Active Orders 01/03/20 08:33 Chest 1V Frontal [CR] Stat 01/03/20 08:35 Blood Culture x2 Reflex Set [OM.PC] Stat 01/03/20 10:05 CULTURE BLOOD [BC] Stat 01/03/20 10:20 CULTURE BLOOD [BC] Stat 01/03/20 12:03 GLUCOSE RANDOM [CHEM] Stat 01/03/20 12:04 GLUCOSE RANDOM [CHEM] Stat 01/03/20 12:45 LACTIC ACID [CHEM] Stat - Assessment/Plan Last 24 Hours: My Active Orders 01/03/20 08:33 Chest 1V Frontal [CR] Stat 01/03/20 08:35 Blood Culture x2 Reflex Set [OM.PC] Stat 01/03/20 10:05 CULTURE BLOOD [BC] Stat 01/03/20 10:20 CULTURE BLOOD [BC] Stat 01/03/20 12:03 GLUCOSE RANDOM [CHEM] Stat 01/03/20 12:04 GLUCOSE RANDOM [CHEM] Stat 01/03/20 12:45 LACTIC ACID [CHEM] Stat
[2020-01-03] MEDS ORDERED: Lactated Ringers 1,000 ML IV SCH ×4 (08:45→12:15)
[2020-01-03] MEDS ORDERED: Thiamine 200 MG/2 ML MDV IVPUSH ONE (08:53)
[2020-01-03] MEDS ORDERED: LORazepam 2 MG/ML SDV IV ONE (09:10)
[2020-01-03] MEDS ORDERED: Lactated Ringers 1,000 ML IV ONE (12:10)
[2020-01-03 13:54] VITALS: BP 119/73; PULSE 99
== END 2020-01-03 13:15 ==
LOC: JD.ED 08:19
DX: K76.7 Hepatorenal syndrome (principal); K70.31 Alcoholic cirrhosis of liver with ascites; E87.5 Hyperkalemia; R74.01 Elevation of levels of liver transaminase levels; E11.10 Type 2 diabetes mellitus with ketoacidosis without coma; I50.9 Heart failure, unspecified; K85.20 Alcohol induced acute pancreatitis without necrosis or infection; I11.0 Hypertensive heart disease with heart failure; E11.9 Type 2 diabetes mellitus without complications; Z20.828 Contact with and (suspected) exposure to other viral communicable diseases; Z79.4 Long term (current) use of insulin; Z79.899 Other long term (current) drug therapy; Z88.6 Allergy status to analgesic agent
CPT/HCPCS: 36415; 36600; 71045; 80053; 80306; 80307; 81001; 82009; 82140; 82553; 82728; 82803; 82947; 82977; 83605; 83615; 83690; 83735; 83880; 83930; 84100; 84132; 84484; 85007; 85027; 85610; 85730; 86140; 87040; 93005; 96374; 96375; 99285-25; J1815-GY; J2060; J2405; J3411; J7120; U0002